=== PATIENT | female | born 1970 | race Caucasian/White ===

== ENCOUNTER 2023-01-26 19:44 | Emergency (ER) | payer OTHER, SELFPAY ==
[2023-01-26 19:51] VITALS: BP 150/90; PULSE 67; RESP 18; TEMP 36.9; O2SAT 95; BMI 33.3
--- NOTE | 2023-01-26 20:18 | ED.BACK1 ---
HPI - Back Pain/Injury General Chief Complaint: Back Pain/Injury Stated Complaint: BACK PAIN, ABDOMINAL PAIN Time Seen by Provider: 01/26/23 19:54 Source: patient and family Mode of arrival: walk-in History of Present Illness HPI Narrative: patient presents complaining right back pain that radiates around to her right lower quad. Past history of kidney stones. States last stone was a year ago. Pain associated with nausea and loose stools. No fever or urinary symptoms MD elicited complaint: Reports back pain Pertinent past history: Reports kidney stones Related Data Home Medications Medication Instructions Recorded Confirmed duloxetine 30 mg capsule,delayed 30 mg PO QDAY 01/26/23 01/26/23 release Allergies Allergy/AdvReac Type Severity Reaction Status Date / Time codeine AdvReac Agitated Verified 01/26/23 19:55 Review of Systems ROS Status of ROS 10 or more systems reviewed and unremarkable except as noted in history and below PFSH PFS Social History Smoking status: Never smoker Exam Constitutional Vital Signs, click to edit/add: Last Vital Signs Temp 98.5 F 01/26/23 19:51 Pulse 79 01/26/23 22:50 Resp 16 01/26/23 22:50 BP 143/94 H 01/26/23 22:50 Pulse Ox 100 01/26/23 22:50 O2 Del Method Room Air 01/26/23 19:51 Common normals: oriented x3 and alert Eye Common normals: PERRL, EOMs intact bilaterally, conjunctivae normal and no scleral icterus Respiratory Common normals: normal respiratory effort, no retractions, no use of accessory muscles and clear to auscultation bilaterally Cardio Common normals: regular rate, regular rhythm, S1 normal heart sound and S2 normal heart sound GI Other: mild tenderness right flank and RLQ Back & Pelvis General back: CVA tenderness (right CVA tenderness) Extremity Common normals: normal to inspection and full ROM Neuro Common normals: oriented x3, CN's II-XII intact bilaterally, moves all extremities and no focal motor deficits Psych Appearance: grossly normal Course Vital Signs Vital signs: Vital Signs Temperature 98.5 F 01/26/23 19:51 Pulse Rate 67 01/26/23 19:51 Respiratory Rate 18 01/26/23 19:51 Blood Pressure 150/90 H 01/26/23 19:51 Pulse Oximetry 95 01/26/23 19:51 Oxygen Delivery Method Room Air 01/26/23 19:51 Temperature 98.5 F 01/26/23 19:51 Pulse Rate 79 01/26/23 22:50 Respiratory Rate 16 01/26/23 22:50 Blood Pressure 143/94 H 01/26/23 22:50 Pulse Oximetry 100 01/26/23 22:50 Oxygen Delivery Method Room Air 01/26/23 19:51 MDM - Back Pain/Injury MDM Narrative Medical decision making narrative: patient presents with right flank pain. Found to have a stone at the right UVJ and hydronephrosis. UA without evidence of infection. Patient hydrated and pain controlled prior to discharge. Stone 2mm in size and should be able to pass. Will discharge home and have her follow up with Urology Lab Data Labs: Lab Results 01/26/23 01/26/23 Range/Units 20:14 20:37 WBC 7.3 (4.0-11.0) 10^3/uL RBC 4.69 (4.20-5.40) 10^6/uL Hgb 14.1 (12.0-16.0) g/dL Hct 42.3 (36.0-48.0) % MCV 90.2 (81.0-99.0) fL MCH 30.1 (26.7-34.0) pg MCHC 33.3 (29.9-35.2) g/dL RDW 13.9 (11.0-15.0) % Plt Count 293 (150-450) 10^3/uL MPV 9.8 (9.5-13.5) fL Neut % (Auto) 62.0 (43.0-75.0) % Lymph % (Auto) 26.2 (20.5-60.0) % [place] % (Auto) 7.5 (1.7-12.0) % Eos % (Auto) 3.0 (0.9-7.0) % Baso % (Auto) 0.8 (0.2-2.0) % Neut # (Auto) 4.5 (1.4-6.5) 10^3/uL Lymph # (Auto) 1.9 (1.2-3.8) 10^3/uL [place] # (Auto) 0.6 (0.3-0.8) 10^3/uL Eos # (Auto) 0.2 (0.0-0.7) 10^3/uL Baso # (Auto) 0.1 (0.0-0.1) 10^3/uL Abs Immat Gran (auto) 0.04 H (0.00-0.03) 10^3/uL Imm/Tot Granulo (auto) 0.5 (0.0-0.5) % Sodium 141 (136-145) mmol/L Potassium 3.7 (3.5-5.1) mmol/L Chloride 103 (98-107) mmol/L Carbon Dioxide 25.9 (21.0-32.0) mmol/L Anion Gap 15.8 BUN 15.0 (7.0-18.0) mg/dL Creatinine 0.97 (0.55-1.02) mg/dL Est GFR ( Amer) >60 (>=60) Est GFR (Non-Af Amer) >60 (>=60) BUN/Creatinine Ratio 15.5 Glucose 129 H (74-106) mg/dL Calcium 8.9 (8.5-10.1) mg/dL Total Bilirubin 0.7 (0.2-1.0) mg/dL AST 44 H (15-37) U/L ALT 69 H (14-59) U/L Alkaline Phosphatase 105 (46-116) U/L Total Protein 8.1 (6.4-8.2) g/dL Albumin 4.3 (3.4-5.0) g/dL Globulin 3.8 g/dL Albumin/Globulin Ratio 1.1 Urine Color Yellow (YELLOW) Urine Clarity Clear (CLEAR) Urine pH 5.5 (5.0-9.0) Ur Specific [place] >=1.030 A (1.005-1.025) Urine Protein 30 A (NEG/TRACE) mg/dL Urine Glucose (UA) Negative (NEGATIVE) mg/dL Urine Ketones Negative (NEGATIVE) mg/dL Urine Occult Blood Large A (NEGATIVE) Urine Nitrite Negative (NEGATIVE) Urine Bilirubin Negative (NEGATIVE) Urine Urobilinogen 0.2 (0.2-1.0) EU/dL Ur Leukocyte Esterase Negative (NEGATIVE) Urine RBC 10-20 A (0-2) #/HPF Urine WBC 0-2 A (NONE SEEN) #/HPF Ur Squamous Epith Cells Few A (NONE/RARE) #/LPF Urine Crystals None seen (None Seen) #/HPF Urine Bacteria Trace A (NONE SEEN) #/HPF Urine Casts None seen (NONE SEEN) #/LPF Urine Mucus None seen (NONE SEEN) Ur Culture Indicated? Yes Imaging Data CT scan - abdomen: Radiologist's impression: [email or web address]?file=#[email or web address]?file=#[email or web address] Find: Highlight all Match case Current View [email or web address]?file=#[email or web address]&zoom=auto,-08,733 Page: of 2 Current View [email or web address]?file=#[email or web address]&zoom=auto,-78,657 [place] [id number] Patient Name: BHARATHI WEN MRN: [id number] date: 1970 Sex: F Assigned Patient Location: ER Current Patient Location: ER Accession/Order Number: [id number] Exam Date: 01/26/2023 20:40 Report Date: 01/26/2023 21:59 At the request of: JEROD CONRAD Procedure: CT abdomen pelvis wo con EXAMINATION: CT abdomen pelvis wo con, 01/26/2023 8:40 PM EDT HISTORY: right flank pain COMPARISON: CT abdomen and pelvis 09/22/2021 TECHNIQUE: CT scan of the abdomen and pelvis was performed without IV contrast. CT dose reduction technique was used, including Automated Exposure Control. FINDINGS: LOWER CHEST: Mild bibasilar atelectasis. LIVER: Moderate diffuse fatty infiltration. GALLBLADDER AND BILIARY SYSTEM: Status-post cholecystectomy. SPLEEN: Normal. PANCREAS: Normal. ADRENAL GLANDS: Normal. KIDNEYS AND URETERS: 4 mm stone in the right kidney lower pole which is slightly increased in size. There is new moderate right hydronephrosis. There is a stone at the right ureteropelvic junction measuring 2 mm on image 53 series 3. There are multiple nonobstructing left renal stones measuring up to 11 x 8 mm. These appear essentially stable. There is no left-sided hydroureteronephrosis or ureteral stones. VASCULATURE: Normal. RETROPERITONEUM AND LYMPH NODES: Normal, with no lymphadenopathy. GASTROINTESTINAL TRACT/MESENTERY: There are 2 stable diverticula off the distal third, and fourth portion of the duodenum measuring 2.9 x 1.9 cm and 2.8 x 1.9 cm. There are multiple diverticula within the descending and sigmoid colon with no definite acute diverticulitis. There is prominent submucosal fat within the ascending and transverse colon which can be seen as a normal variant as well as with chronic inflammation which is similar to the previous study. Bowel loops are nondistended. There is a ventriculoperitoneal shunt catheter in the chest wall, extending into the upper abdomen with tip in the right pelvis. BLADDER: The bladder is underdistended. REPRODUCTIVE SYSTEM: Normal uterus and adnexa. BODY WALL: Normal. BONES: There is mild levoscoliosis of the lumbar spine and there are mild to moderate degenerative changes at L5-S1. IMPRESSION: 1. Moderate right hydronephrosis secondary to a 2 mm stone at the ureteropelvic junction. 2. Nonobstructing bilateral renal stones, left greater than right. 3. Fatty liver. 4. Duodenal diverticula. 5. Prominent submucosal fat in the colon which can be seen as normal variant as well as with chronic inflammation. 6. Colonic diverticulosis with no acute diverticulitis. Electronically authenticated by: BRICE SALAS Date: 01/26/2023 21:59 Discharge Plan Discharge Chief Complaint: Back Pain/Injury Clinical Impression: Renal colic Patient Disposition: Home, Self-Care Prescriptions / Home Meds: No Action duloxetine 30 mg capsule,delayed release(DR/EC) 30 mg PO QDAY Instructions: Renal Colic (ED) Additional Instructions: follow up with urology. Return if pain worsens or you develop fever Stand Alone Forms: Portal Instructions Referrals: Kit Delarosa MD [Primary Care Provider] - 1 week
--- NOTE | 2023-01-26 20:19 | PC.NURSE ---
patient states she started to feel intense left sided flank pain radiating into left side of abdomen and down to pelvis. states she was eating when it started. she has had approx 4 episodes of loose stool but states its not like diarrhea. she has had kidney stones in the past and feels like this is similar. patient denies trauma to area. states no vomiting. no abnormalities seen to affected area. 18g iv initiated in left ac by ultrasound after unsuccessful stick. patient given gown and blanket. would like something for pain.
--- NOTE | 2023-01-26 20:23 | CT_ITS ---
The [address] [address] Patient Name: BHARATHI WEN MRN: [id number] date: 1970 Sex: F Assigned Patient Location: ER Current Patient Location: ER Accession/Order Number: [id number] Exam Date: 01/26/2023 20:40 Report Date: 01/26/2023 21:59 At the request of: JEROD CONRAD Procedure: CT abdomen pelvis wo con EXAMINATION: CT abdomen pelvis wo con, 01/26/2023 8:40 PM EDT HISTORY: right flank pain COMPARISON: CT abdomen and pelvis 09/22/2021 TECHNIQUE: CT scan of the abdomen and pelvis was performed without IV contrast. CT dose reduction technique was used, including Automated Exposure Control. FINDINGS: LOWER CHEST: Mild bibasilar atelectasis. LIVER: Moderate diffuse fatty infiltration. GALLBLADDER AND BILIARY SYSTEM: Status-post cholecystectomy. SPLEEN: Normal. PANCREAS: Normal. ADRENAL GLANDS: Normal. KIDNEYS AND URETERS: 4 mm stone in the right kidney lower pole which is slightly increased in size. There is new moderate right hydronephrosis. There is a stone at the right ureteropelvic junction measuring 2 mm on image 53 series 3. There are multiple nonobstructing left renal stones measuring up to 11 x 8 mm. These appear essentially stable. There is no left-sided hydroureteronephrosis or ureteral stones. VASCULATURE: Normal. RETROPERITONEUM AND LYMPH NODES: Normal, with no lymphadenopathy. GASTROINTESTINAL TRACT/MESENTERY: There are 2 stable diverticula off the distal third, and fourth portion of the duodenum measuring 2.9 x 1.9 cm and 2.8 x 1.9 cm. There are multiple diverticula within the descending and sigmoid colon with no definite acute diverticulitis. There is prominent submucosal fat within the ascending and transverse colon which can be seen as a normal variant as well as with chronic inflammation which is similar to the previous study. Bowel loops are nondistended. There is a ventriculoperitoneal shunt catheter in the chest wall, extending into the upper abdomen with tip in the right pelvis. BLADDER: The bladder is underdistended. REPRODUCTIVE SYSTEM: Normal uterus and adnexa. BODY WALL: Normal. BONES: There is mild levoscoliosis of the lumbar spine and there are mild to moderate degenerative changes at L5-S1. CT/CT abdomen pelvis wo con IMPRESSION: 1. Moderate right hydronephrosis secondary to a 2 mm stone at the ureteropelvic junction. 2. Nonobstructing bilateral renal stones, left greater than right. 3. Fatty liver. 4. Duodenal diverticula. 5. Prominent submucosal fat in the colon which can be seen as normal variant as well as with chronic inflammation. 6. Colonic diverticulosis with no acute diverticulitis. Electronically authenticated by: BRICE SALAS Date: 01/26/2023 21:59
[2023-01-26 20:30] LABS: Basophils Absolute Auto 0.1 10^3/uL (0.0-0.1); Basophils Percent Auto 0.8 % (0.2-2.0); Eosinophils Absolute Auto 0.2 10^3/uL (0.0-0.7); Hematocrit 42.3 % (36.0-48.0); Hemoglobin 14.1 g/dL (12.0-16.0); Immature Granulocytes Abs Auto 0.04 10^3/uL (0.00-0.03); Immature Granulocytes Pct Auto 0.5 % (0.0-0.5); Lymphocytes Absolute Auto 1.9 10^3/uL (1.2-3.8); Lymphocytes Percent Auto 26.2 % (20.5-60.0); Mean Corpuscular HGB Conc 33.3 g/dL (29.9-35.2); Mean Corpuscular Hemoglobin 30.1 pg (26.7-34.0); Mean Corpuscular Volume 90.2 fL (81.0-99.0); Mean Platelet Volume 9.8 fL (9.5-13.5); Monocytes Absolute Auto 0.6 10^3/uL (0.3-0.8); Monocytes Percent Auto 7.5 % (1.7-12.0); Neutrophils Absolute Auto 4.5 10^3/uL (1.4-6.5); Platelet Count 293 10^3/uL (150-450); Red Blood Count 4.69 10^6/uL (4.20-5.40); Red Cell Distribution Width 13.9 % (11.0-15.0); White Blood Count 7.3 10^3/uL (4.0-11.0)
[2023-01-26 20:46] LABS: Bilirubin Urine NEGATIVE (NEGATIVE); Blood Urine LARGE (NEGATIVE); Clarity Urine CLEAR (CLEAR); Color Urine YELLOW (YELLOW); Glucose Urine UA NEGATIVE (NEGATIVE); Ketones Urine NEGATIVE (NEGATIVE); Leukocyte Esterase Urine NEGATIVE (NEGATIVE); Nitrite Urine NEGATIVE (NEGATIVE); Protein Urine 30 mg/dL (NEG/TRACE); Specific Gravity Urine >=1.030 (1.005-1.025); Urobilinogen Urine 0.2 EU/dL (0.2-1.0); pH Urine 5.5 (5.0-9.0)
[2023-01-26 20:48] LABS: Urine Microscopic Indicated YES
[2023-01-26 20:48] LABS: Alanine Aminotransferase 69 U/L (14-59); Albumin Globulin Ratio 1.1; Albumin Level 4.3 g/dL (3.4-5.0); Alkaline Phosphatase 105 U/L (46-116); Anion Gap 15.8; Aspartate Amino Transferase 44 U/L (15-37); BUN Creatinine Ratio 15.5; Bilirubin Total 0.7 mg/dL (0.2-1.0); Calcium 8.9 mg/dL (8.5-10.1); Carbon Dioxide 25.9 mmol/L (21.0-32.0); Chloride 103 mmol/L (98-107); Estimated GFR (African America >60 (>=60); Estimated GFR (Non-African Ame >60 (>=60); Globulin 3.8 g/dL; Glucose 129 mg/dL (74-106); Potassium 3.7 mmol/L (3.5-5.1); Sodium 141 mmol/L (136-145); Total Protein 8.1 g/dL (6.4-8.2)
[2023-01-26] MEDS: 0.9 % SODIUM CHLORIDE 1,000 ML 999 ML IV ×2 (20:48→22:42)
[2023-01-26] MEDS: ORPHENADRINE 60 MG/ 2 ML VIAL IV (20:49)
[2023-01-26] MEDS: ONDANSETRON PF 4 MG/2 ML VIAL IV (20:49)
[2023-01-26] MEDS: KETOROLAC TROMETHAMINE 30 MG/ML VIAL IVP (20:49)
[2023-01-26 20:53] LABS: Bacteria Urine TRACE #/HPF (NONE SEEN); Cast Seen? NONE SEEN #/LPF (NONE SEEN); Crystals Seen? None Seen #/HPF (None Seen); Mucus Urine NONE SEEN (NONE SEEN); Squamous Epithelial Cell Urine FEW #/LPF (NONE/RARE); Urine Culture Indicated YES; WBC Urine 0-2 #/HPF (NONE SEEN)
[2023-01-26] MEDS: MORPHINE SULFATE 4 MG/ML VIAL IV (22:42)
[2023-01-26 22:50] VITALS: BP 143/94; PULSE 79; RESP 16; O2SAT 100
[2023-01-27] MEDS: HYDROCODONE/ACETAMINOPHEN 5-325 MG TABLET 4 TAB PO (00:02)
== END 2023-01-27 00:22 | disposition home or self-care (01) ==
PROVIDERS: Emergency Provider Internal Medicine; PCP Family Medicine
DX: N13.2 Hydronephrosis with renal and ureteral calculous obstruction (principal); Z87.442 Personal history of urinary calculi
CPT/HCPCS: 36415; 74176; 80053; 81001; 85025; 87086; 99284

== ENCOUNTER 2023-02-25 08:15 | Emergency (ER) | payer OTHER, SELFPAY ==
[2023-02-25 08:18] VITALS: BP 165/97; PULSE 78; RESP 20; TEMP 36.7; O2SAT 97; BMI 36.0
--- NOTE | 2023-02-25 08:38 | CT_ITS ---
The [address] [address] Patient Name: BHARATHI WEN MRN: [id number] date: 1970 Sex: F Assigned Patient Location: ER Current Patient Location: Accession/Order Number: [id number] Exam Date: 02/25/2023 08:57 Report Date: 02/25/2023 09:28 At the request of: KERVIN SNYDER Procedure: CT abdomen pelvis wo con CT abdomen pelvis wo con, 02/25/2023 8:57 AM EDT INDICATION: Right flank pain, rule out kidney stone COMPARISON: Noncontrast CT scan of the abdomen and pelvis 01/26/2023 TECHNIQUE: Axial images of the abdomen and pelvis were obtained without IV contrast. Multiplanar reformatted images were generated and reviewed as needed. Dose reduction techniques were achieved by using automated exposure control and/or adjustment of mA and/or kV according to patient size and/or use of iterative reconstruction technique. FINDINGS: Subsegmental atelectasis at the lung bases bilaterally. No effusion. Cholecystectomy. Diffuse fatty infiltration within an enlarged liver. Likely vascular calcification within the spleen. Nonobstructing left nephrolithiasis. Nonobstructing right renal calculus is no longer visualized. Mild right perinephric and periureteral fat stranding. 2 mm calculus within the right UVJ with mild collecting system dilatation proximally. No perivesicular fat stranding. Uterus and adnexa are unremarkable on a noncontrast scan. No aortic aneurysm. No bowel obstruction or acute focal inflammation. Diverticula along the third portion of the duodenum. Normal appendix. Colonic diverticulosis. Submucosal fat deposition terminal ileum, ileocecal valve and colon, grossly unchanged. No pneumatosis, pneumoperitoneum or ascites. No mesenteric or retroperitoneal lymphadenopathy. Visualized portions of SUPPLY CATAL[employer] shunt catheter appear intact. No acute fracture or dislocation. Stable mild levoscoliosis and degenerative disc disease L5/S1. CT/CT abdomen pelvis wo con IMPRESSION: 1. 2 mm right UVJ calculus with mild right hydroureteronephrosis. 2. Nonobstructing left nephrolithiasis. 3. Duodenal diverticulosis and Diverticulosis coli. No findings to suggest diverticulitis. 4. Hepatomegaly with diffuse hepatic steatosis. Electronically authenticated by: BRANT LEE Date: 02/25/2023 09:28
--- NOTE | 2023-02-25 08:42 | ED.GENADUL1 ---
HPI - General Adult General Chief complaint: Back Pain/Injury Stated complaint: BACK PAIN Time Seen by Provider: 02/25/23 08:32 Source: patient Mode of arrival: walk-in History of Present Illness HPI narrative: 52-year-old female presents for right flank pain. She has a history of kidney stones and this time it started yesterday and was worse today. She had a kidney stone about a month ago. At that time it was 2 mm at the right ureteropelvic junction. No fever or left-sided pain. The pain is severe and now continuous. Related Data Home Medications Medication Instructions Recorded Confirmed duloxetine 30 mg capsule,delayed 30 mg PO QDAY 01/26/23 02/25/23 release Previous Rx's Medication Instructions Recorded hydrocodone 5 mg-acetaminophen 325 1 tab PO Q6H PRN pain #20 tabs 02/25/23 mg tablet ondansetron HCl 4 mg tablet 4 mg PO Q6H PRN nausea and 02/25/23 vomiting #20 tabs tamsulosin 0.4 mg capsule (Flomax) 0.4 mg PO DAILY #7 caps 02/25/23 Allergies Allergy/AdvReac Type Severity Reaction Status Date / Time codeine AdvReac Agitated Verified 02/25/23 08:25 Review of Systems ROS Narrative A ten point review of systems is negative except as noted above. PFSH PFSH Social History Smoking status: Never smoker Exam Narrative Exam Narrative: Nurses note and vital signs reviewed and patient is not hypoxic. General: The patient appears well and in no apparent distress. Patient is resting comfortably on cart. Skin: Warm, dry, no pallor noted. There is no rash noted. Head: Normocephalic, atraumatic Eye: Normal conjunctiva, no drainage Ears, Nose, Mouth, and Throat: oral mucosa is moist. Nares patent. Mouth without vesicles. Cardiovascular: Regular Rate and Rhythm Respiratory: Patient is in no distress, no accessory muscle use, lungs are clear to auscultation, no wheezing, rales or rhonchi Back: non-tender, no CVA tenderness bilaterally to percussion. no rash in the flank or abdominal areas. GI: Normal bowel sounds, no tenderness to palpation, no masses appreciated. No rebound, guarding, or rigidity noted. Musculoskeletal: The patient has no evidence of calf tenderness, no pitting edema, symmetrical pulses noted bilaterally Neurological: A&O, normal speech Psychiatric: Cooperative Constitutional Vital Signs, click to edit/add: Last Vital Signs Temp 98.0 F 02/25/23 08:18 Pulse 82 02/25/23 10:23 Resp 18 02/25/23 10:23 BP 133/105 H 02/25/23 10:23 Pulse Ox 98 02/25/23 10:23 O2 Del Method Room Air 02/25/23 08:18 Course Vital Signs Vital signs: Vital Signs Temperature 98.0 F 02/25/23 08:18 Pulse Rate 78 02/25/23 08:18 Respiratory Rate 20 02/25/23 08:18 Blood Pressure 165/97 H 02/25/23 08:18 Pulse Oximetry 97 02/25/23 08:18 Oxygen Delivery Method Room Air 02/25/23 08:18 Temperature 98.0 F 02/25/23 08:18 Pulse Rate 82 02/25/23 10:23 Respiratory Rate 18 02/25/23 10:23 Blood Pressure 133/105 H 02/25/23 10:23 Pulse Oximetry 98 02/25/23 10:23 Oxygen Delivery Method Room Air 02/25/23 08:18 Medical Decision Making MDM Narrative Medical decision making narrative: kidney stone is identified at the right UV junction. The patient has an appointment with urology next week and she'll keep that appointment. She is feeling comfortable and is able to be discharged home. Treatment diagnosis of upper discussed with the patient and her father. Differential Diagnosis Differential Diagnosis: kidney stone, urinary tract infection, hydronephrosis Lab Data Lab results reviewed: Yes I reviewed the patient's lab results Labs: Lab Results 02/25/23 02/25/23 Range/Units 08:28 09:15 WBC 8.9 (4.0-11.0) 10^3/uL RBC 4.33 (4.20-5.40) 10^6/uL Hgb 13.3 (12.0-16.0) g/dL Hct 39.7 (36.0-48.0) % MCV 91.7 (81.0-99.0) fL MCH 30.7 (26.7-34.0) pg MCHC 33.5 (29.9-35.2) g/dL RDW 13.2 (11.0-15.0) % Plt Count 262 (150-450) 10^3/uL MPV 10.2 (9.5-13.5) fL Neut % (Auto) 78.8 H (43.0-75.0) % Lymph % (Auto) 13.5 L (20.5-60.0) % [place] % (Auto) 5.3 (1.7-12.0) % Eos % (Auto) 1.0 (0.9-7.0) % Baso % (Auto) 0.7 (0.2-2.0) % Neut # (Auto) 7.0 H (1.4-6.5) 10^3/uL Lymph # (Auto) 1.2 (1.2-3.8) 10^3/uL [place] # (Auto) 0.5 (0.3-0.8) 10^3/uL Eos # (Auto) 0.1 (0.0-0.7) 10^3/uL Baso # (Auto) 0.1 (0.0-0.1) 10^3/uL Abs Immat Gran (auto) 0.06 H (0.00-0.03) 10^3/uL Imm/Tot Granulo (auto) 0.7 H (0.0-0.5) % Sodium 137 (136-145) mmol/L Potassium 3.8 (3.5-5.1) mmol/L Chloride 105 (98-107) mmol/L Carbon Dioxide 22.5 (21.0-32.0) mmol/L Anion Gap 13.3 BUN 13.0 (7.0-18.0) mg/dL Creatinine 0.82 (0.55-1.02) mg/dL Est GFR ( Amer) >60 (>=60) Est GFR (Non-Af Amer) >60 (>=60) BUN/Creatinine Ratio 15.9 Glucose 128 H (74-106) mg/dL Calcium 9.2 (8.5-10.1) mg/dL Urine Color Lt. yellow (YELLOW) Urine Clarity Clear (CLEAR) Urine pH 6.0 (5.0-9.0) Ur Specific [place] 1.025 (1.005-1.025) Urine Protein Trace (NEG/TRACE) mg/dL Urine Glucose (UA) Negative (NEGATIVE) mg/dL Urine Ketones Negative (NEGATIVE) mg/dL Urine Occult Blood Moderate A (NEGATIVE) Urine Nitrite Negative (NEGATIVE) Urine Bilirubin Negative (NEGATIVE) Urine Urobilinogen 0.2 (0.2-1.0) EU/dL Ur Leukocyte Esterase Negative (NEGATIVE) Urine RBC 2-5 A (0-2) #/HPF Urine WBC 0-2 A (NONE SEEN) #/HPF Ur Squamous Epith Cells Few A (NONE/RARE) #/LPF Urine Bacteria Small A (NONE SEEN) #/HPF Urine Mucus None seen (NONE SEEN) Imaging Data CT scan - abdomen: Radiologist's impression: Procedure: CT abdomen pelvis wo con CT abdomen pelvis wo con, 02/25/2023 8:57 AM EDT INDICATION: Right flank pain, rule out kidney stone COMPARISON: Noncontrast CT scan of the abdomen and pelvis 01/26/2023 TECHNIQUE: Axial images of the abdomen and pelvis were obtained without IV contrast. Multiplanar reformatted images were generated and reviewed as needed. Dose reduction techniques were achieved by using automated exposure control and/or adjustment of mA and/or kV according to patient size and/or use of iterative reconstruction technique. FINDINGS: Subsegmental atelectasis at the lung bases bilaterally. No effusion. Cholecystectomy. Diffuse fatty infiltration within an enlarged liver. Likely vascular calcification within the spleen. Nonobstructing left nephrolithiasis. Nonobstructing right renal calculus is no longer visualized. Mild right perinephric and periureteral fat stranding. 2 mm calculus within the right UVJ with mild collecting system dilatation proximally. No perivesicular fat stranding. Uterus and adnexa are unremarkable on a noncontrast scan. No aortic aneurysm. No bowel obstruction or acute focal inflammation. Diverticula along the third portion of the duodenum. Normal appendix. Colonic diverticulosis. Submucosal fat deposition terminal ileum, ileocecal valve and colon, grossly unchanged. No pneumatosis, pneumoperitoneum or ascites. No mesenteric or retroperitoneal lymphadenopathy. Visualized portions of [employer] shunt catheter appear intact. No acute fracture or dislocation. Stable mild levoscoliosis and degenerative disc disease L5/S1. IMPRESSION: 1. 2 mm right UVJ calculus with mild right hydroureteronephrosis. 2. Nonobstructing left nephrolithiasis. 3. Duodenal diverticulosis and Diverticulosis coli. No findings to suggest diverticulitis. 4. Hepatomegaly with diffuse hepatic steatosis. Electronically authenticated by: BRANT LEE Date: 02/25/2023 09:28 Discharge Plan Discharge Chief Complaint: Back Pain/Injury Clinical Impression: Kidney stone Patient Disposition: Home, Self-Care Time of Disposition Decision: 10:47 Condition: Good Mode of Transportation: Private Vehicle Prescriptions / Home Meds: New hydrocodone-acetaminophen 5-325 mg tablet 1 tab PO Q6H PRN (Reason: pain) Qty: 20 0RF tamsulosin [Flomax] 0.4 mg capsule 0.4 mg PO DAILY Qty: 7 0RF ondansetron HCl 4 mg tablet 4 mg PO Q6H PRN (Reason: nausea and vomiting) Qty: 20 0RF No Action duloxetine 30 mg capsule,delayed release(DR/EC) 30 mg PO QDAY Print Language: Ukrainian Instructions: Kidney Stones (ED), Flank Pain (ED) Stand Alone Forms: Portal Instructions Referrals: Kit Delarosa MD [Primary Care Provider] - 1 week
[2023-02-25] MEDS: MORPHINE SULFATE 4 MG/ML VIAL IV (08:52)
[2023-02-25] MEDS: 0.9 % SODIUM CHLORIDE 1,000 ML 1000 ML IV (09:05)
[2023-02-25 09:37] LABS: Basophils Absolute Auto 0.1 10^3/uL (0.0-0.1); Basophils Percent Auto 0.7 % (0.2-2.0); Eosinophils Absolute Auto 0.1 10^3/uL (0.0-0.7); Hematocrit 39.7 % (36.0-48.0); Hemoglobin 13.3 g/dL (12.0-16.0); Immature Granulocytes Abs Auto 0.06 10^3/uL (0.00-0.03); Immature Granulocytes Pct Auto 0.7 % (0.0-0.5); Lymphocytes Absolute Auto 1.2 10^3/uL (1.2-3.8); Lymphocytes Percent Auto 13.5 % (20.5-60.0); Mean Corpuscular HGB Conc 33.5 g/dL (29.9-35.2); Mean Corpuscular Hemoglobin 30.7 pg (26.7-34.0); Mean Corpuscular Volume 91.7 fL (81.0-99.0); Mean Platelet Volume 10.2 fL (9.5-13.5); Monocytes Absolute Auto 0.5 10^3/uL (0.3-0.8); Monocytes Percent Auto 5.3 % (1.7-12.0); Neutrophils Percent Auto 78.8 % (43.0-75.0); Platelet Count 262 10^3/uL (150-450); Red Blood Count 4.33 10^6/uL (4.20-5.40); Red Cell Distribution Width 13.2 % (11.0-15.0); White Blood Count 8.9 10^3/uL (4.0-11.0)
[2023-02-25 09:40] LABS: Anion Gap 13.3; BUN Creatinine Ratio 15.9; Calcium 9.2 mg/dL (8.5-10.1); Carbon Dioxide 22.5 mmol/L (21.0-32.0); Chloride 105 mmol/L (98-107); Estimated GFR (African America >60 (>=60); Estimated GFR (Non-African Ame >60 (>=60); Glucose 128 mg/dL (74-106); Potassium 3.8 mmol/L (3.5-5.1); Sodium 137 mmol/L (136-145)
[2023-02-25 10:09] LABS: Bilirubin Urine NEGATIVE (NEGATIVE); Blood Urine MODERATE (NEGATIVE); Clarity Urine CLEAR (CLEAR); Color Urine LT. YELLOW (YELLOW); Glucose Urine UA NEGATIVE (NEGATIVE); Ketones Urine NEGATIVE (NEGATIVE); Leukocyte Esterase Urine NEGATIVE (NEGATIVE); Nitrite Urine NEGATIVE (NEGATIVE); Protein Urine TRACE mg/dL (NEG/TRACE); Specific Gravity Urine 1.025 (1.005-1.025); Urobilinogen Urine 0.2 EU/dL (0.2-1.0)
[2023-02-25 10:23] VITALS: BP 133/105; PULSE 82; RESP 18; O2SAT 98
[2023-02-25 10:26] LABS: WBC Urine 0-2 #/HPF (NONE SEEN)
[2023-02-25 10:27] LABS: Bacteria Urine SMALL #/HPF (NONE SEEN); Mucus Urine NONE SEEN (NONE SEEN); Squamous Epithelial Cell Urine FEW #/LPF (NONE/RARE)
== END 2023-02-25 11:00 | disposition home or self-care (01) ==
PROVIDERS: Emergency Provider Emergency Medicine; PCP Family Medicine
DX: N20.0 Calculus of kidney (principal); Z87.442 Personal history of urinary calculi; Z79.899 Other long term (current) drug therapy
CPT/HCPCS: 36415; 74176; 80048; 81001; 85025; 96374; 99285

== ENCOUNTER 2023-08-03 12:50 | Emergency (ER) | payer OTHER, SELFPAY ==
[2023-08-03 12:59] VITALS: BP 165/100; PULSE 69; RESP 18; TEMP 36.6; O2SAT 97; BMI 37.8
--- NOTE | 2023-08-03 13:13 | ED_ITS ---
HPI - Abdominal Pain General Chief Complaint: Abdominal Pain Stated Complaint: abdominal pain, left flank pain Time Seen by Provider: 08/03/23 13:09 Source: patient Mode of arrival: walk-in Limitations: no limitations History of Present Illness HPI narrative: This patient is here with her father with complaint of left lower pelvic pain that is now rating into her back. Both her and her father had kidney stones b efore. She thinks she may have had a stent once previously but is not accurate. 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 She denies any fevers shakes or chills. She has not seen blood in her urine. She has no history of diverticular disease or ovarian cystic disease that she is aware of. She is not on a new medication. She took a Percocet about 4 hours ago. She has not had any change in her bowel habits just had slight amount of loose stool. She has not had vomiting. Related Data Home Medications Medication Instructions Recorded Confirmed duloxetine 30 mg capsule,delayed 30 mg PO QDAY 01/26/23 02/25/23 release Previous Rx's Medication Instructions Recorded hydrocodone 5 mg-acetaminophen 325 1 tab PO Q6H PRN pain #20 tabs 02/25/23 mg tablet ondansetron HCl 4 mg tablet 4 mg PO Q6H PRN nausea and 02/25/23 vomiting #20 tabs tamsulosin 0.4 mg capsule (Flomax) 0.4 mg PO DAILY #7 caps 02/25/23 Allergies Allergy/AdvReac Type Severity Reaction Status Date / Time codeine AdvReac Agitated Verified 02/25/23 08:25 PFSH PFSH Social History Smoking status: Never smoker Exam Narrative Exam Narrative: Awake alert rates her pain 7 out of 10. She is pleasant fully cooperative. Vital signs are stable. On examination her abdomen she does not have a pulsatile mass there is no peritoneal findings there is no guarding rebound or rigidity. No tenderness on the left hemiabdomen. She has some minimal flank discomfort with percussion on the left. Juan sign on the right is normal. Her lungs are clear no wheeze rales or rhonchi. Heart sounds are normal with no murmur. EXTR perfusion extremities with normal with no evidence of leg swelling edema or phlebitis. Constitutional Vital Signs, click to edit/add: Last Vital Signs Temp 97.9 F 08/03/23 12:59 Pulse 69 08/03/23 12:59 Resp 18 08/03/23 12:59 BP 165/100 H 08/03/23 12:59 Pulse Ox 97 08/03/23 12:59 O2 Del Method Room Air 08/03/23 12:59 Course Vital Signs Vital signs: Vital Signs Temperature 97.9 F 08/03/23 12:59 Pulse Rate 69 08/03/23 12:59 Respiratory Rate 18 08/03/23 12:59 Blood Pressure 165/100 H 08/03/23 12:59 Pulse Oximetry 97 08/03/23 12:59 Oxygen Delivery Method Room Air 08/03/23 12:59 Temperature 97.9 F 08/03/23 12:59 Pulse Rate 69 08/03/23 12:59 Respiratory Rate 18 08/03/23 12:59 Blood Pressure 165/100 H 08/03/23 12:59 Pulse Oximetry 97 08/03/23 12:59 Oxygen Delivery Method Room Air 08/03/23 12:59 MDM - Abdominal Pain MDM Narrative Medical decision making narrative: Initial clinical impression was rule out kidney stones and or diverticular disease. The CT is consistent with a distal left ureteral pelvic stone. There is very mild hydro-. She was medicated initially on arrival and she feels much better. She has already a patient with a local urologist and I would like her to call and follow-up with them. She will be placed on Flomax as well. I do not see that Flomax is contraindicated with her beta-3 agonist. Lab Data Labs: Lab Results 08/03/23 Range/Units 13:17 WBC 9.4 (4.0-11.0) 10^3/uL RBC 4.65 (4.20-5.40) 10^6/uL Hgb 14.0 (12.0-16.0) g/dL Hct 42.6 (36.0-48.0) % MCV 91.6 (81.0-99.0) fL MCH 30.1 (26.7-34.0) pg MCHC 32.9 (29.9-35.2) g/dL RDW 13.2 (11.0-15.0) % Plt Count 302 (150-450) 10^3/uL MPV 9.8 (9.5-13.5) fL Neut % (Auto) 78.0 H (43.0-75.0) % Lymph % (Auto) 13.4 L (20.5-60.0) % [place] % (Auto) 6.4 (1.7-12.0) % Eos % (Auto) 0.9 (0.9-7.0) % Baso % (Auto) 0.7 (0.2-2.0) % Neut # (Auto) 7.3 H (1.4-6.5) 10^3/uL Lymph # (Auto) 1.3 (1.2-3.8) 10^3/uL [place] # (Auto) 0.6 (0.3-0.8) 10^3/uL Eos # (Auto) 0.1 (0.0-0.7) 10^3/uL Baso # (Auto) 0.1 (0.0-0.1) 10^3/uL Abs Immat Gran (auto) 0.06 H (0.00-0.03) 10^3/uL Imm/Tot Granulo (auto) 0.6 H (0.0-0.5) % Sodium 142 (136-145) mmol/L Potassium 3.9 (3.5-5.1) mmol/L Chloride 106 (98-107) mmol/L Carbon Dioxide 24.8 (21.0-32.0) mmol/L Anion Gap 15.1 BUN 14.0 (7.0-18.0) mg/dL Creatinine 1.02 (0.55-1.02) mg/dL Est GFR ( Amer) >60 (>=60) Est GFR (Non-Af Amer) 57 L (>=60) BUN/Creatinine Ratio 13.7 Glucose 164 H (74-106) mg/dL Calcium 9.4 (8.5-10.1) mg/dL Total Bilirubin 0.6 (0.2-1.0) mg/dL AST 49 H (15-37) U/L ALT 62 H (14-59) U/L Alkaline Phosphatase 119 H (46-116) U/L Total Protein 8.2 (6.4-8.2) g/dL Albumin 3.7 (3.4-5.0) g/dL Globulin 4.5 g/dL Albumin/Globulin Ratio 0.8 Discharge Plan Discharge Chief Complaint: Abdominal Pain Clinical Impression: Ureterolithiasis Patient Disposition: Home, Self-Care Time of Disposition Decision: 14:34 Prescriptions / Home Meds: No Action duloxetine 30 mg capsule,delayed release(DR/EC) 30 mg PO QDAY hydrocodone-acetaminophen 5-325 mg tablet 1 tab PO Q6H PRN (Reason: pain) Qty: 20 0RF tamsulosin [Flomax] 0.4 mg capsule 0.4 mg PO DAILY Qty: 7 0RF ondansetron HCl 4 mg tablet 4 mg PO Q6H PRN (Reason: nausea and vomiting) Qty: 20 0RF Additional Instructions: Call your urologist for follow-up. Continue your pain meds. Start Flomax. Drink plenty of fluid Stand Alone Forms: Portal Instructions Referrals: Kit Delarosa MD [Primary Care Provider] - 1 week
--- NOTE | 2023-08-03 13:14 | CT_ITS ---
The [address] [address] Patient Name: BHARATHI WEN MRN: [id number] date: 1970 Sex: F Assigned Patient Location: ER Current Patient Location: ER Accession/Order Number: [id number] Exam Date: 08/03/2023 13:51 Report Date: 08/03/2023 14:14 At the request of: DOUGIE MENDES Procedure: CT abdomen pelvis wo con EXAM: CT abdomen pelvis wo con HISTORY: Kidney stone left COMPARISON: CT abdomen and pelvis 02/25/2023. TECHNIQUE: Axial soft tissue windows of the abdomen and pelvis with coronal and sagittal reformats. CT dose reduction technique was used including Automated Exposure Control. Findings: Lack of intravenous contrast limits evaluation. Minimal bilateral lower lobe dependent atelectasis. ABDOMEN: There is fatty infiltration of the liver. The gallbladder is surgically absent. The spleen, pancreas, and adrenal glands are unremarkable. Unremarkable right kidney. There are nonobstructing left renal stones. The largest measures approximately 0.9 cm. Mild left-sided collecting system dilatation to the level the ureteropelvic junction where there is an obstructing 0.8 cm stone. The bilateral ureters are nondilated. Evaluation of the bowel is limited given the absence of oral contrast. There are colonic diverticula. Duodenal diverticulum. No bowel obstruction. The appendix is nondilated. The aorta is normal caliber. No enlarged abdominal lymph nodes or free abdominal fluid. Pelvis: Nondistended bladder. No bladder calculi. The uterus is present and unremarkable within the limits of CT. No enlarged pelvic lymph nodes or free pelvic fluid. No aggressive sclerotic or lytic osseous lesions. Mild L5-S1 degenerative disc disease. CT/CT abdomen pelvis wo con IMPRESSION: 1. Nonobstructing left renal stones. There is an obstructing stone of the left ureteropelvic junction resulting in mild left-sided collecting system dilatation. 2. Fatty liver. 3. Diverticulosis. Electronically authenticated by: MYESHA ROMERO Date: 08/03/2023 14:14
[2023-08-03 13:25] LABS: Basophils Absolute Auto 0.1 10^3/uL (0.0-0.1); Basophils Percent Auto 0.7 % (0.2-2.0); Eosinophils Absolute Auto 0.1 10^3/uL (0.0-0.7); Eosinophils Percent Auto 0.9 % (0.9-7.0); Hematocrit 42.6 % (36.0-48.0); Immature Granulocytes Abs Auto 0.06 10^3/uL (0.00-0.03); Immature Granulocytes Pct Auto 0.6 % (0.0-0.5); Lymphocytes Absolute Auto 1.3 10^3/uL (1.2-3.8); Lymphocytes Percent Auto 13.4 % (20.5-60.0); Mean Corpuscular HGB Conc 32.9 g/dL (29.9-35.2); Mean Corpuscular Hemoglobin 30.1 pg (26.7-34.0); Mean Corpuscular Volume 91.6 fL (81.0-99.0); Mean Platelet Volume 9.8 fL (9.5-13.5); Monocytes Absolute Auto 0.6 10^3/uL (0.3-0.8); Monocytes Percent Auto 6.4 % (1.7-12.0); Neutrophils Absolute Auto 7.3 10^3/uL (1.4-6.5); Platelet Count 302 10^3/uL (150-450); Red Blood Count 4.65 10^6/uL (4.20-5.40); Red Cell Distribution Width 13.2 % (11.0-15.0); White Blood Count 9.4 10^3/uL (4.0-11.0)
[2023-08-03] MEDS: KETOROLAC TROMETHAMINE 30 MG/ML VIAL 15 MG IVP (13:34)
[2023-08-03] MEDS: 0.9 % SODIUM CHLORIDE 1,000 ML 100 ML IV (13:34)
[2023-08-03] MEDS: HYDROMORPHONE HCL 1 MG/ML CARTRIDGE IVP (13:41)
[2023-08-03 13:48] LABS: Alanine Aminotransferase 62 U/L (14-59); Albumin Globulin Ratio 0.8; Albumin Level 3.7 g/dL (3.4-5.0); Alkaline Phosphatase 119 U/L (46-116); Anion Gap 15.1; Aspartate Amino Transferase 49 U/L (15-37); BUN Creatinine Ratio 13.7; Bilirubin Total 0.6 mg/dL (0.2-1.0); Calcium 9.4 mg/dL (8.5-10.1); Carbon Dioxide 24.8 mmol/L (21.0-32.0); Chloride 106 mmol/L (98-107); Estimated GFR (African America >60 (>=60); Estimated GFR (Non-African Ame 57 (>=60); Globulin 4.5 g/dL; Glucose 164 mg/dL (74-106); Potassium 3.9 mmol/L (3.5-5.1); Sodium 142 mmol/L (136-145); Total Protein 8.2 g/dL (6.4-8.2)
[2023-08-03 14:34] LABS: Bilirubin Urine NEGATIVE (NEGATIVE); Blood Urine LARGE (NEGATIVE); Clarity Urine CLEAR (CLEAR); Color Urine YELLOW (YELLOW); Glucose Urine UA NEGATIVE (NEGATIVE); Ketones Urine TRACE mg/dL (NEGATIVE); Leukocyte Esterase Urine NEGATIVE (NEGATIVE); Nitrite Urine NEGATIVE (NEGATIVE); Protein Urine 30 mg/dL (NEG/TRACE); Specific Gravity Urine >=1.030 (1.005-1.025); Urobilinogen Urine 0.2 EU/dL (0.2-1.0)
[2023-08-03 14:36] LABS: Urine Microscopic Indicated YES
[2023-08-03 14:52] VITALS: BP 127/80
[2023-08-03 14:52] LABS: Bacteria Urine SMALL #/HPF (NONE SEEN); Calcium Oxalate Crystals Urine FEW; Crystals Seen? Seen #/HPF (None Seen); Mucus Urine TRACE (NONE SEEN); Squamous Epithelial Cell Urine FEW #/LPF (NONE/RARE); WBC Urine NONE SEEN #/HPF (NONE SEEN)
[2023-08-03 14:53] LABS: Cast Seen? NONE SEEN #/LPF (NONE SEEN); Urine Culture Indicated YES
== END 2023-08-03 14:56 | disposition home or self-care (01) ==
PROVIDERS: Emergency Provider Emergency Medicine Emergency Medical Services; PCP Family Medicine
DX: N20.1 Calculus of ureter (principal); Z87.442 Personal history of urinary calculi; Z90.49 Acquired absence of other specified parts of digestive tract; K57.90 Diverticulosis of intestine, part unspecified, without perforation or abscess without bleeding
CPT/HCPCS: 36415; 74176; 80053; 81001; 85025; 87086; 96374; 96375; 99285; J1170; J1885

== ENCOUNTER 2024-02-18 14:32 | Outpatient (OUT) | payer OTHER, SELFPAY ==
--- OUTSIDE RECORDS SUMMARY | 2024-02-18 14:46 | XMS_ITS | CCD ---
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 Name Role Phone GEROGE CASH Unavailable Unavailable GEORGE CASH Unavailable Unavailable NO FAMILY DOCTOR, NO FAMILY DOCTOR Unavailable Unavailable Manjit Polk Unavailable Unavailable George Cash Unavailable Unavailable NadererKit Unavailable UnavailChristi Art Unavailable NOY, DR KIT Jaimes Primary Care Unavailable CECE LYNNE Attending Unavailable MAGED, CECE Admitting Unavailable MARKER, DR OSCAR Consulting Unavailable BRICE SALAS Consulting Unavailable CECE LYNNE Consulting Unavailable NADERER, DR KIT Jaimes Attending Unavailable ZIEBCHRISTINE, DR BRICE Ponce Consulting Unavailable NADERER, DR KIT Jaimes Primary Care Unavailable NADERER, DR KIT Jaimes Admitting Unavailable NADERER, DR KIT Jaimes Consulting Unavailable NADERER, DR KIT Jaimes Attending Unavailable NADERER, DR KIT Jaimes Primary Care Unavailable ZIEBER, DR BRICE Ponce Consulting Unavailable NADERER, DR KIT Jaimes Admitting Unavailable NADERER, DR KIT Jaimes Consulting Unavailable HOUSTON, JEROD Attending Unavailable HOUSTON, JEROD Consulting Unavailable HOUSTON, JEROD Admitting Unavailable NADERER, DR KIT Jaimes Primary Care Unavailable BENNY SHELLEY Consulting Unavailable CARLOS RAYMUNDO Consulting Unavailable NOY, KIT Primary Care Physician Biju Knox Admitting Unavailable Biju Knox Attending Unavailable NadererKit Primary Care Unavailable Biju KNOX P Attending Unavailable COOK, Biju P Referring Unavailable COOK, Biju P Attending Unavailable COOK, Biju P Attending Unavailable Dario COE Attending Unavailable COOK, Biju P Admitting Unavailable COOK, Biju P Attending Unavailable COOK, Biju P Referring Unavailable NADERER, KIT Attending Unavailable Allergies Allergy Classification Reported Allergen(s) Allergy Type Date of Onset Reaction(s) Facility (1 source) Codeine Drug Allergy hot flashes/nose bleed [facility] Other (2 sources) Codeine; Translations: [codeine] Drug Allergy 3 [facility] Repository (1 source) Sulfonamides (Antibiotic) Drug allergy (disorder) 3 [facility] Repository (2 sources) Codeine; Translations: [codeine] Drug Allergy Epistaxis (disorder) [facility] (3 sources) Sulfonamides (Antibiotic); Translations: [sulfa drugs] Drug allergy Tachypnea, Dyspnea [facility] (1 source) Codeine Drug Allergy 4 [facility] Repository (1 source) Sulfonamides (Antibiotic) Drug allergy (disorder) 4 [facility] Repository Medications Current Medications Medication Drug Class(es) Dates Sig (Normalized) Sig (Original) ciprofloxacin 500 mg oral tablet (2 sources) Quinolone Antimicrobial Start: 08-13-2023 Cipro 500 mg Tab See Instructions, Take 1 tab day prior to procedure and 1 tab day of procdure - afterwards, # 2 tab(s), Refills(s) 0 Start Date: 08/13/23 Status: Ordered Clotrimazole (1 source) Azole Antifungal Start: 08-12-2021 Clotrimazole 1 % 1 application to affected area Externally Twice a day for 28 day(s) Aug, Active DULoxetine (1 source) Serotonin and Norepinephrine Reuptake Inhibitor Cymbalta Active Myrbetriq (3 sources) beta3-Adrenergic Agonist Start: 08-10-2023 Myrbetriq Oral, Daily, Refills(s) 0 Start Date: 08/10/23 Status: Ordered Myrbetriq Active naproxen sodium 550 mg oral tablet (1 source) Nonsteroidal Anti-inflammatory Drug Start: 09-17-2020 take 1 tablet by mouth every twelve hours at mealtime as needed Naproxen Sodium 550 MG 1 tablet with food or milk as needed Orally every 12 hrs for 7 days Sep, Active Completed/Discontinued Medications Medication Drug Class(es) Dates Sig (Normalized) Sig (Original) acetaminophen 325 mg / HYDROcodone bitartrate 5 mg oral tablet (2 sources) Opioid Agonist Start: 08-10-2023 acetaminophen-hyd rocodone 325 mg-5 mg oral tablet Refill(s) 0, 28 EA, 0 Refill(s), take 1 tablet by mouth four times a day if needed Start Date: 08/10/23 Status: Ordered tamsulosin hydrochloride 0.4 mg oral capsule (2 sources) alpha-Adrenergic Go Start: 08-10-2023 tamsulosin 0.4 mg Cap 5 EA, 0 Refill(s), take 1 capsule by mouth once daily, Refills(s) 0 Start Date: 08/10/23 Status: Ordered Problems Active Problems Problem Classification Problem Date Documented Date Episodic/Chronic Abdominal pain (5 sources) Unspecified abdominal pain; Translations: [Abdominal pain] Onset: 09-22-2021 Episodic Calculus of urinary tract (5 sources) Personal history of urinary calculi; Translations: [Kidney stone] Onset: 10-07-2021 Episodic Mood disorders (2 sources) Depressive disorder 08-10-2023 Chronic Other diseases of kidney and ureters (1 source) Urinary tract obstruction; Translations: [Hydronephrosis with renal and ureteral calculous obstruction] Onset: 08-10-2023 Episodic Other lower respiratory disease (5 sources) Solitary pulmonary nodule; Translations: [SOLITARY PULMONARY NODULE] Onset: 09-24-2021 Episodic Unclassified (2 sources) Obstructive hydronephrosis 08-10-2023 Past or Other Problems Problem Classification Problem Date Documented Da te Episodic/Chronic E Codes: Fall (1 source) Fall from other furniture, initial encounter; Translations: [FALL FROM OTHER FURNITURE INITIAL] Onset: 10-07-2021 Episodic Mycoses (1 source) Tinea manuum Onset: 08-12-2021 Resolved: 08-12-2021 Episodic Other aftercare (1 source) 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; Translations: [OTH HALF-WAY CURRENT DRUG THERAPY] Onset: 10-07-2021 Episodic Other connective tissue disease (3 sources) Pain in left leg; Translations: [PAIN IN LEFT LEG] Onset: 10-05-2021 Episodic Residual codes; unclassified (1 source) Acquired absence of other specified parts of digestive tract; Translations: [ACQ ABSENCE OTH PART DIGESTV TRACT] Onset: 10-07-2021 Episodic Superficial injury; contusion (2 sources) Contusion of left hip, initial encounter; Translations: [Contusion of left lower leg, initial encounter] Onset: 10-07-2021 Episodic Results Test Name Value Interpretation Reference Range Facility Consent for Procedure/Surger yon 08-23-2023 Consent for Procedure/Surgery [id number]#1.00 TIFF [facility] Consent for Treatmenton 08-12 Consent for Treatment [id number] IFF [facility] Inpatient Patient Summaryon 08-23-2023 Inpatient Patient Summary [address] [address] Clinical Summary Person Information Name: BHARATHI WEN Age: 53 Years : 1970 Sex: Female PCP: KIT VILLAFUERTE MD Marital Status: Race: White Ethnicity: Non- or Language: Kiswahili Visit Id: Visit Reason: KIDNEY STONE Speciality: Acuity: Enc Type: Outpatient Med Service: Surgery Arrival: 08/23/2023 15:16:57 Discharge: Dispo Type: Address: [address] [place] [id number] Provider Notes: Diagnosis: Problems Active Ureteral stone with hydronephrosis Kidney stones Depression Smoking Status: Functional Status: Sensory Deficits: History of Falls: Mobility Assistance Prior to Admission: ADLs: Current Level of Assistance for Self-Care/Mobility: Cognitive Status: Allergies codeine (Dyspnea) () sulfa drugs (Dyspnea) (Tachypnea) Laboratory or Other Results This Visit (last charted value for your 08/23/2023 visit) No Laboratory or Other Results This Visit Measurements: Height: Weight: Blood Pressure: Not Valued / Not Valued BMI: Procedures No Procedures Documented Immunizations No Immunizations Documented This Visit Final Med List: acetaminophen-hydrocodo ne (acetaminophen-hydrocod one 325 mg-5 mg oral tablet) 28 EA, 0 Refill(s), take 1 tablet by mouth four times a day if needed. ciprofloxacin (Cipro 500 mg Tab) Take 1 tab day prior to procedure and 1 tab day of procdure - afterwards. Refills: 0. ciprofloxacin (Cipro 500 mg Tab) Take 1 tab day prior to procedure and 1 tab day of procdure - afterwards. Refills: 0. mirabegron (Myrbetriq) By Mouth every day. tamsulosin (tamsulosin 0.4 mg Cap) 5 EA, 0 Refill(s), take 1 capsule by mouth once daily. Care Team Members: Attending Physician: Biju KNOX MD Consulting Physician: Referring Physician: Biju KNOX MD Follow up: With: Address: When: [facility] [address], [facility] [address] [place] [phone] Business (1) Within 6 months Comments: Call for followup appointment, with an abdominal x-ray prior to that visit. Please call the office to ask for an order to be sent to the facility where you want this performed. As we discussed if you decide to proceed with a metabolic workup my office can send you a form for blood work to be obtained around the same time as a 24-hour urine collection which would be obtained by way of a kit from a company called [employer]. Otherwise I will see him in 6 months with an abdominal x-ray. Have a great day Patient Education Information: EU - Cystoscopy with Stent Removal Discharge Instructions (Custom) [facility] IntraOperative Documentson 0 08-23-2023 IntraOperative Documents [id number]#1.00 TIFF [facility] Lab Reportson 08-23-2023 Lab Reports [id number] IFF [facility] Main OR Intraoperative Recor don 08-23-2023 Main OR Intraoperative Record IntraOp Document Type FTURO Summary Primary Physician: Biju KNOX MD Finalized Date/Time: 08/23/23 16:18:58 Pt. Name: BHARATHI WEN/Sex: 1970 Female Med Rec #: [id number] Physician: Biju KNOX MD Financial #: [id number] Pt. Type: O Room/Bed: / Admit/Disch: 08/23/23 15:16:57 - Institution: Case Times FTURO Entry 1 Patient Times In Room 08/23/23 16:07:00 Out Room 08/23/23 16:16:00 Procedure Times Start 08/23/23 16:12:00 Stop 08/23/23 16:12:00 Anesthesia Times Last Modified By: Bret VARGAS, Darya Acuña 08/23/23 16:12:56 Case Attendance FTURO Entry 1 Entry 2 Entry 3 Case Attendee ABILIO EDEN, Biju Queen RN, Francisco Greene Role Performed Surgeon - Primary Vascular Manager - Primary Scrub - Primary Time In 08/23/23 16:07:00 08/23/23 16:07:00 08/23/23 16:07:00 Time Out 08/23/23 16:16:00 08/23/23 16:16:00 08/23/23 16:16:00 Procedure CYSTOSCOPY LOCAL WITH CYSTOSCOPY LOCAL WITH CYSTOSCOPY LOCAL WITH STENT REMOVAL(Left) STENT REMOVAL(Left) STENT REMOVAL(Left) Comments Last Modified By: Bret VARGAS, Darya Queen RN, Darya Queen RN, Darya Acuña 08/23/23 Amanda P 08/23/23 Amanda P 08/23/23 16:12:59 16:12:59 16:12:59 Surgical Procedures FTURO Entry 1 Procedure Description Procedure CYSTOSCOPY LOCAL WITH Modifiers Left STENT REMOVAL Surgeon Description CYSTOSCOPY WITH LEFT STENT REMOVAL Primary Procedure Yes Primary Surgeon Biju KNOX MD Start 08/23/23 16:12:00 Stop 08/23/23 16:12:00 Anesthesia Type Local Surgical Service Urology Wound Class 2 - Clean-Contaminated Last Modified By: Bret VARGAS, Darya Acuña 08/23/23 16:12:58 General Case Data FTURO Pre-Care Text: Classifies surgical wound, implements aseptic technique, initiates traffic control Entry 1 Case Information OR URO 1 FT Case Level None Wound Class 2 - Clean-Contaminated Specialty Urology Preop Diagnosis KIDNEY STONE Postop Same As Preop Yes Postop Diagnosis KIDNEY STONE Outcomes Met? Yes Last Modified By: Bret VARGAS, Darya Acuña 08/23/23 16:10:09 Post-Care Text: The patient is free from signs and symptoms of infection EU IntraOp - FTURO Pre-Care Text: Implements protective measures prior to operative or invasive procedure, confirms identity before the operative or invasive procedure, verifies operative procedure, surgical site, and laterality Entry 1 EU Perioperative Protocols Procedure(s) CYSTOSCOPY LOCAL WITH Patient Identity Birthday, ID Band STENT REMOVAL(Left) Verified (select at Check, Patient least 2): Participation Consents / H and P HandP, Surgery/Procedure Operative Site N/A Verified Consent Marking Verified Surgical Site Yes Laterality Verified Yes Verified Procedure Verified Yes Correct Patient Yes Position Verified Availability Equipment, Medication Time Out Biju KNOX MD, Verified (If Participants Darya Queen RN Applicable) Iglesia Rodrate Kendall R Time Out Complete 08/23/23 16:10:00 Allergies Reviewed? Yes Allergies Reviewed Self/Patient With Body Position Low Lithotomy Prep Area PERINEAL AREA Prep Agents Betadine Solution Skin. Condition Unable to Visualize Description CLOTHED Additional None Specimens Collected Vitals - EU Blood Pressure 140/91 Pulse 79 bpm Respirations 14 br/min SPO2 99 % IandO - EU Outcomes Met? Yes Last Modified By: Darya Queen RN 08/23/23 16:10:24 Post-Care Text: The patient is free from signs and symptoms of injury caused by extraneous objects Sign Out FTURO Entry 1 Before Patient Leaves OR Nurse verbally Yes Nurse verbally Yes confirms with the confirms with the team the name of team that the procedure(s) instrument, sponge, recorded and needle counts are correct (or N/A) Nurse verbally n/a Nurse verbally Yes confirms with the confirms with the team how the team whether there specimen is labeled are any equipment (including patient problems to be name), if applicable addressed Sign Out Complete 08/23/23 16:12:00 Last Modified By: Darya Queen RN 08/23/23 16:12:58 Case Comments Finalized By: Darya Queen RN Document Signatures Signed By: Darya Queen RN 08/23/23 16:18 [facility] Main OR Preoperative Recordo n 08-23-2023 Main OR Preoperative Record Holding Area Document Type FTURO Summary Primary Physician: Biju KNOX MD Finalized Date/Time: 08/23/23 15:38:35 Pt. Name: BHARATHI WEN /Sex: 1970 Female Med Rec #: [id number] Physician: Biju KNOX MD Financial #: [id number] Pt. Type: O Room/Bed: / Admit/Disch: 08/23/23 15:16:57 - Institution: Case Times Holding FTURO Pre-Care Text: Verifies consent for planned procedure, identifies individual values and wishes concerning care, includes family members in perioperative teaching Secures patient's records' belongings, and valuables, maintains patient's dignity and privacy, and maintains patient confidentiality Entry 1 In Holding 08/23/23 15:36:00 Outcomes Met? Yes Last Modified By: RAUDEL Catalan RN, Ruthann 08/23/23 15:36:55 Post-Care Text: The patient participates in decisions affecting his or her perioperative plan of care The patient's right to privacy is maintained Surgery Checklist FTURO Entry 1 Patient Birthday, ID Band Procedure History and Physical, Identification: Check, Patient Verification: Surgical Consent, With Participation Patient NPO after Midnight: n/a Personal Items clothes Comment: Limitations: none Complaints of Pain: No Skin Integrity Unable to Visualize Vitals - EU Blood Pressure 140/91 Pulse 79 bpm Respirations 14 br/min SPO2 99 % Additional None RN Reviewed Yes Specimens Collected Last Modified By: RAUDEL Catalan RN, Ruthann 08/23/23 15:38:33 Finalized By: RAUDEL Catalan RN, Ruthann Document Signatures Signed By: RAUDEL Catalan RN, Ruthann 08/23/23 15:38 [facility] Operative Reporton Operative Report Patient: BHARATHI WEN Age: 53 years Sex: Female : 1970 Associated Diagnoses: None Author: Biju KNOX MD Procedure Operative Information Details: Date/ Time: 08/23/2023 16:16:00. Pre-Op Dx: Foreign Body in Bladder - T19.1XXA. Post-Op Dx: Same. Anesthesia Type: Local. Procedure: Local Cystoscopy with Stent Removal. Complications: None. Risks/Benefits/Informed Consent: Surgical risks, benefits, details of the procedure have been explained to the patient, Full informed consent has been obtained. Intraoperative Information Prepped: The patient was prepped with the Betadine solution. Anesthesia: 2% Xylocaine Jelly per urethra. Procedure: Cystoscopy and Left Stent Removal, The flexible Cystoscope was passed in retrograde fashion into the bladder without difficulty, The bladder was viewed in entirety and found to be without tumors or stones, Mild inflammation was seen surrounding the orifice with the stent seen protruding from it, The stent was then grasped and removed in its entirety. Specimens Removed: None. Devices Implanted: None. Postoperative Information Discharge: The patient tolerated the procedure well and was subsequently discharged home, Follow-up in 6 months with KUB. She will decide if she wants to proceed with a metabolic workup.. [facility] Comment on above: Result Comment: Elec tronically Signed By: Biju KNOX MD\.br\Date and Time Signed: 08/23/23 16:16 EDT Outpatient Surgery Discharge Instructionon 08-23-2023 Outpatient Surgery Discharge Instruction [address] [address] Patient Discharge Instructions PERSON INFORMATION Name: BHARATHI WEN Date of : 1970 Current Date: 08/23/2023 16:15:43 PHYSICIANS Admitting Physician: Biju KNOX MD Comment: Discharge Diagnosis: BHARATHI WEN has been given the following list of follow-up instructions, prescriptions, and patient education materials: IF UNABLE TO CONTACT YOUR PHYSICIAN AND YOU FEEL IT IS AN EMERGENCY, GO TO THE NEAREST EMERGENCY ROOM OR CALL 911 Follow up: With: Address: When: Biju KNOX [address] [place] [address], [address], [place] [phone] Business (1) Within 6 months Comments: Call for followup appointment, with an abdominal x-ray prior to that visit. Please call the office to ask for an order to be sent to the facility where you want this performed. As we discussed if you decide to proceed with a metabolic workup my office can send you a form for blood work to be obtained around the same time as a 24-hour urine collection which would be obtained by way of a kit from a company called [employer]. Otherwise I will see him in 6 months with an abdominal x-ray. Have a great day Comment: PATIENT EDUCATION INFORMATION Instructions: Cystoscopy with Stent Removal ? Voiding after the procedure: there may be some pain, burning, urgency, frequency and blood tinged urine following the procedure. These symptoms usually resolve within 2-5 days. Drink the amount of fluid it takes to keep the urine pink to yellow or clear in color. Drinking enough water and fluids will help to ease any discomfort after your procedure. ? If you are having problems that seem out of the ordinary, please call. ? If unable to contact your physician and you feel it is an emergency, go to the nearest emergency room or call 911 ? Diet ? you may resume your normal diet. ? Activity ? you may resume your normal activities ? Call if you have a fever over 100 degrees. I, BHARATHI WEN, have received the attached patient education materials/instructions and have verbalized understanding: May we do a follow up call? Yes No I was present when discharge instructions were given Patient Signature Date Clinican/Nurse Signature _ Date You may receive a survey from [employer] asking you to rate your care experience. Your feedback is important and will help us understand what we do well and how we can improve the quality of care we provide to you, your loved ones and our community. It?s an honor to serve you. Thank you for choosing [facility] Pathology Noteon 08-16-2023 Pathology Note [id number] IFF [facility] ED Note-Physicianon 08-11-19 ED Note-Physician [id number] IFF [facility] Formson 08-11-2023 Forms [id number] IFF [facility] Insurance Correspondenceon 0 08-11-2023 Insurance Correspondence [id number] 0TIFF [facility] Lab Reportson 08-11-2023 Lab Reports [id number] TIFF [facility] Operative Reporton Operative Report [id number] IFF [facility] RAD - CT Reporton 08-11-2023 RAD - CT Report [id number] IFF [facility] RAD - MISCon 08-11-2023 RAD - MISC [id number] IFF [facility] RAD - MISC [id number] IFF [facility] Ambulatory Visit Summaryon 0 08-10-2023 Ambulatory Visit Summary BHARATHI WEN :1970 Visit Date:08/10/2023 Ambulatory Visit Instructions Your Diagnosis Ureteral stone with hydronephrosis Kidney stones Flank pain Your Care Team Attending Physician - Biju KNOX MD Primary Care Physician - KIT VILLAFUERTE MD This Is Your Medications List Contact prescribing physician if questions or concerns acetaminophen-hydrocodo ne (acetaminophen-hydrocod one 325 mg-5 mg oral tablet) mirabegron (Myrbetriq) tamsulosin (tamsulosin 0.4 mg Cap) Procedures Performed Hemorrhoid, Procedure on brain ventricular shunt. Discharge Vitals Blood Pressure 130/88 Height 180 cm Height 71 in Weight 101.5 kg Weight 223.3 lb BMI 31.33 What to do next You Need to Schedule the Following Appointments Follow Up with ABILIO EDEN, KAILYN Blunt When: Comments: sched cysto/L stent placement Where: [address] [place] [id number]- Medications What How Much When Instructions Unchanged acetaminophen-hydrocodo ne (acetaminophen-hydrocod one 325 mg-5 mg oral tablet) 28 EA, 0 Refill(s), take 1 tablet by mouth four times a day if needed Contact prescribing physician if questions or concerns Unchanged mirabegron (Myrbetriq) Every day Contact prescribing physician if questions or concerns Unchanged tamsulosin (tamsulosin 0.4 mg Cap) 5 EA, 0 Refill(s), take 1 capsule by mouth once daily Contact prescribing physician if questions or concerns Allergies codeine (Nose bleed, Dyspnea) sulfa drugs (Tachypnea, Dyspnea) Problems Ongoing - Any problem that you are currently receiving treatment for. Depression Kidney stones Ureteral stone with hydronephrosis Patient Survey You may receive a survey via text or e-mail asking about your office visit. Please share your experience with us by completing your survey. We appreciate your feedback and thank you for choosing us for your care. Education Materials Laser Therapy for Kidney Stones Laser therapy for kidney stones is a procedure to break up small, hard mineral deposits that form in the kidney (kidney stones). The procedure is done using a device that produces a focused beam of light (laser). The laser breaks up kidney stones into pieces that are small enough to be passed out of the body through urination or removed from the body during the procedure. You may need laser therapy if you have kidney stones that are painful or block your urinary tract. This procedure is done by inserting a tube (ureteroscope) into your kidney through the urethral opening. The urethra is the part of the body that drains urine from the bladder. In women, the urethra opens above the vaginal opening. In men, the urethra opens at the tip of the penis. The ureteroscope is inserted through the urethra, and surgical instruments are moved through the bladder and the muscular tube that connects the kidney to the bladder (ureter) until they reach the kidney. Tell a health care provider about: ? Any allergies you have. ? All medicines you are taking, including vitamins, herbs, eye drops, creams, and fkdu-kim-deycgwg medicines. ? Any problems you or family members have had with anesthetic medicines. ? Any blood disorders you have. ? Any surgeries you have had. ? Any medical conditions you have. ? Whether you are or may be . What are the risks? Generally, this is a safe procedure. However, problems may occur, including: ? Infection. ? Bleeding. ? Allergic reactions to medicines. ? Damage to the urethra, bladder, or ureter. ? Urinary tract infection (UTI). ? Narrowing of the urethra (urethral stricture). ? Difficulty passing urine. ? Blockage of the kidney caused by a fragment of kidney stone. What happens before the procedure? Medicines ? Ask your health care provider about: ? Changing or stopping your regular medicines. This is especially important if you are taking diabetes medicines or blood thinners. ? Taking medicines such as aspirin and ibuprofen. These medicines can thin your blood. Do not take these medicines unless your health care provider tells you to take them. ? Taking ekid-szv-ospfzww medicines, vitamins, herbs, and supplements. Eating and drinking Follow instructions from your health care provider about eating and drinking, which may include: ? 8 hours before the procedure ? stop eating heavy meals or foods, such as meat, fried foods, or fatty foods. ? 6 hours before the procedure ? stop eating light meals or foods, such as toast or cereal. ? 6 hours before the procedure ? stop drinking milk or drinks that contain milk. ? 2 hours before the procedure ? stop drinking clear liquids. Staying hydrated Follow instructions from your health care provider about hydration, which may include: ? Up to 2 hours before the procedure ? you may continue to drink clear (more content not included)... Normal [facility] Ambulatory Visit Summary BHARATHI WEN :1970 Visit Date:08/10/2023 Ambulatory Visit Instructions Your Diagnosis Ureteral stone with hydronephrosis Kidney stones Flank pain Your Care Team Attending Physician - Biju KNOX MD Primary Care Physician - KIT VILLAFUETRE MD This Is Your Medications List Contact prescribing physician if questions or concerns acetaminophen-hydrocodo ne (acetaminophen-hydrocod one 325 mg-5 mg oral tablet) mirabegron (Myrbetriq) tamsulosin (tamsulosin 0.4 mg Cap) Procedures Performed Hemorrhoid, Procedure on brain ventricular shunt. Discharge Vitals Blood Pressure 130/88 Height 180 cm Height 71 in Weight 101.5 kg Weight 223.3 lb BMI 31.33 What to do next You Need to Schedule the Following Appointments Follow Up with ABILIO EDEN, KAILYN Blunt When: Comments: sched cysto/L stent placement Where: [address] [address]- Medications What How Much When Instructions Unchanged acetaminophen-hydrocodo ne (acetaminophen-hydrocod one 325 mg-5 mg oral tablet) 28 EA, 0 Refill(s), take 1 tablet by mouth four times a day if needed Contact prescribing physician if questions or concerns Unchanged mirabegron (Myrbetriq) Every day Contact prescribing physician if questions or concerns Unchanged tamsulosin (tamsulosin 0.4 mg Cap) 5 EA, 0 Refill(s), take 1 capsule by mouth once daily Contact prescribing physician if questions or concerns Allergies codeine (Nose bleed, Dyspnea) sulfa drugs (Tachypnea, Dyspnea) Problems Ongoing - Any problem that you are currently receiving treatment for. Depression Kidney stones Ureteral stone with hydronephrosis Patient Survey You may receive a survey via text or e-mail asking about your office visit. Please share your experience with us by completing your survey. We appreciate your feedback and thank you for choosing us for your care. Education Materials Laser Therapy for Kidney Stones Laser therapy for kidney stones is a procedure to break up small, hard mineral deposits that form in the kidney (kidney stones). The procedure is done using a device that produces a focused beam of light (laser). The laser breaks up kidney stones into pieces that are small enough to be passed out of the body through urination or removed from the body during the procedure. You may need laser therapy if you have kidney stones that are painful or block your urinary tract. This procedure is done by inserting a tube (ureteroscope) into your kidney through the urethral opening. The urethra is the part of the body that drains urine from the bladder. In women, the urethra opens above the vaginal opening. In men, the urethra opens at the tip of the penis. The ureteroscope is inserted through the urethra, and surgical instruments are moved through the bladder and the muscular tube that connects the kidney to the bladder (ureter) until they reach the kidney. Tell a health care provider about: ? Any allergies you have. ? All medicines you are taking, including vitamins, herbs, eye drops, creams, and stxl-udy-vsvjxpf medicines. ? Any problems you or family members have had with anesthetic medicines. ? Any blood disorders you have. ? Any surgeries you have had. ? Any medical conditions you have. ? Whether you are or may be . What are the risks? Generally, this is a safe procedure. However, problems may occur, including: ? Infection. ? Bleeding. ? Allergic reactions to medicines. ? Damage to the urethra, bladder, or ureter. ? Urinary tract infection (UTI). ? Narrowing of the urethra (urethral stricture). ? Difficulty passing urine. ? Blockage of the kidney caused by a fragment of kidney stone. What happens before the procedure? Medicines ? Ask your health care provider about: ? Changing or stopping your regular medicines. This is especially important if you are taking diabetes medicines or blood thinners. ? Taking medicines such as aspirin and ibuprofen. These medicines can thin your blood. Do not take these medicines unless your health care provider tells you to take them. ? Taking bojy-toe-pbgxsrt medicines, vitamins, herbs, and supplements. Eating and drinking Follow instructions from your health care provider about eating and drinking, which may include: ? 8 hours before the procedure ? stop eating heavy meals or foods, such as meat, fried foods, or fatty foods. ? 6 hours before the procedure ? stop eating light meals or foods, such as toast or cereal. ? 6 hours before the procedure ? stop drinking milk or drinks that contain milk. ? 2 hours before the procedure ? stop drinking clear liquids. Staying hydrated Follow instructions from your health care provider about hydration, which may include: ? Up to 2 hours before the procedure ? you may continue to drink clear (more content not included)... [facility] Calculi, Urinaryon 4 Ca Oxalate Dihydrate 30 % Normal . [facility] Comment on above: Performed By: #### C ALCULI #### [facility] , Ca Oxalate Monohydrate 70 % Normal . [facility] Comment on above: Performed By: #### C ALCULI #### [facility] , Color (U) Brown Normal . [facility] Comment on above: Performed By: #### C ALCULI #### [facility] , Comment2 Normal . [facility] Comment on above: Result Comment: Calc ulus received wet. Wet calculi must be dried before analysis, which delays reporting of results. Leaving calculi wet (such as water, saline, blood, urine) may lead to changes in composition. Performed By: #### C ALCULI #### [facility] , Comment: Normal . [facility] Comment on above: Result Comment: Phys excela healthan questions regarding Calculi Analysis [facility] at: [phone]. Performed By: #### C ALCULI #### [facility] , Composition Normal . [facility] Comment on above: Result Comment: Perc entage (Represents the % composition) Performed By: #### C ALCULI #### [facility] , Disclaimer: Normal . [facility] Comment on above: Result Comment: This test was developed and its performance characteristics determined by [facility]. It has not been cleared or approved by the Food and Drug Administration. Performed at: [facility] - Lab[address] [id number] [employer] Grinder: Anitha Jay PhDDA, Phone: [phone] Performed By: #### C ALCULI #### [facility] , Note Normal . [facility] Comment on above: Result Comment: Calc dacia report will follow via computer, mail or retail furniture sales delivery. PERFORMED BY: [place] [address] PATHOLOGIST GIFT BASKET PACKER MARLON ORNELAS M.D. Performed By: #### C ALCULI #### [facility] , Photo Normal . [facility] Comment on above: Result Comment: Phot ograph will follow under a separate cover Performed By: #### C ALCULI #### [facility] , Size 4x3 Normal . [facility] Comment on above: Result Comment: Mult iple pieces received. Dimensions of the largest piece reported. Performed By: #### C ALCULI #### [facility] , Source Normal . [facility] Comment on above: Result Comment: Left Ureter Performed By: #### C ALCULI #### [facility] , Weight 185 Normal . [facility] Comment on above: Performed By: #### C ALCULI #### [facility] , [place] urethrocystogram retroon 08-10-2023 [place] urethrocystogram retro [facility] [place] [address] Fluoroscopy Report Signed Patient: Arturo Wen#: [id number] : 1970 Acct:[id number] Age/Sex: 53 / F ADM Date: 08/10/23 Loc: [place] Room: Type: [facility] Attending Dr: Biju Knox MD Copies to: Biju Knox MD Ordering Provider: Biju Knox MD Date of Service: 08/10/23 FL/FL urethrocystogram retro: BILAT RETRO Fluoroscopic assessment for bilateral retrograde pyelograms. HISTORY: Left renal calculi. 19 image was obtained. Cumulative Air Kerma in mGy: 83 mGy Intraoperative assessment for bilateral retrograde pyelograms. Contrast opacifies the intrarenal collecting systems and ureters. Left ureteral stent placed. FL/FL urethrocystogram retro IMPRESSION: Left-sided ureteral stent placement. Impression dictated by: Javi Vera M.D.08/10/2023 6:03 PM Dictation Location: [facility]--05 Transcribed By: [facility] 08/10/231802 Dictated By: Javi Vera DO 08/10/231757 Signed By: 08/10/231802 Normal [facility] Insurance Correspondenceon 0 08-10-2023 Insurance Correspondence [id number] TIFF Normal [facility] Smooth 08-10-2023 L Specimen: [id number] Received: 08/11/23 Status: TARA Lofton Num: [id number] Spec Type: Surgical Subm Dr: Biju Knox MD Tissues: A Urinary Calculus (LT URETERAL STONE) Procedures: Level 1 Gross Age/ Patient Sex Location Account Attending Physician Arturo Wen 53/F [place] [id number] Biju Knox MD SPEC NUM: [id number] RECD: 08/11/23 STATUS: TARA LOFTON NUM: [id number] VISHAL: 08/10/23- SUBM DR: Biju Knox MD ENTERED: 08/11/[address] [facility] [address]: SPEC TYPE: Surgical DEPT: S ORDERED: Level 1 Gross ORDERED: Level 1 Gross Pathological Diagnosis Left ureteral stone, evacuation retrieval: -Multiple ureteral calculi. Gross only examination Clinical Information Kidney stone Gross Description Received fresh labeled with the patient's name, date of and left ureteral stone are multiple nair stones aggregating 2.5 x 1.0 x 0.3 cm. Entirely submitted for chemical analysis. Gross examination only. CPT Codes 49899 Specimen: [id number] Received: 08/11/23 Status: TARA Lofton Num: [id number] Spec Type: Surgical Subm Dr: Biju Knox MD Tissues: A Urinary Calculus (LT URETERAL STONE) Procedures: Level 1 Gross Patient: Arturo Wen [id number] (Continued) Signed (signature on file) Vargas Garcia MD 08/13/23 0938 [place] [facility] Patient Educationon 08-10-19 Patient Education Nephrology Laser Therapy for Kidney Stones Laser therapy for kidney stones is a procedure to break up small, hard mineral deposits that form in the kidney (kidney stones). The procedure is done using a device that produces a focused beam of light (laser). The laser breaks up kidney stones into pieces that are small enough to be passed out of the body through urination or removed from the body during the procedure. You may need laser therapy if you have kidney stones that are painful or block your urinary tract. This procedure is done by inserting a tube (ureteroscope) into your kidney through the urethral opening. The urethra is the part of the body that drains urine from the bladder. In women, the urethra opens above the vaginal opening. In men, the urethra opens at the tip of the penis. The ureteroscope is inserted through the urethra, and surgical instruments are moved through the bladder and the muscular tube that connects the kidney to the bladder (ureter) until they reach the kidney. Tell a health care provider about: ? Any allergies you have. ? All medicines you are taking, including vitamins, herbs, eye drops, creams, and eeoc-zyv-vqokbyb medicines. ? Any problems you or family members have had with anesthetic medicines. ? Any blood disorders you have. ? Any surgeries you have had. ? Any medical conditions you have. ? Whether you are or may be . What are the risks? Generally, this is a safe procedure. However, problems may occur, including: ? Infection. ? Bleeding. ? Allergic reactions to medicines. ? Damage to the urethra, bladder, or ureter. ? Urinary tract infection (UTI). ? Narrowing of the urethra (urethral stricture). ? Difficulty passing urine. ? Blockage of the kidney caused by a fragment of kidney stone. What happens before the procedure? Medicines ? Ask your health care provider about: ? Changing or stopping your regular medicines. This is especially important if you are taking diabetes medicines or blood thinners. ? Taking medicines such as aspirin and ibuprofen. These medicines can thin your blood. Do not take these medicines unless your health care provider tells you to take them. ? Taking oyhn-kbi-lmswhhs medicines, vitamins, herbs, and supplements. Eating and drinking Follow instructions from your health care provider about eating and drinking, which may include: ? 8 hours before the procedure ? stop eating heavy meals or foods, such as meat, fried foods, or fatty foods. ? 6 hours before the procedure ? stop eating light meals or foods, such as toast or cereal. ? 6 hours before the procedure ? stop drinking milk or drinks that contain milk. ? 2 hours before the procedure ? stop drinking clear liquids. Staying hydrated Follow instructions from your health care provider about hydration, which may include: ? Up to 2 hours before the procedure ? you may continue to drink clear liquids, such as water, clear fruit juice, black coffee, and plain tea. General instructions ? You may have a physical exam before the procedure. You may also have tests, such as imaging tests and blood or urine tests. ? If your ureter is too narrow, your health care provider may place a soft, flexible tube (stent) inside of it. The stent may be placed days or weeks before your laser therapy procedure. ? Plan to have someone take you home from the hospital or clinic. ? If you will be going home right after the procedure, plan to have someone stay with you for 24 hours. ? Do not use any products that contain nicotine or tobacco for at least 4 weeks before the procedure. These products include cigarettes, e-cigarettes, and chewing tobacco. If you need help quitting, ask your health care provider. ? Ask your health care provider: ? How your surgical site will be marked or identified. ? What steps will be taken to help prevent infection. These may include: ? Removing hair at the surgery site. ? Washing skin with a germ-killing soap. ? Taking antibiotic medicine. What happens during the procedure? ? An IV will be inserted into one of your veins. ? You will be given one or more of the following: ? A medicine to help you relax (sedative). ? A medicine to numb the area (local anesthetic). ? A medicine to make you fall asleep (general anesthetic). ? A ureteroscope will be inserted into your urethra. The ureteroscope will send images to a video screen in the operating room to guide your surgeon to the area of your kidney that will be treated. ? A small, flexible tube will be threaded through the ureteroscope and into your bladder and ureter, up to your kidney. ? The laser device will be inserted into your kidney through the tube. Your surgeon will pulse the laser on and off to break up kidney stones. ? A surgical instrument that has a tiny wire basket may be inserted through the tube into your kidney to remove the pieces (more content not included)... Normal [facility] Urology Office/Clinic Noteon 08-10-2023 Urology Office/Clinic Note Chief Complaint [facility] F/U for flank pain HPI Staff [facility] follow up due to abdominal pain, left flank pain. Seen at [facility] 08/03/23. CT @ [facility] 08/03/23. BUN 14.0, Creatinine 1.02 done 08/03/23. Tamsulosin 0.4 mg qd x7 days Is still taking this Father is with her today She thinks she passed stone, but did not not catch any Dysuria: a little burning since August 03 Incomplete bladder emptying: no Hematuria: denies visible blood Frequency: every couple hours Urgency: yes Nocturia: _1-2 x nightly Stream: denies hesitation, normal stream Leaking: yes Post void dripping: yes Wearing pads/ Depends: Depends wore daily changes no more then 2x daily Urge incontinence: _yes Stress incontinence: yes Incontinence without Sensory Awareness: denies Abdominal pain: denies Flank pain: left side pain started when she went to the ER Sexual complaints: denies History of Present Illness Tests reviewed: reviewed UA, CT scan, labs, ER notes I have reviewed the previous health record information and history for this patient from external providers. I have reviewed and verified the staff HPI to be accurate for this encounter. Review of Systems PHQ Score Initial Depression Screen Score: 0 SCORE ROS - Provider Constitutional: denies weight loss, denies hot flashes. Eyes: denies eye problems. Gastrointestinal: denies nausea, denies vomiting. Cardiovascular: denies chest pain or angina. Integumentary: no dryness Musculoskeletal: denies musculoskeletal symptoms. ENMT: denies otolaryngeal symptoms. Respiratory: no shortness of breath. Heme/Lymph: denies easy bleeding tendency, denies easy bruising tendency. Psychiatric: no confusion, no anxiety. Genitourinary: See HPI. Physical Exam Vitals & Measurements BP: 130/88 HT: 71 in HT: 180 cm WT: 101.5 kg WT: 223.3 lb BMI: 31.33 General Appearance: alert , no acute distress, well nourished, well developed female. Head: normocephalic . Eyes: normal orbit and globe. ENMT: normal examination of external ears. Chest: Lungs CTA, respirations non labored . Cardiovascular: regular rate and rhythm. Abdomen: soft , non distended, no tenderness, no mass or organomegaly, no hernia. Genitourinary: bladder nonpalpable, no flank tenderness. Lymph Nodes: unremarkable palpation of the cervical area. Skin: warm, dry, no bruising. Psychiatric: cooperative, affect appropriate for age, normal judgement, euthymic mood. Assessment/Plan Pt here with her father today as pt has memory issues. 1. Ureteral stone with hydronephrosis (N13.2: Hydronephrosis with renal and ureteral calculous obstruction) CT AP wo con 02/25/23 [facility] - 2mm R UVJ calculus with R hydroureteronephrosis. Nonobstructing R renal calculus no visualized. CT AP wo con 08/03/23 [facility] - Nonobstructing L renal stones, measuring up to 9mm. Mild L dilatation of collecting system to level of UPJ due to obstructing 8mm stone. Ureters are nondilated. 08/03/23 - BUN 14. Cr 1.02. eGFR 57. Continues to have pain today. Did have some relief previously. Thinks she passed R ureteral stone, did not catch it as she was not given a strainer. Has been taking Flomax. Discussed imaging results w/ pt, has obstructing L ureteral stone and no R obstructing stone. Advised pt there is 40% chance of passing stone due to its size. Discussed intervention including ESWL vs ureteroscopy with laser lithotripsy and possible stent. Risks/benefits of each were discussed. If a stent is placed, pt understands this is not permanent and needs to be removed or exchanged within 3 months to prevent encrustation, infection, permanent renal damage and need for more invasive procedures. Pt reports she has been npo. -Will schedule Cysto with Left Stent Placement and ESWL. The procedure risks, benefits, details and treatment alternatives have been discussed with the patient. These include blood urine, infection, bleeding around the kidney, kidney bruising, inability to break up the stone, need for blood transfusion, stent pain, injury to the ureter, bladder irritation from the stent, flank pain, and need for additional procedures, among others. Full informed consent has been obtained. Will order General anesthesia. Risk of heart and lung problems discussed. -Urine strainer provided today, start straining urine 2. Kidney stones (N20.0: Calculus of kidney) See #1. 3. Flank pain (R10.9: Unspecified abdominal pain) Has mild aching/discomfort. See #1. The patient is here with her father today. She does have a history of kidney stones and now has the 8 mm left distal ureteral stone. Despite that she was discharged from the [facility] with outpatient follow-up. Her chances of passing the stone are small given that size. She does have more stones in the kidneys. She knows that a possible stent will be indicated. Documentation recorded by the Vani lala acurately reflects the services(s) I performed and decisions made by me. Authenticated by Dr. Knox on (more content not included)... [facility] Comment on above: Result Comment: Elec tronically Signed By: Biju KNOX MD\.br\Date and Time Signed: 08/10/23 10:50 EST\.br\Electronically Co-Signed By: Vani Quevedo\.br\Date and Time Co-Signed: 08/10/23 10:46 EST XR KUBon 08-10-2023 XR KUB [facility] [place] [address] [place] [address] XRay Report Signed Patient: Arturo Wen#: [id number] : 1970 Acct:[id number] Age/Sex: 53 / F ADM Date: 08/10/23 Loc: [place] Room: Type: [facility] Attending Dr: Biju Knox MD Copies to: Biju Knox MD Ordering Provider: Biju Knox MD Date of Service: 08/10/23 XR/XR KUB: Ureteral Stone, Kidney stone KUB COMPARISON: None HISTORY: Preop assessment for lumbar stent placement THORAX: Lung bases unremarkable. FREE AIR: Supine position limits assessment BOWEL: No gaseous intestinal distention. STOOL: No significant stool RENAL STONES: 1 cm left midpole renal calculus. VASCULAR CALCIFICATIONS: Pelvic vascular calcifications SOFT TISSUE: Unremarkable BONES: Mild scoliosis. POSTSURGICAL CHANGES: Catheter overlies the right pelvis. Cholecystectomy. XR/XR KUB IMPRESSION: 1 cm left renal calculus. Impression dictated by: Javi Vera M.D.08/10/2023 4:59 PM Dictation Location: [place] [address] Transcribed By: [facility] 08/10/231658 Dictated By: Javi Vera DO 08/10/231656 Signed By: 08/10/231658 Normal [facility] ED Note-Physicianon 02-29-20 23 ED Note-Physician [id number]#1.00 CD:127 Normal [facility] Lab Reportson 02-28-2023 Lab Reports [id number] D:127 Normal [facility] RAD - CT Reporton 02-28-2023 RAD - CT Report [id number]#1.00 CD:127 Normal [facility] RAD - CT Report [id number]#1.00 CD:127 Normal [facility] ED Note-Physicianon 02-05-20 ED Note-Physician [id number]#[id number] D:[address] [facility] [address] CHEST W CONon 07-15-2022 CT CHEST W CON EXAMINATION: CT CHES T W CON HISTORY: Solitary nodule of lung , follow-up COMPARISON: CT chest 11/06/2021, CT abdomen pelvis 09/22/2021 TECHNIQUE: Axial, Coronal, and Sagittal images were created without the administration of IV contrast material. Dose reduction techniques were achieved by using automated exposure control and/or adjustment of mA and/or kV according to patient size and/or use of iterative reconstruction technique. FINDINGS: LUNGS: 6 mm round circumscribed nodule within posterior medial right lung base adjacent the pleura. Lungs are otherwise clear. PLEURA: No mass, effusion, or pneumothorax. VASCULATURE: No abnormality. SAMIR: No mass or pathologic adenopathy. MEDIASTINUM: No mass or pathologic adenopathy. CARDIAC: No enlargement, pericardial thickening, or significant calcification. AORTA: No aneurysm or dissection. CHEST WALL: No mass or axillary adenopathy BONES: No bone lesion or fracture. LIMITED ABDOMEN: Nonobstructing 4 mm stone within left kidney. Fatty infiltration of liver. Limited images of the upper abdomen. OTHER: Negative. IMPRESSION: 1. Lung-RADS 2- Benign Appearance or Behavior. Nodules with a very low likelihood of becoming a clinically active cancer due to size or lack of growth. Follow-up CT Chest in 1 year. 2. Stable benign-appearing 6 mm nodule within posterior medial right lung base. 3. Nonobstructing left nephrolithiasis. 4. Fatty infiltration of liver. Electronically authenticated by: BRICE RACHEL Date: 2022-07-15 09:35 Normal The [facility] CT CHEST W CONon 11-06-2021 CT CHEST W CON EXAMINATION: CT CHES T W CON HISTORY: Solitary nodule of lung ; follow-up right lower lobe lung nodule COMPARISON: CT abdomen pelvis 09/22/2021 TECHNIQUE: Multi-planar CT images were created with IV contrast. Axial, Coronal, and Sagittal images. Dose reduction techniques were achieved by using automated exposure control and/or adjustment of mA and/or kV according to patient size and/or use of iterative reconstruction technique. FINDINGS: LUNGS: Stable 6 mm nodule within posterior medial right lung base. No additional nodules. No acute infiltrates or significant chronic interstitial changes. PLEURA: No mass, effusion, or pneumothorax. VASCULATURE: No abnormality. SAMIR: No mass or adenopathy. MEDIASTINUM: No mass or adenopathy. CARDIAC: No enlargement, pericardial thickening, or significant calcification. AORTA: No aneurysm or dissection. CHEST WALL: No mass or axillary adenopathy. BONES: No bone lesion or fracture. LIMITED ABDOMEN: No suspicious findings Limited images of the upper abdomen. OTHER: Negative. IMPRESSION: 1. A 6 mm round circumscribed nodule within posterior medial right lung base; nonspecific but favoring benign etiology. Follow-up imaging in 6, 12, and 24 months is recommended to document stability over a two-year period. Electronically authenticated by: BRICE RACHEL Date: 2021-11-06 09:10 Normal The [facility] XR FEMUR LTon 10-05-2021 XR FEMUR LT EXAM: XR FEMUR LT HISTORY: Left lower extremity Pain seizure. COMPARISON: None. TECHNIQUE: AP and lateral views of the left femur are obtained. FINDINGS: There is no focal soft tissue abnormality or sizable knee joint effusion. Osseous mineralization is within normal limits. There is no acute fracture or dislocation. The femoral acetabular and knee joints are grossly maintained. IMPRESSION: No acute fracture or dislocation. Electronically authenticated by: CARLOS RAYMUNDO Date: 2021-10-05 06:02 Normal The [facility] XR HIP LT 2 3V W PELVISon XR HIP LT 2 3V W PELVIS EXAM: XR HIP LT 2 3V W PELVIS HISTORY: Left lower extremity Pain after fall from ladder COMPARISON: CT pelvis performed 09/22/2021. TECHNIQUE: Frontal view of the pelvis and 2 views of the left hip are obtained. FINDINGS: Ventricular peritoneal catheter is present with its tip at the right pelvis. Osseous mineralization is within normal limits. There is no acute fracture or dislocation. The bilateral femoral acetabular joints are normally maintained. The sacroiliac joints and pubic symphysis are not abnormally widened. Phleboliths are present within the pelvis. The remaining visualized osseous structures are grossly intact. IMPRESSION: No acute fracture or dislocation. Electronically authenticated by: CARLOS RAYMUNDO Date: 2021-10-05 05:48 Normal The [facility] XR KNEE LT 4V or >on 022 XR KNEE LT 4V or > EXAM: XR KNEE LT 4V or > 10/05/2021 3:49 AM EDT OH001 CLINICAL STATEMENT: Pain COMPARISON: No prior studies are available at the time of dictation. TECHNIQUE: AP and lateral views of the left knee are submitted. FINDINGS: There is no acute fracture and/or dislocation. The joint spaces are preserved. There is no significant joint effusion. Soft tissues are unremarkable. Bone mineralization is within normal limits for the patient's age. IMPRESSION: Unremarkable knee radiograph. FOLLOW UP: Follow-up as clinically indicated. Electronically authenticated by: BENNY SHELLEY Date: 2021-10-05 05:50 Normal The [facility] CBC AUTO DIFFon 09-22-2021 BASO # 0.1 103/ul Normal 0.0-0.1 [facility] Comment on above: Performed By: #### C BC #### [facility] [address] [place] [address] Dr. Starr Garcia Basophils/100 WBC (Bld) 0.5 % Normal 0.2-2.0 [facility] Comment on above: Performed By: #### C BC #### [facility] [address] [place] [address] Dr. Starr Garcia EO # 0.2 103/ul Normal 0.0-0.7 [facility] Comment on above: Performed By: #### C BC #### [facility] [address] [place] [address] Dr. Starr Garcia Eosinophils/100 WBC (Bld) 1.9 % Normal 0.9-7.0 [facility] Comment on above: Performed By: #### C BC #### [facility] [address] [place] [address] Dr. Starr Garcia Erythrocyte distribution width (RBC) [Ratio] 13.8 % Normal 11.0-15.0 [facility] Comment on above: Performed By: #### C BC #### [facility] [address] [place] [address] Dr. Starr Garcia Hematocrit (Bld) [Volume fraction] 43.1 % Normal 36.0-48.0 [facility] Comment on above: Performed By: #### C BC #### [facility] [address] [place] [address] Dr. Starr Garcia Hemoglobin (Bld) [Mass/Vol] 14.2 g/dL Normal 12.0-16.0 [facility] Comment on above: Performed By: #### C BC #### [facility] [address] [place] [address] Dr. Starr Garcia IG # 0.07 10e3/ul Critically high 0.00-0.03 [facility] Comment on above: Performed By: #### C BC #### [facility] [address] [place] [address] Dr. Starr Garcia IG % 0.7 % Critically high 0.0-0.5 [facility] Comment on above: Performed By: #### C BC #### [facility] [address] [place] [address] Dr. Starr Garcia LYMPH # 1.5 103/ul Normal 1.2-3.8 [facility] Comment on above: Performed By: #### C BC #### [facility] [address] [place] [address] Dr. Starr Garcia Lymphocytes/100 WBC (Bld) 15.3 % Critically low 20.5-60.0 [facility] Comment on above: Performed By: #### C BC #### [facility] [address] [place] [address] Dr. Starr Garcia MANUAL DIFF REQ NO Normal The [facility] Comment on above: Performed By: #### C BC #### [facility] [address] [address] [address] Starr Garcia MCH (RBC) [Entitic mass] 30.3 pg Normal 26.7-34.0 [facility] Comment on above: Performed By: #### C BC #### [facility] [address] [address] [address] Starr Garcia MCHC (RBC) [Mass/Vol] 32.9 g/dL Normal 29.9-35.2 [facility] Comment on above: Performed By: #### C BC #### [facility] [address] [address] [address] Starr Garcia MCV (RBC) [Entitic vol] 91.9 fL Normal 81.0-99.0 [facility] Comment on above: Performed By: #### C BC #### [facility] [address] [place] [address] Dr. Starr Garcia MONO # 0.6 103/ul Normal 0.3-0.8 [facility] Comment on above: Performed By: #### C BC #### [facility] [address] [place] [address] Dr. Starr Garcia Monocytes/100 WBC (Bld) 5.7 % Normal 1.7-12.0 [facility] Comment on above: Performed By: #### C BC #### [facility] [address] [place] [address] Dr. Starr Garcia NEUT # 7.4 103/ul Critically high 1.4-6.5 [facility] Comment on above: Performed By: #### C BC #### [facility] [address] [place] [address] Dr. Starr Garcia Neutrophils/100 WBC (Bld) 75.9 % Critically high 43.0-75.0 [facility] Comment on above: Performed By: #### C BC #### [facility] [address] [place] [address] Dr. Starr Garcia Platelet mean volume (Bld) [Entitic vol] 9.8 fL Normal 9.5-13.5 [facility] Comment on above: Performed By: #### C BC #### [facility] [address] [place], [place] [address] Dr. Starr Garcia PLT 336 103/ul Normal 150-450 [facility] Comment on above: Performed By: #### C BC #### [facility] [address] [place], [place] [address] Dr. Starr Garcia RBC 4.69 106/ul Normal 4.20-5.40 [facility] Comment on above: Performed By: #### C BC #### [facility] [address] [place], [place] [address] Dr. Starr Garcia WBC 9.8 103/ul Normal 4.0-11.0 [facility] Comment on above: Performed By: #### C BC #### [facility] [address] [place], [place] [address] ABD/PELVIS WO CONon 09-22 CT ABD/PELVIS WO CON EXAMINATION: CT ABD/PELVIS WO CON, 09/22/2021 5:20 PM EDT HISTORY: CALCULUS OF KIDNEY COMPARISON: None available TECHNIQUE: CT scan of the abdomen and pelvis was performed without IV contrast. CT dose reduction technique was used, including Automated Exposure Control. FINDINGS: LOWER CHEST: There is mild bibasilar atelectasis. There is a 6 mm pulmonary nodule in the right lower lobe on image 5 series 4. LIVER: There is moderate to severe diffuse fatty infiltration. GALLBLADDER AND BILIARY SYSTEM: Status-post cholecystectomy. SPLEEN: Normal. PANCREAS: Normal. ADRENAL GLANDS: Normal. KIDNEYS AND URETERS: Punctate nonobstructing stone lower pole right kidney. Several nonobstructing left renal stones measuring up to 9 mm in the midpole of the left kidney. There is no hydronephrosis, hydroureter or ureteral stones. VASCULATURE: Normal. RETROPERITONEUM AND LYMPH NODES: Normal, with no lymphadenopathy. GASTROINTESTINAL TRACT/MESENTERY: There is a moderate diverticulum off the third portion of the duodenum. This measures 3.3 x 2.6 cm. There is an additional diverticulum more distally measuring 2.6 x 2 cm. There are multiple diverticula in the descending and sigmoid colon with no acute diverticulitis. Normal mesentery/peritoneum. Normal appendix. BLADDER: Normal. REPRODUCTIVE SYSTEM: Normal uterus and adnexa. BODY WALL: There is a TELEGRAPH DISPATCHER shunt in the chest wall extending into the upper abdomen with tip in the right lower quadrant. BONES: Mild to moderate multilevel degenerative changes of lumbar spine particularly at L5-S1 where there is disc space narrowing and a small posterior disc-osteophyte complex. IMPRESSION: 1. Multiple nonobstructing renal stones, left greater than right with no definite ureteral stones or obstructive uropathy. 2. 6 mm right lower lobe pulmonary nodule. Recommend follow-up chest CT. 3. Fatty liver. 4. Duodenal diverticula. 5. Colonic diverticulosis. 6. Normal appendix. Electronically authenticated by: BRICE SALAS Date: 2021-09-22 19:24 Normal The [facility] ER URINE PROFILEon 2 Bilirubin Ql (U) Negative Normal NEGATIVE The [facility] Comment on above: Performed By: #### DRAGAN GASPAR, PREGU #### [facility] [address] [address] [address] Starr Garcia Clarity (U) SL CLOUDY Abnormal CLEAR [facility] Comment on above: Performed By: #### DRAGAN GASPAR, PREGU #### [facility] [address] [address] [address] Starr Garcia Color (U) YELLOW Normal YELLOW [facility] Comment on above: Performed By: #### DRAGAN GASPAR, PREGU #### [facility] [address] [address] [address] Starr GRACIA A micrscopic examination will be performed if indicated. Normal The [facility] Comment on above: Performed By: #### DRAGAN GASPAR, PREGU #### [facility] [address] [address] [address] Starr Garcia Glucose Ql (U) Negative Normal NEGATIVE [facility] Comment on above: Performed By: #### Evans NYRDRAGAN, PREGU #### [facility] [address] [address] [address] Starr Garcia Hemoglobin Ql (U) LARGE Abnormal NEGATIVE [facility] Comment on above: Performed By: #### Evans RUR UMICRO, PREGU #### [facility] [address] [address] [address] Starr Garcia Ketones Ql (U) Negative Normal NEGATIVE [facility] Comment on above: Performed By: #### E RUR, UMICRO, PREGU #### [facility] [address] [address] [address] Starr Garcia LEUKOCYTES Negative Normal NEGATIVE [facility] Comment on above: Performed By: #### Evans RUR, UMICRO, PREGU #### [facility] [address] [address] [address] Starr Garcia Nitrite Ql (U) Negative Normal NEGATIVE [facility] Comment on above: Performed By: #### Evans RURWANDERICRO, PREGU #### [facility] [address] [address] [address] Starr Garcia pH (U) 5.5 [pH] Normal 5-9 [facility] Comment on above: Performed By: #### WANDER GASPARICRO, PREGU #### [facility] [address] [address] [address] Starr Garcia SPEC GRAVITY >=1.030 Abnormal 1.005-<=1.025 [facility] Comment on above: Performed By: #### WANDER GASPARICRO, PREGU #### [facility] [address] [address] [address] Starr Garcia UA PROTEIN TRACE Normal NEGATIVE/ TRACE The [facility] Comment on above: Performed By: #### WANDER GASPARICRO, PREGU #### [facility] [address] [address] [address] Starr Garcia UR MICRO IND INDICATED Normal The [facility] Comment on above: Performed By: #### WANDER GASPARICCRISTIN, PREGU #### [facility] [address] [address] [address] Starr Garcia Urobilinogen Qn (U) 0.2 {Bonilla'U}/dL Normal 0.2 - 1. 0 [facility] Comment on above: Performed By: #### E DRAGAN GRIMM, PREGU #### [facility] [address] [address] [address] Starr Garcia URon 09-22-2021 , QUAL Negative Normal NEGATIVE [facility] Comment on above: Performed By: #### E DRAGAN GRIMM, PREGU #### [facility] [address] [address] [address] Starr Garcia PROF 14(COMP METB)on 022 Albumin [Mass/Vol] 4.3 g/dL Normal 3.4-5.0 [facility] Comment on above: Performed By: #### C MP #### [facility] [address] [place] [address] Dr. Starr Garcia Albumin/Globulin [Mass ratio] 1.1 {ratio} Normal [facility] Comment on above: Performed By: #### C MP #### [facility] [address] [address] [address] Starr Garcia ALP [Catalytic activity/Vol] 111 U/L Normal 46-116 [facility] Comment on above: Performed By: #### C MP #### [facility] [address] [place] [address] Dr. Starr Garcia ALT [Catalytic activity/Vol] 120 U/L Critically high 14-59 [facility] Comment on above: Performed By: #### C MP #### [facility] [address] [address] [address] Starr Garcia Anion gap [Moles/Vol] 14.9 mmol/L Normal [facility] Comment on above: Performed By: #### C MP #### [facility] [address] [address] [address] Starr Garcia AST [Catalytic activity/Vol] 72 U/L Critically high 15-37 [facility] Comment on above: Performed By: #### C MP #### [facility] [address] [place] [address] Dr. Starr Garcia Bilirubin [Mass/Vol] 0.7 mg/dL Normal 0.2-1.3 [facility] Comment on above: Performed By: #### C MP #### [facility] [address] [address] [address] Starr Garcia Calcium [Mass/Vol] 8.9 mg/dL Normal 8.5-10.1 [facility] Comment on above: Performed By: #### C MP #### [facility] [address] [address] [address] Starr Garcia Chloride [Moles/Vol] 105 mmol/L Normal 98-107 [facility] Comment on above: Performed By: #### C MP #### [facility] [address] [address] [address] Starr Garcia CO2 [Moles/Vol] 25.7 mmol/L Normal 22.0-30.0 [facility] Comment on above: Performed By: #### C MP #### [facility] [address] [address] [address] Starr Garcia Creatinine [Mass/Vol] 0.82 mg/dL Normal 0.52-1.04 [facility] Comment on above: Performed By: #### C MP #### [facility] [address] [address] [address] Starr Garcia EGFR-AF SWISS >60 Normal >=60 [facility] Comment on above: Performed By: #### C MP #### [facility] [address] [address] [address] Starr Garcia EGFR-NON AF SWISS >60 Normal >=60 [facility] Comment on above: Performed By: #### C MP #### [facility] [address] [address] [address] Starr Garcia Globulin (S) [Mass/Vol] 3.8 g/dL Normal [facility] Comment on above: Performed By: #### C MP #### [facility] [address] [address] [address] Starr Garcia Glucose [Mass/Vol] 112 mg/dL Critically high 74-106 [facility] Comment on above: Performed By: #### C MP #### [facility] [address] [id number] Starr Garcia Potassium [Moles/Vol] 3.6 mmol/L Normal 3.4-5.0 [facility] Comment on above: Performed By: #### C MP #### [facility] [address] [address] [address] Starr Garcia Protein [Mass/Vol] 8.1 g/dL Normal 6.1-8.2 [facility] Comment on above: Performed By: #### C MP #### [facility] [address] [address] [address] Starr Garcia Sodium [Moles/Vol] 142 mmol/L Normal 137-145 [facility] Comment on above: Performed By: #### C MP #### [facility] [address] [address] [address] Starr Garcia Urea nitrogen [Mass/Vol] 13.0 mg/dL Normal 7.0-18.0 [facility] Comment on above: Performed By: #### C MP #### [facility] [address] [address] [address] Starr Garcia Urea nitrogen/Creatinine [Mass ratio] 15.9 mg/mg Normal [facility] Comment on above: Performed By: #### C MP #### [facility] [address] [id number] Starr aGrcia URINE MICROSCOPIC ONLYon BACTERIA TRACE Abnormal NONE SEEN The [facility] Comment on above: Performed By: #### DRAGAN GASPAR PREGU ####[facility] [id number] [place], [place] [address]DgNicole Garcia Bacteria identified Cx Nom (U) NOT INDICATED Normal The [facility] Comment on above: Performed By: #### DRAGAN GASPAR PREGU ####[facility] [id number] [place], [place] [address]TyNicole Garcia CAST NONE SEEN Normal NONE SEEN The [facility] Comment on above: Performed By: #### DRAGAN GASPAR PREGU ####[facility] [address] [place], [place] [address]Fi. Starr Garcia Crystals LM Nom (Urine sed) NONE SEEN Normal NONE SEEN The [facility] Comment on above: Performed By: #### DRAGAN GASPAR PREGU ####[facility] [id number] [place], [place] [address]Ij. Starr Garcia Epithelial cells LM Ql (Urine sed) FEW Abnormal NONE SEEN /RARE The [facility] Comment on above: Performed By: #### DRAGAN GASAPR PREGU ####[facility] [id number] [place], [place] [address]Rp. Starr Garcia MUCOUS TRACE Abnormal NONE SEEN The [facility] Comment on above: Performed By: #### DRAGAN GASPAR PREGU ####[facility] [id number] [id number][address] Starr Garcia RBC 10-20 Abnormal 0-2 The [facility] Comment on above: Performed By: #### DRAGAN GASPAR PREGU ####[facility] [id number] [id number][address] Starr Garcia WBC NONE SEEN Normal NONE SEEN The [facility] Comment on above: Performed By: #### DRAGAN GASPAR PREGU ####[facility] [id number] [id number][address] Starr Garcia Initial Visit (Neurosurgery) on 06-20-2018 Initial Visit (Neurosurgery) Chief ComplaintPatient is being seen for an initial Neurosurgical evaluation. 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 she has no recent imaging or neurosurgical followup since at least 2003. she is here to re establish care. she is unsure as to what type of shunt she has in place Active Problems TELEGRAPH DISPATCHER (ventriculoperitoneal) shunt status (V45.2) (Z98.2) Current Meds DULoxetine HCl - 60 MG Oral Capsule Delayed Release Particles;Therapy: 16Aug2017 to Recorded Rx By: NOY; Dispense: 90 Days ; #:90; Refill: 0; KANE = N; Record; Last Updated By: Jcarlos Hoover; 06/20/2018 1:21:59 PM Myrbetriq 50 MG Oral Tablet Extended Release 24 Hour;Therapy: 15Jul2017 to Recorded Rx By: CAROLIN; Dispense: 30 Days ; #:30; Refill: 0; KANE = N; Record; Last Updated By: Jcarlos Hoover; 06/20/2018 1:21:59 PM Topiramate 50 MG Oral Tablet;Therapy: 10Aug2017 to Recorded Rx By: HANNAH; Dispense: 30 Days ; #:60; Refill: 0; KANE = N; Record; Last Updated By: Jcarlos Hoover; 06/20/2018 1:21:59 PM Vitals Vital Signs Recorded: 20Jun2018 01:37PMHeart [id number] [id number] t5 ft 4.5 icXkflhx634 lb BMI Dqwjmxmqry67.8BSA Calculated1.97 Physical Examawake and alertright frontal TELEGRAPH DISPATCHER shuntEOM full speech fluentstrenght 5/5 right, 4/5 left with some tremors bilateralsensation intactgait normal Results/Datathere aer no imaging reports or records Diagnoses/Problems TELEGRAPH DISPATCHER (ventriculoperitoneal) shunt status (V45.2) (Z98.2) OrdersVP (ventriculoperitoneal) shunt status CT Head without Contrast; Status:Hold For - Scheduling,Retrospectiv e Authorization;Requested for:20Jun2018; Perform:[facility]; Due:30Jun2018; Last Updated By:Cleopatra Rudd; 06/20/2018 1:41:13 PM;Ordered; For:TELEGRAPH DISPATCHER (ventriculoperitoneal) shunt status; Ordered By:Manjit Polk;Patient taking Metformin or Derivatives? : UnknownRadiologist to Determine Optimal Study : YWhat are the patient's signs and symptoms? : shunt Xray Adult Shunt Series; Status:Hold For - Scheduling,Retrospectiv e Authorization;Requested for:20Jun2018; Perform:[facility]; Due:[id number]; Last Updated By:Cleopatra Rudd; 06/20/2018 1:42:31 PM;Ordered; For:TELEGRAPH DISPATCHER (ventriculoperitoneal) shunt status; Ordered By:Manjit Polk;Radiologist to Determine Optimal Study : YWhat are the patient's signs and symptoms? : shunt Xray Skull Complete; Status:Canceled; Perform:[facility];Ordered; For:TELEGRAPH DISPATCHER (ventriculoperitoneal) shunt status; Ordered By:Manjit Polk;Reason: Unspecified for Xray Skull CompleteRadiologist to Determine Optimal Study : YWhat are the patient's signs and symptoms? : shunt Provider Impressionsshunted hydrocephalus with chronic symptomsrecommend head CT and shunt series, ophtho evaluation for chronic visual issueswill review when available Signatures Electronically signed by : Manjit Polk MD; Jun 20 2018 1:51PM EST (Author) [facility] Vital Signs Date Time Vital Sign Value Performing Clinician Facility 08-10-2023 10:03-0500 Blood Pressure Location [employer] [facility] 08-10-2023 10:03-0500 Diastolic blood pressure 88 mm[Hg] [employer] [facility] 08-10-2023 10:03-0500 Systolic blood pressure 130 mm[Hg] [employer] [facility] 08-12-2021 13:05-0500 Body height 163.83 cm Christi Vargas Other [facility] Other 08-12-2021 13:05-0500 Body mass index (BMI) [Ratio] 34.64 kg/m2 Christi Vargas Other [facility] Other 08-12-2021 13:05-0500 Body temperature 97.1 [degF] Christi Vargas Other [facility] Other 08-12-2021 13:05-0500 Body weight 92.99 kg Christi Vargas Other [facility] Other 08-12-2021 13:05-0500 Diastolic blood pressure 84 mm[Hg] Christi Vargas Other [facility] Other 08-12-2021 13:05-0500 Respiratory rate 18 /min Christi Vargas Other [facility] Other 08-12-2021 13:05-0500 SaO2% (BldA) [Mass fraction] 100 % Christi Vargas Other [facility] Other 08-12-2021 13:05-0500 Systolic blood pressure 141 mm[Hg] Christi Vargas Other [facility] Other Encounters Encounter Date Encounter Type Care Provider Facility Start: 02-21-2024 ambulatory Biju KNOX Facility :[facility] Start: 02-15-2024 End: 02-15-2024 ambulatory KIT VILLAFUERTE Not Available Start: 08-23-2023 End: 08-23-2023 ambulatory Biju KNOX Facility:[facility] Start: 08-23-2023 End: 08-23-2023 Patient encounter procedure Biju KNOX [facility] Start: 08-10-2023 End: 08-10-2023 ambulatory Biju Knox Facility:[facility] Start: 08-10-2023 End: 08-10-2023 ambulatory Biju KNOX Facility:[facility] Start: 08-10-2023 End: 08-10-2023 Patient encounter procedure Biju KNOX [facility] Start: 08-09-2023 End: 08-10-2023 ambulatory Biju KNOX Facility:CD:[id number] Start: 02-19-2023 ambulatory Dario Frias ty:[facility] Start: 01-29-2023 ambulatory Biju KNOX Facility:[facility] Start: 07-15-2022 End: 07-16-[address] KIT VILLAFUERTE Facility:[facility] Start: 11-06-2021 End: 11-07-[address] KIT VILLAFUERTE Facility:[facility] Start: 10-05-2021 End: 10-05-2021 ambulatory JEROD CONRAD Facility:[facility] Start: 09-22-2021 End: 09-22-[address] KIT VILLAFUERTE Facility:[facility] Start: 08-12-2021 End: 08-12-2021 ambulatory Christi Vargas Other [facility] Other Start: 08-12-2021 Office outpatient visit 15 minutes Christi Vargas [facility] Start: 06-20-2018 Patient encounter procedure Manjit Polk Facility:[id number] Start: 08-18-2017 Ambulatory GEORGE CASH Facility:3 Procedures Date Procedure Procedure Detail Performing Clinician Hemorrhoids (disorder) Emile KNOX Procedure on brain v entricular shunt Biju KNOX Payers Date Payer Category Payer Self-pay 2022 Unknown [id number] 2017 Unknown 1970 Unknown [id number] 2.16. [id number] 1970 Unknown [id number] 2.16.84 [id number] 1971 Unknown [id number] 2.16.84 [id number] 1971 Unknown [id number] 2.16.84 0.1.880535.3.579.2.593 1971 Unknown [id number] 2.16.84 0.1.058088.3.579.2.593 1971 Unknown [id number] 2.16.8 40.1.824885.3.579.2.727 1971 Unknown [id number] 2.16.8 40.1.068328.3.579.2.727 1971 Unknown [id number] 2.16.8 40.1.956675.3.579.2.727 1971 Unknown [id number] 2.16.8 40.1.019967.3.579.2.727 1971 Unknown [id number] 2.16.8 40.1.931021.3.579.2.727 1971 Unknown [id number] 2.16.8 40.1.673442.3.579.2.727 1971 Unknown [id number] 2.16.8 40.1.863088.3.579.2.727 1971 Unknown [id number] 2.16.84 0.1.948579.3.579.2.1259 1959 Unknown [id number] Unknown [id number] 2.16.8 [id number] Social History Date Type Detail Facility Unknown if ever smoked [facility] Other Sex Assigned At [facility] Start: 08-10-2023 Tobacco smoking status Light t obacco smoker (finding) [facility] Tobacco smoking status Never [facility] Functional Status Date Assessment Result Facility 08-10-2023 Functional Status N/A [facility] Hospital Discharge instructions 08-23-2023 Note Date & Type Note Facility 08-23-2023 Hospital Discharg e instructions Patient Education 08/23/2023 16:14:24 [facility] - Cystoscopy with Stent Removal Discharge Instructions (Custom) Cystoscopy with Stent Removal Voiding after the procedure: there may be some pain, burning, urgency, frequency and blood tinged urine following the procedure. These symptoms usually resolve within 2-5 days. Drink the amount of fluid it takes to keep the urine pink to yellow or clear in color. Drinking enough water and fluids will help to ease any discomfort after your procedure. If you are having problems that seem out of the ordinary, please call. If unable to contact your physician and you feel it is an emergency, go to the nearest emergency room or call 911 Diet you may resume your normal diet. Activity you may resume your normal activities Call if you have a fever over 100 degrees. Follow Up Care 08/13/2023 10:04:30 With:Biju KNOX Address: [facility] [place] [id number] Business (1) When:6 months Comments:Call for followup appointment, with an abdominal x-ray prior to that visit. Please call the office to ask for an order to be sent to the facility where you want this performed.As we discussed if you decide to proceed with a metabolic workup my office can send you a form for blood work to be obtained around the same time as a 24-hour urine collection which would be obtained by way of a kit from a company called [employer].Otherwise I will see him in 6 months with an abdominal x-ray.Have a great day [facility] History and physical note 08-23-2023 Note Date & Type Note Facility 08-23-2023 Note [id number]#[id number] [facility] Clinical Note 08-23-2023 Note Date & Type Note Facility 08-23-2023 Note Cystoscopy with Sten t Removal ? Voiding after the procedure: there may be some pain, burning, urgency, frequency and blood tinged urine following the procedure. These symptoms usually resolve within 2-5 days. Drink the amount of fluid it takes to keep the urine pink to yellow or clear in color. Drinking enough water and fluids will help to ease any discomfort after your procedure. ? If you are having problems that seem out of the ordinary, please call. ? If unable to contact your physician and you feel it is an emergency, go to the nearest emergency room or call 911 ? Diet ? you may resume your normal diet. ? Activity ? you may resume your normal activities ? Call if you have a fever over 100 degrees. [facility] Hospital Discharge instructions 08-10-2023 Note Date & Type Note Facility 08-10-2023 Hospital Discharg e instructions Patient Education 08/10/2023 10:40:45 Laser Therapy for Kidney Stones Laser Therapy for Kidney Stones Laser therapy for kidney stones is a procedure to break up small, hard mineral deposits that form in the kidney (kidney stones). The procedure is done using a device that produces a focused beam of light (laser). The laser breaks up kidney stones into pieces that are small enough to be passed out of the body through urination or removed from the body during the procedure. You may need laser therapy if you have kidney stones that are painful or block your urinary tract. This procedure is done by inserting a tube (ureteroscope) into your kidney through the urethral opening. The urethra is the part of the body that drains urine from the bladder. In women, the urethra opens above the vaginal opening. In men, the urethra opens at the tip of the penis. The ureteroscope is inserted through the urethra, and surgical instruments are moved through the bladder and the muscular tube that connects the kidney to the bladder (ureter) until they reach the kidney. Tell a health care provider about: Any allergies you have. All medicines you are taking, including vitamins, herbs, eye drops, creams, and lbxa-nnr-vnuwoqn medicines. Any problems you or family members have had with anesthetic medicines. Any blood disorders you have. Any surgeries you have had. Any medical conditions you have. Whether you are or may be . What are the risks? Generally, this is a safe procedure. However, problems may occur, including: Infection. Bleeding. Allergic reactions to medicines. Damage to the urethra, bladder, or ureter. Urinary tract infection (UTI). Narrowing of the urethra (urethral stricture). Difficulty passing urine. Blockage of the kidney caused by a fragment of kidney stone. What happens before the procedure? Medicines Ask your health care provider about: ?Changing or stopping your regular medicines. This is especially important if you are taking diabetes medicines or blood thinners. ?Taking medicines such as aspirin and ibuprofen. These medicines can thin your blood. Do not take these medicines unless your health care provider tells you to take them. ?Taking sjqj-ubi-bfsuozf medicines, vitamins, herbs, and supplements. Eating and drinking Follow instructions from your health care provider about eating and drinking, which may include: 8 hours before the procedure stop eating heavy meals or foods, such as meat, fried foods, or fatty foods. 6 hours before the procedure stop eating light meals or foods, such as toast or cereal. 6 hours before the procedure stop drinking milk or drinks that contain milk. 2 hours before the procedure stop drinking clear liquids. Staying hydrated Follow instructions from your health care provider about hydration, which may include: Up to 2 hours before the procedure you may continue to drink clear liquids, such as water, clear fruit juice, black coffee, and plain tea. General instructions You may have a physical exam before the procedure. You may also have tests, such as imaging tests and blood or urine tests. If your ureter is too narrow, your health care provider may place a soft, flexible tube (stent) inside of it. The stent may be placed days or weeks before your laser therapy procedure. Plan to have someone take you home from the hospital or clinic. If you will be going home right after the procedure, plan to have someone stay with you for 24 hours. Do not use any products that contain nicotine or tobacco for at least 4 weeks before the procedure. These products include cigarettes, e-cigarettes, and chewing tobacco. If you need help quitting, ask your health care provider. Ask your health care provider: ?How your surgical site will be marked or identified. ?What steps will be taken to help prevent infection. These may include: ?Removing hair at the surgery site. ?Washing skin with a germ-killing soap. ?Taking antibiotic medicine. What happens during the procedure? An IV will be inserted into one of your veins. You will be given one or more of the following: ?A medicine to help you relax (sedative). ?A medicine to numb the area (local anesthetic). ?A medicine to make you fall asleep (general anesthetic). A ureteroscope will be inserted into your urethra. The ureteroscope will send images to a video screen in the operating room to guide your surgeon to the area of your kidney that will be treated. A small, flexible tube will be threaded through the ureteroscope and into your bladder and ureter, up to your kidney. The laser device will be inserted into your kidney through the tube. Your surgeon will pulse the laser on and off to break up kidney stones. A surgical instrument that has a tiny wire basket may be inserted through the tube into your kidney to remove the pieces of broken kidney stone. The procedure may vary among health care providers and hospitals. What happens after the procedure? Your blood pressure, heart rate, breathing rate, and blood oxygen level will be monitored until you leave the hospital or clinic. You will be given pain medicine as needed. You may continue to receive antibiotics. You may have a stent temporarily placed in your ureter. Do not drive for 24 hours if you were given a sedative during your procedure. You may be given a strainer to collect any stone fragments that you pass in your urine. Your health care provider may have these tested. This information is not intended to replace advice given to you by your health care provider. Make sure you discuss any questions you have with your health care provider. Document Revised: 10/07/2022 Document Reviewed: 02/02/2022 [employer] Patient Education 2022 [employer]. Follow Up Care 08/09/2023 11:39:44 With:ABILIO EDEN, Biju Acuña, URL Address: [facility] [employer] [facility] [address] [place], [place] [id number]- When: Unknown Comments:sched cysto/L stent placement [facility] Kevin Evaluation note 08-12-2021 Note Date & Type Note Facility 08-12-2021 Evaluation note Encounter Date Diagnosis Assessment Notes Aug, Tinea manuum (ICD-10 - B35.2) apply to hands and nail beds and hands and follow up with primary care provider for further workup and treatment options [facility] Other Evaluation + Plan note Note Date & Type Note Facility Evaluation + Plan note No data available for this section [facility] History general Narrative - Reported Note Date & Type Note Facility History general Narrative - Reported Type Medical History chronic depression Medical History bladder trouble Surgical History brain surgery multiple Surgical History brain shunt multiple Hospitalization History See Above [facility] Other Progress note Note Date & Type Note Facility Progress note No data available for this section [facility] Kevin Summary Purpose Family History No Family History Records FoundNo Family History Records FoundNo Family History Records FoundNo Family History Records Found No data available for this section No data available for this section No Family History Records FoundNo Family History Records FoundNo Family History Records Found Advance Directives No Advanced Directives Records FoundNo Advanced Directives Records FoundNo Advanced Directives Records FoundNo Advanced Directives Records FoundNo Advanced Directives Records FoundNo Advanced Directives Records FoundNo Advanced Directives Records Found Additional Source Comments INFORMATION SOURCE (unrecogn ized section and content) DATE CREATED AUTHOR 12/16/2017 [facility] DATE CREATED AUTHOR AUTHOR'S ORGANIZ ATION 06/20/2018 [employer] DATE CREATED AUTHOR AUTHOR'S ORGANIZ ATION 06/22/2018 [facility] DATE CREATED AUTHOR AUTHOR'S ORGANIZ ATION 07/16/2022 [facility] DATE CREATED AUTHOR AUTHOR'S ORGANIZ ATION 09/26/2023 [facility] DATE CREATED AUTHOR AUTHOR'S ORGANIZ ATION 11/25/2023 [facility] DATE CREATED AUTHOR AUTHOR'S ORGANIZ ATION 02/16/2024 [facility] EPIC REASON FOR VISIT (unrecogniz ed section and content) RASH/ SPOTS ON HANDS Patient Care team informatio n (unrecognized section and content) Personnel Name: KIT VILLAFUERTE MD Address: Address: [address] [place] [address] Personnel Name: KIT VILLAFUERTE MD Address: Address: [address] [place] [address] FOR RECORDS PERTAINING TO PATIENTS WHO ARE OR HAVE BEEN ENROLLED IN A CHEMICAL DEPENDENCY/SUBSTANCEABUSE PROGRAM, SOME INFORMATION MAY BE OMITTED. This clinical summary was aggregated from multiple sources. Caution should be exercised in using it in the provision of clinical care. This summary normalizes information from multiple sources, and as a consequence, information in this document may materially change the coding, format and clinical context of patient data. In addition, data may be omitted in some cases. CLINICAL DECISIONS SHOULD BE BASED ON THE PRIMARY CLINICAL RECORDS. [facility]. provides no warranty or guarantee of the accuracy or completeness of information in this document.
--- NOTE | 2024-02-18 14:47 | XR_ITS ---
[address] [address] Patient Name: BHARATHI WEN MRN: [id number] date: 1970 Sex: F Assigned Patient Location: [facility] Current Patient Location: Accession/Order Number: [id number] Exam Date: 02/18/2024 14:40 Report Date: 02/21/2024 10:07 At the request of: HUBERT KNOX Procedure: XR abdomen 1V EXAMINATION: XR abdomen 1V HISTORY: Kidney Stone COMPARISON: No relevant comparison available. FINDINGS: KIDNEY/URETER - RIGHT: No visible renal or ureteral calcifications. KIDNEY/URETER - LEFT: Multiple scattered left nephroliths measuring up to 6.6 x 2.3 mm in the midpole PELVIS: No visible ureteral calcifications. Any visible calcifications favor phleboliths. BOWEL: No abnormal dilation or deviation. BONES: Rotatory levoscoliosis centered at the L1-L2 level OTHER: Catheter projects of the left iliac wing possibly ventriculoperitoneal shunt XR/XR abdomen 1V IMPRESSION: Scattered left nephrolithiasis measuring up to 6.5 x 2.3 mm Electronically authenticated by: MARCIN NAVA Date: 02/21/2024 10:07
== END 2024-02-18 14:33 | disposition home or self-care (01) ==
LOC: RAD 14:33
PROVIDERS: PCP Family Medicine; Visit Provider Urology
DX: N20.0 Calculus of kidney (principal)
CPT/HCPCS: 74018

== ENCOUNTER 2024-08-29 19:10 | Emergency (ER) | payer OTHER, SELFPAY ==
[2024-08-29 19:14] VITALS: BP 162/100; PULSE 116; TEMP 36.8; O2SAT 98; BMI 36.6
--- OUTSIDE RECORDS SUMMARY | 2024-08-29 19:17 | XMS_ITS | CCD ---
Author Organization [facility] CliniSyky Care Team Providers Care Tax Advisor Name Role Phone GEORGE CASH Unavailable Unavailable GEORGE CASH Unavailable Unavailable NO FAMILY DOCTOR, NO FAMILY DOCTOR Unavailable Unavailable Manjit Polk Unavailable Unavailable George Cash Unavailable Unavailable Kit Villafuerte Unavailable UnavailChristi Art Unavailable NOY, DR KIT Jaimes Primary Care Unavailable CECE LYNNE Attending Unavailable CECE LYNNE Admitting Unavailable JAZ, DR OSCAR Consulting Unavailable BRICE SALAS Consulting Unavailable CECE LYNNE Consulting Unavailable NADCOLE, DR KIT Jaimes Attending Unavailable WILSON, DR BRICE Ponce Consulting Unavailable NADERER, DR KIT Jaimes Primary Care Unavailable NADERER, DR KIT Jaimes Admitting Unavailable NADERER, DR KIT Jaimes Consulting Unavailable NADERER, DR KIT Jaimes Attending Unavailable NADERER, DR KIT Jaimes Primary Care Unavailable KAVEHEBER, DR BRICE Ponce Consulting Unavailable NADERER, DR KIT Jaimes Admitting Unavailable NADERER, DR KIT Jaimes Consulting Unavailable HOUSTON, JEROD Attending Unavailable HOUSTON, JEROD Consulting Unavailable HOUSTON, JEROD Admitting Unavailable NADERER, DR KIT Jaimes Primary Care Unavailable BENNY SHELLEY Consulting Unavailable CARLOS RAYMUNDO Consulting Unavailable KIT VILLAFUERTE Primary Care Physician KIT VILLAFUERTE Attending Unavailable Kit Villafuerte MD Primary Care Provider Biju KNOX Attending Unavailable Biju KNOX Attending Unavailable Biju KNOX P Referring Unavailable Biju KNOX P Attending Unavailable ABILIO, Biju P Attending Unavailable ABILIO, Biju P Attending Unavailable Biju KNOX P Referring Unavailable Biju KNOX P Admitting Unavailable Kit Villafuerte Primary Care Unavailable Biju Knox Admitting Unavailable Biju Knox Attending Unavailable NadereKit ponce Primary Care Unavailable Biju Knox P Admitting Unavailable Biju Knox Attending Unavailable Kit Villafuerte Primary Care Unavailable Biju Knox Admitting Unavailable Biju Knox Attending Unavailable Kit Villafuerte MD Primary Care Provider Biju Knox MD Attending Provider Allergies Allergy Classification Reported Allergen(s) Allergy Type Date of Onset Reaction(s) Facility (1 source) Codeine Drug Allergy hot flashes/nose bleed [facility] Other (3 sources) Codeine; Translations: [codeine] Drug Allergy 3 hot flashes/nose bleed [facility] (1 source) Sulfonamides (Antibiotic) Drug allergy (disorder) 3 [facility] (5 sources) Codeine; Translations: [codeine] Drug Allergy 4 Epistaxis (disorder), Other [facility] (4 sources) Sulfonamides (Antibiotic); Translations: [sulfa drugs] Drug allergy Tachypnea, Dyspnea [facility] (2 sources) Sulfonamides (Antibiotic) Drug Allergy 4 Unknown [facility] (1 source) Codeine Drug Allergy 4 [facility] Repository (2 sources) Sulfonamides (Antibiotic) Drug allergy (disorder) 4 unable to breathe [facility] Repository Medications Current Medications Medication Drug Class(es) Dates Sig (Normalized) Sig (Original) acetaminophen 325 mg / HYDROcodone bitartrate 5 mg oral tablet (4 sources) Opioid Agonist Start: 06-02-2024 take 1 tablet by mouth every four to six hours as needed for pain Hydrocodone-Aceta minophen 5-325 mg tablet Active 1 TAB PO EVERY 4-6 HOURS as needed for pain 7 3 June 02, 2024 Start: 08-10-2023 acetaminophen- hydrocodone 325 mg-5 mg oral tablet Refill(s) 0, 28 EA, 0 Refill(s), take 1 tablet by mouth four times a day if needed Start Date: 08/10/23 Status: Ordered ciprofloxacin 500 mg oral tablet (4 sources) Quinolone Antimicrobial Start: 08-13-2023 Cipro 500 mg Tab See Instructions, Take 1 tab day prior to procedure and 1 tab day of procdure - afterwards, # 2 tab(s), Refills(s) 0 Start Date: 08/13/23 Status: Ordered Clotrimazole (1 source) Azole Antifungal Start: 08-12-2021 Clotrimazole 1 % 1 application to affected area Externally Twice a day for 28 day(s) Aug, Active DULoxetine 20 mg delayed release oral capsule (2 sources) Serotonin and Norepinephrine Reuptake Inhibitor Start: 08-10-2023 take 1 capsule by mouth once daily in the morning Duloxetine (Cymbalta) 20 mg capsule,delayed release(DR/EC) Active 20 MG PO Every morning August 10, 2023 1:00am Cymbalta Active 24 hr mirabegron 50 mg extended release oral tablet (10 sources) beta3-Adrenergic Agonist Start: 08-31-2023 End: 08-30-2024 take 1 tablet by mouth once daily in the morning Mirabegron 50 mg tablet extended release 24 hr Active 50 MG PO Every morning May 19, 2024 1:00am Start: 08-10-2023 Myrbetriq Oral , Daily, Refills(s) 0 Start Date: 08/10/23 Status: Ordered Myrbetriq Active naproxen sodium 550 mg oral tablet (1 source) Nonsteroidal Anti-inflammatory Drug Start: 09-17-2020 take 1 tablet by mouth every twelve hours at mealtime as needed Naproxen Sodium 550 MG 1 tablet with food or milk as needed Orally every 12 hrs for 7 days Sep, Active ondansetron 4 mg disintegrating oral tablet (2 sources) Serotonin-3 Receptor Antagonist Start: 02-15-2024 take 1 tablet by mouth every six hours as needed for nausea and vomiting and nausea and nausea ondansetron ODT (Zofran-ODT) 4 MG disintegrating tablet Indications: Nausea Take 1 tablet (4 mg) by mouth every 6 (six) hours if needed for nausea or vomiting 30 tablet 2 02/15/2024 Active Completed/Discontinued Medications Medication Drug Class(es) Dates Sig (Normalized) Sig (Original) cephalexin 500 mg oral capsule (1 source) Cephalosporin Antibacterial Start: 08-10-2023 End: 05-19-2024 take 1 capsule by mouth twice daily Cephalexin 500 mg capsule Discontinued 500 MG PO Twice daily 10 5 August 10, 2023 6:38pm May 19, 2024 10:38am Mirabegron (Myrbetriq) 8 mg/mL suspension,extended rel recon (1 source) Start: 08-10-2023 End: 05-19-2024 Mirabegron (Myrbetriq) 8 mg/mL suspension,extende d rel recon Discontinued MG PO August 10, 2023 1:00am May 19, 2024 10:39am tamsulosin hydrochloride 0.4 mg oral capsule (3 sources) alpha-Adrenergic Go Start: 08-10-2023 tamsulosin 0.4 mg Cap 5 EA, 0 Refill(s), take 1 capsule by mouth once daily, Refills(s) 0 Start Date: 08/10/23 Status: Ordered Problems Active Problems Problem Classification Problem Date Documented Date Episodic/Chronic Abdominal pain (5 sources) Unspecified abdominal pain; Translations: [Abdominal pain] Onset: 2 Episodic Anxiety disorders (3 sources) Generalized anxiety disorder; Translations: [Generalized anxiety disorder] Onset: 4 12-07-2023 Chronic Calculus of urinary tract (8 sources) Personal history of urinary calculi; Translations: [Kidney stone] Onset: 2 Episodic Genitourinary symptoms and ill-defined conditions (5 sources) Female stress incontinence; Translations: [Stress incontinence (female) (male)] Onset: 4 12-07-2023 Chronic Mood disorders (6 sources) Depressive disorder; Translations: [Recurrent major depressive episodes, moderate ] Onset: 4 08-10-2023 Chronic Other diseases of kidney and ureters (1 source) Urinary tract obstruction; Translations: [Hydronephrosis with renal and ureteral calculous obstruction] Onset: 4 Episodic Other lower respiratory disease (5 sources) Solitary pulmonary nodule; Translations: [SOLITARY PULMONARY NODULE] Onset: 2 Episodic Other nervous system disorders (4 sources) Ventriculoperitoneal shunt in situ; Translations: [Presence of cerebrospinal fluid drainage device] Onset: 4 02-15-2024 Chronic Spondylosis; intervertebral disc disorders; other back problems (3 sources) Degeneration of lumbar intervertebral disc; Translations: [Other intervertebral disc degeneration, lumbar region] Onset: 12-07-2023 Chronic Unclassified (3 sources) Obstructive hydronephrosis 08-10-2023 Past or Other Problems Problem Classification Problem Date Documented Da te Episodic/Chronic Cancer of brain and nervous system (3 sources) History of malignant neoplasm of brain; Translations: [Personal history of malignant neoplasm of brain] Onset: 12-07-2023 12-07-2023 Episodic E Codes: Fall (1 source) Fall from other furniture, initial encounter; Translations: [FALL FROM OTHER FURNITURE INITIAL] Onset: 10-07-2021 Episodic Headache; including migraine (4 sources) Headache; Translations: [Nonintractable headache, unspecified chronicity pattern, unspecified headache type] Onset: 02-15-2024 02-15-2024 Episodic Intracranial injury (3 sources) History of traumatic brain injury; Translations: [Personal history of traumatic brain injury] Onset: 12-07-2023 12-07-2023 Episodic Mycoses (1 source) Tinea manuum Onset: 08-12-2021 Resolved: 08-12-2021 Episodic Nausea and vomiting (4 sources) Nausea; Translations: [Nausea] Onset: 02-15-2024 02-15-2024 Episodic Other aftercare (1 source) Other manager long term care (current) drug therapy; Translations: [OTH [facility] CURRENT DRUG THERAPY] Onset: 10-07-2021 Episodic Other connective tissue disease (3 sources) Pain in left leg; Translations: [PAIN IN LEFT LEG] Onset: 10-05-2021 Episodic Other lower respiratory disease (3 sources) Nodule of lung; Translations: [Solitary pulmonary nodule] Onset: 12-07-2023 12-07-2023 Episodic Other non-traumatic joint disorders (3 sources) Pain in left knee; Translations: [Pain in joint, lower leg] Onset: 12-07-2023 12-07-2023 Episodic Other skin disorders (3 sources) Vesicular eczema; Translations: [Dyshidrosis [pompholyx]] Onset: 12-07-2023 12-07-2023 Episodic Residual codes; unclassified (1 source) Acquired absence of other specified parts of digestive tract; Translations: [ACQ ABSENCE OTH PART DIGESTV TRACT] Onset: 10-07-2021 Episodic Superficial injury; contusion (2 sources) Contusion of left hip, initial encounter; Translations: [Contusion of left lower leg, initial encounter] Onset: 10-07-2021 Episodic Results Test Name Value Interpretation Reference Range Facility XR KUBon 06-02-2024 XR KUB [facility] Main [place] [address] [place] [address] XRay Report Signed Patient: Arturo Magallon#: [id number] : 1970 Acct:[id number] Age/Sex: 54 / F ADM Date: 06/02/24 Loc: [place] Room: Type: [facility] Attending Dr: Biju Knox MD Copies to: Biju Knox MD Ordering Provider: Biju Knox MD Date of Service: 06/02/24 XR/XR KUB: Pre Op KUB: CLINICAL INFORMATION: Preop lithotripsy left-sided. COMPARISON: KUB 08/10/2023 FINDINGS: Presumed BROKERAGE MANAGER shunt tubing is noted. The tubing lays over the left renal shadow limiting evaluation. There is likely left renal calculi noted, largest measuring 4 mm. No right renal calculus. Phleboliths are seen within the pelvis. Osseous structures demonstrate degenerative change. XR/XR KUB IMPRESSION: LIKELY LEFT RENAL CALCULI ARE NOTED, LARGEST MEASURING 4 MM. EVALUATION IS LIMITED THE PATIENT'S PRESUMED SHUNT TUBING IS OVERLYING THE LEFT RENAL SHADOW. Impression dictated by: Alden Lang Jr., D.ONicole06/02/2024 8:50 AM Dictation Location: [place] [address] Transcribed By: [facility] 06/02/24 0850 Dictated By: Alden Lang Jr, DO 06/02/24 0849 Signed By: 06/02/24 0850 Normal [facility] Basic Metabolic Panelon Anion gap [Moles/Vol] 11.3 mmol/L Normal 6.0-15.0 [facility] Comment on above: Performed By: #### P T, PTT, CBC, BMP #### [facility] [address] [place] [id number] [facility] Calcium [Mass/Vol] 9.4 mg/dL Normal 8.6-10.3 [facility] Comment on above: Result Comment: PERF ORMED BY: [place] [address] PATHOLOGIST BLENDING MACHINE OPERATOR ANT PERSAUD M.D. Performed By: #### P T, PTT, CBC, BMP #### [address] Chloride [Moles/Vol] 107 mmol/L Normal 98-107 [facility] Comment on above: Performed By: #### P T, PTT, CBC, BMP #### [address] CO2 [Moles/Vol] 28.9 mmol/L Normal 21.0-31.0 [facility] Comment on above: Performed By: #### P T, PTT, CBC, BMP #### [place] [address] [place] Creatinine [Mass/Vol] 0.88 mg/dL Normal 0.60-1.20 [facility] Comment on above: Performed By: #### P T, PTT, CBC, BMP #### [place] [address] [place] GFR/1.73 sq M.predicted MDRD (S/P/Bld) [Vol rate/Area] mL/min/{1.73_m2} Normal [facility] Comment on above: Performed By: #### P T, PTT, CBC, BMP #### [address] Glucose [Mass/Vol] 112 mg/dL High 70-100 [facility] Comment on above: Result Comment: [place] Glucose Reference Range is dependent on time and content of last meal. Glucose of more than 200 mg/dL in a nonstressed, ambulatory subject supports the diagnosis of Diabetes Mellitus. ADA recommended reference range Performed By: #### P T, PTT, CBC, BMP #### [address] Potassium [Moles/Vol] 4.2 mmol/L Normal 3.5-5.1 [facility] Comment on above: Performed By: #### P T, PTT, CBC, BMP #### [address] Sodium [Moles/Vol] 143 mmol/L Normal 136-145 [facility] Comment on above: Performed By: #### P T, PTT, CBC, BMP #### [address] Urea nitrogen [Mass/Vol] 17 mg/dL Normal 7-25 [facility] Comment on above: Performed By: #### P T, PTT, CBC, BMP #### [address] Complete Blood Count Auto Di ffon 05-19-2024 Basophils (Bld) [#/Vol] 0.1 10*3/uL Normal 0.0-0.2 [facility] Comment on above: Result Comment: PERF ORMED BY: [place] [address] PATHOLOGIST BLENDING MACHINE OPERATOR ANT PERSAUD M.D. Performed By: #### P T, PTT, CBC, BMP #### [address] Basophils/100 WBC (Bld) 1.3 % Normal . [facility] Comment on above: Performed By: #### P T, PTT, CBC, BMP #### [address] Eosinophils (Bld) [#/Vol] 0.4 10*3/uL Normal 0.0-0.45 [facility] Comment on above: Performed By: #### P T, PTT, CBC, BMP #### [address] Eosinophils/100 WBC (Bld) 5.5 % Normal . [facility] Comment on above: Performed By: #### P T, PTT, CBC, BMP #### [address] Erythrocyte distribution width (RBC) [Ratio] 13.7 % Normal 11.9-15.3 [facility] Comment on above: Performed By: #### P T, PTT, CBC, BMP #### [address] Hematocrit (Bld) [Volume fraction] 41.3 % Normal 34.0-46.4 [facility] Comment on above: Performed By: #### P T, PTT, CBC, BMP #### [address] Hemoglobin (Bld) [Mass/Vol] 14.0 g/dL Normal 11.8-15.4 [facility] Comment on above: Performed By: #### P T, PTT, CBC, BMP #### [address] Lymphocytes (Bld) [#/Vol] 1.9 10*3/uL Normal 1.00-4.8 [facility] Comment on above: Performed By: #### P T, PTT, CBC, BMP #### [address] Lymphocytes/100 WBC (Bld) 23.5 % Normal . [facility] Comment on above: Performed By: #### P T, PTT, CBC, BMP #### [address] MCH (RBC) [Entitic mass] 30.2 pg Normal 24.7-34.3 [facility] Comment on above: Performed By: #### P T, PTT, CBC, BMP #### [address] MCV (RBC) [Entitic vol] 89.1 fL Normal 80-100 [facility] Comment on above: Performed By: #### P T, PTT, CBC, BMP #### [address] Mean Corpuscular HGB Conc 33.9 g/dL Normal 32.0-35.0 [facility] Comment on above: Performed By: #### P T, PTT, CBC, BMP #### [place] [id number] [place] Monocytes (Bld) [#/Vol] 0.6 10*3/uL Normal 0.0-0.8 [facility] Comment on above: Performed By: #### P T, PTT, CBC, BMP #### [address] Monocytes/100 WBC (Bld) 7.0 % Normal . [facility] Comment on above: Performed By: #### P T, PTT, CBC, BMP #### [address] Neutrophils (Bld) [#/Vol] 5.0 10*3/uL Normal 1.8-7.7 [facility] Comment on above: Performed By: #### P T, PTT, CBC, BMP #### [address] Neutrophils/100 WBC (Bld) 62.7 % Normal . [facility] Comment on above: Performed By: #### P T, PTT, CBC, BMP #### [address] NRBC% 0.2 /100{WBC} Normal 0-0.5 [facility] Comment on above: Performed By: #### P T, PTT, CBC, BMP #### [address] Platelet mean volume (Bld) [Entitic vol] 8.1 fL Normal 6.3-10.7 [facility] Comment on above: Performed By: #### P T, PTT, CBC, BMP #### [place] [address] [place] Platelets (Bld) [#/Vol] 300 10*3/uL Normal 150-450 [facility] Comment on above: Performed By: #### P T, PTT, CBC, BMP #### [address] RBC (Bld) [#/Vol] 4.63 10*6/uL Normal 3.60-5.00 [facility] Comment on above: Performed By: #### P T, PTT, CBC, BMP #### [address] WBC (Bld) [#/Vol] 8.0 10*3/uL Normal 3.8-11.6 [facility] Comment on above: Performed By: #### P T, PTT, CBC, BMP #### [facility] [address] [place] [address] ECG 12 lead ECGon 05-19-2024 ECG 12 lead ECG [facility] Main [place] [address] [place] [address] Electrocardiograph Report Signed Patient: Arturo Magallon#: [id number] : 1970 Acct:[id number] Age/Sex: 54 / F ADM Date: 05/19/24 Loc: Room: Type: [facility] Attending Dr: Biju Knox MD Ordering Provider: Biju Knox MD Date of Service: 05/19/2412/05/906 ECG/ECG 12 lead ECG: PST Copies to: Test Reason : Blood Pressure : */* mmHG Vent. Rate : 83 BPM Atrial Rate : 83 BPM P-R Int : 144 ms QRS Dur : 72 ms QT Int : 356 ms P-R-T Axes : 43 27 14 degrees QTcB Int : 418 ms Normal sinus rhythm Nonspecific T wave changes. Abnormal ECG Confirmed by Celestina Joy ([id number]) on 05/21/2024 10:57:13 PM Referred By: Electronically Signed By: Celestina Joy Transcribed By: MUS Signed By Celestina Joy MD 4 7583 Normal [facility] Partial Thromboplastin Timeo n 05-19-2024 aPTT Coag (Bld) [Time] 31.2 s Normal 25.1-36.5 [facility] Comment on above: Result Comment: A he matocrit value greater than 55% may lead to inaccurate results in coagulation testing. Patients having hematocrit values >55% require a special collection tube for coagulation studies. Please contact the laboratory at [phone] for redraw instructions. PERFORMED BY: [place] [address] PATHOLOGIST BLENDING MACHINE OPERATOR ANT PERSAUD M.D. Performed By: #### P T, PTT, CBC, BMP #### [address] Prothrombin Time INRon 05-19 INR Coag (PPP) [Relative time] 1.1 {INR} Normal [facility] Comment on above: Result Comment: INR Therapeutic Range A) Pre- and Peroperative OAT started two weeks before surgery. NOT HIP SURGERY: 1.5 - 2.5 HIP SURGERY: 2 - 3 B) Primary and secondary prevention of venous THROMBOSIS: 2 - 3 C) Active venous thrombosis, pulmonary embolism and prevention of recurrent venous thrombosis: 2 - 3 D) Prevention of arterial thromboembolism including patients with mechanical heart valves: 3 - 4.5 Performed By: #### P T, PTT, CBC, BMP #### [address] PT Coag (PPP) [Time] 12.6 s Normal 9.0-12.9 [facility] Comment on above: Result Comment: A he matocrit value greater than 55% may lead to inaccurate results in coagulation testing. Patients having hematocrit values >55% require a special collection tube for coagulation studies. Please contact the laboratory at [phone] for redraw instructions. Performed By: #### P T, PTT, CBC, BMP #### [place] [id number] [facility] Ambulatory Visit Summaryon 0 02-21-2024 Ambulatory Visit Summary Ambulatory Visit Summary MARISA MAGALLON :1970 Visit Date:02/21/2024 Ambulatory Visit Instructions Your Diagnosis Kidney stones Your Care Team Attending Physician - ABILIO EDEN, Biju Acuña Primary Care Physician - KIT VILLAFUERTE MD This Is Your Medications List Contact prescribing physician if questions or concerns acetaminophen-hydrocodo ne (acetaminophen-hydrocod one 325 mg-5 mg oral tablet) ciprofloxacin (Cipro 500 mg Tab) ciprofloxacin (Cipro 500 mg Tab) mirabegron (Myrbetriq) tamsulosin (tamsulosin 0.4 mg Cap) Procedures Performed Hemorrhoid, Procedure on brain ventricular shunt. Discharge Vitals Heart Rate (Peripheral) 68 Respiratory Rate 16 Blood Pressure 126/78 Height 180 cm Height 71 in Weight 100 kg Weight 220 lb BMI 30.86 What to do next You Need to Schedule the Following Appointments Follow Up with ABILIO EDEN, KAILYN Blunt When: Where: [address] [place] [phone]- Medications What How Much When Instructions Unchanged acetaminophen-hydrocodo ne (acetaminophen-hydrocod one 325 mg-5 mg oral tablet) 28 EA, 0 Refill(s), take 1 tablet by mouth four times a day if needed Contact prescribing physician if questions or concerns Unchanged ciprofloxacin (Cipro 500 mg Tab) See instructions Take 1 tab day prior to procedure and 1 tab day of procdure - afterwards Contact prescribing physician if questions or concerns Unchanged ciprofloxacin (Cipro 500 mg Tab) See instructions Take 1 tab day prior to procedure and 1 tab day of procdure - afterwards Contact prescribing physician if questions or concerns Unchanged mirabegron (Myrbetriq) By Mouth Every day Contact prescribing physician if questions [...] care. [employer] Laser Therapy for Kidney Stones, Care After After laser therapy for kidney stones, it is common to have: ? Pain. ? A burning feeling when you pee (urinate). ? Small amounts of blood in your pee (urine). ? A need to pee a lot. ? Parts of the kidney stone in your pee. ? Mild discomfort in your back when you pee. You may have this if you had a small mesh tube (stent) placed during the procedure. Follow these instructions at home: Medicines ? Take [id number] and prescription medicines only as told by your health care provider. ? If you were prescribed antibiotics, take them as told by your provider. Do not stop using the antibiotic even if you start to feel better. ? Ask your provider if the medicine prescribed to you: ? Requires you to avoid driving or using machinery. ? Can cause constipation. You may need to take these actions to prevent or treat constipation: ? Drink enough fluid to keep your pee pale yellow. ? Take [id number]-pjtcvna or prescription medicines. ? Eat foods that are high in fiber, such as beans, whole grains, and fresh fruits and vegetables. ? Limit foods that are high in fat and processed sugars, such as fried or sweet foods. Activity ? If you were given a sedative during the procedure, it can affect you for several hours. Do not drive or operate machinery until your provider says that it is safe. ? Return to your normal activities as told by your provider. Ask your provider what activities are safe for you. General instructions ? Your provider may recommend that you drink a lot of water for a few hours after your procedure. If you have heart or kidney disease, ask your provider how much you should drink. ? You may be asked to strain your pee to collect any stone pieces that you pass. Your provider may have these pieces tested. ? Do not take baths, swim, or use a hot tub until your provider approves. Ask your provider if you may take warm baths to soothe the burning. ? Keep all follow-up visits. If you have a stent, you will need to go back to your provider to have it removed. Your provider may give you more instructions. Make sure you know what you can and cannot do. Contact a health care provider if: ? You have pain or a burning feeling that lasts for more than 2 days. ? You feel nauseous. ? You vomit more and more often. ? You have trouble peeing. ? You have pain that gets worse or does not get better with medicine. ? You have a fever or s (more content not included)... Normal [facility] Urology Office/Clinic Noteon 02-21-2024 Urology Office/Clinic Note Urology Office/Clinic Note Chief Complaint Pt is here for 7 mos f/u to kidney stone - KUB done 02/18/24 HPI Staff 6 mos with KUB. KUB 08/10/23 [facility]. Previous Dx: ureteral stone with hydro, kidney stones, flank pain. S/p cysto, L RGP, L URS/nephro, laser litho, basket extraction of L renal stone, L JJ stent placement 08/10/23. Cysto, stent removal 08/23/23. Stone analysis - 70% CaOx mono, 30% CaOx di *Myrbetriq Dysuria: No Incomplete bladder emptying: No Hematuria: No Frequency: Yes, mild 'sometimes' Urgency: Yes, mild 'sometimes' Nocturia: moderate - 1-3 times per night Wearing pads/ Depends: Yes, changes every 3-4 hrs Urge incontinence: Yes, moderate - if she's had to hold it too long History of Present Illness Tests reviewed: reviewed UA, KUB I have reviewed the previous health record information and history for this patient from Dr. Knox. I have reviewed and verified the staff HPI to be accurate for this encounter. Review of Systems ROS - Provider Constitutional: denies weight loss, denies hot flashes. Eyes: denies eye problems. Gastrointestinal: denies nausea, denies vomiting. Cardiovascular: denies chest pain or angina. Integumentary: no dryness Musculoskeletal: denies musculoskeletal symptoms. ENMT: denies otolaryngeal symptoms. Respiratory: no shortness of breath. Heme/Lymph: denies easy bleeding tendency, denies easy bruising tendency. Psychiatric: no confusion, no anxiety. Genitourinary: See HPI. Physical Exam Vitals & Measurements HR: 68(Peripheral) RR: 16 BP: 126/78 HT: 71 in HT: 180 cm WT: 100 kg WT: 220 lb BMI: 30.86 General Appearance: alert , no acute distress, well nourished, well developed female. Assessment/Plan Pt here with her father today as pt has memory issues. 1. Kidney stones (N20.0: Calculus of kidney) CT AP wo con 02/25/23 [facility] - 2mm R UVJ calculus with R hydroureteronephrosis. Nonobstructing R renal calculus no visualized. CT AP wo con 08/03/23 [facility] - Nonobstructing L renal stones, measuring up to 9mm. Mild L dilatation of collecting system to level of UPJ due to obstructing 8mm stone. Ureters are nondilated. 08/03/23 - BUN 14. Cr 1.02. eGFR 57. S/p Cysto/L RPG/L URS/nephroscopy/laser ablation and basket extraction of left renal calculus/L stent placement 08/10/23 (no stone at left UPJ noted so proceeded with extraction of left renal stone). Stone analysis - 70% CaOx [place], 30% Di. S/p Cysto/L stent removal 08/23/23. KUB 02/18/24 [facility] - Multiple scattered L nephroliths measuring up to 6.6 x 2.3 mm in midpole. No R renal or ureteral stones noted. Reviewed imaging results. Advised pt there is a risk of stone passing and causing obstruction/pain. Discussed management options including monitoring vs ESWL vs ureteroscopy. Risks/benefits/procedur al details discussed. Pt prefers ESWL. -Will schedule Cysto with Left ESWL and possible JJ Stent Placement. The procedure risks, benefits, details and treatment [...] has been obtained. Will order General anesthesia. The summary is that this is a 53-year-old female is status post laser lithotripsy of left renal calculus back about 6 months ago. Current KUB demonstrates continued presence of renal calculi up to 6.6 mm in size according to the radiology report. We discussed options including continued observation versus intervention with ESWL. She understands risk benefits and details as outlined to her. She and her father agreed to proceed. She understands the risk of blockage from stone fragments. The plan will be not to place an indwelling stent secondary to the fairly small stone size but there is still the possibility of blockage from a 2 to 3 mm fragment. Risk of anesthesia and the procedure itself have been discussed including heart and lung problems and they wish to proceed. Follow-up With When Contact Information ABILIO EDEN, Biju Acuña, URL [address] [place] [phone]- Additional Instructions: sched L ESWL Patient Education Laser Therapy for Kidney Stones, Care After Laser Therapy for Kidney Stones IVani, personally scribed for Dr. Knox on 02/21/2024 12:18:18. . Documentation recorded by the Vani lala acurately reflects the services(s) I performed and decisions made by me. Authenticated by Dr. Knox on 02/21/2024 12:35:36. Portions of this record may have been created with voice recognition artificial intelligence software, specifically [employer] and or [employer] Substitutions may have occurred due to the inherent limitations of voic (more content not included)... Normal [facility] Comment on above: Result Comment: Elec tronically Signed By: Biju KNOX MD\.br\Date and Time Signed: 02/21/24 12:36 EDT\.br\Electronically Co-Signed By: Vani Quevedo\.br\Date and Time Co-Signed: 02/21/24 12:18 EDT Consent for Procedure/Surger yon 08-23-2023 Consent for Procedure/Surgery [id number]#1.00 TIFF [facility] Consent for Treatmenton 08-12 Consent for Treatment [id number]#1.00T IFF [facility] Inpatient Patient Summaryon 08-23-2023 Inpatient Patient Summary [place] [address] Clinical Summary Person Information Name: MARISA MAGALLON Age: 53 Years : 1970 Sex: Female PCP: KIT VILLAFUERTE MD Marital Status: Race: White Ethnicity: Non- or Language: German Visit Id: Visit Reason: KIDNEY STONE Speciality: Acuity: Enc Type: Outpatient Med Service: Surgery Arrival: 08/23/2023 15:16:57 Discharge: Dispo Type: Address: [address] [place] [id number] Provider Notes: Diagnosis: Problems Active Ureteral stone [...] KNOX MD Follow up: With: Address: When: Biju KNOX [address] [place] [address], [address], [place] [phone] Business (1) Within 6 months Comments: Call [...] of a kit from a company called [email or web address]. Otherwise I will see him in 6 months with an abdominal x-ray. Have a great day Patient Education Information: EU - Cystoscopy with Stent Removal Discharge Instructions (Custom) [facility] IntraOperative Documentson 0 08-23-2023 IntraOperative Documents [id number]#1.00 TIFF Normal [facility] Lab Reportson 08-23-2023 Lab Reports [id number]#1.00T IFF Normal [facility] Main OR Intraoperative Recor don 08-23-2023 Main OR Intraoperative Record IntraOp Document Type FTURO Summary Primary Physician: Biju KNOX MD Finalized Date/Time: 08/23/23 16:18:58 Pt. Name: MARISA MAGALLON/Sex: 1970 Female Med Rec #: [id number] Physician: Biju KNOX MD Financial #: [id number] Pt. Type: O Room/Bed: / Admit/Disch: 08/23/23 15:16:57 - Institution: Case Times FTURO Entry 1 Patient Times In Room 08/23/23 16:07:00 Out Room 08/23/23 16:16:00 Procedure Times Start 08/23/23 16:12:00 Stop 08/23/23 16:12:00 Anesthesia Times Last Modified By: Bret VARGAS, Darya Acuña 08/23/23 16:12:56 Case Attendance FTURO Entry 1 Entry 2 Entry 3 Case Attendee Biju KNOX MD, RN, Francisco Greene Role Performed Surgeon - Primary Digital Sales Planner - Primary Scrub - Primary Time In 08/23/23 16:07:00 08/23/23 16:07:00 08/23/23 16:07:00 Time Out 08/23/23 16:16:00 08/23/23 16:16:00 08/23/23 16:16:00 Procedure CYSTOSCOPY LOCAL WITH CYSTOSCOPY LOCAL WITH CYSTOSCOPY LOCAL WITH STENT REMOVAL(Left) STENT REMOVAL(Left) STENT REMOVAL(Left) Comments Last Modified By: Bret VARGAS, Darya Queen RN, Darya Queen RN, Darya Acuña 08/23/23 Amanda Acuña 08/23/23 Amanda Acuña 08/23/23 16:12:59 16:12:59 16:12:59 Surgical Procedures FTURO Entry 1 Procedure Description Procedure CYSTOSCOPY LOCAL WITH Modifiers Left STENT REMOVAL Surgeon Description CYSTOSCOPY WITH LEFT STENT REMOVAL Primary Procedure Yes Primary Surgeon Biju KNOX MD Start 08/23/23 16:12:00 Stop 08/23/23 16:12:00 Anesthesia Type Local Surgical Service Urology Wound Class 2 - Clean-Contaminated Last Modified By: Darya Queen RN 08/23/23 16:12:58 General Case Data FTURO Pre-Care Text: Classifies surgical wound, implements aseptic technique, initiates traffic control Entry 1 Case Information OR URO 1 FT Case Level None Wound Class 2 - Clean-Contaminated Specialty Urology Preop Diagnosis KIDNEY STONE Postop Same As Preop Yes Postop Diagnosis KIDNEY STONE Outcomes Met? Yes Last Modified By: Darya Queen RN 08/23/23 16:10:09 Post-Care Text: The patient is [...] Verified Availability Equipment, Medication Time Out Biju KNXO MD, Verified (If Participants Darya Queen RN Applicable) Iglesia Rodarte Kendall R Time Out Complete 08/23/23 16:10:00 [...] By: Darya Queen RN 08/23/23 16:18 Normal [facility] Main OR Preoperative Recordo n 08-23-2023 Main OR Preoperative Record Holding Area Document Type FTURO Summary Primary Physician: Biju KNOX MD Finalized Date/Time: 08/23/23 15:38:35 Pt. Name: MARISA MAGALLON/Sex: 1970 Female Med Rec #: [id number] Physician: Biju KNOX MD Financial #: [id number] Pt. Type: O Room/Bed: / Admit/Disch: 08/23/23 [...] RAUDEL Catalan RN, Ruthann 08/23/23 15:38 Normal [facility] Operative Reporton Operative Report Patient: MARISA MAGALLON Age: 53 years Sex: Female : 1970 [...] to proceed with a metabolic workup.. Normal [facility] Comment on above: Result Comment: Elec tronically Signed By: Biju KNOX MD\.br\Date and Time Signed: 08/23/23 16:16 EDT Outpatient Surgery Discharge Instructionon 08-23-2023 Outpatient Surgery Discharge Instruction [place] [address] Patient Discharge Instructions PERSON INFORMATION Name: MARISA MAGALLON Date of : 1970 Current Date: 08/23/2023 16:15:43 PHYSICIANS Admitting Physician: Biju KNOX MD Comment: Discharge Diagnosis: MARISA MAGALLON has been given the following list of follow-up instructions, prescriptions, and patient education materials: IF UNABLE TO CONTACT YOUR PHYSICIAN AND YOU FEEL IT IS AN EMERGENCY, GO TO THE NEAREST EMERGENCY ROOM OR CALL 911 Follow up: With: Address: When: Biju KNOX [address], [address], [facility] [address] [place] [phone] Business (1) Within 6 months Comments: Call [...] of a kit from a company called [email or web address]. Otherwise I will see him in 6 [...] have a fever over 100 degrees. I, MARISA MAGALLON, have received the attached patient education materials/instructions and have verbalized understanding: May we do a follow up call? Yes No I was present when discharge instructions were given Patient Signature Date Clinican/Nurse Signature _ Date You may receive a survey from Chana Gutiérrez asking you to rate your care experience. Your feedback is important and will help us understand what we do well and how we can improve the quality of care we provide to you, your loved ones and our community. It?s an honor to serve you. Thank you for choosing [facility] Normal [facility] Pathology Noteon 08-16-2023 Pathology Note [id number]#1.00T IFF Normal [facility] ED Note-Physicianon 08-11-19 24 ED Note-Physician [id number]#1.00T IFF Normal [facility] Formson 08-11-2023 Forms [id number]#1.00T IFF Normal [facility] Insurance Correspondenceon 0 08-11-2023 Insurance Correspondence [id number]#1.0 0TIFF [facility] Lab Reportson 08-11-2023 Lab Reports [id number]#1.00 TIFF Normal [facility] Operative Reporton Operative Report [id number]#1.00T IFF Normal [facility] RAD - CT Reporton 08-11-2023 RAD - CT Report [id number]#1.00T IFF Normal [facility] RAD - MISCon 08-11-2023 RAD - MISC [id number]#1.00T IFF Normal [facility] RAD - MISC [id number]#1.00T IFF Normal [facility] Ambulatory Visit Summaryon 0 08-10-2023 Ambulatory Visit Summary MARISA MAGALLON :1970 Visit Date:08/10/2023 Ambulatory Visit Instructions Your [...] Following Appointments Follow Up with ABILIO EDEN, Biju Acuña, URWillian When: Comments: sched cysto/L stent placement Where: [address] [place] [id number]- Medications What How Much When Instructions [...] including vitamins, herbs, eye drops, creams, and clxk-wow-vfzgltk medicines. ? Any problems you or family [...] tells you to take them. ? Taking dllv-hxg-zruwhvv medicines, vitamins, herbs, and supplements. Eating and [...] drink clear (more content not included)... Normal [facility] Ambulatory Visit Summary MARISA MAGALLON :1970 Visit Date:08/10/2023 Ambulatory Visit Instructions Your [...] Following Appointments Follow Up with ABILIO EDEN, Biju Acuña, KAILYN When: Comments: sched cysto/L stent placement Where: [address] [address]- Medications What How Much When Instructions Unchanged [...] including vitamins, herbs, eye drops, creams, and iidf-eeh-vqldhwi medicines. ? Any problems you or family [...] tells you to take them. ? Taking wyfq-tvj-blvkooo medicines, vitamins, herbs, and supplements. Eating and [...] drink clear (more content not included)... Normal [facility] Calculi, Urinaryon 4 Ca Oxalate Dihydrate 30 % Normal . [facility] Comment on above: Performed By: #### C ALCULI #### [facility] , Ca Oxalate Monohydrate 70 % Normal . [facility] Comment on above: Performed By: #### C ALCULI #### [facility] , Color (U) Brown Normal . [facility] Comment on above: Performed By: #### C ALCULI #### [facility] , Comment2 Normal . [facility] Comment on above: Result Comment: Calc ulus received wet. Wet calculi must be dried before analysis, which delays reporting of results. Leaving calculi wet (such as water, saline, blood, urine) may lead to changes in composition. Performed By: #### C ALCULI #### [facility] , Comment: Normal . [facility] Comment on above: Result Comment: Phys edna questions regarding Calculi Analysis contact [employer] at: [phone]. Performed By: #### C ALCULI #### [facility] , Composition Normal . [facility] Comment on above: Result Comment: Perc entage (Represents the % composition) Performed By: #### C ALCULI #### [facility] , Disclaimer: Normal . [facility] Comment on above: Result Comment: This test was developed and its performance characteristics determined by [facility]. It has not been cleared or approved by the Food and Drug Administration. Performed at: [facility] [address] [id number] Inserter Operator: Anitha Jay PhDDA, Phone: [phone] Performed By: #### C ALCULI #### [facility] , Note Normal . [facility] Comment on above: Result Comment: Calc dacia report will follow via computer, mail or evaluation specialist delivery. PERFORMED BY: [place] [address] PATHOLOGIST BLENDING MACHINE OPERATOR MARLON ORNELAS M.D. Performed By: #### C ALCULI #### [facility] , Photo Normal . [facility] Comment on above: Result Comment: Phot ograph will follow under a separate cover Performed By: #### C ALCULI #### [facility] , Size 4x3 Normal . [facility] Comment on above: Result Comment: Mult iple pieces received. Dimensions of the largest piece reported. Performed By: #### C ALCULI #### [facility] , Source Normal . [facility] Comment on above: Result Comment: Left Ureter Performed By: #### C ALCULI #### [facility] , Weight 185 Normal . [facility] Comment on above: Performed By: #### C ALCULI #### [facility] , [place] urethrocystogram retroon 08-10-2023 [place] urethrocystogram retro [facility] Main [place] [address] [place] [address] Fluoroscopy Report Signed Patient: Arturo Magallon#: [id number] : 1970 Acct:[id number] Age/Sex: 53 / F ADM Date: 08/10/23 Loc: [place] Room: Type: [facility] Attending Dr: Biju Knox MD Copies to: [...] Javi Vera M.D.08/10/2023 6:03 PM Dictation Location: [place] [address] Transcribed By: [facility] 08/10/231802 Dictated By: Javi Vera DO 08/10/231757 Signed By: 08/10/231802 Normal [facility] Insurance Correspondenceon 0 08-10-2023 Insurance Correspondence [id number]#1.00 TIFF Normal [facility] Smooth 08-10-2023 L Specimen: [id number] Received: 08/11/23 Status: SOUMalorie Req Num: [id number] Spec Type: Surgical Subm Dr: Biju Knox MD Tissues: A Urinary Calculus (LT URETERAL STONE) Procedures: Level 1 Gross Age/ Patient Sex Location Account Attending Physician Arturo Magallon 53/F [place] [id number] Biju Knox MD SPEC NUM: [id number] RECD: 08/11/23 STATUS: TARA LOFTON NUM: [id number] VISHAL: 08/10/23- SUBM DR: Biju Knox MD ENTERED: 08/11/[address]: SPEC TYPE: Surgical DEPT: S ORDERED: [...] chemical analysis. Gross examination only. CPT Codes 04472 Specimen: [id number] Received: 08/11/23 Status: TARA Lofton Num: [id number] Spec Type: Surgical Subm Dr: Biju Knox MD Tissues: A Urinary Calculus (LT URETERAL STONE) Procedures: Level 1 Gross Patient: Arturo Magallon [id number] (Continued) Signed (signature on file) Vargas Garcia MD 08/13/23 0938 [facility] Patient Educationon 08-10-19 Patient [...] including vitamins, herbs, eye drops, creams, and bnai-lan-cfwzkuy medicines. ? Any problems you or family [...] tells you to take them. ? Taking byox-fjf-frtgxmm medicines, vitamins, herbs, and supplements. Eating and [...] pieces (more content not included)... Normal [facility] Urology Office/Clinic Noteon 08-10-2023 Urology Office/Clinic Note Chief Complaint [facility] F/U for flank pain HPI Staff [facility] follow up due to abdominal pain, left flank pain. Seen at [facility] 08/03/23. CT @ [facility] 08/03/23. BUN 14.0, Creatinine 1.02 done 08/03/23. [...] Despite that she was discharged from the [facility] with outpatient follow-up. Her chances of passing the stone are small given that size. She does have more stones in the kidneys. She knows that a possible stent will be indicated. Documentation recorded by the Vani lala acurately reflects the services(s) I performed and decisions made by me. Authenticated by Dr. Knox on (more content not included)... Normal [facility] Comment on above: Result Comment: Elec tronically Signed By: Biju KNOX MD\.br\Date and Time Signed: 08/10/23 10:50 EST\.br\Electronically Co-Signed By: Vani Quevedo\.br\Date and Time Co-Signed: 08/10/23 10:46 EST XR KUBon 08-10-2023 XR KUB [facility] Main [place] [address] [place] [address] XRay Report Signed Patient: Arturo Magallon R#: [id number] : 1970 Acct:[id number] Age/Sex: 53 / F ADM Date: 08/10/23 Loc: [place] Room: Type: [facility] Attending Dr: Biju Knox MD Copies to: [...] Javi Vera M.D.08/10/2023 4:59 PM Dictation Location: [place] [address] Transcribed By: [facility] 08/10/231658 Dictated By: Javi Vera DO 08/10/231656 Signed By: 08/10/231658 Normal [facility] CT CHEST W CONon 07-15-2022 CT CHEST [...] by: BRICE RACHEL Date: 2022-07-15 09:35 Normal [facility] CT CHEST W CONon 11-06-2021 CT CHEST [...] by: BRICE RACHEL Date: 2021-11-06 09:10 Normal [facility] XR FEMUR LTon 10-05-2021 XR FEMUR LT [...] CARLOS RAYMUNDO Date: 2021-10-05 06:02 Normal [facility] XR HIP LT 2 3V W PELVISon [...] CARLOS RAYMUNDO Date: 2021-10-05 05:48 Normal [facility] XR KNEE LT 4V or >on 022 [...] BENNY [place] Date: 2021-10-05 05:50 Normal [facility] CBC AUTO DIFFon 09-22-2021 BASO # 0.1 103/ul Normal 0.0-0.1 [facility] Comment on above: Performed By: #### C BC #### [facility] [address] [place] [address] Dr. Starr Garcia Basophils/100 WBC (Bld) 0.5 % Normal 0.2-2.0 [facility] Comment on above: Performed By: #### C BC #### [facility] [address] [place] [address] Dr. Starr Garcia EO # 0.2 103/ul Normal 0.0-0.7 [facility] Comment on above: Performed By: #### C BC #### [facility] [address] [place] [address] Dr. Starr Garcia Eosinophils/100 WBC (Bld) 1.9 % Normal 0.9-7.0 [facility] Comment on above: Performed By: #### C BC #### [facility] [address] [place] [address] Dr. Starr Garcia Erythrocyte distribution width (RBC) [Ratio] 13.8 % Normal 11.0-15.0 [facility] Comment on above: Performed By: #### C BC #### [facility] [address] [place] [address] Dr. Starr Garcia Hematocrit (Bld) [Volume fraction] 43.1 % Normal 36.0-48.0 [facility] Comment on above: Performed By: #### C BC #### [facility] [address] [place] [address] Dr. Starr Garcia Hemoglobin (Bld) [Mass/Vol] 14.2 g/dL Normal 12.0-16.0 [facility] Comment on above: Performed By: #### C BC #### [facility] [address] [place] [address] Dr. Starr Garcia IG # 0.07 10e3/ul Critically high 0.00-0.03 [facility] Comment on above: Performed By: #### C BC #### [facility] [address] [place] [address] Dr. Starr Garcia IG % 0.7 % Critically high 0.0-0.5 [facility] Comment on above: Performed By: #### C BC #### [facility] [address] [place] [address] Dr. Starr Garcia LYMPH # 1.5 103/ul Normal 1.2-3.8 [facility] Comment on above: Performed By: #### C BC #### [facility] [address] [place] [address] Dr. Starr Garcia Lymphocytes/100 WBC (Bld) 15.3 % Critically low 20.5-60.0 [facility] Comment on above: Performed By: #### C BC #### [facility] [address] [place] [address] Dr. Starr Garcia MANUAL DIFF REQ NO Normal [facility] Comment on above: Performed By: #### C BC #### [facility] [address] [place] [address] [address] Starr Garcia MCH (RBC) [Entitic mass] 30.3 pg Normal 26.7-34.0 [facility] Comment on above: Performed By: #### C BC #### [facility] [address] [place] [address] Dr. Starr Garcia MCHC (RBC) [Mass/Vol] 32.9 g/dL Normal 29.9-35.2 [facility] Comment on above: Performed By: #### C BC #### [facility] [address] [place] [address] Dr. Starr Garcia MCV (RBC) [Entitic vol] 91.9 fL Normal 81.0-99.0 [facility] Comment on above: Performed By: #### C BC #### [facility] [address] [place] [address] Dr. Starr Garcia MONO # 0.6 103/ul Normal 0.3-0.8 [facility] Comment on above: Performed By: #### C BC #### [facility] [address] [place] [address] Dr. Starr Garcia Monocytes/100 WBC (Bld) 5.7 % Normal 1.7-12.0 [facility] Comment on above: Performed By: #### C BC #### [facility] [address] [place] [address] Dr. Starr Garcia NEUT # 7.4 103/ul Critically high 1.4-6.[address] [facility] Comment on above: Performed By: #### C BC #### [facility] [address] [place] [address] Dr. Starr Garcia Neutrophils/100 WBC (Bld) 75.9 % Critically high 43.0-75.0 [facility] Comment on above: Performed By: #### C BC #### [facility] [address] [place] [address] Dr. Starr Garcia Platelet mean volume (Bld) [Entitic vol] 9.8 fL Normal 9.5-13.5 [facility] Comment on above: Performed By: #### C BC #### [facility] [address] [place], [place] [address] Dr. Starr Garcia PLT 336 103/ul Normal 150-450 [facility] Comment on above: Performed By: #### C BC #### [facility] [address] [place] [address] [address] Starr Garcia RBC 4.69 106/ul Normal 4.20-5.40 [facility] Comment on above: Performed By: #### C BC #### [facility] [id number] Starr Garcia WBC 9.8 103/ul Normal 4.0-11.0 [facility] Comment on above: Performed By: #### C BC #### [facility] [address] [address] [address] ABD/PELVIS WO CONon [...] and adnexa. BODY WALL: There is a BROKERAGE MANAGER shunt in the chest wall extending into [...] BRICE SALAS Date: 2021-09-22 19:24 Normal [facility] ER URINE PROFILEon 2 Bilirubin Ql (U) Negative Normal NEGATIVE [facility] Comment on above: Performed By: #### DRAGAN GASPAR, PREGU #### [facility] [address] [address] [address] Starr Garcia Clarity (U) SL CLOUDY Abnormal CLEAR [facility] Comment on above: Performed By: #### DRAGAN GASPAR, PREGU #### [facility] [address] [address] [address] Starr Garcia Color (U) YELLOW Normal YELLOW [facility] Comment on above: Performed By: #### DRAGAN GASPAR, PREGU #### [facility] [address] [address] [address] Starr GRACIA A micrscopic examination will be performed if indicated. Normal [facility] Comment on above: Performed By: #### DRAGAN GASPAR, PREGU #### [facility] [address] [address] [address] Starr Garcia Glucose Ql (U) Negative Normal NEGATIVE The [facility] Comment on above: Performed By: #### DRAGAN GASPAR, PREGU #### [facility] [address] [address] [address] Starr Garcia Hemoglobin Ql (U) LARGE Abnormal NEGATIVE The [facility] Comment on above: Performed By: #### DRAGAN GASPAR, PREGU #### [facility] [address] [address] [address] Starr Garcia Ketones Ql (U) Negative Normal NEGATIVE The [facility] Comment on above: Performed By: #### DRAGAN GASPAR PREGU #### [facility] [address] [address] [address] Starr Garcia LEUKOCYTES Negative Normal NEGATIVE [facility] Comment on above: Performed By: #### DRAGAN GASPAR PREGU #### [facility] [address] [address] [address] Starr Garcia Nitrite Ql (U) Negative Normal NEGATIVE The [facility] Comment on above: Performed By: #### DRAGAN GASPAR PREGU #### [facility] [address] [address] [address] Starr Garcia pH (U) 5.5 [pH] Normal 5-9 [facility] Comment on above: Performed By: #### DRAGAN GASPAR PREGU #### [facility] [address] [address] [address] Starr Garcia SPEC GRAVITY >=1.030 Abnormal 1.005-<=1.[address] [facility] Comment on above: Performed By: #### DRAGAN GASPAR PREGU #### [facility] [address] [place] [address] Dr. Starr Garcia UA PROTEIN TRACE Normal NEGATIVE/ TRACE [facility] Comment on above: Performed By: #### DRAGAN GASPAR PREGU #### [facility] [address] [address] [address] Starr Garcia UR MICRO IND INDICATED Normal [facility] Comment on above: Performed By: #### DRGAAN GASPAR PREGU #### [facility] [address] [place] [address] Dr. Starr Garcia Urobilinogen Qn (U) 0.2 {Bonilla'U}/dL Normal 0.2 - 1. 0 [facility] Comment on above: Performed By: #### DRAGAN GASPAR PREGU #### [facility] [address] [address] [address] Starr Garcia URon 09-22-2021 , QUAL Negative Normal NEGATIVE [facility] Comment on above: Performed By: #### E RURGISELLARO, PREGU #### [facility] [address] [address] [address] Starr Garcia PROF 14(COMP METB)on 022 Albumin [Mass/Vol] 4.3 g/dL Normal 3.4-5.0 [facility] Comment on above: Performed By: #### C MP #### [facility] [address] [address] [address] Starr Garcia Albumin/Globulin [Mass ratio] 1.1 {ratio} Normal [facility] Comment on above: Performed By: #### C MP #### [facility] [address] [place] [address] Dr. Starr Garcia ALP [Catalytic activity/Vol] 111 U/L Normal 46-116 [facility] Comment on above: Performed By: #### C MP #### [facility] [address] [address] [address] Starr Garcia ALT [Catalytic activity/Vol] 120 U/L Critically high 14-59 [facility] Comment on above: Performed By: #### C MP #### [facility] [address] [place] [address] Dr. Starr Garcia Anion gap [Moles/Vol] 14.9 mmol/L Normal [facility] Comment on above: Performed By: #### C MP #### [facility] [address] [place] [address] Dr. Starr Garcia AST [Catalytic activity/Vol] 72 U/L Critically high 15-37 [facility] Comment on above: Performed By: #### C MP #### [facility] [address] [address] [address] Starr Garcia Bilirubin [Mass/Vol] 0.7 mg/dL Normal 0.2-1.3 [facility] Comment on above: Performed By: #### C MP #### [facility] [address] [address] [address] Starr Garcia Calcium [Mass/Vol] 8.9 mg/dL Normal 8.5-10.1 [facility] Comment on above: Performed By: #### C MP #### [facility] [address] [address] [address] Starr Garcia Chloride [Moles/Vol] 105 mmol/L Normal 98-107 [facility] Comment on above: Performed By: #### C MP #### [facility] [address] [address] [address] Starr Garcia CO2 [Moles/Vol] 25.7 mmol/L Normal 22.0-30.0 [facility] Comment on above: Performed By: #### C MP #### [facility] [address] [place] [address] Dr. Starr Garcia Creatinine [Mass/Vol] 0.82 mg/dL Normal 0.52-1.04 [facility] Comment on above: Performed By: #### C MP #### [facility] [address] [place] [address] Dr. Starr Garcia EGFR-AF SYRIAN >60 Normal >=60 [facility] Comment on above: Performed By: #### C MP #### [facility] [address] [place] [address] Dr. Starr Garcia EGFR-NON AF SYRIAN >60 Normal >=60 [facility] Comment on above: Performed By: #### C MP #### [facility] [address] [address] [address] Starr Garcia Globulin (S) [Mass/Vol] 3.8 g/dL Normal [facility] Comment on above: Performed By: #### C MP #### [facility] [address] [place] [address] Dr. Starr Garcia Glucose [Mass/Vol] 112 mg/dL Critically high 74-106 [facility] Comment on above: Performed By: #### C MP #### [facility] [address] [place] [address] Dr. Starr Garcia Potassium [Moles/Vol] 3.6 mmol/L Normal 3.4-5.0 [facility] Comment on above: Performed By: #### C MP #### [facility] [address] [address] [address] Starr Garcia Protein [Mass/Vol] 8.1 g/dL Normal 6.1-8.2 [facility] Comment on above: Performed By: #### C MP #### [facility] [address] [address] [address] Starr Garcia Sodium [Moles/Vol] 142 mmol/L Normal 137-145 [facility] Comment on above: Performed By: #### C MP #### [facility] [address] [address] [address] Starr Garcia Urea nitrogen [Mass/Vol] 13.0 mg/dL Normal 7.0-18.0 [facility] Comment on above: Performed By: #### C MP #### [facility] [address] [address] [address] Starr Garcai Urea nitrogen/Creatinine [Mass ratio] 15.9 mg/mg Normal [facility] Comment on above: Performed By: #### C MP #### [facility] [address] [address] [address] Starr Garcia URINE MICROSCOPIC ONLYon BACTERIA TRACE Abnormal NONE SEEN [facility] Comment on above: Performed By: #### DRAGAN GASPAR PREGU ####[facility] [address] [address]DrNicole Garcia Bacteria identified Cx Nom (U) NOT INDICATED Normal [facility] Comment on above: Performed By: #### DRAGAN GASPAR PREGU ####[facility] [address] [address]Dr. Starr Garcia CAST NONE SEEN Normal NONE SEEN [facility] Comment on above: Performed By: #### DRAGAN GASPAR PREGU ####[facility] [address] [address]DrNicole Garcia Crystals LM Nom (Urine sed) NONE SEEN Normal NONE SEEN [facility] Comment on above: Performed By: #### E RURWANDERICRO, PREGU ####[facility] [address] [address]Dr. Starr Garcia Epithelial cells LM Ql (Urine sed) FEW Abnormal NONE SEEN /RARE [facility] Comment on above: Performed By: #### E RUR, WANDERICRO, PREGU ####[facility] [address] [id number][address] Starr Garcia MUCOUS TRACE Abnormal NONE SEEN [facility] Comment on above: Performed By: #### E RURWANDERICCRISTIN, PREGU ####[facility] [address] [address]Dr. Starr Garcia RBC 10-20 Abnormal 0-2 [facility] Comment on above: Performed By: #### E RURWANDERICCRISTIN, PREGU ####[facility] [address] [address]Dr. Starr Garcia WBC NONE SEEN Normal NONE SEEN [facility] Comment on above: Performed By: #### E RURWANDERICCRISTIN, PREGU ####[facility] [address] [address]Dr. Starr Garcia Initial Visit (Neurosurgery) on 06-20-2018 Initial Visit (Neurosurgery) Chief ComplaintPatient is being seen for an initial Neurosurgical evaluation. 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 she has no recent imaging or neurosurgical followup since at least 2003. she is here to re establish care. she is unsure as to what type of shunt she has in place Active Problems BROKERAGE MANAGER (ventriculoperitoneal) shunt status (V45.2) (Z98.2) Current Meds DULoxetine HCl - 60 MG Oral Capsule Delayed Release Particles;Therapy: [id number] to Recorded Rx By: ONY; Dispense: 90 Days ; #:90; Refill: 0; KANE = N; Record; Last Updated By: Jcarlos Hoover; 06/20/2018 1:21:59 PM Myrbetriq 50 MG Oral Tablet Extended Release 24 Hour;Therapy: [id number] to Recorded Rx By: CAROLIN; Dispense: 30 Days ; #:30; Refill: 0; KANE = N; Record; Last Updated By: Jcarlos Hoover; 06/20/2018 1:21:59 PM Topiramate 50 MG Oral Tablet;Therapy: [id number] to Recorded Rx By: HANNAH; Dispense: 30 Days ; #:60; Refill: 0; KANE = N; Record; Last Updated By: Jcarlos Hoover; 06/20/2018 1:21:59 PM Vitals Vital Signs Recorded: 20Jun2018 01:37PMHeart Uetq66Eqibjzorgbc73Vuah wlxx662Saqxfckyv77Iqbxs t5 ft 4.5 uqRzbksp400 lb BMI Makckitjav89.8BSA Calculated1.97 Physical Examawake and alertright frontal BROKERAGE MANAGER shuntEOM full speech fluentstrenght 5/5 right, 4/5 left with some tremors bilateralsensation intactgait normal Results/Datathere aer no imaging reports or records Diagnoses/Problems BROKERAGE MANAGER (ventriculoperitoneal) shunt status (V45.2) (Z98.2) OrdersVP (ventriculoperitoneal) shunt status CT Head without Contrast; Status:Hold For - Scheduling,Retrospectiv e Authorization;Requested for:20Jun2018; Perform:[facility]; Due:30Jun2018; Last Updated By:Cleopatra Rudd; 06/20/2018 1:41:13 PM;Ordered; For:BROKERAGE MANAGER (ventriculoperitoneal) shunt status; Ordered By:Manjit Polk;Patient taking Metformin or Derivatives? : UnknownRadiologist to Determine Optimal Study : YWhat are the patient's signs and symptoms? : shunt Xray Adult Shunt Series; Status:Hold For - Scheduling,Retrospectiv e Authorization;Requested for:20Jun2018; Perform:[facility]; Due:18Sep2018; Last Updated By:Cleopatra Rudd; 06/20/2018 1:42:31 PM;Ordered; For:BROKERAGE MANAGER (ventriculoperitoneal) shunt status; Ordered By:Manjit Polk;Radiologist to Determine Optimal Study : YWhat are the patient's signs and symptoms? : shunt Xray Skull Complete; Status:Canceled; Perform:[facility];Ordered; For:BROKERAGE MANAGER (ventriculoperitoneal) shunt status; Ordered By:Manjit Polk;Reason: Unspecified for Xray Skull CompleteRadiologist to Determine Optimal Study : YWhat are the patient's signs and symptoms? : shunt Provider Impressionsshunted hydrocephalus with chronic symptomsrecommend head CT and shunt series, ophtho evaluation for chronic visual issueswill review when available Signatures Electronically signed by : Manjit Polk MD; Jun 20 2018 1:51PM EST (Author) Normal [facility] Vital Signs Date Time Vital Sign Value Performing Clinician Facility 06-02-2024 09:11-0500 Diastolic blood pressure 90 mm[Hg] Kit Villafuerte MD Work Phone: [facility] 06-02-2024 09:11-0500 Heart rate 94 /min Kit Villafuerte MD Work Phone: [facility] 06-02-2024 09:11-0500 Respiratory rate 16 /min Kit Villafuerte MD Work Phone: [facility] 06-02-2024 09:11-0500 SaO2% (BldA) [Mass fraction] 94 % Kit Villafuerte MD Work Phone: [facility] 06-02-2024 09:11-0500 Systolic blood pressure 132 mm[Hg] Kit Villafuerte MD Work Phone: [facility] 06-02-2024 08:52-0500 Body temperature 98.4 [degF] Kit Villafuerte MD Work Phone: [facility] 06-02-2024 06:30-0500 Body height 163.83 cm Kit Villafuerte MD Work Phone: [facility] 06-02-2024 06:30-0500 Body weight 100 kg Kit Villafuerte MD Work Phone: [facility] 02-21-2024 11:52-0400 Blood Pressure Location Biju KNOX [facility] 02-21-2024 11:52-0400 Diastolic blood pressure 78 mm[Hg] Biju KNOX [facility] 02-21-2024 11:52-0400 Heart rate 68 /min Biju KNOX [facility] 02-21-2024 11:52-0400 Respiratory rate 16 /min Biju KNOX [facility] 02-21-2024 11:52-0400 Systolic blood pressure 126 mm[Hg] Biju KNOX [facility] 02-15-2024 15:15-0400 Body height 165.1 cm Kit Villafuerte MD Work Phone: [facility] 02-15-2024 15:15-0400 Body mass index (BMI) [Ratio] 36.94 kg/m2 Kit Villafuerte MD Work Phone: [facility] 02-15-2024 15:15-0400 Body temperature 97.5 [degF] Kit Villafuerte MD Work Phone: [facility] 02-15-2024 15:15-0400 Body weight 100.7 kg Kit Villafuerte MD Work Phone: [facility] 02-15-2024 15:15-0400 Diastolic blood pressure 70 mm[Hg] Kit Villafuerte MD Work Phone: [facility] 02-15-2024 15:15-0400 Heart rate 83 /min Kit Villafuerte MD Work Phone: [facility] 02-15-2024 15:15-0400 Respiratory rate 18 /min Kit Villafuerte MD Work Phone: [facility] 02-15-2024 15:15-0400 SaO2% (BldA) [Mass fraction] 95 % Kit Villafuerte MD Work Phone: [facility] 02-15-2024 15:15-0400 Systolic blood pressure 130 mm[Hg] Kit Villafuerte MD Work Phone: [facility] 08-10-2023 10:03-0500 Blood Pressure Location Biju KNOX [facility] 08-10-2023 10:03-0500 Diastolic blood pressure 88 mm[Hg] Biju KNOX [facility] 08-10-2023 10:03-0500 Systolic blood pressure 130 mm[Hg] Biju KNOX [facility] 08-12-2021 13:05-0500 Body height 163.83 cm Christi Vargas Other [facility] Other 08-12-2021 13:05-0500 Body mass index (BMI) [Ratio] 34.64 kg/m2 Christi Vargas Other [facility] Other 08-12-2021 13:05-0500 Body temperature 97.1 [degF] Christi Vargas Other [facility] Other 08-12-2021 13:05-0500 Body weight 92.99 kg Christi Vargas Other [facility] Other 08-12-2021 13:05-0500 Diastolic blood pressure 84 mm[Hg] Christi Vargas Other [facility] Other 08-12-2021 13:05-0500 Respiratory rate 18 /min Christi Vargas Other [facility] Other 08-12-2021 13:05-0500 SaO2% (BldA) [Mass fraction] 100 % Christi Vargas Other [facility] Other 08-12-2021 13:05-0500 Systolic blood pressure 141 mm[Hg] Christi Vargas Other [facility] Other Encounters Encounter Date Encounter Type Care Provider Facility Start: 08-29-2024 End: 08-29-2024 ambulatory Kit Villafuerte MD Work Phone: [facility] Work Phone: Start: 08-29-2024 End: 08-29-2024 Patient encounter procedure Kit Villafuerte MD Work Phone: [facility] Physician [facility] Work Phone: Start: 06-02-2024 End: 06-02-2024 Admission to same day surgery center Kit Villafuerte MD Work Phone: [facility] [place] Start: 06-02-2024 End: 06-02-2024 ambulatory Kit Villafuerte Facility:[facility] Start: 06-02-2024 End: 06-02-2024 ambulatory Biju KNOX Facility:CD:[id number] Start: 05-19-2024 End: 05-19-2024 ambulatory Kit Villafuerte Facility:[facility] Start: 05-19-2024 Encounter for preprocedural laboratory examination Biju Knox [facility] Physician [facility] Start: 02-21-2024 End: 02-21-2024 ambulatory Biju KNOX Facility:[facility] Start: 02-21-2024 End: 02-21-2024 Patient encounter procedure Biju KNOX [facility] Kevin Start: 02-15-2024 End: 02-15-2024 Office outpatient visit 25 minutes Kit Villafuerte MD Work Phone: [facility] Comment on above: Nausea (Primary Dx); S/P BROKERAGE MANAGER shunt; Nonintractable headache, unspecified chronicity pattern, unspecified headache type; Female stress incontinence Start: 02-15-2024 End: 02-15-2024 ambulatory KIT VILLAFUERTE Not Available Start: 02-15-2024 End: 02-15-2024 Bamboo flowsheet Kit Villafuerte MD Work Phone: [facility] Start: 02-15-2024 End: 02-15-2024 Bamboo flowsheet Kit Villafuerte MD Work Phone: [facility] Start: 08-23-2023 End: 08-23-2023 ambulatory Biju KNOX Facility:[facility] Start: 08-23-2023 End: 08-23-2023 Patient encounter procedure Biju KNOX [facility] Start: 08-10-2023 End: 08-10-2023 ambulatory Kit Villafuerte Facility:[facility] Start: 08-10-2023 End: 08-10-2023 ambulatory Biju KNOX Facility:[facility] Start: 08-10-2023 End: 08-10-2023 Patient encounter procedure Biju KNOX [facility] Kevin Start: 08-09-2023 End: 08-10-2023 ambulatory Biju KNOX Facility:CD:[id number] Start: 07-15-2022 End: 07-16-[address] KIT VILLAFUERTE Facility:[facility] Start: 11-06-2021 End: 11-07-[address] KIT VILLAFUERTE Facility:[facility] Start: 10-05-2021 End: 10-05-2021 ambulatory JEROD HOUSTON Facility:[facility] Start: 09-22-2021 End: 09-22-[address] KIT VILLAFUERTE Facility:[facility] Start: 08-12-2021 End: 08-12-2021 ambulatory Christi Vargas Other [facility] Other Start: 08-12-2021 Office outpatient vi sit 15 minutes Christi Vargas [facility] Start: 06-20-2018 Patient encounter procedure Manjit Polk Facility:[id number] Start: 08-18-2017 Ambulatory GEORGE Kishan [facility] Facility:3 Procedures Date Procedure Procedure Detail Performing Clinician Start: 06-02-2024 Extracorporeal shock wave lithotripsy of calculus of kidney Kit Villafuerte MD Work Phone: Start: 06-02-2024 Supine abdominal X-ray Kit Villafuerte MD Work Phone: Hemorrhoids (disorder) Emile KNOX Procedure on brain ventricular shunt Biju KONX Plan of Treatment Date Care Activity Detail Author Start: 06-02-2024 [facility] Start: 06-02-2024 [facility] Start: 02-15-2024 End: 02-15-2024 Patient encounter procedure 02/15/2024 3:00 PM EDT Office Visit [facility] [address] [place] [address] Kit Villafuerte MD [address] [place] [id number] Arrived [facility] Comment on above: Arrived Start: 02-15-2024 End: 02-14-2025 CT Head WO contrast CT head wo IV contrast Imaging Routine Nausea S/P BROKERAGE MANAGER shunt Nonintractable headache, unspecified chronicity pattern, unspecified headache type Expected: 02/15/2024, Expires: 02/14/2025 [facility] Work Phone: Comment on above: Expected: 02/15/2024 , Expires: 02/14/2025 Start: 02-13-2024 Influenza vaccination Influenza Vacc ine (#1) [facility] Start: 2011 Screening for malignant neoplasm of breast Mammogram [facility] Start: 2001 Screening for malignant neoplasm of cervix [facility] Start: 1992 Screening for malignant neoplasm of cervix Pap Smear [facility] Start: 1971 Screening for malignant neoplasm of colon [facility] Patient Education Know your Meds [facility] Work Phone: Patient referral [facility] Work Phone: Immunizations Immunization Date Immunization Notes Care Provider Fa cili 04-01-2021 COVID-19 mRNA, Comirnaty (Pfizer) Kit Villafuerte MD Work Phone: [facility] 02-28-2021 influenza virus vaccine, unspecified formulation Kit Villafuerte MD Work Phone: [facility] 09-04-2020 COVID-19 mRNA, Comirnaty (Pfizer) Kit Villafuerte MD Work Phone: [facility] 08-14-2020 COVID-19 mRNA, Comirnaty (Pfizer) Kit Villafuerte MD Work Phone: [facility] Payers Date Payer Category Payer Self-pay 2022 Unknown FRONTPATH FRONTP ATH [id number] 2022-Present [phone] [address] [place] [address] [id number] 2022 Unknown [id number] 1971 Unknown [id number] [id number] 1971 Unknown [id number] [id number] 1971 Unknown [id number] 2.16.840.1.361941.3.579.2.593 1971 Unknown [id number] 2.16.840.1.728559.3.579.2.593 1971 Unknown [id number] 2.16.840.1.390901.3.579.2.593 1971 Unknown [id number] 2.16.840.1.273186.3.579.2.1259 1971 Unknown [id number] 2.16.840.1.819882.3.579.2.727 1971 Unknown [id number] 2.16.840.1.224116.3.579.2.727 1971 Unknown [id number] 2.16.840.1.081424.3.579.2.727 1971 Unknown [id number] 2.16.840.1.472289.3.579.2.727 1971 Unknown [id number] 2.16.840.1.485755.3.579.2.727 1971 Unknown [id number] 2.16.840.1.403688.3.579.2.727 1959 Unknown [id number] Unknown [id number] 2.16.840.1.065317.3.579.2.531 Unknown [id number] 2.16.840.1.733708.3.579.2.531 Unknown [id number] 2.16.840.1.799319.3.579.2.531 Unknown [facility] [place] [id number] Social History Date Type Detail Facility Unknown if ever smoked [facility] Other Start: 02-15-2024 Sex Assigned At F [facility] Start: 08-10-2023 End: 02-21-2024 Tobacco smoking status Light tobacco smoker (finding) [facility] Tobacco smoking status Never [facility] Tobacco smoking status NHIS Tobacco smoking consumption unknown [facility] Start: 1970 Sex assigned at Not on file [facility] Start: 02-15-2024 Tobacco smoking status NHIS Never smoked tobacco [facility] Start: 02-15-2024 Tobacco use and exposure Smokeless tobacco non-user [facility] Start: 02-15-2024 History of Social function [facility] Start: 08-29-2024 Sex Female (finding) [facility] Start: 1970 Sex Assigned At Female F [facility] Medical Equipment Procedure Code Equipment Code Equipment Origin al Text Equipment Identifier Dates Cystoscopy, with ureteral calculus manipulation and stent placement Polymeric ureteral stent ([id number] [facility] Start: 08-10-2023 Goals Date Patient Goal Desired Activity /State Functional Status Date Assessment Result Facility 02-21-2024 Functional Status N/A [facility] 08-10-2023 Functional Status N/A [facility] Clinical Notes 08-12-2021 to 02-21-2024 Kit Villafuerte MD - 02/15/2024 9:26 PM Avelino Villafuerte MD - 02/15/2024 9:26 PM Avelino Villafuerte MD - 02/15/2024 3:00 PM EDT Note Date & Type Note Facility 02-21-2024 Hospital Discharg e instructions Patient Education 02/21/2024 12:17:55 Laser Therapy for Kidney Stones, Care After Laser Therapy for Kidney Stones, Care After After laser therapy for kidney stones, it is common to have: Pain. A burning feeling when you pee (urinate). Small amounts of blood in your pee (urine). A need to pee a lot. Parts of the kidney stone in your pee. Mild discomfort in your back when you pee. You may have this if you had a small mesh tube (stent) placed during the procedure. Follow these instructions at home: Medicines Take qmvq-vgq-utmyyqg and prescription medicines only as told by your health care provider. If you were prescribed antibiotics, take them as told by your provider. Do not stop using the antibiotic even if you start to feel better. Ask your provider if the medicine prescribed to you: ?Requires you to avoid driving or using machinery. ?Can cause constipation. You may need to take these actions to prevent or treat constipation: ?Drink enough fluid to keep your pee pale yellow. ?Take aoqv-zmp-rlwoxoe or prescription medicines. ?Eat foods that are high in fiber, such as beans, whole grains, and fresh fruits and vegetables. ?Limit foods that are high in fat and processed sugars, such as fried or sweet foods. Activity If you were given a sedative during the procedure, it can affect you for several hours. Do not drive or operate machinery until your provider says that it is safe. Return to your normal activities as told by your provider. Ask your provider what activities are safe for you. General instructions Your provider may recommend that you drink a lot of water for a few hours after your procedure. If you have heart or kidney disease, ask your provider how much you should drink. You may be asked to strain your pee to collect any stone pieces that you pass. Your provider may have these pieces tested. Do not take baths, swim, or use a hot tub until your provider approves. Ask your provider if you may take warm baths to soothe the burning. Keep all follow-up visits. If you have a stent, you will need to go back to your provider to have it removed. Your provider may give you more instructions. Make sure you know what you can and cannot do. Contact a health care provider if: You have pain or a burning feeling that lasts for more than 2 days. You feel nauseous. You vomit more and more often. You have trouble peeing. You have pain that gets worse or does not get better with medicine. You have a fever or shaking chills. Get help right away if: You cannot pee, even when your bladder feels full. You faint. You have chest pain, shortness of breath, or cough up blood. You have: ?Bright red blood or blood clots in your pee. ?Severe pain or discomfort. ?Pain in your abdomen. ?Swelling in your legs. These symptoms may be an emergency. Get help right away. Call 911. Do not wait to see if the symptoms will go away. Do not drive yourself to the hospital. This information is not intended to replace advice given to you by your health care provider. Make sure you discuss any questions you have with your health care provider. Document Revised: 01/29/2023 Document Reviewed: 01/29/2023 [employer] Patient Education 2023 [employer]. 02/21/2024 12:17:54 Laser Therapy for Kidney Stones Laser Therapy for Kidney Stones Laser therapy for kidney stones is a procedure to break up rock-like masses that form inside the kidneys (kidney stones). It is done using a device that beams a strong light (laser) on the kidney stones. This breaks the stones up into small pieces. These small pieces may leave your body when you pee (urinate) or may be taken out during the procedure. You may need laser therapy if you have kidney stones that are painful or that are stopping you from being able to pee. Tell a health care provider about: Any allergies you have. All medicines you are taking, including vitamins, herbs, eye drops, creams, and skrn-mnx-wjanqwh medicines. Any problems you or family members have had with anesthesia. Any bleeding problems you have. Any surgeries you have had. Any medical conditions you have. Whether you are or may be . What are the risks? Your health care provider will talk with you about risks. These may include: Infection. Bleeding. Allergic reactions to medicines. Damage to: ?The part of your body that drains pee (urine) from the bladder (urethra). ?The bladder. ?The tube that connects the bladder to the kidneys (ureter). Urinary tract infection (UTI). Urethral stricture. This is when the urethra is narrowed by scarring. Trouble peeing. Blockage of the kidney. This may be caused by a piece of kidney stone. What happens before the procedure? When to stop eating and drinking Follow instructions from your provider about what you may eat and drink. These may include: 8 hours before the procedure ?Stop eating most foods. Do not eat meat, fried foods, or fatty foods. ?Eat only light foods, such as toast or crackers. ?All liquids are okay except energy drinks and alcohol. 6 hours before the procedure ?Stop eating. ?Drink only clear liquids, such as water, clear fruit juice, black coffee, plain tea, and sports drinks. ?Do not drink energy drinks or alcohol. 2 hours before the procedure ?Stop drinking all liquids. ?You may be allowed to take medicines with small sips of water. If you do not follow your provider's instructions, your procedure may be delayed or canceled. Medicines Ask your provider about: ?Changing or stopping your regular medicines. These include any diabetes medicines or blood thinners you take. ?Taking medicines such as aspirin and ibuprofen. These medicines can thin your blood. Do not take them unless your provider tells you to. ?Taking qcjv-unz-jpkwnty medicines, vitamins, herbs, and supplements. Tests You may have a physical exam before the procedure. You may also have tests done. These may include: ?Imaging tests. ?Blood or pee tests. Surgery safety Ask your provider: ?How your surgery site will be marked. ?What steps will be taken to help prevent infection. These steps may include: ?Removing hair at the surgery site. ?Washing skin with a soap that kills germs. ?Taking antibiotics. General instructions Do not use any products that contain nicotine or tobacco for at least 4 weeks before the procedure. These products include cigarettes, chewing tobacco, and vaping devices, such as e-cigarettes. If you need help quitting, ask your provider. If you will be going home right after the procedure, plan to have a responsible adult: ?Take you home from the hospital or clinic. You will not be allowed to drive. ?Care for you for the time you are told. What happens during the procedure? An IV will be inserted into one of your veins. You will be given: ?A sedative. This helps you relax. ?Anesthesia. This keeps you from feeling pain. It will make you fall asleep for surgery. A tool with a camera on the end (ureteroscope) will be put into your urethra. It will be moved through your bladder to your kidney. It will send pictures to a screen in the operating room. This will show what parts of your kidney need to be treated. A tube will be put through the ureteroscope. It will be moved into your kidney. The laser device will be put into your kidney through the tube. The laser will be used to break up the kidney stones. A tool with a tiny wire basket may be put through the tube into your kidney. This can help remove the small pieces of the kidney stone. A small mesh tube (stent) may be placed to allow your kidney to drain. The tube and ureteroscope will be taken out at the end of the surgery. The procedure may vary among providers and hospitals. What happens after the procedure? Your blood pressure, heart rate, breathing rate, and blood oxygen level will be monitored until you leave the hospital or clinic. If you had a stent placed, it may have a string that will be secured to your skin. This helps your provider remove the stent. You may be given a strainer to collect any stone pieces that you pass in your pee. Your provider may have these tested. This information is not intended to replace advice given to you by your health care provider. Make sure you discuss any questions you have with your health care provider. Document Revised: 01/29/2023 Document Reviewed: 01/29/2023 [employer] Patient Education 2023 [employer]. Follow Up Care 11/24/2023 10:57:49 With:ABILIO EDEN, Biju Acuña, URL Address: [employer] [address] [place], [place] [id number]- When: Unknown [facility] 02-21-2024 Note Patient Education Nephrology Laser Therapy for Kidney Stones, Care After After laser therapy for kidney stones, it is common to have: ? Pain. ? A burning feeling when you pee (urinate). ? Small amounts of blood in your pee (urine). ? A need to pee a lot. ? Parts of the kidney stone in your pee. ? Mild discomfort in your back when you pee. You may have this if you had a small mesh tube (stent) placed during the procedure. Follow these instructions at home: Medicines ? Take jyru-qwa-lexjmba and prescription medicines only as told by your health care provider. ? If you were prescribed antibiotics, take them as told by your provider. Do not stop using the antibiotic even if you start to feel better. ? Ask your provider if the medicine prescribed to you: ? Requires you to avoid driving or using machinery. ? Can cause constipation. You may need to take these actions to prevent or treat constipation: ? Drink enough fluid to keep your pee pale yellow. ? Take vkfq-mlt-mybfcph or prescription medicines. ? Eat foods that are high in fiber, such as beans, whole grains, and fresh fruits and vegetables. ? Limit foods that are high in fat and processed sugars, such as fried or sweet foods. Activity ? If you were given a sedative during the procedure, it can affect you for several hours. Do not drive or operate machinery until your provider says that it is safe. ? Return to your normal activities as told by your provider. Ask your provider what activities are safe for you. General instructions ? Your provider may recommend that you drink a lot of water for a few hours after your procedure. If you have heart or kidney disease, ask your provider how much you should drink. ? You may be asked to strain your pee to collect any stone pieces that you pass. Your provider may have these pieces tested. ? Do not take baths, swim, or use a hot tub until your provider approves. Ask your provider if you may take warm baths to soothe the burning. ? Keep all follow-up visits. If you have a stent, you will need to go back to your provider to have it removed. Your provider may give you more instructions. Make sure you know what you can and cannot do. Contact a health care provider if: ? You have pain or a burning feeling that lasts for more than 2 days. ? You feel nauseous. ? You vomit more and more often. ? You have trouble peeing. ? You have pain that gets worse or does not get better with medicine. ? You have a fever or shaking chills. Get help right away if: ? You cannot pee, even when your bladder feels full. ? You faint. ? You have chest pain, shortness of breath, or cough up blood. ? You have: ? Bright red blood or blood clots in your pee. ? Severe pain or discomfort. ? Pain in your abdomen. ? Swelling in your legs. These symptoms may be an emergency. Get help right away. Call 911. ? Do not wait to see if the symptoms will go away. ? Do not drive yourself to the hospital. This information is not intended to replace advice given to you by your health care provider. Make sure you discuss any questions you have with your health care provider. Document Revised: 01/29/2023 Document Reviewed: 01/29/2023 [employer] Patient Education ? 2023 [employer] Laser Therapy for Kidney Stones Laser therapy for kidney stones is a procedure to break up rock-like masses that form inside the kidneys (kidney stones). It is done using a device that beams a strong light (laser) on the kidney stones. This breaks the stones up into small pieces. These small pieces may leave your body when you pee (urinate) or may be taken out during the procedure. You may need laser therapy if you have kidney stones that are painful or that are stopping you from being able to pee. Tell a health care provider about: ? Any allergies you have. ? All medicines you are taking, including vitamins, herbs, eye drops, creams, and blrs-mud-znwhdij medicines. ? Any problems you or family members have had with anesthesia. ? Any bleeding problems you have. ? Any surgeries you have had. ? Any medical conditions you have. ? Whether you are or may be . What are the risks? Your health care provider will talk with you about risks. These may include: ? Infection. ? Bleeding. ? Allergic reactions to medicines. ? Damage to: ? The part of your body that drains pee (urine) from the bladder (urethra). ? The bladder. ? The tube that connects the bladder to the kidneys (ureter). ? Urinary tract infection (UTI). ? Urethral stricture. This is when the urethra is narrowed by scarring. ? Trouble peeing. ? Blockage of the kidney. This may be caused by a piece of kidney stone. What happens before the procedure? When to stop eating and drinking Follow instructions from your provider about what you may eat and drink. These may include: ? 8 hours before the procedure ? Stop eating most foods. Do not e (more content not included)... [facility] 02-15-2024 History of Presen t illness Narrative Associated Problem(s): S/P BROKERAGE MANAGER shunt Severe nausea and unclear etiology. Use zofran PRN. Shunt in place and check CT head. Refer back to neurosurgery to evaluate shunt. Associated Problem(s): Nausea Severe nausea and unclear etiology. Use zofran PRN. Shunt in place and check CT head. Refer back to neurosurgery to evaluate shunt. Images from the original note were not included. Subjective Patient ID: Marisa Magallon is a 53 y.o. female who presents for Nausea and Follow-up (Pain zaps near shunt). C/o nausea for several days. C/o decreased appetite and not able to eat as much due to symptoms. No emesis but feels like may throw up. No change in bowels and normal BM. No diarrhea or constipation. C/o fatigue and run down. No contacts with similar episodes. Concerned of problems with shunt. BROKERAGE MANAGER shunt in place and over past week notices pain and burning sensation around shunt on top head. Occasional DAWSON. Feels shooting pain and zingers from around shunt. Shunt in place for years and last revision in 2002. Not to neurosurgeon for several years. Review of Systems Respiratory: Negative for cough, shortness of breath and wheezing. Cardiovascular: Negative for chest pain and palpitations. Gastrointestinal: Negative for abdominal pain, diarrhea, nausea and vomiting. Genitourinary: Negative for dysuria. Objective Physical Exam Constitutional: General: She is not in acute distress. Appearance: Normal appearance. HENT: Head: Normocephalic. Right Ear: Tympanic membrane normal. Left Ear: Tympanic membrane normal. Eyes: Extraocular Movements: Extraocular movements intact. Pupils: Pupils are equal, round, and reactive to light. Cardiovascular: Rate and Rhythm: Normal rate and regular rhythm. Heart sounds: No murmur heard. No friction rub. No gallop. Pulmonary: Effort: Pulmonary effort is normal. Breath sounds: Normal breath sounds. No wheezing, rhonchi or rales. Abdominal: General: Bowel sounds are normal. There is no distension. Palpations: Abdomen is soft. Tenderness: There is no abdominal tenderness. There is no guarding or rebound. Musculoskeletal: Cervical back: Neck supple. Right lower leg: No edema. Left lower leg: No edema. Neurological: Mental Status: She is alert. Assessment/Plan Problem List Items Addressed This Visit Female stress incontinence Relevant Medications mirabegron ER (Myrbetriq) 50 MG 24 hr tablet S/P BROKERAGE MANAGER shunt Severe nausea and unclear etiology. Use zofran PRN. Shunt in place and check CT head. Refer back to neurosurgery to evaluate shunt. Relevant Orders CT head wo IV contrast Ambulatory referral to Neurosurgery Nausea - Primary Severe nausea and unclear etiology. Use zofran PRN. Shunt in place and check CT head. Refer back to neurosurgery to evaluate shunt. Relevant Medications ondansetron ODT (Zofran-ODT) 4 MG disintegrating tablet Other Relevant Orders CT head wo IV contrast Headache Relevant Orders CT head wo IV contrast documented in this encounter [facility] 08-23-2023 Hospital Discharg e instructions Patient Education [...] Up Care 08/13/2023 10:04:30 With:Biju KNOX Address: [address] Business (1) When:6 months Comments:Call for followup [...] of a kit from a company called [email or web address].Otherwise I will see him in 6 months with an abdominal x-ray.Have a great day [facility] 08-23-2023 Note [id number] [facility] 08-23-2023 Note Cystoscopy with Sten t Removal [...] you have a fever over 100 degrees. [facility] 08-10-2023 Hospital Discharg e instructions Patient Education [...] including vitamins, herbs, eye drops, creams, and jlek-eed-lrtttrd medicines. Any problems you or family members [...] provider tells you to take them. ?Taking vntq-hxk-lgtrifi medicines, vitamins, herbs, and supplements. Eating and [...] provider. Document Revised: 10/07/2022 Document Reviewed: 02/02/2022 [employer] Patient Education 2022 [employer]. Follow Up Care 08/09/2023 11:39:44 With:ABILIO EDEN, Biju Acuña, URL Address: [address] [place], [place] [id number]- When: Unknown Comments:sched cysto/L stent placement [facility] 08-12-2021 Evaluation note Encounter Date Diagnosis Assessment Notes Aug, Tinea manuum (ICD-10 - B35.2) apply to hands and nail beds and hands and follow up with primary care provider for further workup and treatment options [facility] Other Evaluation + Plan note No data available for this section [facility] Evaluation note* Diagnosis Nausea- Primary Nausea alone S/P BROKERAGE MANAGER shunt Presence of cerebrospinal fluid drainage device Nonintractable headache, unspecified chronicity pattern, unspecified headache type Female stress incontinence documented in this encounter [facility] noteNo assessment information availableK[facility] Work Phone: History general Narrative - Reported* Type Description Date Medical History chronic depression Medical History bladder trouble Surgical History brain surgery multiple Surgical History brain shunt multiple Hospitalization History See Above [facility] Other Progress note No data available for this section [facility] Reason for referral (narrative)* Consultation (Routine) - Pending Review Specialty Diagnoses / Procedures Referred By Alejandro fish Referred To Contact Neurosurgery Diagnoses S/P BROKERAGE MANAGER shunt Kit Villafuerte MD [address] [place] [address] Referral ID Status Reason Start Date Expiration Date Visits Requested Visits Authorized [id number] Pending Review Specialty Services Required 02/15/2024 08/13/2024 1 1 * Imaging (Routine) - Authorized Specialty Diagnoses / Procedures Referred By Alejandro fish Referred To Contact Diagnoses Nausea S/P BROKERAGE MANAGER shunt Nonintractable headache, unspecified chronicity pattern, unspecified headache type Procedures CT head wo IV contrast Kit Villafuerte MD [address] [place] [address] Referral ID Status Reason Start Date Expiration Date V isits Requested Visits Authorized [id number] Authorized 02/15/2024 08/13/2024 1 1 [facility] Healthcare Summary Purpose Family History Relationship Condition Age at Onset Recorded Date/T kendra father Atrial fibrillation Unknown Hypertension Unknown mother Family history of me ntal disorder Unknown maternal grandfather Diabetes mellitus Unknown maternal grandmother Diabetes mellitus Unknown Congestive heart failure Unknown Advance Directives Advance Directive Response Recorded Date/ Time Advance Directives No August 29 025 6:48pm Chief Complaint and Reason for Visit Chief Complaint Admit Date Kidney Stone June 02, 2024 5:45am Left arm injury August 29, 2024 6:4 9pm Additional Source Comments INFORMATION SOURCE (unrecogn ized section and content) DATE CREATED AUTHOR 12/16/2017 [facility] Healthcare DATE CREATED AUTHOR AUTHOR'S ORGANIZ ATION 06/20/2018 [employer] DATE CREATED AUTHOR AUTHOR'S ORGANIZ ATION 06/22/2018 [facility] DATE CREATED AUTHOR AUTHOR'S ORGANIZ ATION 07/16/2022 [facility] DATE CREATED AUTHOR AUTHOR'S ORGANIZ ATION 02/16/2024 [facility] EPIC DATE CREATED AUTHOR AUTHOR'S ORGANIZ ATION 06/08/2024 [facility] DATE CREATED AUTHOR AUTHOR'S ORGANIZ ATION 06/30/2024 [facility] REASON FOR VISIT (unrecogniz ed section and content) Reason Comments Nausea Follow-up Pain zaps near shunt Patient Care team informatio n (unrecognized section and content) Tax Advisor Relationship Specialty Start Date End Date Kit Villafuerte MD [address] [place] [phone] PCP - General Family Medicine 02/15/24 Tax Advisor Relationship Specialty Start Date End Date Kit Villafuerte MD [address] [place] [phone] PCP - General Family Medicine 02/15/24 Team Status: Active Member Role Status Dates Kit Villafuerte MD Primary Care Provider Active Team Status: Inactive Member Role Status Dates Kit Villafuerte MD Primary Care Provider Active S tart: June 02, 2024 End: June 02, 2024 Biju Knox MD Attending Provider Active St art: June 02, 2024 End: June 02, 2024 Team Status: Inactive Member Role Status Dates Kit Villafuerte MD Primary Care Provider Active S tart: August 29, 2024 End: August 29, 2024 Kelsey Garcia APRN Attending Provider Active Start: August 29, 2024 End: August 29, 2024 FOR RECORDS PERTAINING TO PATIENTS WHO ARE [...] BE BASED ON THE PRIMARY CLINICAL RECORDS. [facility] [employer] [facility]. provides no warranty or guarantee of the accuracy or completeness of information in this document.
--- NOTE | 2024-08-29 19:32 | ED.GENADUL1 ---
HPI HPI - General Adult General Chief complaint: Extremity Injury, Upper Stated complaint: FALL Time Seen by Provider: 08/29/24 19:15 Mode of arrival: walk-in History of Present Illness HPI narrative: 54-year-old male presents for pain to her left wrist and forearm and the right side of her face. She fell walking her dog today about 3 PM. No LOC or vomiting and she does not take blood thinners. No neck pain. No injury to her chest or abdomen or legs. No injury to the right arm. Related Data Home Medications ?Medication ?Instructions ?Recorded ?Confirmed duloxetine 30 mg capsule,delayed 30 mg PO QDAY 01/26/23 02/25/23 release Previous Rx's ?Medication ?Instructions ?Recorded hydrocodone 5 mg-acetaminophen 325 1 tab PO Q6H PRN pain #20 tabs 02/25/23 mg tablet ondansetron HCl 4 mg tablet 4 mg PO Q6H PRN nausea and 02/25/23 vomiting #20 tabs tamsulosin 0.4 mg capsule (Flomax) 0.4 mg PO DAILY #7 caps 02/25/23 hydrocodone 5 mg-acetaminophen 325 1 tab PO Q6H PRN pain 5 days #20 08/29/24 mg tablet tabs ibuprofen 800 mg tablet 800 mg PO Q8H PRN pain #20 tabs 08/29/24 Allergies Allergy/AdvReac Type Severity Reaction Status Date / Time codeine AdvReac Agitated Verified 08/29/24 19:14 Opioid HPI Opioid Management Most Recent Opioid Data: Last Pain Scale 10 08/03/23 13:41 08/03/23 Review of Systems ROS Narrative A ten point review of systems is negative except as noted above. PFSH PFSH Social History Smoking status: Never smoker Little interest or pleasure in doing things: not at all Feeling down, depressed, or hopeless: not at all Exam Narrative Exam Narrative: Nurses note and vital signs reviewed and patient is not hypoxic. General: The patient appears in no apparent distress. Ice pack is present on her left wrist. Skin: Warm, dry, no pallor noted. There is no rash noted. Head: Normocephalic, some erythema and tenderness present on the right side of her face. No lacerations. Eye: Normal conjunctiva, no drainage Ears, Nose, Mouth, and Throat: oral mucosa is moist. Nares patent. Cardiovascular: Regular Rate and Rhythm Respiratory: Patient is in no distress, no accessory muscle use, lungs are clear to auscultation, no wheezing, rales or rhonchi Back: non-tender GI: Soft and nontender Musculoskeletal: The left wrist has no deformity or break in the skin but has diffuse tenderness to be extends into the the distal part of the forearm. Fingers have full range of motion Neurological: A&O, normal speech Psychiatric: Cooperative Constitutional Vital Signs, click to edit/add: Last Vital Signs Temp 98.3 F 08/29/24 19:14 Pulse 88 08/29/24 20:49 Resp 18 08/29/24 20:49 BP 128/95 H 08/29/24 20:49 Pulse Ox 98 08/29/24 20:49 O2 Del Method Room Air 08/29/24 19:14 Course Vital Signs Vital signs: Vital Signs Temperature 98.3 F 08/29/24 19:14 Pulse Rate 116 H 08/29/24 19:14 Respiratory Rate 19 08/29/24 19:14 Blood Pressure 162/100 H 08/29/24 19:14 Pulse Oximetry 98 08/29/24 19:14 Oxygen Delivery Method Room Air 08/29/24 19:14 Temperature 98.3 F 08/29/24 19:14 Pulse Rate 88 08/29/24 20:49 Respiratory Rate 18 08/29/24 20:49 Blood Pressure 128/95 H 08/29/24 20:49 Pulse Oximetry 98 08/29/24 20:49 Oxygen Delivery Method Room Air 08/29/24 19:14 Medical Decision Making MDM Narrative Medical decision making narrative: Nondisplaced distal ulnar fracture is identified. Splint applied and application checked by me and found to be appropriate, she is neurovascular intact. CT of the facial bones is negative. Orthopedic appointment made to see Dr. Arellano on September 04 at 11:30 AM and she was prescribed Rawlings and ibuprofen. She was given a Rawlings here. Treatment diagnosis and follow-up were discussed with the patient. Differential Diagnosis Differential Diagnosis: Contusion, facial fracture, wrist sprain, wrist fracture Imaging Data CT facial bones, left wrist, left forearm x-rays: Radiologist's impression: CT facial bones: Mild stranding involving the subcutaneous fat of the right face, the findings could be due to posttraumatic edema Left wrist and left forearm: Acute fracture involving the distal left ulna with focal cortical step-off noted along the medial cortical margin and dorsal cortical margin Discharge Plan Discharge Chief Complaint: Extremity Injury, Upper Clinical Impression: Fracture of left wrist Patient Disposition: Home, Self-Care Time of Disposition Decision: 20:45 Condition: Good Mode of Transportation: Private Vehicle Prescriptions / Home Meds: New ibuprofen 800 mg tablet 800 mg PO Q8H PRN (Reason: pain) Qty: 20 0RF hydrocodone-acetaminophen 5-325 mg tablet 1 tab PO Q6H PRN (Reason: pain) 5 Days Qty: 20 0RF No Action duloxetine 30 mg capsule,delayed release(DR/EC) 30 mg PO QDAY hydrocodone-acetaminophen 5-325 mg tablet 1 tab PO Q6H PRN (Reason: pain) Qty: 20 0RF tamsulosin [Flomax] 0.4 mg capsule 0.4 mg PO DAILY Qty: 7 0RF ondansetron HCl 4 mg tablet 4 mg PO Q6H PRN (Reason: nausea and vomiting) Qty: 20 0RF Print Language: Mauritanian Instructions: Wrist Fracture in Adults (ED) Referrals: Kit Delarosa MD [Primary Care Provider] - 1 week Aayush Arellano MD [Physician] - 09/04/24 11:30 am
[2024-08-29 20:49] VITALS: BP 128/95; PULSE 88; O2SAT 98
[2024-08-29] MEDS: HYDROCODONE/ACET 5-325 MG TABLET 1 TAB PO (20:54)
== END 2024-08-29 21:05 | disposition home or self-care (01) ==
PROVIDERS: Emergency Provider Emergency Medicine; PCP Family Medicine
DX: S52.602A Unspecified fracture of lower end of left ulna, initial encounter for closed fracture (principal); W01.0XXA Fall on same level from slipping, tripping and stumbling without subsequent striking against object, initial encounter
CPT/HCPCS: 70486; 73090; 73110; 99284

== ENCOUNTER 2024-09-11 11:28 | Outpatient (OUT) | payer OTHER, SELFPAY ==
--- NOTE | 2024-09-11 11:31 | XR_ITS ---
The [address] [address] Patient Name: BHARATHI WEN MRN: [id number] date: 1970 Sex: F Assigned Patient Location: Current Patient Location: Accession/Order Number: [id number] Exam Date: 09/11/2024 11:52 Report Date: 09/11/2024 11:54 At the request of: BRICE PETERS MD Procedure: XR wrist LT min 3V LEFT WRIST - 3 views COMPARISON: 08/29/2024 CLINICAL DATA: Follow-up distal ulnar fracture AP, lateral and oblique views were obtained in a cast which somewhat obscures fine bone detail. There is redemonstration of fracture at the dorsal medial distal ulna. There is mild displacement though no significant interval change in alignment. No new fracture or dislocation is seen. XR/XR wrist LT min 3V IMPRESSION: STABLE DISTAL ULNAR FRACTURE. Impression dictated by: Kiarra Montague M.D.09/11/2024 11:54 AM Dictation Location: [place] [address] Electronically authenticated by: [id number] Y Date: 09/11/2024 11:54
--- OUTSIDE RECORDS SUMMARY | 2024-09-11 11:44 | XMS_ITS | CCD ---
Author Organization [facility] CliniSyaz Care Team Providers Care Criminal Justice Lawyer Name Role Phone GEORGE CASH Unavailable Unavailable [...] Consulting Unavailable KIT VILLAFUERTE Primary Care Physician [phone] KIT VILLAFUERTE Attending Unavailable Kit Villafuerte MD [...] source) Codeine Drug Allergy hot flashes/nose bleed BakedCode Other (3 sources) Codeine; Translations: [codeine] Drug Allergy 3 hot flashes/nose bleed [facility] Repository (1 source) Sulfonamides (Antibiotic) Drug allergy (disorder) 3 [facility] Repository (5 sources) Codeine; Translations: [codeine] Drug Allergy 4 Epistaxis (disorder), Other [facility] (4 sources) Sulfonamides (Antibiotic); Translations: [sulfa drugs] Drug allergy Tachypnea, Dyspnea [facility] (2 sources) Sulfonamides (Antibiotic) Drug Allergy 4 Unknown [facility] (1 source) Codeine Drug Allergy 4 [facility] Repository (2 sources) Sulfonamides (Antibiotic) Drug allergy (disorder) 4 unable to breathe [facility] Repository Medications Current Medications Medication Drug Class(es) [...] 02-15-2024 Episodic Other aftercare (1 source) Other 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 Attending Dr: Biju Knox MD Copies to: Biju Knox MD Ordering Provider: Biju Knox MD Date of Service: 06/02/24 XR/XR KUB: Pre Op KUB: CLINICAL INFORMATION: Preop lithotripsy left-sided. COMPARISON: KUB 08/10/2023 FINDINGS: Presumed MIDDLEWARE ARCHITECT shunt tubing is noted. The tubing lays [...] Lang Jr., D.ONicole06/02/2024 8:50 AM Dictation Location: [place] [address] Transcribed By: [facility] 06/02/24 0850 Dictated By: Alden Lang Jr, DO 06/02/24 0849 Signed By: 06/02/24 0850 Normal [facility] Basic Metabolic Panelon Anion gap [Moles/Vol] 11.3 mmol/L Normal 6.0-15.0 [facility] Comment on above: Performed By: #### P T, PTT, CBC, BMP #### [facility] [address] [place] [id number] [facility] Calcium [Mass/Vol] 9.4 mg/dL Normal 8.6-10.3 [facility] Comment on above: Result Comment: PERF ORMED BY: [place] [address] PATHOLOGIST AERIAL SPRAYER ANT PERSAUD M.D. Performed By: #### P T, PTT, CBC, BMP #### [address] Chloride [Moles/Vol] 107 mmol/L Normal 98-107 [facility] Comment on above: Performed By: #### P T, PTT, CBC, BMP #### [address] CO2 [Moles/Vol] 28.9 mmol/L Normal 21.0-31.0 [facility] Comment on above: Performed By: #### P T, PTT, CBC, BMP #### [place] [address] [place] Creatinine [Mass/Vol] 0.88 mg/dL Normal 0.60-1.20 [facility] Comment on above: Performed By: #### P T, PTT, CBC, BMP #### [place] [address] [place] GFR/1.73 sq M.predicted MDRD (S/P/Bld) [Vol rate/Area] mL/min/{1.73_m2} Normal [facility] Comment on above: Performed By: #### P T, PTT, CBC, BMP #### [address] Glucose [Mass/Vol] 112 mg/dL High 70-100 [facility] Comment on above: Result Comment: [place] Glucose Reference Range is dependent on time and content of last meal. Glucose of more than 200 mg/dL in a nonstressed, ambulatory subject supports the diagnosis of Diabetes Mellitus. ADA recommended reference range Performed By: #### P T, PTT, CBC, BMP #### [address] Potassium [Moles/Vol] 4.2 mmol/L Normal 3.5-5.1 [facility] Comment on above: Performed By: #### P T, PTT, CBC, BMP #### [address] Sodium [Moles/Vol] 143 mmol/L Normal 136-145 [facility] Comment on above: Performed By: #### P T, PTT, CBC, BMP #### [address] Urea nitrogen [Mass/Vol] 17 mg/dL Normal 7-25 [facility] Comment on above: Performed By: #### P T, PTT, CBC, BMP #### [address] Complete Blood Count Auto Di ffon 05-19-2024 Basophils (Bld) [#/Vol] 0.1 10*3/uL Normal 0.0-0.2 [facility] Comment on above: Result Comment: PERF ORMED BY: [place] [address] PATHOLOGIST AERIAL SPRAYER ANT PERSAUD M.D. Performed By: #### P T, PTT, CBC, BMP #### [address] Basophils/100 WBC (Bld) 1.3 % Normal . [facility] Comment on above: Performed By: #### P T, PTT, CBC, BMP #### [address] Eosinophils (Bld) [#/Vol] 0.4 10*3/uL Normal 0.0-0.45 [facility] Comment on above: Performed By: #### P T, PTT, CBC, BMP #### [address] Eosinophils/100 WBC (Bld) 5.5 % Normal . [facility] Comment on above: Performed By: #### P T, PTT, CBC, BMP #### [address] Erythrocyte distribution width (RBC) [Ratio] 13.7 % Normal 11.9-15.3 [facility] Comment on above: Performed By: #### P T, PTT, CBC, BMP #### [address] Hematocrit (Bld) [Volume fraction] 41.3 % Normal 34.0-46.4 [facility] Comment on above: Performed By: #### P T, PTT, CBC, BMP #### [address] Hemoglobin (Bld) [Mass/Vol] 14.0 g/dL Normal 11.8-15.4 [facility] Comment on above: Performed By: #### P T, PTT, CBC, BMP #### [address] Lymphocytes (Bld) [#/Vol] 1.9 10*3/uL Normal 1.00-4.8 [facility] Comment on above: Performed By: #### P T, PTT, CBC, BMP #### [address] Lymphocytes/100 WBC (Bld) 23.5 % Normal . [facility] Comment on above: Performed By: #### P T, PTT, CBC, BMP #### [address] MCH (RBC) [Entitic mass] 30.2 pg Normal 24.7-34.3 [facility] Comment on above: Performed By: #### P T, PTT, CBC, BMP #### [address] MCV (RBC) [Entitic vol] 89.1 fL Normal 80-100 [facility] Comment on above: Performed By: #### P T, PTT, CBC, BMP #### [address] Mean Corpuscular HGB Conc 33.9 g/dL Normal 32.0-35.0 [facility] Comment on above: Performed By: #### P T, PTT, CBC, BMP #### [place] [id number] [place] Monocytes (Bld) [#/Vol] 0.6 10*3/uL Normal 0.0-0.8 [facility] Comment on above: Performed By: #### P T, PTT, CBC, BMP #### [address] Monocytes/100 WBC (Bld) 7.0 % Normal . [facility] Comment on above: Performed By: #### P T, PTT, CBC, BMP #### [address] Neutrophils (Bld) [#/Vol] 5.0 10*3/uL Normal 1.8-7.7 [facility] Comment on above: Performed By: #### P T, PTT, CBC, BMP #### [address] Neutrophils/100 WBC (Bld) 62.7 % Normal . [facility] Comment on above: Performed By: #### P T, PTT, CBC, BMP #### [address] NRBC% 0.2 /100{WBC} Normal 0-0.5 [facility] Comment on above: Performed By: #### P T, PTT, CBC, BMP #### [address] Platelet mean volume (Bld) [Entitic vol] 8.1 fL Normal 6.3-10.7 [facility] Comment on above: Performed By: #### P T, PTT, CBC, BMP #### [place] [address] [place] Platelets (Bld) [#/Vol] 300 10*3/uL Normal 150-450 [facility] Comment on above: Performed By: #### P T, PTT, CBC, BMP #### [address] RBC (Bld) [#/Vol] 4.63 10*6/uL Normal 3.60-5.00 [facility] Comment on above: Performed By: #### P T, PTT, CBC, BMP #### [address] WBC (Bld) [#/Vol] 8.0 10*3/uL Normal 3.8-11.6 [facility] Comment on above: Performed By: #### P T, PTT, CBC, BMP #### [facility] [address] [place] [address] ECG 12 lead ECGon 05-19-2024 ECG 12 lead ECG [facility] [place] [address] [place] [address] Electrocardiograph Report Signed Patient: Arturo Magallon#: [id number] : 1970 Acct:[id number] Age/Sex: 54 / F ADM Date: 05/19/24 Loc: Room: Type: [facility] Attending Dr: Biju Knox MD Ordering Provider: [...] changes. Abnormal ECG Confirmed by Celestina Joy ([id number]) on 05/21/2024 10:57:13 PM Referred By: Electronically Signed By: Celestina Joy Transcribed By: MUS Signed By Celestina Joy MD 4 [phone] Normal [facility] Partial Thromboplastin Timeo n 05-19-2024 aPTT Coag (Bld) [Time] 31.2 s Normal 25.1-36.5 [facility] Comment on above: Result Comment: A he matocrit value greater than 55% may lead to inaccurate results in coagulation testing. Patients having hematocrit values >55% require a special collection tube for coagulation studies. Please contact the laboratory at [phone] for redraw instructions. PERFORMED BY: [place] [address] PATHOLOGIST AERIAL SPRAYER ANT PERSAUD M.D. Performed By: #### P T, PTT, CBC, BMP #### [address] Prothrombin Time INRon 05-19 INR Coag (PPP) [Relative time] 1.1 {INR} Normal [facility] Comment on above: Result Comment: [...] #### P T, PTT, CBC, BMP #### [address] PT Coag (PPP) [Time] 12.6 s Normal 9.0-12.9 [facility] Comment on above: Result Comment: A he matocrit value greater than 55% may lead to inaccurate results in coagulation testing. Patients having hematocrit values >55% require a special collection tube for coagulation studies. Please contact the laboratory at [phone] for redraw instructions. Performed By: #### P T, PTT, CBC, BMP #### [place] [id number] [facility] Ambulatory Visit Summaryon 0 02-21-2024 Ambulatory Visit [...] ABILIO EDEN, KAILYN Blunt When: Where: [address] [place] [id number]- Medications What How Much When Instructions Unchanged [...] these instructions at home: Medicines ? Take wcgl-zor-pcylycr and prescription medicines only as told by [...] keep your pee pale yellow. ? Take uuir-bbv-jevjrfe or prescription medicines. ? Eat foods that [...] or s (more content not included)... Normal [facility] Urology Office/Clinic Noteon 02-21-2024 Urology Office/Clinic Note Urology Office/Clinic Note Chief Complaint Pt is here for 7 mos f/u to kidney stone - KUB done 02/18/24 HPI Staff 6 mos with KUB. KUB 08/10/23 [facility]. Previous Dx: ureteral stone with hydro, kidney [...] renal stone). Stone analysis - 70% CaOx Edmunds, 30% Di. S/p Cysto/L stent removal 08/23/23. [...] Information ABILIO EDEN, Biju Acuña, URL [address] [place] [id number]- Additional Instructions: sched L ESWL Patient Education [...] with voice recognition artificial intelligence software, specifically StreetOwl, BrightArch and or [employer]. Substitutions may have occurred due to the inherent limitations of voic (more content not included)... Normal [facility] Comment on above: Result Comment: Elec tronically Signed By: Biju KNOX MD\.br\Date and Time Signed: 02/21/24 12:36 EDT\.br\Electronically Co-Signed By: Vani Quevedo\.br\Date and Time Co-Signed: 02/21/24 12:18 EDT Consent for Procedure/Surger yon 08-23-2023 Consent for Procedure/Surgery [id number]#1.00 TIFF [facility] Consent for Treatmenton 08-12 Consent for Treatment [id number]#1.00T IFF [facility] Inpatient Patient Summaryon 08-23-2023 Inpatient Patient Summary [place] [address] Clinical Summary Person Information Name: MARISA MAGALLON Age: 53 Years : 1970 Sex: Female PCP: KIT VILLAFUERTE MD Marital Status: Race: White Ethnicity: Non- or Language: Wolof Visit Id: Visit Reason: KIDNEY STONE Speciality: Acuity: Enc Type: Outpatient Med Service: Surgery Arrival: 08/23/2023 15:16:57 Discharge: Dispo Type: Address: [address] [place] [id number] Provider Notes: Diagnosis: Problems Active Ureteral stone [...] Follow up: With: Address: When: Biju KNOX [address] [place] [address], [address], [place] [phone] Business (1) Within 6 months Comments: Call [...] of a kit from a company called [employer]. Otherwise I will see him in 6 months with an abdominal x-ray. Have a great day Patient Education Information: EU - Cystoscopy with Stent Removal Discharge Instructions (Custom) [facility] IntraOperative Documentson 0 08-23-2023 IntraOperative Documents [id number]#1.00 TIFF Normal [facility] Lab Reportson 08-23-2023 Lab Reports [id number] IFF Normal [facility] Main [place] Intraoperative Recor don 08-23-2023 Main [place] Intraoperative Record IntraOp Document Type FTURO Summary Primary Physician: Biju KNOX MD Finalized Date/Time: 08/23/23 16:18:58 Pt. Name: MARISA MAGALLON/Sex: 1970 Female Med Rec #: [id number] Physician: Biju KNOX MD Financial #: [id number] Pt. Type: O Room/Bed: / Admit/Disch: 08/23/23 [...] Francisco Greene Role Performed Surgeon - Primary Internal Grinder Tender - Primary Scrub - Primary Time In [...] By: Darya Queen RN 08/23/23 16:18 Normal [facility] Main [place] Preoperative Recordo n 08-23-2023 Main [place] Preoperative Record Holding Area Document Type FTURO Summary Primary Physician: Biju KNOX MD Finalized Date/Time: 08/23/23 15:38:35 Pt. Name: MARISA MAGALLON/Sex: 1970 Female Med Rec #: [id number] Physician: Biju KNOX MD Financial #: [id number] Pt. Type: O Room/Bed: / Admit/Disch: 08/23/23 [...] RAUDEL Catalan RN, Ruthann 08/23/23 15:38 Normal [facility] Operative Reporton Operative Report Patient: MARISA MAGALLON [...] to proceed with a metabolic workup.. Normal [facility] Comment on above: Result Comment: Elec tronically Signed By: Biju KNOX MD\.br\Date and Time Signed: 08/23/23 16:16 EDT Outpatient Surgery Discharge Instructionon 08-23-2023 Outpatient Surgery Discharge Instruction [place] [address] Patient Discharge Instructions PERSON INFORMATION Name: MARISA [...] Biju KNOX [address], [address], [facility] [place] [phone] Business (1) Within 6 months Comments: Call [...] of a kit from a company called [employer]. Otherwise I will see him in 6 [...] to serve you. Thank you for choosing [facility] Normal [facility] Pathology Noteon 08-16-2023 Pathology Note [id number]#1.00T IFF Normal [facility] ED Note-Physicianon 08-11-19 24 ED Note-Physician [id number] IFF Normal [facility] Formson 08-11-2023 Forms [id number] IFF Normal [facility] Insurance Correspondenceon 0 08-11-2023 Insurance Correspondence [id number]#1.0 0TIFF [facility] Lab Reportson 08-11-2023 Lab Reports [id number]#1.00 TIFF Normal [facility] Operative Reporton Operative Report [id number]#1.00T IFF Normal [facility] RAD - CT Reporton 08-11-2023 RAD - CT Report [id number] IFF Normal [facility] RAD - MISCon 08-11-2023 RAD - MISC [id number]#1.00T IFF Normal [facility] RAD - MISC [id number] IFF Normal [facility] Ambulatory Visit Summaryon 0 08-10-2023 Ambulatory Visit [...] stent placement Where: [address] [place] [address] Medications What How Much When Instructions [...] including vitamins, herbs, eye drops, creams, and wvrc-due-zjmwgah medicines. ? Any problems you or family [...] tells you to take them. ? Taking tgvk-btr-upecqza medicines, vitamins, herbs, and supplements. Eating and [...] drink clear (more content not included)... Normal [facility] Ambulatory Visit Summary MARISA MAGALLON :1970 Visit [...] Comments: sched cysto/L stent placement Where: [address] [address] Medications What How Much When Instructions Unchanged [...] including vitamins, herbs, eye drops, creams, and vtgs-hrh-ilcsdfx medicines. ? Any problems you or family [...] tells you to take them. ? Taking nigp-hqb-ddjegvp medicines, vitamins, herbs, and supplements. Eating and [...] drink clear (more content not included)... Normal [facility] Calculi, Urinaryon 4 Ca Oxalate Dihydrate 30 % Normal . [facility] Comment on above: Performed By: #### C ALCULI #### [facility] , Ca Oxalate Monohydrate 70 % Normal . [facility] Comment on above: Performed By: #### C ALCULI #### [facility] , Color (U) Brown Normal . [facility] Comment on above: Performed By: #### C ALCULI #### [facility] , Comment2 Normal . [facility] Comment on above: Result Comment: Calc ulus received wet. Wet calculi must be dried before analysis, which delays reporting of results. Leaving calculi wet (such as water, saline, blood, urine) may lead to changes in composition. Performed By: #### C ALCULI #### [facility] , Comment: Normal . [facility] Comment on above: Result Comment: Phys edna questions regarding Calculi Analysis contact [facility] at: [phone]. Performed By: #### C ALCULI #### [facility] , Composition Normal . [facility] Comment on above: Result Comment: Perc entage (Represents the % composition) Performed By: #### C ALCULI #### [facility] , Disclaimer: Normal . [facility] Comment on above: Result Comment: This test was developed and its performance characteristics determined by [facility]. It has not been cleared or approved by the Food and Drug Administration. Performed at: [facility] [place] [id number] Manager Distribution: Anitha Jay PhDDA, Phone: [phone] Performed By: #### C ALCULI #### [facility] , Note Normal . [facility] Comment on above: Result Comment: Calc dacia report will follow via computer, mail or ground mixer delivery. PERFORMED BY: [place] [address] PATHOLOGIST AERIAL SPRAYER MARLON ORNELAS M.D. Performed By: #### C ALCULI #### [facility] , Photo Normal . [facility] Comment on above: Result Comment: Phot ograph will follow under a separate cover Performed By: #### C ALCULI #### [facility] , Size 4x3 Normal . [facility] Comment on above: Result Comment: Mult iple pieces received. Dimensions of the largest piece reported. Performed By: #### C ALCULI #### [facility] , Source Normal . [facility] Comment on above: Result Comment: Left Ureter Performed By: #### C ALCULI #### [facility] , Weight 185 Normal . [facility] Comment on above: Performed By: #### C ALCULI #### [facility] , [place] urethrocystogram retroon 08-10-2023 [place] urethrocystogram retro [facility] [place] [address] [place] [address] Fluoroscopy Report Signed Patient: Arturo Magallon#: [id number] : 1970 Acct:[id number] Age/Sex: 53 / F ADM Date: 08/10/23 [place]: [place] Room: Type: [facility] Attending Dr: Biju Knox MD Copies [...] Javi Vera M.D.08/10/2023 6:03 PM Dictation Location: [place] [address] Transcribed By: [facility] 08/10/231802 Dictated By: Javi Vera DO 08/10/231757 Signed By: 08/10/231802 Normal [facility] Insurance Correspondenceon 0 08-10-2023 Insurance Correspondence [id number] TIFF Normal [facility] Smooth 08-10-2023 L Specimen: [id number] Received: 08/11/23 Status: SOUMalorie Req Num: [id number] Spec Type: Surgical Subm Dr: Biju Knox MD Tissues: A Urinary Calculus (LT URETERAL STONE) Procedures: Level 1 Gross Age/ Patient Sex Location Account Attending Physician Arturo Magallon 53/F [place] [id number] Biju Knox MD SPEC NUM: [id number] RECD: 08/11/23 STATUS: TARA LOFTON NUM: [id number] VISHAL: 08/10/23- SUBM DR: Biju Knox MD [...] chemical analysis. Gross examination only. CPT Codes 46861 Specimen: [id number] Received: 08/11/23 Status: TARA Lofton Num: [id number] Spec Type: Surgical Subm Dr: Biju Knox MD Tissues: A Urinary Calculus (LT URETERAL STONE) Procedures: Level 1 Gross Patient: Arturo Magallon [id number] (Continued) Signed (signature on file) Vargas Garcia MD 08/13/23 0938 [facility] Patient Educationon 08-10-19 Patient [...] including vitamins, herbs, eye drops, creams, and yajf-hsp-iypimoq medicines. ? Any problems you or family [...] tells you to take them. ? Taking cxmw-lfg-yqdxmtg medicines, vitamins, herbs, and supplements. Eating and [...] pieces (more content not included)... Normal [facility] Urology Office/Clinic Noteon 08-10-2023 Urology Office/Clinic Note Chief Complaint [facility] F/U for flank pain HPI Staff [facility] follow up due to abdominal pain, left flank pain. Seen at [facility] 08/03/23. CT @ [facility] 08/03/23. BUN 14.0, Creatinine 1.02 done [...] Despite that she was discharged from the [facility] with outpatient follow-up. Her chances of passing the stone are small given that size. She does have more stones in the kidneys. She knows that a possible stent will be indicated. Documentation recorded by the Vani lala acurately reflects the services(s) I performed and decisions made by me. Authenticated by Dr. Knox on (more content not included)... Normal [facility] Comment on above: Result Comment: Elec tronically Signed By: Biju KNOX MD\.br\Date and Time Signed: 08/10/23 10:50 EST\.br\Electronically Co-Signed By: Vani Quevedo\.br\Date and Time Co-Signed: 08/10/23 10:46 EST XR KUBon 08-10-2023 XR KUB [facility] [place] [address] [place] [address] XRay Report Signed Patient: Arturo Magallon R#: [id number] : 1970 Acct:[id number] Age/Sex: 53 / F ADM Date: 08/10/23 [place]: [place] Room: Type: [facility] Attending Dr: Biju Knox MD Copies [...] Javi Vera M.D.08/10/2023 4:59 PM Dictation Location: [place] [address] Transcribed By: [facility] 08/10/231658 Dictated By: Javi Vera DO 08/10/231656 Signed By: 08/10/231658 Normal [facility] CT CHEST W CONon 07-15-2022 [...] by: BRICE RACHEL Date: 2022-07-15 09:35 Normal [facility] CT CHEST W CONon 11-06-2021 CT CHEST [...] by: BRICE RACHEL Date: 2021-11-06 09:10 Normal [facility] XR FEMUR LTon 10-05-2021 XR FEMUR LT [...] CARLOS RAYMUNDO Date: 2021-10-05 06:02 Normal [facility] XR HIP LT 2 3V W [...] CARLOS RAYMUNDO Date: 2021-10-05 05:48 Normal [facility] XR KNEE LT 4V or >on [...] BENNY SHELLEY Date: 2021-10-05 05:50 Normal [facility] CBC AUTO DIFFon 09-22-2021 BASO # 0.1 103/ul Normal 0.0-0.1 [facility] Comment on above: Performed By: #### C BC #### [facility] [address] [place], [place] [address] Dr. Starr Garcia Basophils/100 WBC (Bld) 0.5 % Normal 0.2-2.0 [facility] Comment on above: Performed By: #### C BC #### [facility] [address] [place] [address] Dr. Starr Garcia EO # 0.2 103/ul Normal 0.0-0.7 [facility] Comment on above: Performed By: #### C BC #### [facility] [address] [place] [address] Dr. Starr Garcia Eosinophils/100 WBC (Bld) 1.9 % Normal 0.9-7.0 [facility] Comment on above: Performed By: #### C BC #### [facility] [address] [place] [address] Dr. Starr Garcia Erythrocyte distribution width (RBC) [Ratio] 13.8 % Normal 11.0-15.0 [facility] Comment on above: Performed By: #### C BC #### [facility] [address] [place] [address] Dr. Starr Garcia Hematocrit (Bld) [Volume fraction] 43.1 % Normal 36.0-48.0 [facility] Comment on above: Performed By: #### C BC #### [facility] [address] [place] [address] Dr. Starr Garcia Hemoglobin (Bld) [Mass/Vol] 14.2 g/dL Normal 12.0-16.0 [facility] Comment on above: Performed By: #### C BC #### [facility] [address] [place] [address] Dr. Starr Garcia IG # 0.07 10e3/ul Critically high 0.00-0.03 [facility] Comment on above: Performed By: #### C BC #### [facility] [address] [place] [address] Dr. Starr Garcia IG % 0.7 % Critically high 0.0-0.5 [facility] Comment on above: Performed By: #### C BC #### [facility] [address] [place] [address] Dr. Starr Garcia LYMPH # 1.5 103/ul Normal 1.2-3.8 [facility] Comment on above: Performed By: #### C BC #### [facility] [address] [place] [address] Dr. Starr Garcia Lymphocytes/100 WBC (Bld) 15.3 % Critically low 20.5-60.0 [facility] Comment on above: Performed By: #### C BC #### [facility] [address] [place] [address] Dr. Starr Garcia MANUAL DIFF REQ NO Normal [facility] Comment on above: Performed By: #### C BC #### [facility] [address] [address] [address] Starr Garcia MCH (RBC) [Entitic mass] 30.3 pg Normal 26.7-34.0 [facility] Comment on above: Performed By: #### C BC #### [facility] [address] [place] [address] Dr. Starr Garcia MCHC (RBC) [Mass/Vol] 32.9 g/dL Normal 29.9-35.2 [facility] Comment on above: Performed By: #### C BC #### [facility] [address] [place] [address] Dr. Starr Garcia MCV (RBC) [Entitic vol] 91.9 fL Normal 81.0-99.0 [facility] Comment on above: Performed By: #### C BC #### [facility] [address] [place] [address] Dr. Starr Garcia MONO # 0.6 103/ul Normal 0.3-0.8 [facility] Comment on above: Performed By: #### C BC #### [facility] [address] [place] [address] Dr. Starr Garcia Monocytes/100 WBC (Bld) 5.7 % Normal 1.7-12.0 [facility] Comment on above: Performed By: #### C BC #### [facility] [address] [place] [address] Dr. Starr Garcia NEUT # 7.4 103/ul Critically high 1.4-6.5 [facility] Comment on above: Performed By: #### C BC #### [facility] [address] [place] [address] Dr. Starr Garcia Neutrophils/100 WBC (Bld) 75.9 % Critically high 43.0-75.0 [facility] Comment on above: Performed By: #### C BC #### [facility] [address] [place] [address] Dr. Starr Garcia Platelet mean volume (Bld) [Entitic vol] 9.8 fL Normal 9.5-13.5 [facility] Comment on above: Performed By: #### C BC #### [facility] [address] [place], [place] [address] Dr. Starr Garcia PLT 336 103/ul Normal 150-450 [facility] Comment on above: Performed By: #### C BC #### [facility] [address] [address] [address] Starr Garcia RBC 4.69 106/ul Normal 4.20-5.40 [facility] Comment on above: Performed By: #### C BC #### [facility] [id number] Starr Garcia WBC 9.8 103/ul Normal 4.0-11.0 [facility] Comment on above: Performed By: #### C BC #### [facility] [address] ABD/PELVIS WO CONon [...] and adnexa. BODY WALL: There is a MIDDLEWARE ARCHITECT shunt in the chest wall extending into [...] BRICE SALAS Date: 2021-09-22 19:24 Normal [facility] ER URINE PROFILEon 2 Bilirubin Ql (U) Negative Normal NEGATIVE [facility] Comment on above: Performed By: #### DRAGAN GASPAR, PREGU #### [facility] [address] [address] [address] Starr Garcia Clarity (U) SL CLOUDY Abnormal CLEAR [facility] Comment on above: Performed By: #### DRAGAN GASPAR, PREGU #### [facility] [address] [address] [address] Starr Garcia Color (U) YELLOW Normal YELLOW [facility] Comment on above: Performed By: #### DRAGAN GASPAR, PREGU #### [facility] [address] [address] [address] Starr GRACIA A micrscopic examination will be performed if indicated. Normal [facility] Comment on above: Performed By: #### DRAGAN GASPAR, PREGU #### [facility] [address] [address] [address] Starr Garcia Glucose Ql (U) Negative Normal NEGATIVE [facility] Comment on above: Performed By: #### DRAGAN GASPAR, PREGU #### [facility] [address] [address] [address] Starr Garcia Hemoglobin Ql (U) LARGE Abnormal NEGATIVE [facility] Comment on above: Performed By: #### DRAGAN GASPAR, PREGU #### [facility] [address] [address] [address] Starr Garcia Ketones Ql (U) Negative Normal NEGATIVE [facility] Comment on above: Performed By: #### DRAGAN GASPAR PREGU #### [facility] [address] [address] [address] Starr Garcia LEUKOCYTES Negative Normal NEGATIVE [facility] Comment on above: Performed By: #### DRAGAN GASPAR PREGU #### [facility] [address] [address] [address] Starr Garcia Nitrite Ql (U) Negative Normal NEGATIVE [facility] Comment on above: Performed By: #### DRAGAN GASPAR PREGU #### [facility] [address] [address] [address] Starr Garcia pH (U) 5.5 [pH] Normal 5-9 [facility] Comment on above: Performed By: #### DRAGAN GASPAR PREGU #### [facility] [address] [address] [address] Starr Garcia SPEC GRAVITY >=1.030 Abnormal 1.005-<=1.025 [facility] Comment on above: Performed By: #### DRAGAN GASPAR PREGU #### [facility] [address] [place] [address] Dr. Starr Garcia UA PROTEIN TRACE Normal NEGATIVE/ TRACE [facility] Comment on above: Performed By: #### DRAGAN GASPAR PREGU #### [facility] [address] [address] [address] Starr Garcia UR MICRO IND INDICATED Normal [facility] Comment on above: Performed By: #### DRAGAN GASPAR PREGU #### [facility] [address] [place] [address] Dr. Starr Garcia Urobilinogen Qn (U) 0.2 {Bonilla'U}/dL Normal 0.2 - 1. 0 [facility] Comment on above: Performed By: #### DRAGAN GASPAR PREGU #### [facility] [address] [address] [address] Starr Garcia URon 09-22-2021 , QUAL Negative Normal NEGATIVE [facility] Comment on above: Performed By: #### E RURGISELLARO, PREGU #### [facility] [address] [address] [address] Starr Garcia PROF 14(COMP METB)on 022 Albumin [Mass/Vol] 4.3 g/dL Normal 3.4-5.0 [facility] Comment on above: Performed By: #### C MP #### [facility] [address] [address] [address] Starr Garcia Albumin/Globulin [Mass ratio] 1.1 {ratio} Normal [facility] Comment on above: Performed By: #### C MP #### [facility] [address] [place] [address] Dr. Starr Garcia ALP [Catalytic activity/Vol] 111 U/L Normal 46-116 [facility] Comment on above: Performed By: #### C MP #### [facility] [address] [address] [address] Starr Garcia ALT [Catalytic activity/Vol] 120 U/L Critically high 14-59 [facility] Comment on above: Performed By: #### C MP #### [facility] [address] [place] [address] Dr. Starr Garcia Anion gap [Moles/Vol] 14.9 mmol/L Normal [facility] Comment on above: Performed By: #### C MP #### [facility] [address] [place] [address] Dr. Starr Garcia AST [Catalytic activity/Vol] 72 U/L Critically high 15-37 [facility] Comment on above: Performed By: #### C MP #### [facility] [address] [address] [address] Starr Garcia Bilirubin [Mass/Vol] 0.7 mg/dL Normal 0.2-1.3 [facility] Comment on above: Performed By: #### C MP #### [facility] [address] [address] [address] Starr Garcia Calcium [Mass/Vol] 8.9 mg/dL Normal 8.5-10.1 [facility] Comment on above: Performed By: #### C MP #### [facility] [address] [address] [address] Starr Garcia Chloride [Moles/Vol] 105 mmol/L Normal 98-107 [facility] Comment on above: Performed By: #### C MP #### [facility] [address] [address] [address] Starr Garcia CO2 [Moles/Vol] 25.7 mmol/L Normal 22.0-30.0 [facility] Comment on above: Performed By: #### C MP #### [facility] [address] [place] [address] Dr. Starr Garcia Creatinine [Mass/Vol] 0.82 mg/dL Normal 0.52-1.04 [facility] Comment on above: Performed By: #### C MP #### [facility] [address] [place] [address] Dr. Starr Garcia EGFR-AF ARGENTINE >60 Normal >=60 [facility] Comment on above: Performed By: #### C MP #### [facility] [address] [place] [address] Dr. Starr Garcia EGFR-NON AF ARGENTINE >60 Normal >=60 [facility] Comment on above: Performed By: #### C MP #### [facility] [address] [address] [address] Starr Garcia Globulin (S) [Mass/Vol] 3.8 g/dL Normal [facility] Comment on above: Performed By: #### C MP #### [facility] [address] [place] [address] Dr. Starr Garcia Glucose [Mass/Vol] 112 mg/dL Critically high 74-106 [facility] Comment on above: Performed By: #### C MP #### [facility] [address] [place] [address] Dr. Starr Garcia Potassium [Moles/Vol] 3.6 mmol/L Normal 3.4-5.0 [facility] Comment on above: Performed By: #### C MP #### [facility] [address] [address] [address] Starr Garcia Protein [Mass/Vol] 8.1 g/dL Normal 6.1-8.2 [facility] Comment on above: Performed By: #### C MP #### [facility] [address] [address] [address] Starr Garcia Sodium [Moles/Vol] 142 mmol/L Normal 137-145 [facility] Comment on above: Performed By: #### C MP #### [facility] [address] [address] [address] Starr Garcia Urea nitrogen [Mass/Vol] 13.0 mg/dL Normal 7.0-18.0 [facility] Comment on above: Performed By: #### C MP #### [facility] [address] [address] [address] Starr Garcia Urea nitrogen/Creatinine [Mass ratio] 15.9 mg/mg Normal [facility] Comment on above: Performed By: #### C MP #### [facility] [address] [address] [address] Starr Garcia URINE MICROSCOPIC ONLYon BACTERIA TRACE Abnormal NONE SEEN [facility] Comment on above: Performed By: #### DRAGAN GASPAR PREGU ####[facility] [id number] [address]DrNicole Garcia Bacteria identified Cx Nom (U) NOT INDICATED Normal [facility] Comment on above: Performed By: #### DRAGAN GASPAR PREGU ####[facility] [id number] [address]Dr. Starr Garcia CAST NONE SEEN Normal NONE SEEN [facility] Comment on above: Performed By: #### DRAGAN GASPAR PREGU ####[facility] [address] [address]DrNicole Garcia Crystals LM Nom (Urine sed) NONE SEEN Normal NONE SEEN [facility] Comment on above: Performed By: #### E RURWANDERICRO, PREGU ####[facility] [id number] [address]Dr. Starr Garcia Epithelial cells LM Ql (Urine sed) FEW Abnormal NONE SEEN /RARE [facility] Comment on above: Performed By: #### E RUR, WANDERICRO, PREGU ####[facility] [id number] [id number]. Starr Garcia MUCOUS TRACE Abnormal NONE SEEN [facility] Comment on above: Performed By: #### E RURWANDERICCRISTIN, PREGU ####[facility] [address] [address]Dr. Starr Garcia RBC 10-20 Abnormal 0-2 [facility] Comment on above: Performed By: #### E RURWANDERICCRISTIN, PREGU ####[facility] [address] [address]Dr. Starr Garcia WBC NONE SEEN Normal NONE SEEN [facility] Comment on above: Performed By: #### E RURWANDERICCRISTIN, PREGU ####[facility] [address] [address]Dr. Starr Garcia Initial Visit (Neurosurgery) on 06-20-2018 [...] by Dr Quintana with subsequent right sided MIDDLEWARE ARCHITECT shunting; she has had chronic left sided weakness and incoordination, headaches, and blurry vision since at least 2009 no reacent changes in her symptoms. she has no recent imaging or neurosurgical followup since at least 2003. she is here to re establish care. 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) (Z98.2) Current Meds DULoxetine HCl - 60 MG Oral Capsule Delayed Release Particles;Therapy: [id number] to Recorded Rx By: NOY; Dispense: 90 Days ; #:90; Refill: 0; KANE = N; Record; Last Updated By: Jcarlos Hoover; 06/20/2018 1:21:59 PM Myrbetriq 50 MG Oral Tablet Extended Release 24 Hour;Therapy: [id number] to Recorded Rx By: CAROLIN; Dispense: 30 Days ; #:30; Refill: 0; KANE = N; Record; Last Updated By: Jcarlos Hoover; 06/20/2018 1:21:59 PM Topiramate 50 MG Oral Tablet;Therapy: [id number] to Recorded Rx By: HANNAH; Dispense: 30 Days ; #:60; Refill: 0; KANE = N; Record; Last Updated By: Jcarlos Hoover; 06/20/2018 1:21:59 PM Vitals Vital Signs Recorded: 20Jun2018 01:37PMHeart Arlm72Qxsobomhseg09Rfis nhtp720Jxgmexkzb73Xotry t5 ft 4.5 hqMsjxti866 lb BMI Onycwnzfdl72.8BSA Calculated1.97 Physical Examawake and alertright frontal MIDDLEWARE ARCHITECT shuntEOM full speech fluentstrenght 5/5 right, 4/5 left with some tremors bilateralsensation intactgait normal Results/Datathere aer no imaging reports or records Diagnoses/Problems MIDDLEWARE ARCHITECT (ventriculoperitoneal) shunt status (V45.2) (Z98.2) OrdersVP (ventriculoperitoneal) shunt status CT Head without Contrast; Status:Hold For - Scheduling,Retrospectiv e Authorization;Requested for:20Jun2018; Perform:[facility]; Due:30Jun2018; Last Updated By:Cleopatra Rudd; 06/20/2018 1:41:13 PM;Ordered; For:MIDDLEWARE ARCHITECT (ventriculoperitoneal) shunt status; Ordered By:Manjit Polk;Patient taking Metformin or Derivatives? : UnknownRadiologist to Determine Optimal Study : YWhat are the patient's signs and symptoms? : shunt Xray Adult Shunt Series; Status:Hold For - Scheduling,Retrospectiv e Authorization;Requested for:20Jun2018; Perform:[facility]; Due:18Sep2018; Last Updated By:Cleopatra Rudd; 06/20/2018 1:42:31 PM;Ordered; For:MIDDLEWARE ARCHITECT (ventriculoperitoneal) shunt status; Ordered By:Manjit Polk;Radiologist to Determine Optimal Study : YWhat are the patient's signs and symptoms? : shunt Xray Skull Complete; Status:Canceled; Perform:[facility];Ordered; For:MIDDLEWARE ARCHITECT (ventriculoperitoneal) shunt status; Ordered By:Manjit Polk;Reason: Unspecified [...] 90 mm[Hg] Kit Villafuerte MD Work Phone: [facility] 06-02-2024 09:11-0500 Heart rate 94 /min Kit Villafuerte MD Work Phone: [facility] 06-02-2024 09:11-0500 Respiratory rate 16 /min Kit Villafuerte MD Work Phone: [facility] 06-02-2024 09:11-0500 SaO2% (BldA) [Mass fraction] 94 % Kit Villafuerte MD Work Phone: [facility] 06-02-2024 09:11-0500 Systolic blood pressure 132 mm[Hg] Kit Villafuerte MD Work Phone: [facility] 06-02-2024 08:52-0500 Body temperature 98.4 [degF] Kit Villafuerte MD Work Phone: [facility] 06-02-2024 06:30-0500 Body height 163.83 cm Kit Villafuerte MD Work Phone: [facility] 06-02-2024 06:30-0500 Body weight 100 kg Kit Villafuerte MD Work Phone: [facility] 02-21-2024 11:52-0400 Blood Pressure Location Biju KNOX [facility] 02-21-2024 11:52-0400 Diastolic blood pressure 78 mm[Hg] Biju KNOX [facility] 02-21-2024 11:52-0400 Heart rate 68 /min Biju KNOX [facility] 02-21-2024 11:52-0400 Respiratory rate 16 /min Biju KNOX [facility] 02-21-2024 11:52-0400 Systolic blood pressure 126 mm[Hg] Biju KNOX [facility] 02-15-2024 15:15-0400 Body height 165.1 cm Kit Villafuerte MD Work Phone: [facility] 02-15-2024 15:15-0400 Body mass index (BMI) [Ratio] 36.94 kg/m2 Kit Villafuerte MD Work Phone: [facility] 02-15-2024 15:15-0400 Body temperature 97.5 [degF] Kit Villafuerte MD Work Phone: [facility] 02-15-2024 15:15-0400 Body weight 100.7 kg Kit Villafuerte MD Work Phone: [facility] 02-15-2024 15:15-0400 Diastolic blood pressure 70 mm[Hg] Kit Villafuerte MD Work Phone: [facility] 02-15-2024 15:15-0400 Heart rate 83 /min Kit Villafuerte MD Work Phone: [facility] 02-15-2024 15:15-0400 Respiratory rate 18 /min Kit Villafuerte MD Work Phone: [facility] 02-15-2024 15:15-0400 SaO2% (BldA) [Mass fraction] 95 % Kit Villafuerte MD Work Phone: [facility] 02-15-2024 15:15-0400 Systolic blood pressure 130 mm[Hg] Kit Villafuerte MD Work Phone: [facility] 08-10-2023 10:03-0500 Blood Pressure Location Biju KNOX [facility] 08-10-2023 10:03-0500 Diastolic blood pressure 88 mm[Hg] Biju KNOX [facility] 08-10-2023 10:03-0500 Systolic blood pressure 130 mm[Hg] Biju KNOX [facility] 08-12-2021 13:05-0500 Body height 163.83 cm Christi Vargas Other [employer] Other 08-12-2021 13:05-0500 Body mass index (BMI) [Ratio] 34.64 kg/m2 Christi Vargas Other [employer] Other 08-12-2021 13:05-0500 Body temperature 97.1 [degF] Christi Vargas Other [employer] Other 08-12-2021 13:05-0500 Body weight 92.99 kg Christi Vargas Other [employer] Other 08-12-2021 13:05-0500 Diastolic blood pressure 84 mm[Hg] Christi Vargas Other [employer] Other 08-12-2021 13:05-0500 Respiratory rate 18 /min Christi Vargas Other [employer] Other 08-12-2021 13:05-0500 SaO2% (BldA) [Mass fraction] 100 % Christi Vargas Other [employer] Other 08-12-2021 13:05-0500 Systolic blood pressure 141 mm[Hg] Christi Vargas Other [employer] Other Encounters Encounter Date Encounter Type Care Provider Facility Start: 08-29-2024 End: 08-29-2024 ambulatory Kit Villafuerte MD Work Phone: [facility] Work Phone: Start: 08-29-2024 End: 08-29-2024 Patient encounter procedure Kit Villafuerte MD Work Phone: [facility] Work Phone: Start: 06-02-2024 End: 06-02-2024 Admission to same day surgery center Kit Villafuerte MD Work Phone: [facility] [place] Start: 06-02-2024 End: 06-02-2024 ambulatory Kit Villafuerte Facility:[facility] Start: 06-02-2024 End: 06-02-2024 ambulatory Biju KNOX Facility:[id number] Start: 05-19-2024 End: 05-19-2024 ambulatory Kit Villafuerte Facility:[facility] Start: 05-19-2024 Encounter for preprocedural laboratory examination Biju Knox [facility] Start: 02-21-2024 End: 02-21-2024 ambulatory Biju KNOX Facility:[facility] Start: 02-21-2024 End: 02-21-2024 Patient encounter procedure Biju KNOX [facility] Start: 02-15-2024 End: 02-15-2024 Office outpatient visit 25 minutes Kit Villafuerte MD Work Phone: [facility] Comment on above: Nausea (Primary Dx); S/P MIDDLEWARE ARCHITECT shunt; Nonintractable headache, unspecified chronicity pattern, unspecified headache type; Female stress incontinence Start: 02-15-2024 End: 02-15-2024 ambulatory KIT VILLAFUERTE Not Available Start: 02-15-2024 End: 02-15-2024 Bamboo flowsheet Kit Villafuerte MD Work Phone: [facility] Start: 02-15-2024 End: 02-15-2024 Bamboo flowsheet Kit Villfauerte MD Work Phone: [facility] Start: 08-23-2023 End: 08-23-2023 ambulatory Biju KNOX Facility:[facility] Start: 08-23-2023 End: 08-23-2023 Patient encounter procedure Biju KNOX [facility] Start: 08-10-2023 End: 08-10-2023 ambulatory Kit Villafuerte Facility:[facility] Start: 08-10-2023 End: 08-10-2023 ambulatory Biju KNOX Facility:[facility] Start: 08-10-2023 End: 08-10-2023 Patient encounter procedure Biju KNOX [facility] [place] Kevin Start: 08-09-2023 End: 08-10-2023 ambulatory Biju KNOX Facility:[id number] Start: 07-15-2022 End: 07-16-[address] KIT VILLAFUERTE Facility:[facility] Start: 11-06-2021 End: 11-07-[address] KIT VILLAFUERTE Facility:[facility] Start: 10-05-2021 End: 10-05-2021 ambulatory JEROD HOUSTON Facility:[facility] Start: 09-22-2021 End: 09-22-[address] KIT VILLAFUERTE Facility:[facility] Start: 08-12-2021 End: 08-12-2021 ambulatory Christi Vargas Other [employer] Other Start: 08-12-2021 Office outpatient vi sit 15 minutes Christi Vargas [facility] Start: 06-20-2018 Patient encounter procedure Manjit Polk Facility:[id number] Start: 08-18-2017 Ambulatory GEORGE Kishan BESerg Facility:3 Procedures Date Procedure Procedure Detail Performing Clinician Start: 06-02-2024 Extracorporeal shock wave lithotripsy of calculus of kidney Kit Villafuerte MD Work Phone: Start: 06-02-2024 Supine abdominal X-ray Kit Villafuerte MD Work Phone: Hemorrhoids (disorder) Emile KNOX Procedure on brain ventricular shunt Biju KNOX Plan of Treatment Date Care Activity Detail Author Start: 06-02-2024 [facility] Start: 06-02-2024 [facility] Start: 02-15-2024 End: 02-15-2024 Patient encounter procedure 02/15/2024 3:00 PM EDT Office Visit [facility] [address] [place] [address] Kit Villafuerte MD [address] [place] [id number] Arrived [facility] Comment on above: Arrived Start: 02-15-2024 End: 02-14-2025 CT Head WO contrast CT head wo IV contrast Imaging Routine Nausea S/P MIDDLEWARE ARCHITECT shunt Nonintractable headache, unspecified chronicity pattern, unspecified headache type Expected: 02/15/2024, Expires: 02/14/2025 [facility] Work Phone: Comment on above: Expected: 02/15/2024 , Expires: 02/14/2025 Start: 02-13-2024 Influenza vaccination Influenza Vacc ine (#1) [facility] Start: 2011 Screening for malignant neoplasm of breast Mammogram [facility] Start: 2001 Screening for malignant neoplasm of cervix [facility] Start: 1992 Screening for malignant neoplasm of cervix [facility] Start: 1971 Screening for malignant neoplasm of colon [facility] Patient Education Know your Meds [facility] Work Phone: Patient referral [facility] Work Phone: Immunizations Immunization Date Immunization Notes Care Provider Fa cili 04-01-2021 COVID-19 mRNA, Comirnaty (Pfizer) Kit Villafuerte MD Work Phone: [facility] 02-28-2021 influenza virus vaccine, unspecified formulation Kit Villafuerte MD Work Phone: [facility] 09-04-2020 COVID-19 mRNA, Comirnaty (Pfizer) Kit Villafuerte MD Work Phone: [facility] 08-14-2020 COVID-19 mRNA, Comirnaty (Pfizer) Kit Villafuerte MD Work Phone: [facility] Payers Date Payer Category Payer Self-pay 2022 Unknown FRONTPATH FRONTP ATH [id number] 2022-Present [phone] [address] [place] [address] [id number] 2022 Unknown [id number] 1971 Unknown [id number] [id number]6 1971 Unknown [id number] 2.16.840.1.468513.3.579.2.593 1971 Unknown [id number] 2.16.840.1.264693.3.579.2.593 1971 Unknown [id number] 2.16.840.1.322822.3.579.2.593 1971 Unknown [id number] 2.16.840.1.420954.3.579.2.593 1971 Unknown [id number] 2.16.840.1.508214.3.579.2.1259 1971 Unknown [id number] 2.16.840.1.062478.3.579.2.727 1971 Unknown [id number] 2.16.840.1.074533.3.579.2.727 1971 Unknown [id number] 2.16.840.1.585769.3.579.2.727 1971 Unknown [id number] 2.16.840.1.411186.3.579.2.727 1971 Unknown [id number] 2.16.840.1.919394.3.579.2.727 1971 Unknown [id number] 2.16.840.1.641463.3.579.2.727 1959 Unknown [id number] Unknown [id number] 2.16.840.1.481121.3.579.2.531 Unknown [id number] 2.16.840.1.087915.3.579.2.531 Unknown [id number] 2.16.840.1.083634.3.579.2.531 Unknown [facility] [id number] Social History Date Type Detail Facility Unknown if ever smoked [employer] Other Start: 02-15-2024 Sex Assigned At F [facility] Start: 08-10-2023 End: 02-21-2024 Tobacco smoking status Light tobacco smoker (finding) [facility] Tobacco smoking status Never [facility] Tobacco smoking status NHIS Tobacco smoking consumption unknown [facility] Start: 1970 Sex assigned at Not on file [facility] Start: 02-15-2024 Tobacco smoking status NHIS Never smoked tobacco [facility] Start: 02-15-2024 Tobacco use and exposure Smokeless tobacco non-user [facility] Start: 02-15-2024 History of Social function [facility] Start: 08-29-2024 Sex Female (finding) [facility] Start: 1970 Sex Assigned At Female F [facility] Medical Equipment Procedure Code Equipment Code Equipment Origin al Text Equipment Identifier Dates Cystoscopy, with ureteral calculus manipulation and stent placement Polymeric ureteral stent ([id number] [facility] Start: 08-10-2023 Goals Date Patient Goal Desired Activity /State Functional Status Date Assessment Result Facility 02-21-2024 Functional Status N/A [facility] 08-10-2023 Functional Status N/A [facility] Clinical Notes 08-12-2021 to 02-21-2024 Kit Villafuerte [...] Follow these instructions at home: Medicines Take sjwp-oud-ssesmwp and prescription medicines only as told by [...] to keep your pee pale yellow. ?Take kwrp-yjk-lhghdnw or prescription medicines. ?Eat foods that are [...] provider. Document Revised: 01/29/2023 Document Reviewed: 01/29/2023 [employer] Patient Education 2023 [employer]. 02/21/2024 12:17:54 Laser Therapy for Kidney Stones [...] including vitamins, herbs, eye drops, creams, and mymy-kcb-ttgsseb medicines. Any problems you or family members [...] unless your provider tells you to. ?Taking cptc-igy-vxuicaj medicines, vitamins, herbs, and supplements. Tests You [...] provider. Document Revised: 01/29/2023 Document Reviewed: 01/29/2023 [employer] Patient Education 2023 [employer]. Follow Up Care 11/24/2023 10:57:49 With:ABILIO EDEN, Biju Acuña, URL Address: [facility] [employer] [address] [place], [place] [id number]- When: Unknown [facility] 02-21-2024 Note Patient Education Nephrology Laser [...] these instructions at home: Medicines ? Take ynql-hyy-tbauppr and prescription medicines only as told by [...] keep your pee pale yellow. ? Take pvnw-ojm-xqvdahb or prescription medicines. ? Eat foods that [...] provider. Document Revised: 01/29/2023 Document Reviewed: 01/29/2023 [employer] Patient Education ? 2023 [employer] Laser Therapy for Kidney Stones Laser [...] including vitamins, herbs, eye drops, creams, and hlcl-hsz-utvbwop medicines. ? Any problems you or family [...] Do not e (more content not included)... [facility] 02-15-2024 History of Presen t illness Narrative Associated Problem(s): S/P MIDDLEWARE ARCHITECT shunt Severe nausea and unclear etiology. Use [...] similar episodes. Concerned of problems with shunt. MIDDLEWARE ARCHITECT shunt in place and over past week [...] (Myrbetriq) 50 MG 24 hr tablet S/P MIDDLEWARE ARCHITECT shunt Severe nausea and unclear etiology. Use [...] wo IV contrast documented in this encounter [facility] 08-23-2023 Hospital Discharg e instructions Patient [...] Care 08/13/2023 10:04:30 With:Biju KNOX Address: [address] Business (1) When:6 months Comments:Call for [...] of a kit from a company called [employer].Otherwise I will see him in 6 months with an abdominal x-ray.Have a great day [facility] 08-23-2023 Note [id number] [facility] 08-23-2023 Note Cystoscopy with Sten t Removal [...] you have a fever over 100 degrees. [facility] 08-10-2023 Hospital Discharg e instructions Patient Education [...] including vitamins, herbs, eye drops, creams, and twaf-nkf-tazvvpl medicines. Any problems you or family members [...] provider tells you to take them. ?Taking rcpa-ter-eulxlvn medicines, vitamins, herbs, and supplements. Eating and [...] provider. Document Revised: 10/07/2022 Document Reviewed: 02/02/2022 [employer] Patient Education 2022 [employer]. Follow Up Care 08/09/2023 11:39:44 With:ABILIO EDEN, Biju Acuña, URL Address: [address] [place], [place] [id number]- When: Unknown Comments:sched cysto/L stent placement [facility] 08-12-2021 Evaluation note Encounter Date Diagnosis Assessment Notes Aug, Tinea manuum (ICD-10 - B35.2) apply to hands and nail beds and hands and follow up with primary care provider for further workup and treatment options [employer] Other Evaluation + Plan note No data available for this section [facility] Evaluation note* Diagnosis Nausea- Primary Nausea alone S/P MIDDLEWARE ARCHITECT shunt Presence of cerebrospinal fluid drainage device Nonintractable headache, unspecified chronicity pattern, unspecified headache type Female stress incontinence documented in [facility] Work Phone: History general Narrative - Reported* Type Description Date Medical History chronic depression Medical History bladder trouble Surgical History brain surgery multiple Surgical History brain shunt multiple Hospitalization History See Above [employer] Other Progress note No data available for this section [facility] [place] Reason for referral (narrative)* Consultation (Routine) - Pending Review Specialty Diagnoses / Procedures Referred By Alejandro fish Referred To Contact Neurosurgery Diagnoses S/P MIDDLEWARE ARCHITECT shunt Kit Villafuerte MD [address] [place] [address] Referral ID Status Reason Start Date Expiration Date Visits Requested Visits Authorized [id number] Pending Review Specialty Services Required 02/15/2024 08/13/2024 1 1 * Imaging (Routine) - Authorized Specialty Diagnoses / Procedures Referred By Alejandro fish Referred To Contact Diagnoses Nausea S/P MIDDLEWARE ARCHITECT shunt Nonintractable headache, unspecified chronicity pattern, unspecified headache type Procedures CT head wo IV contrast Kit Villafuerte MD [address] [place] [address] Referral ID Status Reason Start Date Expiration Date V isits Requested Visits Authorized [id number] Authorized 02/15/2024 08/13/2024 1 1 [facility] Healthcare Summary Purpose Family History Relationship Condition [...] section and content) DATE CREATED AUTHOR 12/16/2017 [facility] Healthcare DATE CREATED AUTHOR AUTHOR'S ORGANIZ ATION 06/20/2018 [employer] DATE CREATED AUTHOR AUTHOR'S ORGANIZ ATION 06/22/2018 [facility] DATE CREATED AUTHOR AUTHOR'S ORGANIZ ATION 07/16/2022 [facility] DATE CREATED AUTHOR AUTHOR'S ORGANIZ ATION 02/16/2024 [facility] EPIC DATE CREATED AUTHOR AUTHOR'S ORGANIZ ATION 06/08/2024 [facility] DATE CREATED AUTHOR AUTHOR'S ORGANIZ ATION 06/30/2024 [facility] REASON FOR VISIT (unrecogniz ed section and content) Reason Comments Nausea Follow-up Pain zaps near shunt Patient Care team informatio n (unrecognized section and content) 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 [facility] [employer] [facility]. provides no warranty or guarantee of the accuracy or completeness of information in this document.
== END 2024-09-11 11:29 | disposition home or self-care (01) ==
LOC: EC 11:28
PROVIDERS: PCP Family Medicine; Visit Provider Orthopaedic Surgery
DX: S52.692D Other fracture of lower end of left ulna, subsequent encounter for closed fracture with routine healing (principal)
CPT/HCPCS: 73110

== ENCOUNTER 2024-09-18 10:33 | Outpatient (OUT) | payer OTHER, SELFPAY ==
--- NOTE | 2024-09-18 | XR_ITS ---
The [address] [address] Patient Name: BHARATHI WEN MRN: [id number] date: 1970 Sex: F Assigned Patient Location: Current Patient Location: Accession/Order Number: [id number] Exam Date: 09/18/2024 10:49 Report Date: 09/18/2024 10:50 At the request of: BRICE PETERS MD Procedure: XR wrist LT min 3V 3 views left wrist plain film COMPARISON: 09/11/2024 HISTORY: Follow-up assessment for left wrist fracture. ACUTE FINDINGS: Stable alignment of distal ulnar fracture. Suspected subtle healing. DEGENERATIVE CHANGE: Unremarkable SOFT TISSUE FINDINGS: Unremarkable JOINT EFFUSION: None POSTOP CHANGES: None BONE MINERALIZATION: Adequate XR/XR wrist LT min 3V IMPRESSION: Interval healing of distal ulnar fracture with stable alignment Impression dictated by: Javi Vera M.D.09/18/2024 10:50 AM Dictation Location: [employer] Electronically authenticated by: [id number] Y Date: 09/18/2024 10:50
--- OUTSIDE RECORDS SUMMARY | 2024-09-18 10:44 | XMS_ITS | CCD ---
Author Organization [facility] Care Team Providers Care Training Program Manager Name Role Phone GEORGE CASH Unavailable Unavailable GEORGE CASH Unavailable Unavailable NO FAMILY DOCTOR, NO FAMILY DOCTOR Unavailable Unavailable Manjit Polk Unavailable Unavailable George Cash Unavailable Unavailable Kti Villafuerte Unavailable UnavailChristi Art Unavailable NOY, DR KIT Jaimes Primary Care Unavailable CECE LYNNE Attending Unavailable MAGED, CECE Admitting Unavailable MARKER, DR OSCAR Consulting Unavailable BRICE SALAS Consulting Unavailable CECE LYNNE Consulting Unavailable NADEREKris, DR KIT Jaimes Attending Unavailable WILSON, DR [...] Consulting Unavailable KIT VILLAFUERTE Primary Care Physician [phone] KIT VILLAFUERTE Attending Unavailable Kit Villafuerte MD Primary Care Provider Biju KNOX Attending Unavailable Biju KNOX Attending Unavailable COOK, Biju P Referring Unavailable COOK, Biju P Attending Unavailable COOK, Biju P Attending Unavailable COOK, Biju P Attending Unavailable ABILIO, Biju P Referring Unavailable Biju KNOX P Admitting Unavailable Kit Villafuerte Primary Care Unavailable Biju Knox Admitting Unavailable Biju Knox Attending Unavailable NadererKit Primary Care Unavailable Biuj Knox Admitting Unavailable Biju Knox Attending Unavailable Kit Villafuerte Primary Care Unavailable Biju Knox Admitting Unavailable Biju Knox Attending Unavailable Kit Villafuerte MD Primary Care Provider [phone] Biju Knox MD Attending Provider Allergies Allergy Classification Reported Allergen(s) Allergy Type Date of Onset Reaction(s) Facility (1 source) Codeine Drug Allergy hot flashes/nose bleed [employer] Other (3 sources) Codeine; Translations: [codeine] Drug Allergy 3 hot flashes/nose bleed [facility] (1 source) Sulfonamides (Antibiotic) Drug allergy (disorder) 3 [facility] (6 sources) Codeine; Translations: [codeine] Drug Allergy 4 Epistaxis (disorder), Other [facility] (4 sources) Sulfonamides (Antibiotic); Translations: [sulfa drugs] Drug allergy Tachypnea, Dyspnea [facility] (3 sources) Sulfonamides (Antibiotic) Drug Allergy 4 Unknown [facility] (1 source) Codeine Drug Allergy 4 [facility] (2 sources) Sulfonamides (Antibiotic) Drug allergy (disorder) 4 unable to breathe [facility] Medications Current Medications Medication Drug Class(es) [...] a day for 28 day(s) Aug, Active dexamethasone 6 mg oral tablet (1 source) Corticosteroid Start: 03-20-2024 take 1 tablet by mouth once daily dexAMETHasone (Decadron) 6 MG tablet Indications: COVID-19 Take 1 tablet (6 mg) by mouth Daily for 6 days 6 tablet 03/20/2024 Active DULoxetine 20 mg delayed release oral capsule (2 sources) Serotonin and Norepinephrine Reuptake Inhibitor Start: 08-10-2023 take 1 capsule by mouth once daily in the morning Duloxetine (Cymbalta) 20 mg capsule,delayed release(DR/EC) Active 20 MG PO Every morning August 10, 2023 1:00am Cymbalta Active 24 hr mirabegron 50 mg extended release oral tablet (11 sources) beta3-Adrenergic Agonist Start: 08-31-2023 End: 08-30-2024 take 1 tablet by mouth once daily mirabegron ER (Myrbetriq) 50 MG 24 hr tablet Indications: Female stress incontinence Take 1 tablet (50 mg) by mouth Daily 90 tablet 3 02/15/2024 Active Start: 08-10-2023 Myrbetriq Oral , Daily, Refills(s) [...] Active ondansetron 4 mg disintegrating oral tablet (3 sources) Serotonin-3 Receptor Antagonist Start: 02-15-2024 take [...] [Abdominal pain] Onset: 2 Episodic Anxiety disorders (4 sources) Generalized anxiety disorder; Translations: [Generalized anxiety disorder] Onset: 4 12-07-2023 Chronic Calculus of urinary tract (8 sources) Personal history of urinary calculi; Translations: [Kidney stone] Onset: 2 Episodic Genitourinary symptoms and ill-defined conditions (6 sources) Female stress incontinence; Translations: [Stress incontinence (female) (male)] Onset: 4 12-07-2023 Chronic Mood disorders (7 sources) Depressive disorder; Translations: [Recurrent major depressive episodes, moderate ] Onset: 4 08-10-2023 Chronic Other diseases of kidney and ureters (1 source) Urinary tract obstruction; Translations: [Hydronephrosis with renal and ureteral calculous obstruction] Onset: 4 Episodic Other lower respiratory disease (5 sources) Solitary pulmonary nodule; Translations: [SOLITARY PULMONARY NODULE] Onset: 2 Episodic Other nervous system disorders (5 sources) Ventriculoperitoneal shunt in situ; Translations: [Presence of cerebrospinal fluid drainage device] Onset: 4 02-15-2024 Chronic Spondylosis; intervertebral disc disorders; other back problems (4 sources) Degeneration of lumbar intervertebral disc; Translations: [Other intervertebral disc degeneration, lumbar region] Onset: 4 12-07-2023 Chronic Unclassified (3 sources) Obstructive hydronephrosis 08-10-2023 Past or Other Problems Problem Classification Problem Date Documented Da te Episodic/Chronic Cancer of brain and nervous system (4 sources) History of malignant neoplasm of brain; Translations: [Personal history of malignant neoplasm of brain] Onset: 12-07-2023 12-07-2023 Episodic E Codes: Fall (1 source) Fall from other furniture, initial encounter; Translations: [FALL FROM OTHER FURNITURE INITIAL] Onset: 10-07-2021 Episodic Headache; including migraine (5 sources) Headache; Translations: [Nonintractable headache, unspecified chronicity pattern, unspecified headache type] Onset: 02-15-2024 02-15-2024 Episodic Intracranial injury (4 sources) History of traumatic brain injury; Translations: [Personal history of traumatic brain injury] Onset: 12-07-2023 12-07-2023 Episodic Mycoses (1 source) Tinea manuum Onset: 08-12-2021 Resolved: 08-12-2021 Episodic Nausea and vomiting (5 sources) Nausea; Translations: [Nausea] Onset: 02-15-2024 02-15-2024 Episodic Other aftercare (1 source) Other ferry terminal agent (current) drug therapy; Translations: [OTH USP CURRENT DRUG THERAPY] Onset: 10-07-2021 Episodic Other connective tissue disease (3 sources) Pain in left leg; Translations: [PAIN IN LEFT LEG] Onset: 10-05-2021 Episodic Other lower respiratory disease (4 sources) Nodule of lung; Translations: [Solitary pulmonary nodule] Onset: 12-07-2023 12-07-2023 Episodic Other non-traumatic joint disorders (4 sources) Pain in left knee; Translations: [Pain in joint, lower leg] Onset: 12-07-2023 12-07-2023 Episodic Other skin disorders (4 sources) Vesicular eczema; Translations: [Dyshidrosis [pompholyx]] Onset: [...] Name Value Interpretation Reference Range Facility XR WRIST LT MIN 3 Von 2024 [place] [address] XRay Report Signed Patient: ARTURO MAGALLON MR#: [id number] : 1970 Acct:[id number] Age/Sex: 54 / F ADM Date: 09/11/24 Loc: EC Attending Dr: Brice Peters M.D. Ordering Physician: Brice Peters M.D. Date of Service: 09/11/24 Procedure(s): XR wrist LT min 3V Accession Number(s): [id number] cc: Brice Peters M.D.; Kit Villafuerte M.D. [place] [id number] Patient Name: MARISA MAGALLON MRN: [id number] date: 1970 Sex: F Assigned Patient Location: Current Patient Location: Accession/Order Number: [id number] Exam Date: 09/11/2024 11:52 Report Date: 09/11/2024 11:54 At the request of: BRICE PETERS MD Procedure: XR wrist LT min 3V LEFT WRIST - 3 views COMPARISON: 08/29/2024 CLINICAL DATA: Follow-up distal ulnar fracture AP, lateral and oblique views were obtained in a cast which somewhat obscures fine bone detail. There is redemonstration of fracture at the dorsal medial distal ulna. There is mild displacement though no significant interval change in alignment. No new fracture or dislocation is seen. XR/XR wrist LT min 3V IMPRESSION: STABLE DISTAL ULNAR FRACTURE. Impression dictated by: Kiarra Montague M.D.09/11/2024 11:54 AM Dictation Location: [place] [address] Electronically authenticated by: [id number] Y Date: 09/11/2024 11:54 Dictated By: Kiarra Montague M.D. Signed By: 09/11/24 1156 DD/ 1154 TD/TT: Medical Billing Assistant: [facility] Radiology, Radiologi MD catia - 09/11/2024 [place] [address] XRay Report Signed Patient: ARTURO MAGALLON MR#: [id number] : 1970 Acct:[id number] Age/Sex: 54 / F ADM Date: 09/11/24 Loc: Attending Dr: Brice Peters M.D. Ordering Physician: Brice Peters M.D. Date of Service: 09/11/24 Procedure(s): XR wrist LT min 3V Accession Number(s): [id number] cc: Brice Peters M.D.; Kit Villafuerte M.D. The [place] [address] Patient Name: MARISA MAGALLON MRN: [facility]:[id number] date: 1970 Sex: F Assigned Patient Location: Current Patient Location: Accession/Order Number: [id number] Exam Date: 09/11/2024 11:52 Report Date: 09/11/2024 11:54 At the request of: BRICE PETERS MD Procedure: XR wrist LT min 3V LEFT WRIST - 3 views COMPARISON: 08/29/2024 CLINICAL DATA: Follow-up distal ulnar fracture AP, lateral and oblique views were obtained in a cast which somewhat obscures fine bone detail. There is redemonstration of fracture at the dorsal medial distal ulna. There is mild displacement though no significant interval change in alignment. No new fracture or dislocation is seen. XR/XR wrist LT min 3V IMPRESSION: STABLE DISTAL ULNAR FRACTURE. Impression dictated by: Kiarra Montague M.D.09/11/2024 11:54 AM Dictation Location: [place] [address] Electronically authenticated by: [id number] Y Date: 09/11/2024 11:54 Dictated By: Kiarra Montague M.D. Signed By: 09/11/24 1156 DD/ 1154 TD/TT: Medical Billing Assistant: [facility] Radiology Study observation (narrative) [facility] XR WRIST LT MIN 3 VOrdered Hermila y: Radiologist Radiology on 09-11-2024 [employer] [facility] Work Phone: XR KUBon 06-02-2024 XR KUB [facility] Main [place] [address] [place] [address] XRay Report Signed Patient: Arturo Magallon R#: [id number] : 1970 Acct:[id number] Age/Sex: 54 / F ADM Date: 06/02/24 Loc: [place] Room: Type: [facility] Attending Dr: Biju Knox MD Copies to: Biju Knox MD Ordering Provider: Biju Knox MD Date of Service: 06/02/24 XR/XR KUB: Pre Op KUB: CLINICAL INFORMATION: Preop lithotripsy left-sided. COMPARISON: KUB 08/10/2023 FINDINGS: Presumed FITNESS MANAGER shunt tubing is noted. The tubing [...] Lang Jr., D.ONicole06/02/2024 8:50 AM Dictation Location: [facility]- Transcribed By: TAMI 06/02/24 0850 Dictated By: Alden Lang Jr, DO 06/02/24 0849 Signed By: 06/02/24 0850 Normal [facility] Basic Metabolic Panelon 120 Anion gap [Moles/Vol] 11.3 mmol/L Normal 6.0-15.0 [facility] Comment on above: Performed By: #### P T, PTT, CBC, BMP #### [facility] [address] [place] [address] [place] Calcium [Mass/Vol] 9.4 mg/dL Normal 8.6-10.3 The [facility] Comment on above: Result Comment: PERF ORMED BY: [place] [address] PATHOLOGIST [employer] ANT PERSAUD M.D. Performed By: #### P T, PTT, CBC, BMP #### [place] [address] [place] Chloride [Moles/Vol] 107 mmol/L Normal 98-107 [facility] Comment on above: Performed By: #### P T, PTT, CBC, BMP #### [place] [address] [place] CO2 [Moles/Vol] 28.9 mmol/L Normal 21.0-31.0 The [facility] Comment on above: Performed By: #### P T, PTT, CBC, BMP #### [place] [address] [place] Creatinine [Mass/Vol] 0.88 mg/dL Normal 0.60-1.20 [facility] Comment on above: Performed By: #### P T, PTT, CBC, BMP #### [facility] [address] [place] [id number] [place] GFR/1.73 sq M.predicted MDRD (S/P/Bld) [Vol rate/Area] mL/min/{1.73_m2} Normal [facility] Comment on above: Performed By: #### P T, PTT, CBC, BMP #### [place] [address] [place] Glucose [Mass/Vol] 112 mg/dL High 70-100 The [facility] Comment on above: Result Comment: [place] Glucose Reference Range is dependent on time and content of last meal. Glucose of more than 200 mg/dL in a nonstressed, ambulatory subject supports the diagnosis of Diabetes Mellitus. ADA recommended reference range Performed By: #### P T, PTT, CBC, BMP #### [address] Potassium [Moles/Vol] 4.2 mmol/L Normal 3.5-5.1 [facility] Comment on above: Performed By: #### P T, PTT, CBC, BMP #### [address] Sodium [Moles/Vol] 143 mmol/L Normal 136-145 [facility] Comment on above: Performed By: #### P T, PTT, CBC, BMP #### [place] [address] [place] Urea nitrogen [Mass/Vol] 17 mg/dL Normal 7-25 [facility] Comment on above: Performed By: #### P T, PTT, CBC, BMP #### [address] Complete Blood Count Auto Di ffon 05-19-2024 Basophils (Bld) [#/Vol] 0.1 10*3/uL Normal 0.0-0.2 [facility] Comment on above: Result Comment: PERF ORMED BY: [place] [address] PATHOLOGIST [employer] ANT PERSAUD M.D. Performed By: #### P T, PTT, CBC, BMP #### [place] [address] [place] Basophils/100 WBC (Bld) 1.3 % Normal . [facility] Comment on above: Performed By: #### P T, PTT, CBC, BMP #### [place] [address] [place] Eosinophils (Bld) [#/Vol] 0.4 10*3/uL Normal 0.0-0.45 [facility] Comment on above: Performed By: #### P T, PTT, CBC, BMP #### [address] Eosinophils/100 WBC (Bld) 5.5 % Normal . [facility] Comment on above: Performed By: #### P T, PTT, CBC, BMP #### [address] Erythrocyte distribution width (RBC) [Ratio] 13.7 % Normal 11.9-15.3 [facility] Comment on above: Performed By: #### P T, PTT, CBC, BMP #### [address] Hematocrit (Bld) [Volume fraction] 41.3 % Normal 34.0-46.4 [facility] Comment on above: Performed By: #### P T, PTT, CBC, BMP #### [address] Hemoglobin (Bld) [Mass/Vol] 14.0 g/dL Normal 11.8-15.4 [facility] Comment on above: Performed By: #### P T, PTT, CBC, BMP #### [address] Lymphocytes (Bld) [#/Vol] 1.9 10*3/uL Normal 1.00-4.8 [facility] Comment on above: Performed By: #### P T, PTT, CBC, BMP #### [address] Lymphocytes/100 WBC (Bld) 23.5 % Normal . [facility] Comment on above: Performed By: #### P T, PTT, CBC, BMP #### [address] MCH (RBC) [Entitic mass] 30.2 pg Normal 24.7-34.3 [facility] Comment on above: Performed By: #### P T, PTT, CBC, BMP #### [address] MCV (RBC) [Entitic vol] 89.1 fL Normal 80-100 [facility] Comment on above: Performed By: #### P T, PTT, CBC, BMP #### [address] Mean Corpuscular HGB Conc 33.9 g/dL Normal 32.0-35.0 [facility] Comment on above: Performed By: #### P T, PTT, CBC, BMP #### [address] Monocytes (Bld) [#/Vol] 0.6 10*3/uL Normal 0.0-0.8 [facility] Comment on above: Performed By: #### P T, PTT, CBC, BMP #### [address] Monocytes/100 WBC (Bld) 7.0 % Normal . [facility] Comment on above: Performed By: #### P T, PTT, CBC, BMP #### [address] Neutrophils (Bld) [#/Vol] 5.0 10*3/uL Normal 1.8-7.7 [facility] Comment on above: Performed By: #### P T, PTT, CBC, BMP #### [address] Neutrophils/100 WBC (Bld) 62.7 % Normal . [facility] Comment on above: Performed By: #### P T, PTT, CBC, BMP #### [address] NRBC% 0.2 /100{WBC} Normal 0-0.5 The [facility] Comment on above: Performed By: #### P T, PTT, CBC, BMP #### [address] Platelet mean volume (Bld) [Entitic vol] 8.1 fL Normal 6.3-10.[address] [facility] Comment on above: Performed By: #### P T, PTT, CBC, BMP #### [facility] [address] Platelets (Bld) [#/Vol] 300 10*3/uL Normal 150-450 [facility] Comment on above: Performed By: #### P T, PTT, CBC, BMP #### [facility] [address] RBC (Bld) [#/Vol] 4.63 10*6/uL Normal 3.60-5.00 The [facility] Comment on above: Performed By: #### P T, PTT, CBC, BMP #### [facility] [address] WBC (Bld) [#/Vol] 8.0 10*3/uL Normal 3.8-11.6 [facility] Comment on above: Performed By: #### P T, PTT, CBC, BMP #### [facility] [address] ECG 12 lead ECGon 05-19-2024 ECG 12 lead ECG [facility] Main [place] [address] [place] [address] Electrocardiograph Report Signed Patient: Arturo Magallon#: [id number] : 1970 Acct:[id number] Age/Sex: 54 / F ADM Date: 05/19/24 Loc: Room: Type: [facility] Attending Dr: Biju Knox MD Ordering [...] changes. Abnormal ECG Confirmed by Celestina Joy ([id number]) on 05/21/2024 10:57:13 PM Referred By: Electronically Signed By: Celestina Joy Transcribed By: MUS Signed By Celestina Joy MD 4 2257 Normal [facility] Partial Thromboplastin Timeo n 05-19-2024 aPTT Coag (Bld) [Time] 31.2 s Normal 25.1-36.5 [facility] Comment on above: Result Comment: A he matocrit value greater than 55% may lead to inaccurate results in coagulation testing. Patients having hematocrit values >55% require a special collection tube for coagulation studies. Please contact the laboratory at [phone] for redraw instructions. PERFORMED BY: [place] [address] PATHOLOGIST [employer] ANT PERSAUD M.D. Performed By: #### P T, PTT, CBC, BMP #### [address] Prothrombin Time INRon 05-19 INR Coag (PPP) [Relative time] 1.1 {INR} Normal [facility] Comment on above: Result [...] #### P T, PTT, CBC, BMP #### [address] PT Coag (PPP) [Time] 12.6 s Normal 9.0-12.9 [facility] Comment on above: Result Comment: A he matocrit value greater than 55% may lead to inaccurate results in coagulation testing. Patients having hematocrit values >55% require a special collection tube for coagulation studies. Please contact the laboratory at [phone] for redraw instructions. Performed By: #### P T, PTT, CBC, BMP #### [address] Ambulatory Visit Summaryon 0 02-21-2024 Ambulatory Visit Summary Ambulatory Visit Summary MARISA MAGALLON :1970 Visit Date:02/21/2024 Ambulatory Visit Instructions Your Diagnosis Kidney stones Your Care Team Attending Physician - Biju [...] with ABILIO EDEN, Biju Acuña, KAILYN When: Where: [facility] [address] [address]- Medications What How Much When Instructions Unchanged [...] these instructions at home: Medicines ? Take lvhm-qyh-hsmcvrw and prescription medicines only as told by [...] keep your pee pale yellow. ? Take vnhg-zai-vkchfmj or prescription medicines. ? Eat foods that [...] or s (more content not included)... Normal [facility] Urology Office/Clinic Noteon 02-21-2024 Urology Office/Clinic Note Urology Office/Clinic Note Chief Complaint Pt is here for 7 mos f/u to kidney stone - KUB done 02/18/24 HPI Staff 6 mos with KUB. [place] [facility] [place] Dx: ureteral stone with hydro, kidney [...] renal stone). Stone analysis - 70% CaOx [place], 30% Di. S/p Cysto/L stent removal 08/23/23. [...] Information ABILIO EDEN, Biju Acuña, URL [address] [place] [address]- Additional Instructions: sched L ESWL Patient Education [...] with voice recognition artificial intelligence software, specifically [employer]plan, Ribbon and or [employer]fm. Substitutions may have occurred due to the inherent limitations of voic (more content not included)... Normal [facility] Comment on above: Result Comment: Elec tronically Signed By: Biju KNOX MD\.br\Date and Time Signed: 02/21/24 12:36 EDT\.br\Electronically Co-Signed By: Vani Quevedo\.br\Date and Time Co-Signed: 02/21/24 12:18 EDT Consent for Procedure/Surger yon 08-23-2023 Consent for Procedure/Surgery [id number] TIFF Normal [facility] Consent for Treatmenton 08-12 Consent for Treatment [id number] IFF Normal [facility] Inpatient Patient Summaryon 08-23-2023 Inpatient Patient Summary [address] [address] Clinical Summary Person Information Name: MARISA MAGALLON Age: 53 Years : 1970 Sex: Female PCP: KIT VILLAFUERTE MD Marital Status: Race: White Ethnicity: Non- or Language: Greek Visit Id: Visit Reason: KIDNEY STONE Speciality: Acuity: Enc Type: Outpatient Med Service: Surgery Arrival: 08/23/2023 15:16:57 Discharge: Dispo Type: Address: [address] [place] [id number] Provider Notes: Diagnosis: Problems Active Ureteral stone [...] MD Follow up: With: Address: When: Biju RICHARDSON, [address], [place] [phone] Business (1) Within 6 months Comments: Call [...] of a kit from a company called [employer]. Otherwise I will see him in 6 months with an abdominal x-ray. Have a great day Patient Education Information: EU - Cystoscopy with Stent Removal Discharge Instructions (Custom) Normal [facility] IntraOperative Documentson 0 08-23-2023 IntraOperative Documents [id number] TIFF Normal [facility] Lab Reportson 08-23-2023 Lab Reports [id number] IFF Normal [facility] Main OR Intraoperative Recor don 08-23-2023 Main OR Intraoperative Record IntraOp Document Type FTURO Summary Primary Physician: Biju KNOX MD Finalized Date/Time: 08/23/23 16:18:58 Pt. Name: FRITZKalyanERINMARISA/Sex: 1970 Female Med Rec #: [id number] Physician: Biju KNOX MD Financial #: [id number] Pt. Type: O Room/Bed: / Admit/Disch: 08/23/23 [...] Francisco Greene Role Performed Surgeon - Primary Academic Adviser - Primary Scrub - Primary Time In 08/23/23 16:07:00 08/23/23 16:07:00 08/23/23 16:07:00 Time Out 08/23/23 16:16:00 03/11/24 16:16:00 08/23/23 16:16:00 Procedure CYSTOSCOPY LOCAL WITH CYSTOSCOPY LOCAL WITH CYSTOSCOPY LOCAL WITH STENT REMOVAL(Left) STENT REMOVAL(Left) STENT REMOVAL(Left) Comments Last Modified By: Bret RN, Darya Queen RN, Darya Queen RN, Darya Acuña 08/23/23 Amanda Acuña 08/23/23 Amanda P 08/23/23 16:12:59 16:12:59 16:12:59 [...] Out Biju KNOX MD, Verified (If Participants Bret VARGAS, Darya Applicable) Iglesia Rodarte Kendall R Time Out [...] Queen RN 08/23/23 16:18 Normal [facility] Main OR Preoperative Recordo n 08-23-2023 Main OR Preoperative Record Holding Area Document Type FTURO Summary Primary Physician: Biju KNOX MD Finalized Date/Time: 08/23/23 15:38:35 Pt. Name: MARISA MAGALLON/Sex: 1970 Female Med Rec #: [id number] Physician: Biju KNOX MD Financial #: [id number] Pt. Type: O Room/Bed: / Admit/Disch: 08/23/23 15:16:57 - Institution: Case Times Holding FTURO Pre-Care Text: Verifies consent for planned procedure, identifies individual values and wishes concerning care, includes family members in perioperative teaching Secures patient's records' belongings, and valuables, maintains patient's dignity and privacy, and maintains patient confidentiality Entry 1 In Holding 08/23/23 15:36:00 Outcomes Met? Yes Last Modified By: Alayna VARGAS, Teresa STARKS 08/23/23 15:36:55 Post-Care Text: The patient participates [...] RN, Ruthann 08/23/23 15:38 Normal [facility] Operative Reporton Operative Report Patient: [...] with a metabolic workup.. Normal [facility] Comment on above: Result Comment: Elec tronically Signed By: Biju KNOX MD\.br\Date and Time Signed: 08/23/23 16:16 EDT Outpatient Surgery Discharge Instructionon 08-23-2023 Outpatient Surgery Discharge Instruction [address] [address] Patient Discharge Instructions PERSON INFORMATION Name: MARISA [...] Follow up: With: Address: When: Biju KNOX [address] [place] [address], [address], [address] [address] Business (1) Within 6 months Comments: Call [...] of a kit from a company called [employer]. Otherwise I will see him in 6 [...] you have a fever over 100 degrees. IBEHZAD JENNIFER, have received the attached patient education materials/instructions and have verbalized understanding: May we do a follow up call? Yes No I was present when discharge instructions were given Patient Signature Date Clinican/Nurse Signature _ Date You may receive a survey from [employer] asking you to rate your care experience. Your feedback is important and will help us understand what we do well and how we can improve the quality of care we provide to you, your loved ones and our community. It?s an honor to serve you. Thank you for choosing [facility] Normal [facility] Pathology Noteon 08-16-2023 Pathology Note [id number]#1.00T IFF Normal [facility] ED Note-Physicianon 08-11-19 ED Note-Physician [id number]#1.00T IFF Normal [facility] Formson 08-11-2023 Forms [id number]#1.00T IFF Normal [facility] Insurance Correspondenceon 0 08-11-2023 Insurance Correspondence [id number]#1.0 0TIFF Normal [facility] Lab Reportson 08-11-2023 Lab Reports [id number]#1.00 TIFF Normal [facility] Operative Reporton Operative Report [id number]#1.00T IFF Normal [facility] RAD - CT Reporton 08-11-2023 RAD - CT Report [id number]#1.00T IFF Normal [facility] RAD - MISCon 08-11-2023 RAD - MISC [id number]#1.00T IFF Normal [facility] RAD - MISC [id number]#1.00T IFF Normal [facility] Ambulatory Visit Summaryon 0 08-10-2023 [...] stent placement Where: [address] [place] [id number]- Medications What How Much When Instructions Unchanged [...] including vitamins, herbs, eye drops, creams, and jbso-oid-imiklky medicines. ? Any problems you or family [...] tells you to take them. ? Taking rexf-lmj-cyrjvos medicines, vitamins, herbs, and supplements. Eating and [...] (more content not included)... Normal [facility] Ambulatory Visit Summary MARISA MAGALLON [...] Comments: sched cysto/L stent placement Where: [address] [address]- Medications What How Much When Instructions Unchanged [...] including vitamins, herbs, eye drops, creams, and xrbs-xhc-ynkmcmz medicines. ? Any problems you or family [...] tells you to take them. ? Taking uhtc-hhh-lmcgkda medicines, vitamins, herbs, and supplements. Eating and [...] (more content not included)... Normal [facility] Calculi, Urinaryon 4 Ca Oxalate Dihydrate 30 % Normal . [facility] Comment on above: Performed By: #### C ALCULI #### [facility] , Ca Oxalate Monohydrate 70 % Normal . [facility] Comment on above: Performed By: #### C ALCULI #### [facility] , Color (U) Brown Normal . [facility] Comment on above: Performed By: #### C ALCULI #### [facility] , Comment2 Normal . [facility] Comment on above: Result Comment: Calc ulus received wet. Wet calculi must be dried before analysis, which delays reporting of results. Leaving calculi wet (such as water, saline, blood, urine) may lead to changes in composition. Performed By: #### C ALCULI #### [facility] , Comment: Normal . [facility] Comment on above: Result Comment: Phys hiraan questions regarding Calculi Analysis [facility] at: [phone]. Performed By: #### C ALCULI #### [facility] , Composition Normal . [facility] Comment on above: Result Comment: Perc entage (Represents the % composition) Performed By: #### C ALCULI #### [facility] , Disclaimer: Normal . [facility] Comment on above: Result Comment: This test was developed and its performance characteristics determined by [facility]. It has not been cleared or approved by the Food and Drug Administration. Performed at: [facility] [id number] Academic Assistant: Anitha Jay PhDDA, Phone: [phone] Performed By: #### C ALCULI #### [facility] , Note Normal . [facility] Comment on above: Result Comment: Calc dacia report will follow via computer, mail or sales and in home delivery specialist delivery. PERFORMED BY: [address] [address] PATHOLOGIST [employer] MARLON ORNELAS M.D. Performed By: #### C ALCULI #### [facility] , Photo Normal . [facility] Comment on above: Result Comment: Phot ograph will follow under a separate cover Performed By: #### C ALCULI #### [facility] , Size 4x3 Normal . [facility] Comment on above: Result Comment: Mult iple pieces received. Dimensions of the largest piece reported. Performed By: #### C ALCULI #### [facility] , Source Normal . [facility] Comment on above: Result Comment: Left Ureter Performed By: #### C ALCULI #### [facility] , Weight 185 Normal . [facility] Comment on above: Performed By: #### C ALCULI #### [facility] , [place] urethrocystogram retroon 08-10-2023 [place] urethrocystogram retro [facility] Main [place] [address] [place] [address] Fluoroscopy Report Signed Patient: Arturo Magallon#: [id number] : 1970 Acct:[id number] Age/Sex: 53 / F ADM Date: 08/10/23 Loc: [place] Room: Type: [facility] Attending Dr: Biju Knox MD Copies [...] Javi Vera M.D.08/10/2023 6:03 PM Dictation Location: [place] [address] Transcribed By: [facility] 08/10/231802 Dictated By: Javi Vera DO 08/10/231757 Signed By: 08/10/231802 Normal [facility] Insurance Correspondenceon 0 08-10-2023 Insurance Correspondence [id number]#1.00 TIFF Normal [facility] Smooth 08-10-2023 L Specimen: [id number] Received: 08/11/23-08 Status: SOUT Req Num: [id number] Spec Type: Surgical Subm Dr: Biju Knox MD Tissues: A Urinary Calculus (LT URETERAL STONE) Procedures: Level 1 Gross Age/ Patient Sex Location Account Attending Physician BehzadArturo kris Jaimes 53/F [place] [id number] Biju Knox MD SPEC NUM: [id number] RECD: 08/11/23 STATUS: TARA LYJayesh NUM: [id number] VISHAL: 08/10/23- SUBM DR: Biju Knox MD ENTERED: 08/11/[address] [facility] [address]: SPEC TYPE: Surgical DEPT: S [...] chemical analysis. Gross examination only. CPT Codes 68176 Specimen: [id number] Received: 08/11/23 Status: TARA Lofton Num: [id number] Spec Type: Surgical Subm Dr: Biju Knox MD Tissues: A Urinary Calculus (LT URETERAL STONE) Procedures: Level 1 Gross Patient: Arturo Magallon [id number] (Continued) Signed (signature on file) Vargas Garcia MD 08/13/23 0938 [place] [facility] Patient Educationon 08-10-19 Patient Education [...] including vitamins, herbs, eye drops, creams, and iojp-zvo-xqokmbl medicines. ? Any problems you or family [...] tells you to take them. ? Taking bwij-diy-sctyykx medicines, vitamins, herbs, and supplements. Eating and [...] pieces (more content not included)... Normal [facility] Urology Office/Clinic Noteon 08-10-2023 Urology Office/Clinic Note Chief Complaint [facility] F/U for flank pain HPI Staff [facility] follow up due to abdominal pain, left flank pain. Seen at [facility] 08/03/23. CT @ [facility] 08/03/23. BUN 14.0, Creatinine 1.02 [...] Despite that she was discharged from the [facility] with outpatient follow-up. Her chances of passing the stone are small given that size. She does have more stones in the kidneys. She knows that a possible stent will be indicated. Documentation recorded by the Vani lala acurately reflects the services(s) I performed and decisions made by me. Authenticated by Dr. Knox on (more content not included)... Normal [facility] Comment on above: Result Comment: Elec tronically Signed By: Biju KNOX MD\.br\Date and Time Signed: 08/10/23 10:50 EST\.br\Electronically Co-Signed By: Vani Quevedo\.br\Date and Time Co-Signed: 08/10/23 10:46 EST XR KUBon 08-10-2023 XR KUB [facility] Main [address] [address] XRay Report Signed Patient: Arturo Magallon#: [id number] : 1970 Acct:[id number] Age/Sex: 53 / F ADM Date: 08/10/23 Loc: [place] Room: Type: [facility] Attending Dr: Biju Knox MD Copies [...] Javi Vera M.D.08/10/2023 4:59 PM Dictation Location: [place] [address] Transcribed By: [facility] 08/10/23 1659 Dictated By: Javi Vera DO 08/10/23 1657 Signed By: 08/10/23 1659 Normal [facility] CT CHEST W CONon 07-15-2022 [...] by: BRICE RACHEL Date: 2022-07-15 09:35 Normal [facility] CT CHEST W CONon 11-06-2021 CT CHEST [...] by: BRICE RACHEL Date: 2021-11-06 09:10 Normal [facility] XR FEMUR LTon 10-05-2021 XR FEMUR LT [...] CARLOS RAYMUNDO Date: 2021-10-05 06:02 Normal [facility] XR HIP LT 2 3V W PELVISon [...] CARLOS RAYMUNDO Date: 2021-10-05 05:48 Normal [facility] XR KNEE LT 4V or >on 022 [...] BENNY SHELLEY Date: 2021-10-05 05:50 Normal [facility] CBC AUTO DIFFon 09-22-2021 BASO # 0.1 103/ul Normal 0.0-0.1 [facility] Comment on above: Performed By: #### C BC #### [facility] [address] [place] [address] [address] Starr Garcia Basophils/100 WBC (Bld) 0.5 % Normal 0.2-2.0 [facility] Comment on above: Performed By: #### C BC #### [facility] [address] [place] [address] [address] Starr Garcia EO # 0.2 103/ul Normal 0.0-0.7 [facility] Comment on above: Performed By: #### C BC #### [facility] [address] [place] [address] [address] Starr Garcia Eosinophils/100 WBC (Bld) 1.9 % Normal 0.9-7.0 [facility] Comment on above: Performed By: #### C BC #### [facility] [address] [place] [address] Dr. Starr Garcia Erythrocyte distribution width (RBC) [Ratio] 13.8 % Normal 11.0-15.0 [facility] Comment on above: Performed By: #### C BC #### [facility] [address] [place] [address] Dr. Starr Garcia Hematocrit (Bld) [Volume fraction] 43.1 % Normal 36.0-48.0 [facility] Comment on above: Performed By: #### C BC #### [facility] [address] [place] [address] Dr. Starr Garcia Hemoglobin (Bld) [Mass/Vol] 14.2 g/dL Normal 12.0-16.0 [facility] Comment on above: Performed By: #### C BC #### [facility] [address] [place] [address] Dr. Starr Garcia IG # 0.07 10e3/ul Critically high 0.00-0.03 [facility] Comment on above: Performed By: #### C BC #### [facility] [address] [place] [address] Dr. Starr Garcia IG % 0.7 % Critically high 0.0-0.5 [facility] Comment on above: Performed By: #### C BC #### [facility] [address] [place] [address] Dr. Starr aGrcia LYMPH # 1.5 103/ul Normal 1.2-3.8 [facility] Comment on above: Performed By: #### C BC #### [facility] [address] [place] [address] [address] Starr Garcia Lymphocytes/100 WBC (Bld) 15.3 % Critically low 20.5-60.0 [facility] Comment on above: Performed By: #### C BC #### [facility] [address] [place] [address] Dr. Starr Garcia MANUAL DIFF REQ NO Normal [facility] Comment on above: Performed By: #### C BC #### [facility] [address] [place] [address] Dr. Starr Garcia MCH (RBC) [Entitic mass] 30.3 pg Normal 26.7-34.0 [facility] Comment on above: Performed By: #### C BC #### [facility] [address] [place] [address] Dr. Starr Garcia MCHC (RBC) [Mass/Vol] 32.9 g/dL Normal 29.9-35.2 [facility] Comment on above: Performed By: #### C BC #### [facility] [address] [place] [address] Dr. Starr Garcia MCV (RBC) [Entitic vol] 91.9 fL Normal 81.0-99.0 [facility] Comment on above: Performed By: #### C BC #### [facility] [address] [place] [address] Dr. Starr Garcia MONO # 0.6 103/ul Normal 0.3-0.8 [facility] Comment on above: Performed By: #### C BC #### [facility] [address] [place] [address] Dr. Starr Garcia Monocytes/100 WBC (Bld) 5.7 % Normal 1.7-12.0 [facility] Comment on above: Performed By: #### C BC #### [facility] [address] [place] [address] Dr. Starr Garcia NEUT # 7.4 103/ul Critically high 1.4-6.5 [facility] Comment on above: Performed By: #### C BC #### [facility] [address] [place] [address] [address] Starr Garcia Neutrophils/100 WBC (Bld) 75.9 % Critically high 43.0-75.0 [facility] Comment on above: Performed By: #### C BC #### [facility] [address] [place] [address] Dr. Starr Garcia Platelet mean volume (Bld) [Entitic vol] 9.8 fL Normal 9.5-13.5 [facility] Comment on above: Performed By: #### C BC #### [facility] [address] [place] [address] Dr. Starr Garcia PLT 336 103/ul Normal 150-450 [facility] Comment on above: Performed By: #### C BC #### [facility] [address] [place] [address] Dr. Starr Garcia RBC 4.69 106/ul Normal 4.20-5.40 [facility] Comment on above: Performed By: #### C BC #### [facility] [address] [place] [address] Dr. Starr Garcia WBC 9.8 103/ul Normal 4.0-11.0 [facility] Comment on above: Performed By: #### C BC #### [facility] [address] [place] [address] ABD/PELVIS WO CONon [...] and adnexa. BODY WALL: There is a FITNESS MANAGER shunt in the chest wall extending [...] BRICE SALAS Date: 2021-09-22 19:24 Normal [facility] ER URINE PROFILEon 2 Bilirubin Ql (U) Negative Normal NEGATIVE [facility] Comment on above: Performed By: #### DRAGAN GASPAR PREGU #### [facility] [address] [place] [address] Dr. Starr Garcia Clarity (U) SL CLOUDY Abnormal CLEAR [facility] Comment on above: Performed By: #### DRAGAN GASPAR PREGU #### [facility] [address] [place] [address] [address] Starr Garcia Color (U) YELLOW Normal YELLOW [facility] Comment on above: Performed By: #### DRAGAN GASPAR PREGU #### [facility] [address] [place] [address] [address] Starr Garcia ERUAHD A micrscopic examination will be performed if indicated. Normal [facility] Comment on above: Performed By: #### DRAGAN GASPAR PREGU #### [facility] [address] [place] [address] [address] Starr Garcia Glucose Ql (U) Negative Normal NEGATIVE [facility] Comment on above: Performed By: #### DRAGAN GASPAR PREGU #### [facility] [address] [place] [address] [address] Starr Garcia Hemoglobin Ql (U) LARGE Abnormal NEGATIVE [facility] Comment on above: Performed By: #### DRAGAN GASPAR, PREGU #### [facility] [address] [place] [address] [address] Starr Garcia Ketones Ql (U) Negative Normal NEGATIVE [facility] Comment on above: Performed By: #### DRAGAN GASPAR PREGU #### [facility] [address] [place] [address] Dr. Starr Garcia LEUKOCYTES Negative Normal NEGATIVE [facility] Comment on above: Performed By: #### DRAGAN GASPAR PREGU #### [facility] [address] [place] [address] [address] Starr Garcia Nitrite Ql (U) Negative Normal NEGATIVE [facility] Comment on above: Performed By: #### DRAGAN GASPAR PREGU #### [facility] [address] [place] [address] [address] Starr Garcia pH (U) 5.5 [pH] Normal 5-9 [facility] Comment on above: Performed By: #### DRAGAN GASPAR, PREGU #### [facility] [address] [place] [address] [address] Starr Garcia SPEC GRAVITY >=1.030 Abnormal 1.005-<=1.025 [facility] Comment on above: Performed By: #### DRAGAN GASPAR PREGU #### [facility] [address] [place] [address] Dr. Starr Garcia UA PROTEIN TRACE Normal NEGATIVE/ TRACE [facility] Comment on above: Performed By: #### DRAGAN GASPAR PREGU #### [facility] [address] [place] [address] Dr. Starr Garcia UR MICRO IND INDICATED Normal [facility] Comment on above: Performed By: #### DRAGAN GASPAR PREGU #### [facility] [address] [place] [address] Dr. Starr Garcia Urobilinogen Qn (U) 0.2 {Bonilla'U}/dL Normal 0.2 - 1. 0 [facility] Comment on above: Performed By: #### DRAGAN GASPAR PREGU #### [facility] [address] [place] [address] Dr. Starr Garcia URon 09-22-2021 , QUAL Negative Normal NEGATIVE [facility] Comment on above: Performed By: #### DRAGAN GASPAR PREGU #### [facility] [address] [place] [address] Dr. Starr Garcia PROF 14(COMP METB)on 022 Albumin [Mass/Vol] 4.3 g/dL Normal 3.4-5.0 [facility] Comment on above: Performed By: #### C MP #### [facility] [address] [place] [address] Dr. Starr Garcia Albumin/Globulin [Mass ratio] 1.1 {ratio} Normal [facility] Comment on above: Performed By: #### C MP #### [facility] [address] [place] [address] Dr. Starr Garcia ALP [Catalytic activity/Vol] 111 U/L Normal 46-116 [facility] Comment on above: Performed By: #### C MP #### [facility] [address] [place] [address] [address] Starr Garcia ALT [Catalytic activity/Vol] 120 U/L Critically high 14-59 [facility] Comment on above: Performed By: #### C MP #### [facility] [address] [place] [address] Dr. Starr Garcia Anion gap [Moles/Vol] 14.9 mmol/L Normal [facility] Comment on above: Performed By: #### C MP #### [facility] [address] [place] [address] [address] Starr Garcia AST [Catalytic activity/Vol] 72 U/L Critically high 15-37 [facility] Comment on above: Performed By: #### C MP #### [facility] [address] [place] [address] Dr. Starr Garcia Bilirubin [Mass/Vol] 0.7 mg/dL Normal 0.2-1.3 [facility] Comment on above: Performed By: #### C MP #### [facility] [address] [place] [address] Dr. Starr Garcia Calcium [Mass/Vol] 8.9 mg/dL Normal 8.5-10.1 [facility] Comment on above: Performed By: #### C MP #### [facility] [address] [place] [address] Dr. Starr Garcia Chloride [Moles/Vol] 105 mmol/L Normal 98-107 [facility] Comment on above: Performed By: #### C MP #### [facility] [address] [place] [address] Dr. Starr Garcia CO2 [Moles/Vol] 25.7 mmol/L Normal 22.0-30.[address] [facility] Comment on above: Performed By: #### C MP #### [facility] [address] [place] [address] Dr. Starr Garcia Creatinine [Mass/Vol] 0.82 mg/dL Normal 0.52-1.04 [facility] Comment on above: Performed By: #### C MP #### [facility] [address] [place] [address] Dr. Starr Garcia EGFR-AF HONDURAN >60 Normal >=[address] [facility] Comment on above: Performed By: #### C MP #### [facility] [address] [place] [address] Dr. Starr Garcia EGFR-NON AF HONDURAN >60 Normal >=60 [facility] Comment on above: Performed By: #### C MP #### [facility] [address] [place] [address] Dr. Starr Garcia Globulin (S) [Mass/Vol] 3.8 g/dL Normal [facility] Comment on above: Performed By: #### C MP #### [facility] [address] [place] [address] [address] Starr Garcia Glucose [Mass/Vol] 112 mg/dL Critically high 74-106 [facility] Comment on above: Performed By: #### C MP #### [facility] [address] [place] [address] [address] Starr Garcia Potassium [Moles/Vol] 3.6 mmol/L Normal 3.4-5.0 [facility] Comment on above: Performed By: #### C MP #### [facility] [address] [place] [address] [address] Starr Garcia Protein [Mass/Vol] 8.1 g/dL Normal 6.1-8.2 [facility] Comment on above: Performed By: #### C MP #### [facility] [address] [place] [address] [address] Starr Garcia Sodium [Moles/Vol] 142 mmol/L Normal 137-145 [facility] Comment on above: Performed By: #### C MP #### [facility] [address] [place] [address] [address] Starr Garcia Urea nitrogen [Mass/Vol] 13.0 mg/dL Normal 7.0-18.0 [facility] Comment on above: Performed By: #### C MP #### [facility] [address] [place] [address] [address] Starr Garcia Urea nitrogen/Creatinine [Mass ratio] 15.9 mg/mg Normal [facility] Comment on above: Performed By: #### C MP #### [facility] [id number] Starr Garcia URINE MICROSCOPIC ONLYon BACTERIA TRACE Abnormal NONE SEEN [facility] Comment on above: Performed By: #### E DRAGAN GRIMM, PREGU ####[facility] [address] [place] [id number] Starr Garcia Bacteria identified Cx Nom (U) NOT INDICATED Normal [facility] Comment on above: Performed By: #### E RUR, UMICRO, PREGU ####[facility] [address] [place] [address]Dr. Starr Garcia CAST NONE SEEN Normal NONE SEEN [facility] Comment on above: Performed By: #### E RUR, UMICRO, PREGU ####[facility] [address] [place] [address]Dr. Starr Garcia Crystals LM Nom (Urine sed) NONE SEEN Normal NONE SEEN [facility] Comment on above: Performed By: #### E RUR, UMICRO, PREGU ####[facility] [address] [place] [address]Dr. Starr Garcia Epithelial cells LM Ql (Urine sed) FEW Abnormal NONE SEEN /RARE [facility] Comment on above: Performed By: #### E RUR, UMICRO, PREGU ####[facility] [address] [place] [address]Dr. Starr Garcia MUCOUS TRACE Abnormal NONE SEEN [facility] Comment on above: Performed By: #### Evans RURGISELLARO, PREGU ####[facility] [address] [place] [address]Dr. Starr Garcia RBC 10-20 Abnormal 0-2 [facility] Comment on above: Performed By: #### Evans RUR, WANDERICRO, PREGU ####[facility] [address] [place] [address]Dr. Starr Garcia WBC NONE SEEN Normal NONE SEEN [facility] Comment on above: Performed By: #### E RUR, UMICRO, PREGU ####[facility] [address] [place] [address]Dr. Starr Garcia Initial Visit (Neurosurgery) on 06-20-2018 [...] by Dr Quintana with subsequent right sided FITNESS MANAGER shunting; she has had chronic left sided weakness and incoordination, headaches, and blurry vision since at least 2009 no reacent changes in her symptoms. she has no recent imaging or neurosurgical followup since at least 2003. she is here to re establish care. she is unsure as to what type of shunt she has in place Active Problems FITNESS MANAGER (ventriculoperitoneal) shunt status (V45.2) (Z98.2) Current [...] PM Vitals Vital Signs Recorded: 20Jun2018 01:37PMHeart Ppco50Mwjviqmrmll87Izmk wucm451Ekzluyftp62Odrmq t5 ft 4.5 vaFkwohq929 lb BMI Afrelxbxfz29.8BSA Calculated1.97 Physical Examawake and alertright frontal FITNESS MANAGER shuntEOM full speech fluentstrenght 5/5 right, 4/5 left with some tremors bilateralsensation intactgait normal Results/Datathere aer no imaging reports or records Diagnoses/Problems FITNESS MANAGER (ventriculoperitoneal) shunt status (V45.2) (Z98.2) OrdersVP (ventriculoperitoneal) shunt status CT Head without Contrast; Status:Hold For - Scheduling,Retrospectiv e Authorization;Requested for:20Jun2018; Perform:[facility]; Due:30Jun2018; Last Updated By:Cleopatra Rudd; 06/20/2018 1:41:13 PM;Ordered; For:FITNESS MANAGER (ventriculoperitoneal) shunt status; Ordered By:Manjit Polk;Patient taking Metformin or Derivatives? : UnknownRadiologist to Determine Optimal Study : YWhat are the patient's signs and symptoms? : shunt Xray Adult Shunt Series; Status:Hold For - Scheduling,Retrospectiv e Authorization;Requested for:20Jun2018; Perform:[facility]; Due:18Sep2018; Last Updated By:Cleopatra uRdd; 06/20/2018 1:42:31 PM;Ordered; For:FITNESS MANAGER (ventriculoperitoneal) shunt status; Ordered By:Manjit Polk;Radiologist to Determine Optimal Study : YWhat are the patient's signs and symptoms? : shunt Xray Skull Complete; Status:Canceled; Perform:[facility];Ordered; For:FITNESS MANAGER (ventriculoperitoneal) shunt status; Ordered By:Manjit Polk;Reason: [...] 90 mm[Hg] Kit Villafuerte MD Work Phone: [facility] 06-02-2024 09:11-0500 Heart rate 94 /min Kit Villafuerte MD Work Phone: [facility] 06-02-2024 09:11-0500 Respiratory rate 16 /min Kit Villafuerte MD Work Phone: [facility] 06-02-2024 09:11-0500 SaO2% (BldA) [Mass fraction] 94 % Kit Villafuerte MD Work Phone: [facility] 06-02-2024 09:11-0500 Systolic blood pressure 132 mm[Hg] Kit Villafuerte MD Work Phone: [facility] 06-02-2024 08:52-0500 Body temperature 98.4 [degF] Kit Villafuerte MD Work Phone: [facility] 06-02-2024 06:30-0500 Body height 163.83 cm Kit Villafuerte MD Work Phone: [facility] 06-02-2024 06:30-0500 Body weight 100 kg Kit Villafuerte MD Work Phone: [facility] 02-21-2024 11:52-0400 Blood Pressure Location Biju KNOX [facility] 02-21-2024 11:52-0400 Diastolic blood pressure 78 mm[Hg] Biju KNOX [facility] 02-21-2024 11:52-0400 Heart rate 68 /min Biju KNOX [facility] 02-21-2024 11:52-0400 Respiratory rate 16 /min Biju KNOX [facility] 02-21-2024 11:52-0400 Systolic blood pressure 126 mm[Hg] Biju KNOX [facility] 02-15-2024 15:15-0400 Body height 165.1 cm Kit Villafuerte MD Work Phone: [facility] 02-15-2024 15:15-0400 Body mass index (BMI) [Ratio] 36.94 kg/m2 Kit Villafuerte MD Work Phone: [facility] 02-15-2024 15:15-0400 Body temperature 97.5 [degF] Kit Villafuerte MD Work Phone: [facility] 02-15-2024 15:15-0400 Body weight 100.7 kg Kit Villafuerte MD Work Phone: [facility] 02-15-2024 15:15-0400 Diastolic blood pressure 70 mm[Hg] Kit Villafuerte MD Work Phone: [facility] 02-15-2024 15:15-0400 Heart rate 83 /min Kit Villafuerte MD Work Phone: [facility] 02-15-2024 15:15-0400 Respiratory rate 18 /min Kit Villafuerte MD Work Phone: [facility] 02-15-2024 15:15-0400 SaO2% (BldA) [Mass fraction] 95 % Kit Villafuerte MD Work Phone: [facility] 02-15-2024 15:15-0400 Systolic blood pressure 130 mm[Hg] Kit Villafuerte MD Work Phone: [facility] 08-10-2023 10:03-0500 Blood Pressure Location Biju KNOX [facility] 08-10-2023 10:03-0500 Diastolic blood pressure 88 mm[Hg] Biju KNOX [facility] 08-10-2023 10:03-0500 Systolic blood pressure 130 mm[Hg] Biju KNOX [facility] 08-12-2021 13:05-0500 Body height 163.83 cm Christi Vargas Other [facility] Other 08-12-2021 13:05-0500 Body mass index (BMI) [Ratio] 34.64 kg/m2 Christi Vargas Other [facility] Other 08-12-2021 13:05-0500 Body temperature 97.1 [degF] Christi Vargas Other [facility] Other 08-12-2021 13:05-0500 Body weight 92.99 kg Christi Vargas Other [facility] Other 08-12-2021 13:05-0500 Diastolic blood pressure 84 mm[Hg] Christi Vargas Other [facility] Other 08-12-2021 13:05-0500 Respiratory rate 18 /min Christi Vargas Other [facility] Other 08-12-2021 13:05-0500 SaO2% (BldA) [Mass fraction] 100 % Christi Vargas Other [facility] Other 08-12-2021 13:05-0500 Systolic blood pressure 141 mm[Hg] Christi Vargas Other [facility] Other Encounters Encounter Date Encounter Type Care Provider Facility Start: 09-11-2024 End: 09-11-2024 Clinisync Result Encounter Generic External Data Provider [facility] Unsolicited Start: 09-11-2024 End: 09-11-2024 Clinisync Result Encounter Generic External Data Provider [facility] External Department Unsolicited Start: 08-29-2024 End: 08-29-2024 ambulatory Kit Villafuerte MD Work Phone: [facility] Work Phone: Start: 08-29-2024 End: 08-29-2024 Patient encounter procedure Kit Villafuerte MD Work Phone: [facility] Work Phone: Start: 06-02-2024 End: 06-02-2024 Admission to same day surgery center Kit [facility]uerte MD [facility] [place] Start: 06-02-2024 End: 06-02-2024 ambulatory Kit Villafuerte Facility:[facility] Start: 06-02-2024 End: 06-02-2024 ambulatory Biju KNOX Facility:CD:[id number] Start: 05-19-2024 End: 05-19-2024 ambulatory Kit Villafuerte Facility:[facility] Start: 05-19-2024 Encounter for preprocedural laboratory examination Biju Knox [facility] Start: 02-21-2024 End: 02-21-2024 ambulatory Biju KNOX Facility:[facility] Start: 02-21-2024 End: 02-21-2024 Patient encounter procedure Biju KNOX [facility] Start: 02-15-2024 End: 02-15-2024 Office outpatient visit 25 minutes Kit Villafuerte MD Work Phone: [facility] Comment on above: Nausea (Primary Dx); S/P FITNESS MANAGER shunt; Nonintractable headache, unspecified chronicity pattern, unspecified headache type; Female stress incontinence Start: 02-15-2024 End: 02-15-2024 ambulatory KIT VILLAFUERTE Not Available Start: 02-15-2024 End: 02-15-2024 Bamboo flowsheet Kit Villafuerte MD Work Phone: [facility] Start: 02-15-2024 End: 02-15-2024 Bambosourav flowsheet Kit Villafuerte MD Work Phone: [facility] Start: 08-23-2023 End: 08-23-2023 ambulatory Biju KNOX Facility:[facility] Start: 08-23-2023 End: 08-23-2023 Patient encounter procedure Biju KNOX [facility] Start: 08-10-2023 End: 08-10-2023 ambulatory Kit Villafuerte Facility:[facility] Start: 08-10-2023 End: 08-10-2023 ambulatory Biju KNOX Facility:[facility] Start: 08-10-2023 End: 08-10-2023 Patient encounter procedure Biju KNOX [facility] Start: 08-09-2023 End: 08-10-2023 ambulatory Biju KNOX Facility:CD:[id number] Start: 07-15-2022 End: 07-16-[address] KIT VILLAFUERTE Facility:[facility] Start: 11-06-2021 End: 11-07-[address] KIT VILLAFUERTE Facility:[facility] Start: 10-05-2021 End: 10-05-2021 ambulatory JEROD CONRAD Facility:[facility] Start: 09-22-2021 End: 09-22-[address] KIT VILLAFUERTE Facility:[facility] Start: 08-12-2021 End: 08-12-2021 ambulatory Christi Vargas Other [employer] Other Start: 08-12-2021 Office outpatient vi sit 15 minutes Christi Vargas [facility] Start: 06-20-2018 Patient encounter procedure Manjit Mims Jam Facility:[id number] Start: 08-18-2017 Ambulatory GEORGE Holley [place] Facility:3 Procedures Date Procedure Procedure Detail Performing Clinician Start: 09-11-2024 XR WRIST LT MIN 3 V Gen maritza External Data Provider Start: 06-02-2024 Extracorporeal shock wave lithotripsy of calculus of kidney Kit Villafuerte MD Work Phone: Start: 06-02-2024 Supine abdominal X-ray Kit Villafuerte MD Work Phone: Hemorrhoids (disorder) Emile KNOX Procedure on brain ventricular shunt Biju KNOX Plan of Treatment Date Care Activity Detail Author Start: 06-02-2024 [facility] Start: 06-02-2024 [facility] Start: 02-15-2024 End: 02-15-2024 Patient encounter procedure 02/15/2024 3:00 PM EDT Office Visit [facility] [address] [place] [address] Kit Villafuerte MD [address] [place] [address] Arrived [facility] Comment on above: Arrived Start: 02-15-2024 End: 02-14-2025 CT Head WO contrast CT head wo IV contrast Imaging Routine Nausea S/P FITNESS MANAGER shunt Nonintractable headache, unspecified chronicity pattern, unspecified headache type Expected: 02/15/2024, Expires: 02/14/2025 [facility] Work Phone: Comment on above: Expected: 02/15/2024 , Expires: 02/14/2025 Start: 02-13-2024 Influenza vaccination Influenza Vacc ine (#1) [facility] Start: 2011 Screening for malignant neoplasm of breast Mammogram [facility] Start: 2001 Screening for malignant neoplasm of cervix [facility] Start: 1992 Screening for malignant neoplasm of cervix Pap Smear [facility] Start: 1971 Screening for malignant neoplasm of colon [facility] Patient Education Know your Meds [facility] Work Phone: Patient referral [facility] Work Phone: Immunizations Immunization Date Immunization Notes Care Provider Fa cility 04-01-2021 COVID-19 mRNA, Comirnaty (Pfizer) Kit Villafuerte MD Work Phone: [facility] 02-28-2021 influenza virus vaccine, unspecified formulation Kit Villafuerte MD Work Phone: [facility] 09-04-2020 COVID-19 mRNA, Comirnaty (Pfizer) Kit Villafuerte MD Work Phone: [facility] 08-14-2020 COVID-19 mRNA, Comirnaty (Pfizer) Kit Villafuerte MD Work Phone: [facility] Payers Date Payer Category Payer Self-pay 2022 Unknown FRONTPATH FRONTP ATH [id number] 2022-Present [phone] [address] [place] [address] [id number] 2022 Unknown [id number] 2021 Private Health Insurance [employer]ONT[employer] TH [id number] 1971 Unknown [id number] 2.16.840.1.352140.3.579.2. 356 1971 Unknown [id number] 2.16.840.1.380799.3.579.2. 593 1971 Unknown [id number] 2.16.840.1.697678.3.579.2. 593 1971 Unknown [id number] 2.16.840.1.485942.3.579.2. 593 1971 Unknown [id number] 2.16.840.1.699181.3.579.2. 593 1971 Unknown [id number] 2.16.840.1.262099.3.579.2. 1259 1971 Unknown [id number] 2.16.840.1.225571.3.579.2. 727 1971 Unknown [id number] 2.16.840.1.510695.3.579.2. 727 1971 Unknown [id number] 2.16.840.1.738657.3.579.2. 727 1971 Unknown [id number] 2.16.840.1.937245.3.579.2. 727 1971 Unknown [id number] 2.16.840.1.705223.3.579.2. 727 1971 Unknown [id number] 2.16.840.1.851182.3.579.2. 727 1959 Unknown [id number] Unknown [id number] 2.16.840.1.250377.3.579.2. 531 Unknown [id number] 2.16.840.1.640554.3.579.2. 531 Unknown [id number] 2.16.840.1.781133.3.579.2. 531 Unknown [facility] [id number] Social History Date Type Detail Facility Unknown if ever smoked [employer] Other Start: 02-15-2024 Sex Assigned At F [facility] Start: 08-10-2023 End: 02-21-2024 Tobacco smoking status Light tobacco smoker (finding) [facility] Tobacco smoking status Never [facility] Tobacco smoking status NHIS Tobacco smoking consumption unknown [facility] Start: 1970 Sex assigned at Not on file [facility] Start: 02-15-2024 Tobacco smoking status NHIS Never smoked tobacco [facility] Start: 02-15-2024 Tobacco use and exposure Smokeless tobacco non-user [facility] Start: 02-15-2024 History of Social function [facility] Start: 08-29-2024 Sex Female (finding) [facility] Start: 1970 Sex Assigned At Female F [facility] Medical Equipment Procedure Code Equipment Code Equipment Origin al Text Equipment Identifier Dates Cystoscopy, with ureteral calculus manipulation and stent placement Polymeric ureteral stent [id number] FDA Start: 08-10-2023 Goals Date Patient Goal Desired Activity /State Functional Status Date Assessment Result Facility 02-21-2024 Functional Status N/A [facility] 08-10-2023 Functional Status N/A [facility] Clinical Notes 08-12-2021 to 02-21-2024 Kit [...] Follow these instructions at home: Medicines Take elnx-ugs-yhygkqm and prescription medicines only as told by [...] to keep your pee pale yellow. ?Take vnju-zwg-hnwcwpt or prescription medicines. ?Eat foods that are [...] provider. Document Revised: 01/29/2023 Document Reviewed: 01/29/2023 [employer] Patient Education 2023 [employer] 02/21/2024 12:17:54 Laser Therapy for Kidney Stones [...] including vitamins, herbs, eye drops, creams, and cccr-fnb-tqcgleq medicines. Any problems you or family members [...] unless your provider tells you to. ?Taking wcix-kwa-huzkrja medicines, vitamins, herbs, and supplements. Tests You [...] provider. Document Revised: 01/29/2023 Document Reviewed: 01/29/2023 [employer] Patient Education 2023 [employer]. Follow Up Care 11/24/2023 10:57:49 With:ABILIO EDEN, Biju Acuña, URL Address: [address] [place] [address] [place] [address]- When: Unknown [facility] Kevin 02-21-2024 Note Patient Education Nephrology Laser Therapy [...] these instructions at home: Medicines ? Take iejt-xwe-kiywrjs and prescription medicines only as told by [...] keep your pee pale yellow. ? Take sxxe-hih-hsyoohv or prescription medicines. ? Eat foods that [...] provider. Document Revised: 01/29/2023 Document Reviewed: 01/29/2023 [employer] Patient Education ? 2023 [employer] Laser Therapy for Kidney Stones Laser [...] including vitamins, herbs, eye drops, creams, and arlh-nxd-nmqrrqe medicines. ? Any problems you or family [...] e (more content not included)... [facility] 02-15-2024 History of Presen t illness Narrative Associated Problem(s): S/P FITNESS MANAGER shunt Severe nausea and unclear etiology. [...] similar episodes. Concerned of problems with shunt. FITNESS MANAGER shunt in place and over past [...] (Myrbetriq) 50 MG 24 hr tablet S/P FITNESS MANAGER shunt Severe nausea and unclear etiology. [...] wo IV contrast documented in this encounter [facility] 08-23-2023 Hospital Discharg e instructions Patient Education [...] Up Care 08/13/2023 10:04:30 With:Biju KNOX Address: [facility] [employer] Business (1) When:6 months Comments:Call for [...] of a kit from a company called [employer].Otherwise I will see him in 6 months with an abdominal x-ray.Have a great day [facility] 08-23-2023 Note [id number] [facility] 08-23-2023 Note Cystoscopy with Sten [...] a fever over 100 degrees. [facility] 08-10-2023 [facility] Discharg e instructions Patient Education 08/10/2023 10:40:45 [...] including vitamins, herbs, eye drops, creams, and wbga-vth-pvcutmm medicines. Any problems you or family members [...] provider tells you to take them. ?Taking mqic-wle-gjmpzll medicines, vitamins, herbs, and supplements. Eating and [...] provider. Document Revised: 10/07/2022 Document Reviewed: 02/02/2022 [employer] Patient Education 2022 [employer]. Follow Up Care 08/09/2023 11:39:44 With:ABILIO EDEN, Biju Acuña, URL Address: [facility] [employer] [place] [id number]- When: Unknown Comments:sched cysto/L stent placement [facility] 08-12-2021 Evaluation note Encounter Date Diagnosis Assessment Notes Aug, Tinea manuum (ICD-10 - B35.2) apply to hands and nail beds and hands and follow up with primary care provider for further workup and treatment options [employer] Other Evaluation + Plan note No data available for this section [facility] Evaluation note* Diagnosis Nausea- Primary Nausea alone S/P FITNESS MANAGER shunt Presence of cerebrospinal fluid drainage device Nonintractable headache, unspecified chronicity pattern, unspecified headache type Female stress incontinence documented [facility] this [facility] note[facility] assessment [facility] Work Phone: History general Narrative - Reported* Type Description Date Medical History chronic depression Medical History bladder trouble Surgical History brain surgery multiple Surgical History brain shunt multiple Hospitalization History See Above [employer] Other Progress note No data available for this section [facility] Kevin Reason for referral (narrative)* Consultation (Routine) - Pending Review Specialty Diagnoses / Procedures Referred By Contac t Referred To Contact Neurosurgery Diagnoses S/P FITNESS MANAGER shunt Kit Villafuerte MD [address] [place] [address] Referral ID Status Reason Start Date Expiration Date Visits Requested Visits Authorized [id number] Pending Review Specialty Services Required 02/15/2024 08/13/2024 1 1 * Imaging (Routine) - Authorized Specialty Diagnoses / Procedures Referred By Contac t Referred To Contact Diagnoses Nausea S/P FITNESS MANAGER shunt Nonintractable headache, unspecified chronicity pattern, unspecified headache type Procedures CT head wo IV contrast Kit Villafuerte MD [address] [place] [address] Referral ID Status Reason Start Date Expiration Date V isits Requested Visits Authorized [id number] Authorized 02/15/2024 08/13/2024 1 1 [facility] Healthcare Summary Purpose Family History Relationship Condition [...] section and content) DATE CREATED AUTHOR 12/16/2017 [facility] DATE CREATED AUTHOR AUTHOR'S ORGANIZ ATION 06/20/2018 [facility] DATE CREATED AUTHOR AUTHOR'S ORGANIZ ATION 06/22/2018 [facility] DATE CREATED AUTHOR AUTHOR'S ORGANIZ ATION 07/16/2022 [facility] DATE CREATED AUTHOR AUTHOR'S ORGANIZ ATION 02/16/2024 [facility] EPIC DATE CREATED AUTHOR AUTHOR'S ORGANIZ ATION 06/08/2024 [facility] DATE CREATED AUTHOR AUTHOR'S ORGANIZ ATION 06/30/2024 [facility] REASON FOR VISIT (unrecogniz ed section and content) Reason Comments Nausea Follow-up Pain zaps near shunt Patient Care team informatio n (unrecognized section and content) Training Program Manager Relationship Specialty Start Date End Date Kit Villafuerte MD [address] [place] [address] PCP - General Family Medicine 02/15/24 Training Program Manager Relationship Specialty Start Date End Date Kit Villafuerte MD [address] [place] [address] PCP - General Family Medicine 02/15/24 Team [...] August 29, 2024 End: August 29, 2024 Training Program Manager Relationship Specialty Start Date End Date Kit Villafuerte MD [address] [place] [id number] PCP - General Family Medicine 02/15/24 FOR RECORDS PERTAINING TO PATIENTS WHO ARE [...] BE BASED ON THE PRIMARY CLINICAL RECORDS. [facility] [employer] [facility]. provides no warranty or guarantee of the accuracy or completeness of information in this document.
== END 2024-09-18 10:34 | disposition home or self-care (01) ==
LOC: EC 10:33
PROVIDERS: PCP Family Medicine; Visit Provider Orthopaedic Surgery
DX: S52.692D Other fracture of lower end of left ulna, subsequent encounter for closed fracture with routine healing (principal)
CPT/HCPCS: 73110

== ENCOUNTER 2024-10-23 12:56 | Outpatient (RCR) | payer OTHER, SELFPAY | END 2024-12-19 16:46 | disposition home or self-care (01) | LOC: OT 12:56 | PROVIDERS: PCP Family Medicine; Visit Provider Orthopaedic Surgery | DX: S52.692D Other fracture of lower end of left ulna, subsequent encounter for closed fracture with routine healing (principal) | CPT/HCPCS: 97022; 97140; 97166; 97530 ==

== ENCOUNTER 2025-03-26 11:15 | Outpatient (OUT) | payer OTHER, SELFPAY ==
--- OUTSIDE RECORDS SUMMARY | 2024-11-13 06:10 | XMS_ITS ---
Author Organization [facility] Address [address] [place] [address] Care Team Providers Care Dashboard Developer Name Role Phone Aayush Arellano Unavailable [phone] REASON FOR VISIT LEFT DISTAL RADIUS FX Encounters Encounter Location Date Provider Diagnosis [address] [place] [address] 11/13/2024 Aayush Arellano Other fracture of lower end of left ulna, subsequent encounter for closed fracture with routine healing S52.692D Assessments Encounter Date Diagnosis (ICD Code) Assessment Notes Treatment Notes Treatment Clinical Notes Section Notes 11/13/2024 Other fracture of lower end of left ulna, subsequent encounter for closed fracture with routine healing (ICD-10 - S52.692D) Plan Of Treatment No Information Progress Notes * BHARATHI JJDOB :1970 (54 yo F)Acc No.[id number]:11/13/2024 Patient: Magaly MCKOY BHARATHI KHAN Provider: Lauryn Arellano MD :1970 A ge:54 Y S ex:Female Date:11/13/2024 Address:[address] [place], [place] [id number] Subjective: * Chief Complaints: * 1 . LEFT DISTAL RADIUS FX. * Medical History: Objective: * Vitals: Assessment: * Assessment: 1. O ther fracture of lower end of left ulna, subsequent encounter for closed fracture with routine healing - S52.692D Plan: * Treatment: * Procedure Codes: 7 3110 X-ray Wrist, 3 view Forms: * Images: * Electronic signature of Amari Arellano MD on 03/26/2025 at 11:19 AM EDT Sign off status: Pending * Provider: Lauryn Arellano MD Date: 0 11/13/2024 Generated for Jose Luis velazquez/Antonio/Paulie on: 1 11:19 AM EDT
--- OUTSIDE RECORDS SUMMARY | 2025-03-26 11:18 | XMS_ITS | Clinical Summary ---
Author Organization [facility] Address [address] [place] [address] Care Team Providers Care Orthotic/Prosthetic Clinician Name Role Phone Kit Delarosa MD Primary Care Provider [phone] Allergies Active Allergy Reactions Criticality Noted Date Comments Codeine Other 02/15/2024 Sulfa Antibiotics Unknown 02/15/2024 Medications ondansetron ODT (Zofran-ODT) 4 MG disintegrating tabletIndications:N ausea Take 1 tablet (4 mg) by mouth every 6 (six) hours if needed for nausea or vomiting 30 tablet 2 4 Active mirabegron ER (Myrbetriq) 50 MG 24 hr tabletIndications:F emale stress incontinence Take 1 tablet (50 mg) by mouth Daily 90 tablet 3 4 Active dexAMETHasone (Decadron) 6 MG tabletIndications:C OVID-19 Take 1 tablet (6 mg) by mouth Daily for 6 days 6 tablet 4 Active Active Problems Problem Noted Date Diagnosed Date S/P CLINICAL SOCIAL WORK THERAPIST shunt 02/15/2024 Assessment & Plan (02/15/2024 9:26 PM EDT): Severe nausea and unclear etiology. Use zofran PRN. Shunt in place and check CT head. Refer back to neurosurgery to evaluate shunt. Nausea 02/15/2024 Assessment & Plan (02/15/2024 9:26 PM EDT): Severe nausea and unclear etiology. Use zofran PRN. Shunt in place and check CT head. Refer back to neurosurgery to evaluate shunt. Headache 02/15/2024 DDD (degenerative disc disease), lumbar 12/07/19 Dyshidrotic eczema 12/07/2023 Generalized anxiety disorder 12/07/2023 Left knee pain 12/07/2023 Lung nodule 12/07/2023 Major depressive disorder, recurrent episode, mo derate 12/07/2023 Female stress incontinence 12/07/2023 Personal history of brain cancer 12/07/2023 History of traumatic brain injury 12/07/2023 Social History Tobacco Use Types Packs/Day Years Used Date Smoking Tobacco: Never Smokeless Tobacco: Never Tobacco Cessation:Counseling Given: Not Answered Comments Unknown Sex and Gender Information Value Date Recorded Sex Assigned at Not on file Legal Sex Female 8:06 PM EDT Gender Identity Not on file Sexual Orientation Not on file Last Filed Vital Signs Vital Sign Reading Time Taken Comments Blood Pressure 130/70 02/15/2024 3:15 PM EDT Pulse 83 02/15/2024 3:15 PM EDT Temperature 36.4 C (97.5 F) 02/15/2024 3:15 PM EDT Respiratory Rate 18 02/15/2024 3:15 PM EDT Oxygen Saturation 95% 02/15/2024 3:15 PM EDT Inhaled Oxygen Concentration - - Weight 101 kg (222 lb) 02/15/2024 3:15 PM EDT Height 165.1 cm (5' 5 ) 02/15/2024 3:15 PM EDT Body Mass Index 36.94 02/15/2024 3:15 PM EDT Plan of Treatment Not on file Insurance [employer] Care Teams Orthotic/Prosthetic Clinician Relationship Specialty Start Date End Date Kit Delarosa MD PCP - General Family Medicine 02/15/24
--- OUTSIDE RECORDS SUMMARY | 2025-03-26 11:18 | XMS_ITS | Clinical Summary ---
Author Organization [facility] tem Address [id number] [address] [place] [address] Care Team Providers Care Concrete Mixer Name Role Phone Kit Delarosa MD Primary Care Provider [phone] Encounters Date Type Department Care Team Description 03/22/2025 [facility]phone [facility] [address] [place] [phone] Priya Kuhn, STRIPPING CUTTER AND WINDER-PROGRAM ADMIN from Last 3 Months Social History Tobacco Use Types Packs/Day Years Used Date Smoking Tobacco: Never Assessed Childcare Answer Date Recorded Childcare Unknown 11/21/2018 Employment Answer Date Recorded Employment Unknown 11/21/2018 Comments Unknown Sex and Gender Information Value Date Recorded Sex Assigned at Not on file Legal Sex Female 1:25 PM EDT Gender Identity Not on file Sexual Orientation Not on file Plan of Treatment Health Maintenance Due Date Last Done Comments Depression Screening 1983 Tobacco Screening 1983 Adult BMI Screening 1989 DTaP,Tdap and Td Vaccines (1 - Tdap) 1990 Pap Smear 1992 Zoster (Shingles) Vaccine (1 of 2) 2021 Influenza Vaccine 02/12/2025 Medical Devices Not on file Insurance [employer] Care Teams Concrete Mixer Relationship Specialty Start Date End Date Kit Delarosa MD [address] [place] [phone] PCP - General Family Medicine 03/22/25
--- OUTSIDE RECORDS SUMMARY | 2025-03-26 11:18 | XMS_ITS | Encounter Summary ---
Author Organization [facility] tem Address [id number] [address] [place] [address] Care Team Providers Care Information Analyst Name Role Phone Kit Delarosa MD Primary Care Provider [phone] Encounter Details Date Type Department Care Team (Late st Contact Info) Description 03/22/2025 Telephone [facility] General Surgery [address] [place] [phone] Priya Kuhn, PHONE OPERATOR-OWNER PROFESSIONAL ENGINEER [address] [place], [place] [phone] Social History Tobacco Use Types Packs/Day Years Used Date Smoking Tobacco: Never Assessed Childcare Answer Date Recorded Childcare Unknown 11/21/2018 Employment Answer Date Recorded Employment Unknown 11/21/2018 Comments Unknown Sex and Gender Information Value Date Recorded Sex Assigned at Not on file Legal Sex Female 1:25 PM EDT Gender Identity Not on file Sexual Orientation Not on file documented as of this encounter Miscellaneous Notes * Telephone Encounter - Annie Kern - 03/22/2025 2:34 PM EDT Called Marisa regarding the screening colonoscopy referral that our office received from Dr Delarosa, was unable to leave a message for her to call the office back to schedule an appointment as the mailbox is full. documented in this encounter Plan of Treatment Not on file documented as of this encounter Visit Diagnoses Not on filedocumented in this encounter Care Teams Information Analyst Relationship Specialty Start Date End Date Kit Delarosa MD [address] [place] [phone] PCP - General Family Medicine 03/22/25 documented as of this encounter
--- OUTSIDE RECORDS SUMMARY | 2025-03-26 11:19 | XMS_ITS | Patient Health Record ---
Author Organization [facility] [place] Address [address] [place] [address] Support Name Relationship Address Phone Philippe Colin Emergency Contact Unknown Unavail able Marisa Cunningham Guarantor Unknown Reason For Referral No Information Medications Medication SIG (Take, Route, Frequency, Duration) Notes Start Date End Date Status Vicodin tablet Active Excedrin Migraine 250 mg-250 mg-65 mg tablet Active acetaminophen-hydrocodone Active Plan Of Treatment No Information Insurance Providers Payer Name Payer Address Payer Phone Subscriber Number Group Number Insured Name Patient Relationship to Insured Coverage Start Date Coverage End Date SELF PAY ON PATIENT DEMOGRAPHICS Marisa Smalls Self - patient is the insured 1
--- OUTSIDE RECORDS SUMMARY | 2025-03-26 11:19 | XMS_ITS | Clinical Summary ---
Author Organization [facility] Address [address] [place] [address], [address] [place] [address] Care Team Providers Care Musculoskeletal Physiotherapist Name Role Phone Unavailable Primary Care Provider Unavailabl e Social History Tobacco Use Types Packs/Day Years Used Date Smoking Tobacco: Never Assessed Comments Unknown Sex and Gender Information Value Date Recorded Sex Assigned at Not on file Legal Sex Female 12:44 AM EST Gender Identity Not on file Sexual Orientation Not on file Plan of Treatment Not on file
--- OUTSIDE RECORDS SUMMARY | 2025-03-26 11:19 | XMS_ITS | Encounter Summary ---
Author Organization [facility] Address [address] [place] [address] Care Team Providers Care Planer Feeder Name Role Phone Kit Delarosa MD Primary Care Provider [phone] Encounter Details Date Type Department Care Team (Late st Contact Info) Description 02/21/2024 Clinisync Result Encounter [facility] External Department Unsolicited Provider, Generic External Data Social History Tobacco Use Types Packs/Day Years Used Date Smoking Tobacco: Never Smokeless Tobacco: Never Comments Unknown Sex and Gender Information Value Date Recorded Sex Assigned at Not on file Legal Sex Female 8:06 PM EDT Gender Identity Not on file Sexual Orientation Not on file documented as of this encounter Plan of Treatment Not on file documented as of this encounter Procedures Procedure Name Priority Date/Time Associated Diagnosis Comments XR ABDOMEN 1V 02/21/2024 10:07 AM EDT documented in this encounter Results * XR ABDOMEN 1V (02/21/2024 10:07 AM EDT) Anatomical Region Laterality Modality Other 02/21/2024 10:0 7 AM EDT Narrative 02/21/2024 10:10 AM EDT The [address] [address] XRay Report Signed Patient: BHARATHI MAGALLON MR#: [id number] : 1970 Acct:[id number] Age/Sex: 53 / F ADM Date: 02/18/24 Loc: RAD Attending Dr: Biju Garsia M.D. Ordering Physician: Biju Garsia M.D. Date of Service: 02/18/24 Procedure(s): XR abdomen 1V Accession Number(s): [id number] cc: Biju Garsia M.D.; Kit Delarosa M.D. The [place] [address] Patient Name: BHARATHI MAGALLON MRN: [facility]:[id number] date: 1970 Sex: F Assigned Patient Location: [facility] Current Patient Location: Accession/Order Number: [id number] Exam Date: 02/18/2024 14:40 Report Date: 02/21/2024 10:07 At the request of: BIJU GARSIA Procedure: XR abdomen 1V EXAMINATION: XR abdomen 1V HISTORY: Kidney Stone COMPARISON: No relevant comparison available. FINDINGS: KIDNEY/URETER - RIGHT: No visible renal or ureteral calcifications. KIDNEY/URETER - LEFT: Multiple scattered left nephroliths measuring up to 6.6 x 2.3 mm in the midpole PELVIS: No visible ureteral calcifications. Any visible calcifications favor phleboliths. BOWEL: No abnormal dilation or deviation. BONES: Rotatory levoscoliosis centered at the L1-L2 level OTHER: Catheter projects of the left iliac wing possibly ventriculoperitoneal shunt XR/XR abdomen 1V IMPRESSION: Scattered left nephrolithiasis measuring up to 6.5 x 2.3 mm Electronically authenticated by: MARCIN NAVA Date: 02/21/2024 10:07 Dictated By: Marcin Nava M.D. Signed By: 02/21/24 1010 DD/ 1007 TD/TT: Audience Development Manager: Procedure Note Radiology, Radiologist, MD - 02/21/2024 [place] [address] XRay Report Signed Patient: BHARATHI MAGALLON AMR#: [id number] : 1970Acct:[id number] Age/Sex: 53 / FADM Date: 02/18/24 Loc: RAD Attending Dr: Biju Garsia M.D. Ordering Physician: Biju Garsia M.D. Date of Service: 02/18/24 Procedure(s): XR abdomen 1V Accession Number(s): [id number] cc: Biju Garsia M.D.; Kit Delarosa M.D. [place] [address] Patient Name: BHARATHI MAGALLON MRN: [facility]:[id number] date: 1970 Sex: F Assigned Patient Location: RAD Current Patient Location: Accession/Order Number: [id number] Exam Date: 02/18/2024 14:40 Report Date: 02/21/2024 10:07 At the request of: BIJU GARSIA Procedure: XR abdomen 1V EXAMINATION: XR abdomen 1V HISTORY: Kidney Stone COMPARISON: No relevant comparison available. FINDINGS: KIDNEY/URETER - RIGHT: No visible renal or ureteral calcifications. KIDNEY/URETER - LEFT: Multiple scattered left nephroliths measuring up to6.6 x 2.3 mm in the midpole PELVIS: No visible ureteral calcifications. Any visible calcificationsfavor phleboliths. BOWEL: No abnormal dilation or deviation. BONES: Rotatory levoscoliosis centered at the L1-L2 level OTHER: Catheter projects of the left iliac wing possiblyventriculoperitoneal shunt XR/XR abdomen 1V IMPRESSION: Scattered left nephrolithiasis measuring up to 6.5 x 2.3 mm Electronically authenticated by: MARCIN NAVA Date: 02/21/2024 10:07 Dictated By: Marcin Nava M.D. Signed By:02/21/24 1010 DD/ 1007 TD/TT: Audience Development Manager: us Generic External Data Provider [facility] Final Result documented in this encounter Visit Diagnoses Not on filedocumented in this encounter Care Teams Planer Feeder Relationship Specialty Start Date End Date Kit Delarosa MD PCP - General Family Medicine 02/15/24 documented as of this encounter
--- OUTSIDE RECORDS SUMMARY | 2025-03-26 11:19 | XMS_ITS | Patient Health Record ---
Author Organization [facility] Address [address] [place] [address] Care Team Providers Care Chief Quality Officer Name Role Phone Aayush Arellano Unavailable [phone] Uma Pedro Unavailable Allergies Allergen (clinical drug ingredient) Drug/Non Drug Allergy documented on EMR Reaction Allergy Type Onset Date Status SULFA (uncoded) Unknown Allergy Acti ve codeine codeine Unknown Drug Allergy Active Reason For Referral No Information Medications Medication SIG (Take, Route, Frequency, Duration) Notes Start Date End Date Status Cymbalta Active ibuprofen Active Social History Tobacco Use: Social History Observation Description Date Details (start date - stop date) Never Smoker NA - NA AUDIT-C (Standard) Question Answer Notes Did you have a drink containing alcohol in the p ast year? No Points 0 Interpretation Negative Tobacco Control (Standard) Question Answer Notes Tobacco use: Nonsmoker Problems Problem Type SNOMED Code ICD Code Onset Dates Problem Status W/U Status Risk Notes Problem 21048201 Other fracture of lower end of left ulna, subsequent encounter for closed fracture with routine healing (S52.692D) Active confirmed Problem 63678740 Other closed fracture of distal end of left ulna, initial encounter (S52.692A) Active confirmed Vital Signs Height 5'4 in 10/16/2024 Weight 200 lbs 10/16/2024 BMI 34.33 10/16/2024 Encounters Encounter Location Date Provider Diagnosis [facility] [address] [facility] [place] [address] 09/04/2024 Uma Pedro Other closed fracture of distal end of left ulna, initial encounter S52.692A [facility] [address] [facility] [place] [address] 09/11/2024 Uma Pedro Other fracture of lower end of left ulna, subsequent encounter for closed fracture with routine healing S52.692D [facility] [address] [facility] [place] [address] 09/18/2024 Aayush Arellano Other fracture of lower end of left ulna, subsequent encounter for closed fracture with routine healing S52.692D [facility] [address] [facility] [place] [address] 10/16/2024 Aayush Arellano Other fracture of lower end of left ulna, subsequent encounter for closed fracture with routine healing S52.692D Assessments Encounter Date Diagnosis (ICD Code) Assessment Notes Treatment Notes Treatment Clinical Notes Section Notes 09/04/2024 Other closed fracture of distal end of left ulna, initial encounter (ICD-10 - S52.692A) 09/11/2024 Other fracture of lower end of left ulna, subsequent encounter for closed fracture with routine healing (ICD-10 - S52.692D) 09/18/2024 Other fracture of lower end of left ulna, subsequent encounter for closed fracture with routine healing (ICD-10 - S52.692D) 10/16/2024 Other fracture of lower end of left ulna, subsequent encounter for closed fracture with routine healing (ICD-10 - S52.692D) 09/04/2024 Other For the patient's left distal ulna fracture I am going to place her in a short arm cast today. I have recommended that she work on finger, elbow, and shoulder ROM as she was wearing a sling. 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 We will see her back in 1 week to repeat x-rays in the cast. 09/11/2024 Other Patient is doin g well and we will continue with the short arm cast. We will see her back in 1 week to repeat x-rays in the cast and reassess her progress. 09/18/2024 Other Patient is doing well. She will follow-up in 4 weeks to remove the cast and repeat x-rays. Import medication 10/16/2024 Other Patient is doing well. Will get her into therapy to work on restoring motion. No lifting more than 2 pounds. She will follow-up in 4 weeks to repeat x-rays and reassess her progress. Import medication Plan Of Treatment Pending Test Test Name Order Date [facility]- WRIST 3 VIEW LEFT [id number] 10/16/2024 [facility]- PT/OT EVAL AND TREAT 3X/WEEK FOR 4 WEEKS 10/16/2024 [facility]- WRIST 3 VIEW LEFT [id number] 09/11/2024 [facility]- WRIST 3 VIEW LEFT [id number] 09/18/2024 Insurance Providers Payer Name Payer Address Payer Phone Subscriber Number Group Number Insured Name Patient Relationship to Insured Coverage Start Date Coverage End Date [employer] [address] [place] [phone] [id number] SOUMYA LEE Spouse - patient is the spouse of the insured
--- OUTSIDE RECORDS SUMMARY | 2025-03-26 11:19 | XMS_ITS | Encounter Summary ---
Author Organization [facility] Address [address] [facility] [place] [address] Care Team Providers Care Supervisor Paper Products Name Role Phone Kit Delarosa MD Primary Care Provider [phone] Encounter Details Date Type Department Care Team (Late st Contact Info) Description 05/19/2024 Orders Only [facility] [address] [place] [address] Biju Garsia MD [address] [place] [address] Social History Tobacco Use Types Packs/Day Years [...] Procedure Name Priority Date/Time Associated Diagnosis Comments SCANNED LABS Routine 05/19/2024 10:16 AM EST documented in this encounter Results * SCANNED LABS (05/19/2024 10:16 AM EST) us Biju Garsia MD LAB CHG PERFORMABLES Final Res ult documented in this encounter Visit Diagnoses Not on filedocumented in this encounter Care Teams Supervisor Paper Products Relationship Specialty Start Date End Date Kit Delarosa MD PCP - General Family Medicine 02/15/24 documented as of this encounter
--- OUTSIDE RECORDS SUMMARY | 2025-03-26 11:20 | XMS_ITS | Clinical Summary ---
Author Organization [facility] Address [address] [place] [address] Phone Care Team Providers Care Headlight Adjuster Name Role Phone Kit Delarosa MD Primary Care Provider + Social History Tobacco Use Types Packs/Day Years Used Date Smoking Tobacco: Never Assessed Comments Unknown Sex and Gender Information Value Date Recorded Sex Assigned at Not on file Legal Sex Female 8:51 AM EST Gender Identity Not on file Sexual Orientation Not on file Plan of Treatment Not on file Care Teams Headlight Adjuster Relationship Specialty Start Date End Date Kit Delarosa MD PCP - General 06/20/18
--- OUTSIDE RECORDS SUMMARY | 2025-03-26 11:23 | XMS_ITS | CCD ---
Author Organization [facility] Care Team Providers Care Administrative Director Name Role Phone GEORGE CASH Unavailable Unavailable GEORGE CASH Unavailable Unavailable NO FAMILY DOCTOR, NO FAMILY DOCTOR Unavailable Unavailable Manjit Polk Unavailable Unavailable George Cash Unavailable Unavailable Naderejeanine, Kit Peters Unavailable UnavailChristi Art Unavailable NOY, DR KIT [...] Consulting Unavailable KIT VILLAFUERTE Primary Care Physician [phone] KIT VILLAFUERTE Attending Unavailable Kit Villafuerte MD Primary Care Provider Biju KNOX Attending Unavailable Biju KNOX P Attending Unavailable Jorge KNOXory P Referring Unavailable COOK, Biju P Attending Unavailable COOK, Biju P Attending Unavailable COOK, Biju P Attending Unavailable ABILIO, Biju P Referring Unavailable Biju KNOX P Admitting Unavailable Kit Villafuerte Primary Care Unavailable Biju Knox P Admitting Unavailable Biju Knox P Attending Unavailable NadereKit ponce Primary Care Unavailable Jorge Knoxory P Admitting Unavailable Biju Knox Attending Unavailable Kit Villafuerte Primary Care Unavailable Biju Knox Admitting Unavailable Biju Knox Attending Unavailable Kit Villafuerte MD Primary Care Provider Biju Knox MD Attending Provider [phone] Kit Villafuerte MD Primary Care Provider Kit Villafuerte MD Attending Provider [phone] Allergies Allergy Classification Reported Allergen(s) Allergy Type Date of Onset Reaction(s) Facility (1 source) Codeine Drug Allergy hot flashes/nose bleed [facility] Other (5 sources) Codeine; Translations: [codeine] Drug Allergy 3 hot flashes/nose bleed [facility] Repository (1 source) Sulfonamides (Antibiotic) Drug allergy (disorder) 3 [facility] Repository (7 sources) Codeine; Translations: [codeine] Drug Allergy 4 Epistaxis (disorder), Other [facility] (4 sources) Sulfonamides (Antibiotic); Translations: [sulfa drugs] Drug allergy Tachypnea, Dyspnea [facility] (4 sources) Sulfonamides (Antibiotic) Drug Allergy 4 Unknown [facility] (1 source) Codeine Drug Allergy 4 [facility] Repository (4 sources) Sulfonamides (Antibiotic) Drug allergy (disorder) 4 unable to breathe [facility] Repository Medications Current Medications Medication Drug Class(es) Dates Sig (Normalized) Sig (Original) ciprofloxacin 500 mg oral tablet (4 sources) [...] Aug, Active dexamethasone 6 mg oral tablet (2 sources) Corticosteroid Start: 03-20-2024 take 1 tablet by mouth once daily dexAMETHasone (Decadron) 6 MG tablet Indications: COVID-19 Take 1 tablet (6 mg) by mouth Daily for 6 days 6 tablet 03/20/2024 Active 24 hr mirabegron 50 mg extended release oral tablet (16 sources) beta3-Adrenergic Agonist Start: 08-31-2023 End: 08-30-2024 take 1 tablet by mouth once daily in the morning Mirabegron 50 mg tablet extended release 24 hr Active 50 MG PO Every morning May 19, 2024 1:00am Complies with drug therapy Start: 08-10-2023 Myrbetriq Oral , Daily, Refills(s) 0 Start Date: 08/10/23 Status: Ordered Start: 08-10-2023 End: 05-19-2024 Mirabegron (Myrbetriq) 8 mg/ mL suspension,extended rel recon Discontinued MG PO August 10, 2023 1:00am May 19, 2024 10:39am Myrbetriq Active naproxen sodium 550 mg oral tablet (1 source) Nonsteroidal Anti-inflammatory Drug Start: 09-17-2020 take 1 tablet by mouth every twelve hours at mealtime as needed Naproxen Sodium 550 MG 1 tablet with food or milk as needed Orally every 12 hrs for 7 days Sep, Active ondansetron 4 mg disintegrating oral tablet (4 sources) Serotonin-3 Receptor Antagonist Start: 02-15-2024 take 1 tablet by mouth every six hours as needed for nausea and vomiting and nausea and nausea ondansetron ODT (Zofran-ODT) 4 MG disintegrating tablet Indications: Nausea Take 1 tablet (4 mg) by mouth every 6 (six) hours if needed for nausea or vomiting 30 tablet 2 02/15/2024 Active Semaglutide (1 source) Start: 03-21-2025 inject 0.25 mg by subcutaneous injection every week, then inject 0.5 mg by subcutaneous injection every week Semaglutide 0.25 mg or 0.5 mg (2 mg/3 mL) pen injector Active 0.25 MG SUBCUT every week March 21, 2025 12:00am for 4 weeks; then 0.5 mg weekly Complies with drug therapy 24 hr venlafaxine 75 mg extended release oral capsule (1 source) Serotonin and Norepinephrine Reuptake Inhibitor Start: 03-21-2025 take 1 capsule by mouth once daily Venlafaxine (Effexor Xr) 75 mg capsule,extended release 24hr Active 75 MG PO Daily March 21, 2025 12:00am Complies with drug therapy Completed/Discontinued Medications Medication Drug Class(es) Dates Sig (Normalized) Sig (Original) acetaminophen 325 mg / HYDROcodone bitartrate 5 mg oral tablet (6 sources) Opioid Agonist Start: 06-02-2024 End: 03-21-2025 take 1 tablet by mouth every four to six hours as needed for pain Hydrocodone-Acetami nophen 5-325 mg tablet Discontinued 1 TAB PO EVERY 4-6 HOURS as needed for pain 7 June 02, 2024 March 21, 2025 7:59am Start: 08-10-2023 acetaminophen- hydrocodone 325 mg-5 mg oral tablet Refill(s) 0, 28 EA, 0 Refill(s), take 1 tablet by mouth four times a day if needed Start Date: 08/10/23 Status: Ordered cephalexin 500 mg oral capsule (3 sources) Cephalosporin Antibacterial Start: 08-10-2023 End: 05-19-2024 take 1 capsule by mouth twice daily Cephalexin 500 mg capsule Discontinued 500 MG PO Twice daily 10 August 10, 2023 6:38pm May 19, 2024 10:38am DULoxetine 20 mg delayed release oral capsule (4 sources) Serotonin and Norepinephrine Reuptake Inhibitor Start: 08-10-2023 End: 03-21-2025 take 1 capsule by mouth once daily in the morning Duloxetine (Cymbalta) 20 mg capsule,delayed release(DR/EC) Discontinued 20 MG PO Every morning August 10, 2023 1:00am March 21, 2025 7:59am Cymbalta Active Mirabegron (Myrbetriq) 8 mg/mL suspension,extended rel recon (1 source) Start: 08-10-2023 End: 05-19-2024 Mirabegron (Myrbetriq) 8 mg/mL suspension,extended rel recon Discontinued MG PO August 10, 2023 1:00am May 19, 2024 10:39am tamsulosin hydrochloride 0.4 mg oral capsule (3 sources) alpha-Adrenerg ic Go Start: 08-10-2023 tamsulosin 0.4 mg Ca p 5 EA, 0 Refill(s), take 1 capsule by mouth once daily, Refills(s) 0 Start Date: 08/10/23 Status: Ordered Problems Active Problems Problem Classification Problem Date Documented Date Episodic/Chronic Abdominal pain (5 sources) Unspecified abdominal pain; Translations: [Abdominal pain] Onset: 2 Episodic Anxiety disorders (7 sources) Generalized anxiety disorder; Translations: [Generalized anxiety disorder] Onset: 4 12-07-2023 Chronic Calculus of urinary tract (10 sources) Personal history of urinary calculi; Translations: [Kidney stone] Onset: 2 Episodic Cancer of brain and nervous system (7 sources) History of malignant neoplasm of brain; Translations: [Personal history of malignant neoplasm of brain] Onset: 4 12-07-2023 Episodic Genitourinary symptoms and ill-defined conditions (9 sources) Female stress incontinence; Translations: [Stress incontinence (female) (male)] Onset: 4 12-07-2023 Chronic Headache; including migraine (8 sources) Headache; Translations: [Nonintractable headache, unspecified chronicity pattern, unspecified headache type] Onset: 4 02-15-2024 Episodic Intracranial injury (7 sources) History of traumatic brain injury; Translations: [Personal history of traumatic brain injury] Onset: 4 12-07-2023 Episodic Mood disorders (13 sources) Depressive disorder; Translations: [Recurrent major depressive episodes, moderate ] Onset: 4 08-10-2023 Chronic Other diseases of kidney and ureters (1 source) Urinary tract obstruction; Translations: [Hydronephrosis with renal and ureteral calculous obstruction] Onset: 4 Episodic Other lower respiratory disease (5 sources) Solitary pulmonary nodule; Translations: [SOLITARY PULMONARY NODULE] Onset: 2 Episodic Other lower respiratory disease (7 sources) Nodule of lung; Translations: [Solitary pulmonary nodule] Onset: 4 12-07-2023 Episodic Other nervous system disorders (8 sources) Ventriculoperitoneal shunt in situ; Translations: [Presence of cerebrospinal fluid drainage device] Onset: 4 02-15-2024 Chronic Other non-traumatic joint disorders (7 sources) Pain in left knee; Translations: [Pain in joint, lower leg] Onset: 4 12-07-2023 Episodic Other nutritional; endocrine; and metabolic disorders (2 sources) Obesity caused by energy imbalance; Translations: [Class 2 obesity due to excess calories without serious comorbidity in adult] 03-21-2025 Chronic Other skin disorders (7 sources) Vesicular eczema; Translations: [Dyshidrosis [pompholyx]] Onset: 4 12-07-2023 Episodic Residual codes; unclassified (2 sources) Obstructive sleep apnea syndrome; Translations: [Obstructive sleep apnea (adult) (pediatric)] 03-21-2025 Chronic Residual codes; unclassified (2 sources) Memory impairment; Translations: [Other amnesia] 03-21-2025 Episodic Spondylosis; intervertebral disc disorders; other back problems (7 sources) Degeneration of lumbar intervertebral disc; Translations: [Other intervertebral disc degeneration, lumbar region] Onset: 4 12-07-2023 Chronic Unclassified (3 sources) Obstructive hydronephrosis 08-10-2023 Unclassified (2 sources) Patient encounter status; Translations: [Z12.11 - Encounter for screening for malignant neoplasm of colon] Past or Other Problems Problem Classification Problem Date Documented Da te Episodic/Chronic E Codes: Fall (1 source) Fall from other furniture, initial encounter; Translations: [FALL FROM OTHER FURNITURE INITIAL] Onset: 10-07-2021 Episodic Mycoses (1 source) Tinea manuum Onset: 08-12-2021 Resolved: 08-12-2021 Episodic Nausea and vomiting (6 sources) Nausea; Translations: [Nausea] Onset: 02-15-2024 02-15-2024 Episodic Other aftercare (1 source) Other shelter (current) drug therapy; Translations: [OTH P[employer] PIPE CURRENT DRUG THERAPY] Onset: 10-07-2021 Episodic Other [...] XR WRIST LT MIN 3 Von [address] [address] XRay Report Signed Patient: ARTURO MAGALLON MR#: [id number] : 1970 Acct:[id number] Age/Sex: 54 / F ADM Date: 09/18/24 Loc: EC Attending Dr: Brice Peters M.D. Ordering Physician: Brice Peters M.D. Date of Service: 09/18/24 Procedure(s): XR wrist LT min 3V Accession Number(s): [id number] cc: Brice Peters M.D.; Kit Villafuerte M.D. [place] [address] Patient Name: MARISA MAGALLON MRN: [id number] date: 1970 Sex: F Assigned Patient Location: Current Patient Location: Accession/Order Number: [id number] Exam Date: 09/18/2024 10:49 Report Date: 09/18/2024 10:50 At the request of: BRICE PETESR MD Procedure: XR wrist LT min 3V 3 views left wrist plain film COMPARISON: 09/11/2024 HISTORY: Follow-up assessment for left wrist fracture. ACUTE FINDINGS: Stable alignment of distal ulnar fracture. Suspected subtle healing. DEGENERATIVE CHANGE: Unremarkable SOFT TISSUE FINDINGS: Unremarkable JOINT EFFUSION: None POSTOP CHANGES: None BONE MINERALIZATION: Adequate XR/XR wrist LT min 3V IMPRESSION: Interval healing of distal ulnar fracture with stable alignment Impression dictated by: Javi Vera M.D.09/18/2024 10:50 AM Dictation Location: [place] [address] Electronically authenticated by: [id number] Y Date: 09/18/2024 10:50 Dictated By: Javi Vera D.O. Signed By: 09/18/24 1052 DD/ 1050 TD/TT: Sock Knitter: [facility] Radiology, Radiologfederico bardales MD - 09/18/2024 [place] [address] XRay Report Signed Patient: ARTURO MAGALLON MR#: [id number] : 1970 Acct:[id number] Age/Sex: 54 / F ADM Date: 09/18/24 Loc: Attending Dr: Brice Peters M.D. Ordering Physician: Brice Peters M.D. Date of Service: 09/18/24 Procedure(s): XR wrist LT min 3V Accession Number(s): [id number] cc: Brice Peters M.D.; Kit Villafuerte M.D. The [place] [address] Patient Name: MARISA MAGALLON MRN: [facility]:[id number] date: 1970 Sex: F Assigned Patient Location: Current Patient Location: Accession/Order Number: [id number] Exam Date: 09/18/2024 10:49 Report Date: 09/18/2024 10:50 At the request of: BRICE PETERS MD Procedure: XR wrist LT min 3V 3 views left wrist plain film COMPARISON: 09/11/2024 HISTORY: Follow-up assessment for left wrist fracture. ACUTE FINDINGS: Stable alignment of distal ulnar fracture. Suspected subtle healing. DEGENERATIVE CHANGE: Unremarkable SOFT TISSUE FINDINGS: Unremarkable JOINT EFFUSION: None POSTOP CHANGES: None BONE MINERALIZATION: Adequate XR/XR wrist LT min 3V IMPRESSION: Interval healing of distal ulnar fracture with stable alignment Impression dictated by: Javi Vera M.D.09/18/2024 10:50 AM Dictation Location: [place] [address] Electronically authenticated by: [id number] Y Date: 09/18/2024 10:50 Dictated By: Javi Vera D.O. Signed By: 09/18/24 105 DD/ 1050 TD/TT: Sock Knitter: [facility] Radiology Study observation (narrative) [facility] XR WRIST LT MIN 3 Haley Cleaning y: Radiologist Radiology on 09-18-2024 [facility] Work Phone: XR WRIST LT MIN 3 Von 2024 [place] [address] XRay Report Signed Patient: ARTURO MAGALLON MR#: [id number] : 1970 Acct:[id number] Age/Sex: 54 / F ADM Date: 09/11/24 Loc: Attending Dr: Brice Peters M.D. Ordering Physician: Brice Peters M.D. Date of Service: 09/11/24 Procedure(s): XR wrist LT min 3V Accession Number(s): [id number] cc: Brice Peters M.D.; Kit Villafuerte M.D. [address] [address] Patient Name: MARISA MAGALLON MRN: [id number] date: 1970 Sex: F Assigned Patient Location: Current Patient Location: Accession/Order Number: [id number] Exam Date: 09/11/2024 11:52 Report Date: 09/11/2024 [...] Kiarra Montague M.D.09/11/2024 11:54 AM Dictation Location: [place] [address] Electronically authenticated by: [id number] Y Date: 09/11/2024 11:54 Dictated By: Kiarra Montague M.D. Signed By: 09/11/24 1156 DD/ 1154 TD/TT: Sock Knitter: [facility] RadiologyDerrellogfederico bardales MD - 09/11/2024 [place] [address] XRay Report Signed Patient: ARTURO MAGALLON MR#: [id number] : 1970 Acct:[id number] Age/Sex: 54 / F ADM Date: 09/11/24 Loc: EC Attending Dr: Brice Peters M.D. Ordering Physician: Brice Peters M.D. Date of Service: 09/11/24 Procedure(s): XR wrist LT min 3V Accession Number(s): [id number] cc: Brice Peters M.D.; Kit Villafuerte M.D. The [place] [address] Patient Name: MARISA MAGALLON MRN: [facility]:[id number] date: 1970 Sex: F Assigned Patient Location: Current Patient Location: Accession/Order Number: [id number] Exam Date: 09/11/2024 11:52 Report Date: 09/11/2024 [...] Kiarra Montague M.D.09/11/2024 11:54 AM Dictation Location: [place] [address] Electronically authenticated by: [id number] Y Date: 09/11/2024 11:54 Dictated By: Kiarra Montague M.D. Signed By: 09/11/24 1156 DD/ 1154 TD/TT: Sock Knitter: [facility] Rad[facility] Study observation (narrative) [facility] XR WRIST LT MIN 3 VOrdered B y: Radiologist Radiology on 09-11-2024 [facility] Work Phone: XR KUBon 06-02-2024 XR KUB [facility] [place] [address] [place] [address] XRay Report Signed Patient: Arturo Magallon#: [id number] : 1970 Acct:[id number] Age/Sex: 54 / F ADM Date: 06/02/24 Loc: [place] Room: Type: [facility] Attending Dr: Biju Knox MD Copies to: Biju Knox MD Ordering Provider: Biju Knox MD Date of Service: 06/02/24 XR/XR KUB: Pre Op KUB: CLINICAL INFORMATION: Preop lithotripsy left-sided. COMPARISON: KUB 08/10/2023 FINDINGS: Presumed [employer] shunt tubing is noted. The tubing lays [...] Lang Jr., D.ONicole06/02/2024 8:50 AM Dictation Location: [place] [address] Transcribed By: [facility] 06/02/24 0850 Dictated By: Alden Lang Jr, DO 06/02/24 0849 Signed By: 06/02/24 0850 Normal [facility] Basic Metabolic Panelon 12-0 Anion gap [Moles/Vol] 11.3 mmol/L Normal 6.0-15.0 [facility] Comment on above: Performed By: #### P T, PTT, CBC, BMP #### [place] [id number] [place] Calcium [Mass/Vol] 9.4 mg/dL Normal 8.6-10.3 [facility] Comment on above: Result Comment: PERF ORMED BY: [place] [address] PATHOLOGIST SYSTEMS TESTER ANT PERSAUD M.D. Performed By: #### P T, PTT, CBC, BMP #### [address] Chloride [Moles/Vol] 107 mmol/L Normal 98-107 [facility] Comment on above: Performed By: #### P T, PTT, CBC, BMP #### [address] CO2 [Moles/Vol] 28.9 mmol/L Normal 21.0-31.0 The [facility] Comment on above: Performed By: #### P T, PTT, CBC, BMP #### [address] Creatinine [Mass/Vol] 0.88 mg/dL Normal 0.60-1.20 [facility] Comment on above: Performed By: #### P T, PTT, CBC, BMP #### [address] GFR/1.73 sq M.predicted MDRD (S/P/Bld) [Vol rate/Area] mL/min/{1.73_m2} Normal [facility] Comment on above: Performed By: #### P T, PTT, CBC, BMP #### [place] [address] [place] Glucose [Mass/Vol] 112 mg/dL High 70-100 [facility] Comment on above: Result Comment: [place] Glucose Reference Range is dependent on time and content of last meal. Glucose of more than 200 mg/dL in a nonstressed, ambulatory subject supports the diagnosis of Diabetes Mellitus. ADA recommended reference range Performed By: #### P T, PTT, CBC, BMP #### [place] [address] [place] Potassium [Moles/Vol] 4.2 mmol/L Normal 3.5-5.1 [facility] Comment on above: Performed By: #### P T, PTT, CBC, BMP #### [address] Sodium [Moles/Vol] 143 mmol/L Normal 136-145 [facility] Comment on above: Performed By: #### P T, PTT, CBC, BMP #### [address] Urea nitrogen [Mass/Vol] 17 mg/dL Normal 7-25 [facility] Comment on above: Performed By: #### P T, PTT, CBC, BMP #### [address] Complete Blood Count Auto Di ffon 05-19-2024 Basophils (Bld) [#/Vol] 0.1 10*3/uL Normal 0.0-0.2 [facility] Comment on above: Result Comment: PERF ORMED BY: [place] [address] PATHOLOGIST SYSTEMS TESTER ANT PERSAUD M.D. Performed By: #### P T, PTT, CBC, BMP #### [address] Basophils/100 WBC (Bld) 1.3 % Normal . [facility] Comment on above: Performed By: #### P T, PTT, CBC, BMP #### [address] Eosinophils (Bld) [#/Vol] 0.4 10*3/uL Normal 0.0-0.45 [facility] Comment on above: Performed By: #### P T, PTT, CBC, BMP #### [address] Eosinophils/100 WBC (Bld) 5.5 % Normal . [facility] Comment on above: Performed By: #### P T, PTT, CBC, BMP #### [address] Erythrocyte distribution width (RBC) [Ratio] 13.7 % Normal 11.9-15.3 [facility] Comment on above: Performed By: #### P T, PTT, CBC, BMP #### [address] Hematocrit (Bld) [Volume fraction] 41.3 % Normal 34.0-46.4 [facility] Comment on above: Performed By: #### P T, PTT, CBC, BMP #### [address] Hemoglobin (Bld) [Mass/Vol] 14.0 g/dL Normal 11.8-15.4 [facility] Comment on above: Performed By: #### P T, PTT, CBC, BMP #### [address] Lymphocytes (Bld) [#/Vol] 1.9 10*3/uL Normal 1.00-4.8 [facility] Comment on above: Performed By: #### P T, PTT, CBC, BMP #### [address] Lymphocytes/100 WBC (Bld) 23.5 % Normal . [facility] Comment on above: Performed By: #### P T, PTT, CBC, BMP #### [address] MCH (RBC) [Entitic mass] 30.2 pg Normal 24.7-34.3 [facility] Comment on above: Performed By: #### P T, PTT, CBC, BMP #### [address] MCV (RBC) [Entitic vol] 89.1 fL Normal 80-100 [facility] Comment on above: Performed By: #### P T, PTT, CBC, BMP #### [address] Mean Corpuscular HGB Conc 33.9 g/dL Normal 32.0-35.0 [facility] Comment on above: Performed By: #### P T, PTT, CBC, BMP #### [address] Monocytes (Bld) [#/Vol] 0.6 10*3/uL Normal 0.0-0.8 [facility] Comment on above: Performed By: #### P T, PTT, CBC, BMP #### [address] Monocytes/100 WBC (Bld) 7.0 % Normal . [facility] Comment on above: Performed By: #### P T, PTT, CBC, BMP #### [address] Neutrophils (Bld) [#/Vol] 5.0 10*3/uL Normal 1.8-7.7 [facility] Comment on above: Performed By: #### P T, PTT, CBC, BMP #### [address] Neutrophils/100 WBC (Bld) 62.7 % Normal . [facility] Comment on above: Performed By: #### P T, PTT, CBC, BMP #### [address] NRBC% 0.2 /100{WBC} Normal 0-0.5 The [facility] Comment on above: Performed By: #### P T, PTT, CBC, BMP #### [address] Platelet mean volume (Bld) [Entitic vol] 8.1 fL Normal 6.3-10.[address] [facility] Comment on above: Performed By: #### P T, PTT, CBC, BMP #### [place] [address] [place] Platelets (Bld) [#/Vol] 300 10*3/uL Normal 150-450 [facility] Comment on above: Performed By: #### P T, PTT, CBC, BMP #### [address] RBC (Bld) [#/Vol] 4.63 10*6/uL Normal 3.60-5.00 The [facility] Comment on above: Performed By: #### P T, PTT, CBC, BMP #### [facility] [address] [place] [address] WBC (Bld) [#/Vol] 8.0 10*3/uL Normal 3.8-11.6 [facility] Comment on above: Performed By: #### P T, PTT, CBC, BMP #### [facility] [address] ECG 12 lead ECGon 05-19-2024 ECG 12 lead ECG [facility] Main [place] [address] [place] [address] Electrocardiograph Report Signed Patient: Arturo Magallon#: [id number] : 1970 Acct:[id number] Age/Sex: 54 / F ADM Date: 05/19/24 Loc: Room: Type: [facility] Attending Dr: Biju Knox MD Ordering Provider: [...] changes. Abnormal ECG Confirmed by Celestina Joy ([id number]) on 05/21/2024 10:57:13 PM Referred By: Electronically Signed By: Celestina Joy Transcribed By: MUS Signed By Celestina Joy MD 4 6537 Normal [facility] Partial Thromboplastin Timeo n 05-19-2024 aPTT Coag (Bld) [Time] 31.2 s Normal 25.1-36.5 [facility] Comment on above: Result Comment: A he matocrit value greater than 55% may lead to inaccurate results in coagulation testing. Patients having hematocrit values >55% require a special collection tube for coagulation studies. Please contact the laboratory at [phone] for redraw instructions. PERFORMED BY: [place] [address] PATHOLOGIST SYSTEMS TESTER ANT PERSAUD M.D. Performed By: #### P T, PTT, CBC, BMP #### [address] Prothrombin Time INRon 05-19 INR Coag (PPP) [Relative time] 1.1 {INR} Normal [facility] Comment on above: Result [...] #### P T, PTT, CBC, BMP #### [address] PT Coag (PPP) [Time] 12.6 s Normal 9.0-12.9 [facility] Comment on above: Result Comment: A he matocrit value greater than 55% may lead to inaccurate results in coagulation testing. Patients having hematocrit values >55% require a special collection tube for coagulation studies. Please contact the laboratory at [phone] for redraw instructions. Performed By: #### P T, PTT, CBC, BMP #### [place] [id number] [facility] Ambulatory Visit Summaryon 0 02-21-2024 Ambulatory [...] ABILIO EDEN, KAILYN Blunt When: Where: [address] [address]- Medications What How Much When Instructions Unchanged [...] these instructions at home: Medicines ? Take igcf-vju-uwwkmma and prescription medicines only as told by [...] keep your pee pale yellow. ? Take uksc-atm-iuysnxj or prescription medicines. ? Eat foods that [...] s (more content not included)... Normal [facility] Urology Office/Clinic Noteon 02-21-2024 Urology Office/Clinic Note Urology Office/Clinic Note Chief Complaint Pt is here for 7 mos f/u to kidney stone - KUB done 02/18/24 HPI Staff 6 mos with KUB. [place]UB [place] [facility] [place] Previous Dx: ureteral stone with hydro, kidney [...] renal stone). Stone analysis - 70% CaOx George, 30% Di. S/p Cysto/L stent removal 08/23/23. [...] Information ABILIO EDEN, Biju Acuña, URL [address] [address]- Additional Instructions: sched L ESWL Patient Education Laser Therapy for Kidney Stones, Care After Laser Therapy for Kidney Stones I, Vani Quevedo, personally scribed for Dr. Knox on 02/21/2024 12:18:18. . Documentation recorded by the kimberliibVani medeiros acurately reflects the services(s) I performed and decisions made by me. Authenticated by Dr. Knox on 02/21/2024 12:35:36. Portions of this record may have been created with voice recognition artificial intelligence software, specifically [employer] (now [employer]), [employer] and or [employer]. Substitutions may have occurred due to the inherent limitations of voic (more content not included)... [facility] Comment on above: Result Comment: Elec tronically Signed By: Biju KNOX MD\.br\Date and Time Signed: 02/21/24 12:36 EDT\.br\Electronically Co-Signed By: Vani Quevedo\.br\Date and Time Co-Signed: 02/21/24 12:18 EDT Consent for Procedure/Surger yon 08-23-2023 Consent for Procedure/Surgery [id number]#1.00 TIFF [facility] Consent for Treatmenton 08-12 Consent for Treatment [id number]#1.00T IFF [facility] Inpatient Patient Summaryon 08-23-2023 Inpatient Patient Summary [place] [address] Clinical Summary Person Information Name: MARISA MAGALLON Age: 53 Years : 1970 Sex: Female PCP: KIT VILLAFUERTE MD Marital Status: Race: White Ethnicity: Non- or Language: Kyrgyz Visit Id: Visit Reason: KIDNEY STONE Speciality: Acuity: Enc Type: Outpatient Med Service: Surgery Arrival: 08/23/2023 15:16:57 Discharge: Dispo Type: Address: [address] [facility] [id number] Provider Notes: Diagnosis: Problems Active Ureteral stone [...] Follow up: With: Address: When: Biju KNOX [address] [place] [address], [address], [address] [address] Business (1) Within 6 months Comments: Call [...] of a kit from a company called [employer]. Otherwise I will see him in 6 months with an abdominal x-ray. Have a great day Patient Education Information: EU - Cystoscopy with Stent Removal Discharge Instructions (Custom) Normal [facility] IntraOperative Documentson 0 08-23-2023 IntraOperative Documents [id number]#1.00 TIFF [address] [facility] Lab Reportson 08-23-2023 Lab Reports [id number]#1.00T IFF Normal [facility] Main OR Intraoperative Recor don 08-23-2023 Main OR Intraoperative Record IntraOp Document Type FTURO Summary Primary Physician: Biju KNOX MD Finalized Date/Time: 08/23/23 16:18:58 Pt. Name: MARISA MAGALLON/Sex: 1970 Female Med Rec #: [id number] Physician: Biju KNOX MD Financial #: [id number] Pt. Type: O Room/Bed: / Admit/Disch: 08/23/23 [...] Francisco Greene Role Performed Surgeon - Primary Balance Clerk - Primary Scrub - Primary Time In [...] By: Darya Queen RN 08/23/23 16:[address] [facility] Main OR Preoperative Recordo n 08-23-2023 Main OR Preoperative Record Holding Area Document Type FTURO Summary Primary Physician: Biju KNOX MD Finalized Date/Time: 08/23/23 15:38:35 Pt. Name: MARISA MAGALLON/Sex: 1970 Female Med Rec #: [id number] Physician: Biju KNOX MD Financial #: [id number] Pt. Type: O Room/Bed: / Admit/Disch: 08/23/23 [...] RAUDEL Catalan RN, Ruthann 08/23/23 15:[address] [facility] Operative Reporton Operative Report Patient: [...] to proceed with a metabolic workup.. Normal [facility] Comment on above: Result Comment: Elec tronically Signed By: Biju KNOX MD\.br\Date and Time Signed: 08/23/23 16:16 EDT Outpatient Surgery Discharge Instructionon 08-23-2023 Outpatient Surgery Discharge Instruction [place] [id number] Patient Discharge Instructions PERSON INFORMATION Name: MARISA [...] up: With: Address: When: Biju KNOX [address] [facility], [address], [place] [id number] [facility] (1) Within 6 months Comments: Call for [...] of a kit from a company called [employer]. Otherwise I will see him in 6 [...] to serve you. Thank you for choosing [facility] Normal [facility] Pathology Noteon 08-16-2023 Pathology Note [id number]#1.00T IFF Normal [facility] ED Note-Physicianon 08-11-19 ED Note-Physician [id number]#1.00T IFF Normal [facility] Formson 08-11-2023 Forms [id number]#1.00T IFF Normal [facility] Insurance Correspondenceon 0 08-11-2023 Insurance Correspondence [id number]#1.0 0TIFF [facility] Lab Reportson 08-11-2023 Lab Reports [id number]#1.00 TIFF [address] [facility] Operative Reporton Operative Report [id number]#1.00T IFF Normal [facility] RAD - CT Reporton 08-11-2023 RAD - CT Report [id number]#1.00T IFF Normal [facility] RAD - MISCon 08-11-2023 RAD - MISC [id number]#1.00T IFF Normal [facility] RAD - MISC [id number]#1.00T IFF Normal [facility] Ambulatory Visit Summaryon 0 08-10-2023 [...] Comments: sched cysto/L stent placement Where: [address] [address]- Medications What How Much When Instructions Unchanged [...] including vitamins, herbs, eye drops, creams, and fsih-hzi-tzpajkl medicines. ? Any problems you or family [...] tells you to take them. ? Taking reii-vqq-tirlkrf medicines, vitamins, herbs, and supplements. Eating and [...] drink clear (more content not included)... Normal [facility] Ambulatory Visit Summary MARISA MAGALLON [...] Schedule the Following Appointments Follow Up with Biju KNOX MD, URL When: Comments: sched cysto/L stent placement Where: [address] [address]- Medications What How Much When Instructions Unchanged [...] including vitamins, herbs, eye drops, creams, and ohyd-ldy-mkcncir medicines. ? Any problems you or family [...] tells you to take them. ? Taking jaih-fam-puqiclh medicines, vitamins, herbs, and supplements. Eating and [...] drink clear (more content not included)... Normal [facility] Calculi, Urinaryon 4 Ca Oxalate Dihydrate 30 % Normal . [facility] Comment on above: Performed By: #### C ALCULI #### [facility] , Ca Oxalate Monohydrate 70 % Normal . [facility] Comment on above: Performed By: #### C ALCULI #### [facility] , Color (U) Brown Normal . [facility] Comment on above: Performed By: #### C ALCULI #### [facility] , Comment2 Normal . [facility] Comment on above: Result Comment: Calc ulus received wet. Wet calculi must be dried before analysis, which delays reporting of results. Leaving calculi wet (such as water, saline, blood, urine) may lead to changes in composition. Performed By: #### C ALCULI #### [facility] , Comment: Normal . [facility] Comment on above: Result Comment: Phys ician questions regarding Calculi Analysis contact [facility] at: [phone]. Performed By: #### C ALCULI #### [facility] , Composition Normal . [facility] Comment on above: Result Comment: Perc entage (Represents the % composition) Performed By: #### C ALCULI #### [facility] , Disclaimer: Normal . [facility] Comment on above: Result Comment: This test was developed and its performance characteristics determined by [facility]. It has not been cleared or approved by the Food and Drug Administration. Performed at: [facility] [address] [id number] Export Freight Specialist: Anitha Jay PhD, Phone: [phone] Performed By: #### C ALCULI #### [facility] , Note Normal . [facility] Comment on above: Result Comment: Calc dacia report will follow via computer, mail or regional sales director delivery. PERFORMED BY: [address] [address] PATHOLOGIST SYSTEMS TESTER MARLON ORNELAS M.D. Performed By: #### C ALCULI #### [facility] , Photo Normal . [facility] Comment on above: Result Comment: Phot ograph will follow under a separate cover Performed By: #### C ALCULI #### [facility] , Size 4x3 Normal . [facility] Comment on above: Result Comment: Mult iple pieces received. Dimensions of the largest piece reported. Performed By: #### C ALCULI #### [facility] , Source Normal . [facility] Comment on above: Result Comment: Left Ureter Performed By: #### C ALCULI #### [facility] , Weight 185 Normal . [facility] Comment on above: Performed By: #### C ALCULI #### [facility] , [place] urethrocystogram retroon 08-10-2023 [place] urethrocystogram retro [facility] [place] [address] Fluoroscopy Report Signed Patient: Arturo Magallon Fiona Ponce#: [id number] : 1970 Acct:[id number] Age/Sex: 53 / F ADM Date: 08/10/23 Loc: [place] Room: Type: [facility] Attending Dr: Biju Knox MD Copies [...] Javi Vera M.D.08/10/2023 6:03 PM Dictation Location: [place] [address] Transcribed By: [facility] 08/10/231802 Dictated By: Javi Vera DO 08/10/231757 Signed By: 08/10/231802 Normal [facility] Insurance Correspondenceon 0 08-10-2023 Insurance Correspondence [id number]#1.00 TIFF Normal [facility] Smooth 08-10-2023 L Specimen: [id number] Received: 08/11/23 Status: SOUT Req Num: [id number] Spec Type: Surgical Subm Dr: Biju Knox MD Tissues: A Urinary Calculus (LT URETERAL STONE) Procedures: Level 1 Gross Age/ Patient Sex Location Account Attending Physician Arturo Magallon 53/F [place] [id number] Biju Knox MD SPEC NUM: [id number] RECD: 08/11/23 STATUS: SOUT REQ NUM: [id number] VISHAL: 08/10/23- SUBM DR: Biju Knox MD ENTERED: 08/11/[address] [facility] [address]: SPEC TYPE: Surgical DEPT: S ORDERED: [...] chemical analysis. Gross examination only. CPT Codes 29697 Specimen: [id number] Received: 08/11/23 Status: TARA Kirsty Num: [id number] Spec Type: Surgical Subm Dr: Biju Knox MD Tissues: A Urinary Calculus (LT URETERAL STONE) Procedures: Level 1 Gross Patient: Arturo Magallon [id number] (Continued) Signed (signature on file) Vargas Garcia MD 08/13/23 0938 [facility] Patient Educationon 08-10-19 Patient Education [...] including vitamins, herbs, eye drops, creams, and jyxc-nin-znbyoqu medicines. ? Any problems you or family [...] tells you to take them. ? Taking cjpp-dhw-nhkpyxp medicines, vitamins, herbs, and supplements. Eating and [...] pieces (more content not included)... Normal [facility] Urology Office/Clinic Noteon 08-10-2023 Urology Office/Clinic Note Chief Complaint [facility] F/U for flank pain HPI Staff [facility] follow up due to abdominal pain, left flank pain. Seen at [facility] 08/03/23. CT @ [facility] 08/03/23. BUN 14.0, Creatinine 1.02 done 08/03/23. [...] Despite that she was discharged from the [facility] with outpatient follow-up. Her chances of passing the stone are small given that size. She does have more stones in the kidneys. She knows that a possible stent will be indicated. Documentation recorded by the Vani lala acurately reflects the services(s) I performed and decisions made by me. Authenticated by Dr. Knox on (more content not included)... Normal [facility] Comment on above: Result Comment: Elec tronically Signed By: Biju KNOX MD\.br\Date and Time Signed: 08/10/23 10:50 EST\.br\Electronically Co-Signed By: Vani Quevedo\.br\Date and Time Co-Signed: 08/10/23 10:46 EST XR KUBon 08-10-2023 XR KUB [facility] [place] [address] XRay Report Signed Patient: Arturo Magallon R#: [id number] : 1970 Acct:[id number] Age/Sex: 53 / F ADM Date: 08/10/23 Loc: [place] Room: Type: [facility] Attending Dr: Biju Knox MD Copies [...] Javi Vera M.D.08/10/2023 4:59 PM Dictation Location: [place] [address] Transcribed By: [facility] 08/10/231658 Dictated By: Javi Vera DO 08/10/231656 Signed By: 08/10/231658 Normal [facility] CT CHEST W CONon 07-15-2022 [...] BRICE RACHEL Date: 2022-07-15 09:35 Normal [facility] CT CHEST W CONon 11-06-2021 [...] BRICE RACHEL Date: 2021-11-06 09:10 Normal [facility] XR FEMUR LTon 10-05-2021 XR [...] CARLOS RAYMUNDO Date: 2021-10-05 06:02 Normal [facility] XR HIP LT 2 3V W PELVISon [...] CARLOS RAYMUNDO Date: 2021-10-05 05:48 Normal [facility] XR KNEE LT 4V or >on 022 [...] BENNY SHELLEY Date: 2021-10-05 05:50 Normal [facility] CBC AUTO DIFFon 09-22-2021 BASO # 0.1 103/ul Normal 0.0-0.1 [facility] Comment on above: Performed By: #### C BC #### [facility] [address] [place] [address] Dr. Starr Garcia Basophils/100 WBC (Bld) 0.5 % Normal 0.2-2.0 [facility] Comment on above: Performed By: #### C BC #### [facility] [address] [place] [address] Dr. Starr Garcia EO # 0.2 103/ul Normal 0.0-0.7 [facility] Comment on above: Performed By: #### C BC #### [facility] [address] [place] [address] Dr. Starr Garcia Eosinophils/100 WBC (Bld) 1.9 % Normal 0.9-7.0 [facility] Comment on above: Performed By: #### C BC #### [facility] [address] [place] [address] Dr. Starr Garcia Erythrocyte distribution width (RBC) [Ratio] 13.8 % Normal 11.0-15.0 [facility] Comment on above: Performed By: #### C BC #### [facility] [address] [place] [address] Dr. Starr Garcia Hematocrit (Bld) [Volume fraction] 43.1 % Normal 36.0-48.0 [facility] Comment on above: Performed By: #### C BC #### [facility] [address] [place] [address] Dr. Starr Garcia Hemoglobin (Bld) [Mass/Vol] 14.2 g/dL Normal 12.0-16.0 [facility] Comment on above: Performed By: #### C BC #### [facility] [address] [place] [address] Dr. Starr Garcia IG # 0.07 10e3/ul Critically high 0.00-0.03 [facility] Comment on above: Performed By: #### C BC #### [facility] [address] [place] [address] Dr. Starr Garcia IG % 0.7 % Critically high 0.0-0.5 [facility] Comment on above: Performed By: #### C BC #### [facility] [address] [place] [address] Dr. Starr Garcia LYMPH # 1.5 103/ul Normal 1.2-3.8 [facility] Comment on above: Performed By: #### C BC #### [facility] [address] [place] [address] Dr. Starr Garcia Lymphocytes/100 WBC (Bld) 15.3 % Critically low 20.5-60.0 [facility] Comment on above: Performed By: #### C BC #### [facility] [address] [place] [address] Dr. Starr Garcia MANUAL DIFF REQ NO Normal [facility] Comment on above: Performed By: #### C BC #### [facility] [address] [place] [address] Dr. Starr Garcia MCH (RBC) [Entitic mass] 30.3 pg Normal 26.7-34.0 [facility] Comment on above: Performed By: #### C BC #### [facility] [address] [place] [address] Dr. Starr Garcia MCHC (RBC) [Mass/Vol] 32.9 g/dL Normal 29.9-35.2 [facility] Comment on above: Performed By: #### C BC #### [facility] [address] [place] [address] Dr. Starr Garcia MCV (RBC) [Entitic vol] 91.9 fL Normal 81.0-99.0 [facility] Comment on above: Performed By: #### C BC #### [facility] [address] [place] [address] Dr. Starr Garcia MONO # 0.6 103/ul Normal 0.3-0.8 [facility] Comment on above: Performed By: #### C BC #### [facility] [address] [place] [address] Dr. Starr Garcia Monocytes/100 WBC (Bld) 5.7 % Normal 1.7-12.0 [facility] Comment on above: Performed By: #### C BC #### [facility] [address] [place] [address] Dr. Starr Garcia NEUT # 7.4 103/ul Critically high 1.4-6.5 [facility] Comment on above: Performed By: #### C BC #### [facility] [address] [place] [address] Dr. Starr Garcia Neutrophils/100 WBC (Bld) 75.9 % Critically high 43.0-75.0 [facility] Comment on above: Performed By: #### C BC #### [facility] [address] [place] [address] Dr. Starr Garcia Platelet mean volume (Bld) [Entitic vol] 9.8 fL Normal 9.5-13.5 [facility] Comment on above: Performed By: #### C BC #### [facility] [address] [place], [place] [address] Dr. Starr Garcia PLT 336 103/ul Normal 150-450 [facility] Comment on above: Performed By: #### C BC #### [facility] [address] [place], [place] [address] Dr. Starr Garcia RBC 4.69 106/ul Normal 4.20-5.40 [facility] Comment on above: Performed By: #### C BC #### [facility] [address] [place], [place] [address] Dr. Starr Garcia WBC 9.8 103/ul Normal 4.0-11.0 [facility] Comment on above: Performed By: #### C BC #### [facility] [address] [place], [place] [address] ABD/PELVIS WO CONon [...] and adnexa. BODY WALL: There is a AIR [employer]OUND [employer]W SUPERVISOR shunt in the chest wall extending into [...] BRICE SALAS Date: 2021-09-22 19:24 Normal [facility] ER URINE PROFILEon 2 Bilirubin Ql (U) Negative Normal NEGATIVE [facility] Comment on above: Performed By: #### DRAGAN GASPAR, PREGU #### [facility] [address] [place] [address] Dr. Starr Garcia Clarity (U) SL CLOUDY Abnormal CLEAR [facility] Comment on above: Performed By: #### DRAGAN GASPAR PREGU #### [facility] [address] [place] [address] [address] Starr Garcia Color (U) YELLOW Normal YELLOW [facility] Comment on above: Performed By: #### DRAGAN GASPAR, PREGU #### [facility] [address] [place] [address] [address] Starr Garcia ERUAHD A micrscopic examination will be performed if indicated. Normal [facility] Comment on above: Performed By: #### DRAGAN GASPAR, PREGU #### [facility] [address] [place] [address] [address] Starr Garcia Glucose Ql (U) Negative Normal NEGATIVE [facility] Comment on above: Performed By: #### Evans NYRDRAGAN, PREGU #### [facility] [address] [place] [address] [address] Starr Garcia Hemoglobin Ql (U) LARGE Abnormal NEGATIVE [facility] Comment on above: Performed By: #### E RUR, UMICRO, PREGU #### [facility] [address] [place] [address] [address] Starr Garcia Ketones Ql (U) Negative Normal NEGATIVE [facility] Comment on above: Performed By: #### E RUR, UMICRO, PREGU #### [facility] [address] [place] [address] [address] Starr Garcia LEUKOCYTES Negative Normal NEGATIVE [facility] Comment on above: Performed By: #### E RUR UMICRO, PREGU #### [facility] [address] [place] [address] [address] Starr Garcia Nitrite Ql (U) Negative Normal NEGATIVE [facility] Comment on above: Performed By: #### E RUR UMICRO, PREGU #### [facility] [address] [place] [address] [address] Starr Garcia pH (U) 5.5 [pH] Normal 5-9 [facility] Comment on above: Performed By: #### WANDER GASPARICRO, PREGU #### [facility] [address] [place] [address] [address] Starr Garcia SPEC GRAVITY >=1.030 Abnormal 1.005-<=1.025 [facility] Comment on above: Performed By: #### Evans GRIMM UMICRO, PREGU #### [facility] [address] [place] [address] [address] Starr Garcia UA PROTEIN TRACE Normal NEGATIVE/ TRACE [facility] Comment on above: Performed By: #### WANDER GASPARICRO, PREGU #### [facility] [address] [place] [address] [address] Starr Garcia UR MICRO IND INDICATED Normal [facility] Comment on above: Performed By: #### E RUR UMICRO, PREGU #### [facility] [address] [place] [address] [address] Starr Garcia Urobilinogen Qn (U) 0.2 {Bonilla'U}/dL Normal 0.2 - 1. 0 [facility] Comment on above: Performed By: #### E DRAGAN GRIMM, PREGU #### [facility] [address] [place] [address] Dr. Starr Garcia URon 09-22-2021 , QUAL Negative Normal NEGATIVE [facility] Comment on above: Performed By: #### E DRAGAN GRIMM, PREGU #### [facility] [address] [place] [address] Dr. Starr Garcia PROF 14(COMP METB)on 022 Albumin [Mass/Vol] 4.3 g/dL Normal 3.4-5.0 [facility] Comment on above: Performed By: #### C MP #### [facility] [address] [place] [address] Dr. Starr Garcia Albumin/Globulin [Mass ratio] 1.1 {ratio} Normal [facility] Comment on above: Performed By: #### C MP #### [facility] [address] [place] [address] Dr. Starr Garcia ALP [Catalytic activity/Vol] 111 U/L Normal 46-116 [facility] Comment on above: Performed By: #### C MP #### [facility] [address] [place] [address] Dr. Starr Garcia ALT [Catalytic activity/Vol] 120 U/L Critically high 14-59 [facility] Comment on above: Performed By: #### C MP #### [facility] [address] [place] [address] Dr. Starr Garcia Anion gap [Moles/Vol] 14.9 mmol/L Normal [facility] Comment on above: Performed By: #### C MP #### [facility] [address] [place] [address] Dr. Starr Garcia AST [Catalytic activity/Vol] 72 U/L Critically high 15-37 [facility] Comment on above: Performed By: #### C MP #### [facility] [address] [place] [address] Dr. Starr Garcia Bilirubin [Mass/Vol] 0.7 mg/dL Normal 0.2-1.3 [facility] Comment on above: Performed By: #### C MP #### [facility] [address] [place] [address] Dr. Starr Garcia Calcium [Mass/Vol] 8.9 mg/dL Normal 8.5-10.1 [facility] Comment on above: Performed By: #### C MP #### [facility] [address] [place] [address] Dr. Starr Garcia Chloride [Moles/Vol] 105 mmol/L Normal 98-107 [facility] Comment on above: Performed By: #### C MP #### [facility] [address] [place] [address] Dr. Starr Garcia CO2 [Moles/Vol] 25.7 mmol/L Normal 22.0-30.0 [facility] Comment on above: Performed By: #### C MP #### [facility] [address] [place] [address] Dr. Starr Garcia Creatinine [Mass/Vol] 0.82 mg/dL Normal 0.52-1.04 [facility] Comment on above: Performed By: #### C MP #### [facility] [address] [place] [address] Dr. Starr Garcia EGFR-AF INDIAN >60 Normal >=60 [facility] Comment on above: Performed By: #### C MP #### [facility] [address] [place] [address] Dr. Starr Garcia EGFR-NON AF INDIAN >60 Normal >=60 [facility] Comment on above: Performed By: #### C MP #### [facility] [address] [place] [address] Dr. Starr Garcia Globulin (S) [Mass/Vol] 3.8 g/dL Normal [facility] Comment on above: Performed By: #### C MP #### [facility] [address] [place] [address] Dr. Starr Garcia Glucose [Mass/Vol] 112 mg/dL Critically high 74-106 T [facility] Comment on above: Performed By: #### C MP #### [facility] [address] [address] [address] Starr Garcia Potassium [Moles/Vol] 3.6 mmol/L Normal 3.4-5.0 [facility] Comment on above: Performed By: #### C MP #### [facility] [address] [address] [address] Starr Garcia Protein [Mass/Vol] 8.1 g/dL Normal 6.1-8.2 [facility] Comment on above: Performed By: #### C MP #### [facility] [address] [address] [address] Starr Garcia Sodium [Moles/Vol] 142 mmol/L Normal 137-145 [facility] Comment on above: Performed By: #### C MP #### [facility] [address] [address] [address] Starr Garcia Urea nitrogen [Mass/Vol] 13.0 mg/dL Normal 7.0-18.0 [facility] Comment on above: Performed By: #### C MP #### [facility] [address] [address] [address] Starr Garcia Urea nitrogen/Creatinine [Mass ratio] 15.9 mg/mg Normal [facility] Comment on above: Performed By: #### C MP #### [facility] [address] [address] [address] Starr Garcia URINE MICROSCOPIC ONLYon BACTERIA TRACE Abnormal NONE SEEN [facility] Comment on above: Performed By: #### DRAGAN GASPAR PREGU ####[facility] [address] [id number] Garcia Bacteria identified Cx Nom (U) NOT INDICATED Normal [facility] Comment on above: Performed By: #### DRAGAN GASPAR PREGU ####[facility] [id number] [id number] Garcia CAST NONE SEEN Normal NONE SEEN [facility] Comment on above: Performed By: #### DRAGAN GASPAR PREGU ####[facility] [address] [place], [place] [address]Xj. Starr Garcia Crystals LM Nom (Urine sed) NONE SEEN Normal NONE SEEN [facility] Comment on above: Performed By: #### DRAGAN GASPAR PREGU ####[facility] [address] [place], [place] [address]Xg. Starr Garcia Epithelial cells LM Ql (Urine sed) FEW Abnormal NONE SEEN /RARE [facility] Comment on above: Performed By: #### DRAGAN GASPAR PREGU ####[facility] [address] [place], [place] [address]Hk. Starr Garcia MUCOUS TRACE Abnormal NONE SEEN [facility] Comment on above: Performed By: #### DRAGAN GASPAR PREGU ####[facility] [address] [place], [place] [address]Fj. Starr Garcia RBC 10-20 Abnormal 0-2 [facility] Comment on above: Performed By: #### DRAGAN GASPAR PREGU ####[facility] [address] [place], [place] [address]Iu. Starr Garcia WBC NONE SEEN Normal NONE SEEN [facility] Comment on above: Performed By: #### DRAGAN GASPAR PREGU ####[facility] [address] [place], [place] [address]Kh. Starr Garcia Initial Visit (Neurosurgery) on 06-20-2018 [...] by Dr Quintana with subsequent right sided [employer] shunting; she has had chronic left sided weakness and incoordination, headaches, and blurry vision since at least 2009 no reacent changes in her symptoms. she has no recent imaging or neurosurgical followup since at least 2003. she is here to re establish care. she is unsure as to what type of shunt she has in place Active Problems [employer] (ventriculoperitoneal) shunt status (V45.2) (Z98.2) Current Meds [...] PM Vitals Vital Signs Recorded: 20Jun2018 01:37PMHeart Iujm18Zcbjvxiahct70Mvhm krnp348Ksxxjzuxp35Pmtwm t5 ft 4.5 cwKlrlfb770 lb BMI Iotalmquli10.8BSA Calculated1.97 Physical Examawake and alertright frontal [employer] shuntEOM full speech fluentstrenght 5/5 right, 4/5 left with some tremors bilateralsensation intactgait normal Results/Datathere aer no imaging reports or records Diagnoses/Problems [employer] (ventriculoperitoneal) shunt status (V45.2) (Z98.2) OrdersVP (ventriculoperitoneal) shunt status CT Head without Contrast; Status:Hold For - Scheduling,Retrospectiv e Authorization;Requested for:20Jun2018; Perform:[facility]; Due:30Jun2018; Last Updated By:Cleopatra Rudd; 06/20/2018 1:41:13 PM;Ordered; For:[employer]OR (ventriculoperitoneal) shunt status; Ordered By:Manjit Polk;Patient taking Metformin or Derivatives? : UnknownRadiologist to Determine Optimal Study : YWhat are the patient's signs and symptoms? : shunt Xray Adult Shunt Series; Status:Hold For - Scheduling,Retrospectiv e Authorization;Requested for:20Jun2018; Perform:[facility]; Due:18Sep2018; Last Updated By:Cleopatra Rudd; 06/20/2018 1:42:31 PM;Ordered; For:[employer]OR (ventriculoperitoneal) shunt status; Ordered By:Manjit Polk;Radiologist to Determine Optimal Study : YWhat are the patient's signs and symptoms? : shunt Xray Skull Complete; Status:Canceled; Perform:[facility] Imaging;Ordered; For:[employer]OR (ventriculoperitoneal) shunt status; Ordered By:Manjit Polk;Reason: Unspecified [...] Time Vital Sign Value Performing Clinician Facility 03-21-2025 13:51-0400 Body height 163.83 cm Kit Villafuerte MD Work Phone: [facility] 03-21-2025 13:51-0400 Body mass index (BMI) [Ratio] 38.5 kg/m2 Kit Villafuerte MD Work Phone: [facility] 03-21-2025 13:51-0400 Body weight 103.41 kg Kit Villafuerte MD Work Phone: [facility] 03-21-2025 13:51-0400 Diastolic blood pressure 64 mm[Hg] Kit Villafuerte MD Work Phone: [facility] 03-21-2025 13:51-0400 Heart rate 80 /min Kit Villafuerte MD Work Phone: [facility] 03-21-2025 13:51-0400 Respiratory rate 22 /min Kit Villafuerte MD Work Phone: [facility] 03-21-2025 13:51-0400 SaO2% (BldA) [Mass fraction] 97 % Kit Villafuerte MD Work Phone: [facility] 03-21-2025 13:51-0400 Systolic blood pressure 118 mm[Hg] Kit Villafuerte MD Work Phone: [facility] 06-02-2024 09:11-0500 Diastolic blood pressure 90 mm[Hg] Kit Villafuerte MD Work Phone: [facility] 06-02-2024 09:11-0500 Heart rate 94 /min Kit Villafuerte MD Work Phone: [facility] 06-02-2024 09:11-0500 Respiratory rate 16 /min Kit Villafuerte MD Work Phone: [facility] 06-02-2024 09:11-0500 SaO2% (BldA) [Mass fraction] 94 % Kit Villafuerte MD Work Phone: [facility] 06-02-2024 09:11-0500 Systolic blood pressure 132 mm[Hg] Kit Villafuerte MD Work Phone: [facility] 06-02-2024 08:52-0500 Body temperature 98.4 [degF] Kit Villafuerte MD Work Phone: [facility] 06-02-2024 06:30-0500 Body height 163.83 cm Kit Villafuerte MD Work Phone: [facility] 06-02-2024 06:30-0500 Body weight 100 kg Kit Villafuerte MD Work Phone: [facility] 02-21-2024 11:52-0400 Blood Pressure Location Biju KNOX [facility] 02-21-2024 11:52-0400 Diastolic blood pressure 78 mm[Hg] Biju KNOX [facility] 02-21-2024 11:52-0400 Heart rate 68 /min Biju KNOX [facility] 02-21-2024 11:52-0400 Respiratory rate 16 /min Biju KNOX [facility] 02-21-2024 11:52-0400 Systolic blood pressure 126 mm[Hg] Biju KNOX [facility] 02-15-2024 15:15-0400 Body height 165.1 cm Kit Villafuerte MD Work Phone: [facility] 02-15-2024 15:15-0400 Body mass index (BMI) [Ratio] 36.94 kg/m2 Kit Villafuerte MD Work Phone: [facility] 02-15-2024 15:15-0400 Body temperature 97.5 [degF] Kit Villafuerte MD Work Phone: [facility] 02-15-2024 15:15-0400 Body weight 100.7 kg Kit Villafuerte MD Work Phone: [facility] 02-15-2024 15:15-0400 Diastolic blood pressure 70 mm[Hg] Kit Villafuerte MD Work Phone: [facility] 02-15-2024 15:15-0400 Heart rate 83 /min Kit Villafuerte MD Work Phone: [facility] 02-15-2024 15:15-0400 Respiratory rate 18 /min Kit Villafuerte MD Work Phone: [facility] 02-15-2024 15:15-0400 SaO2% (BldA) [Mass fraction] 95 % Kit Villafuerte MD Work Phone: [facility] 02-15-2024 15:15-0400 Systolic blood pressure 130 mm[Hg] Kit Villafuerte MD Work Phone: [facility] 02-27-2024 10:03-0500 Blood Pressure Location Biju KNOX [facility] 08-10-2023 10:03-0500 Diastolic blood pressure 88 mm[Hg] Biju KNOX [facility] 08-10-2023 10:03-0500 Systolic blood pressure 130 mm[Hg] Biju KNOX [facility] 08-12-2021 13:05-0500 Body height 163.83 cm Christi Vargas Other [facility] Other 08-12-2021 13:05-0500 Body mass index (BMI) [Ratio] 34.64 kg/m2 Christi Vargas Other [facility] Other 08-12-2021 13:05-0500 Body temperature 97.1 [degF] Christi Vargas Other [facility] Other 08-12-2021 13:05-0500 Body weight 92.99 kg Christi Vargas Other [facility] Other 08-12-2021 13:05-0500 Diastolic blood pressure 84 mm[Hg] Christi Vargas Other [facility] Other 08-12-2021 13:05-0500 Respiratory rate 18 /min Christi Vargas Other [facility] Other 08-12-2021 13:05-0500 SaO2% (BldA) [Mass fraction] 100 % Christi Vargas Other [facility] Other 08-12-2021 13:05-0500 Systolic blood pressure 141 mm[Hg] Christi Vargas Other [facility] [employer] Other Encounters Encounter Date Encounter Type Care Provider Facility Start: 03-21-2025 End: 03-21-2025 ambulatory Kit Villafuerte MD Work Phone: [facility] Work Phone: Start: 03-21-2025 End: 03-21-2025 Patient encounter procedure Kit Villafuerte MD -[facility] [place] Work Phone: Start: 09-18-2024 End: 09-18-2024 Clinisync Result Encounter Generic External Data Provider [facility] External Department Unsolicited Start: 09-18-2024 End: 09-18-2024 Clinisync Result Encounter Generic External Data Provider [facility] External Department Unsolicited Start: 09-11-2024 End: 09-11-2024 Clinisync Result Encounter Generic External Data Provider [facility] External Department Unsolicited Start: 09-11-2024 End: 09-11-2024 Clinisync Result Encounter Generic External Data Provider [facility] External Department Unsolicited Start: 08-29-2024 End: 08-29-2024 ambulatory Kit Villafuerte MD Work Phone: [facility] Work Phone: Start: 08-29-2024 End: 08-29-2024 Patient encounter procedure Kit Villafuerte MD Work Phone: [facility] Physician [facility] [place] Work Phone: Start: 06-02-2024 End: 06-02-2024 Admission to same day surgery center Kit Villafuerte MD Work Phone: [facility] [place] Start: 06-02-2024 End: 06-02-2024 ambulatory Kit Villafuerte Facility:[facility] Start: 06-02-2024 End: 06-02-2024 ambulatory Biju KNOX Facility:CD:[id number] Start: 05-19-2024 End: 05-19-2024 ambulatory Kit Villafuerte Facility:[facility] Start: 05-19-2024 Encounter for preprocedural laboratory examination Biju Knox [facility] Start: 02-21-2024 End: 02-21-2024 ambulatory Biju KNOX Facility:[facility] Start: 02-21-2024 End: 02-21-2024 Patient encounter procedure Biju KNOX [facility] Start: 02-15-2024 End: 02-15-2024 Office outpatient visit 25 minutes Kit Villafuerte MD Work Phone: [facility] Comment on above: Nausea (Primary Dx); S/P [employer] shunt; Nonintractable headache, unspecified chronicity pattern, unspecified headache type; Female stress incontinence Start: 02-15-2024 End: 02-15-2024 ambulatory KIT VILLAFUERTE Not Available Start: 02-15-2024 End: 02-15-2024 Bamboo flowsheet Kit Villafuerte MD Work Phone: [facility] Start: 02-15-2024 End: 02-15-2024 Bambosourav flowssheldon Villafuerte MD Work Phone: [facility] Start: 08-23-2023 End: 08-23-2023 ambulatory Biju KNOX Facility:[facility] Start: 08-23-2023 End: 08-23-2023 Patient encounter procedure Biju KNOX [facility] Start: 08-10-2023 End: 08-10-2023 ambulatory Kit Villafuerte Facility:[facility] Start: 08-10-2023 End: 08-10-2023 ambulatory Biju KNOX Facility:[facility] Start: 08-10-2023 End: 08-10-2023 Patient encounter procedure Biju KNOX [facility] Start: 08-09-2023 End: 08-10-2023 ambulatory Biju KNOX Facility:CD:[id number] Start: 07-15-2022 End: 07-16-[address] KIT VILLAFUERTE Facility:[facility] Start: 11-06-2021 End: 11-07-[address] KIT VILLAFUERTE Facility:[facility] Start: 10-05-2021 End: 10-05-2021 ambulatory JEROD HOUSTON Facility:[facility] Start: 09-22-2021 End: 09-22-[address] KIT VILLAFUERTE Facility:[facility] Start: 08-12-2021 End: 08-12-2021 ambulatory Christi Vargas Other [facility] Other Start: 08-12-2021 Office outpatient vi sit 15 minutes Christi Vargas [facility] [place] Start: 06-20-2018 [id number] Start: 08-18-2017 Ambulatory GEORGE CASH Facility:3 Procedures Date Procedure Procedure Detail Performing Clinician Start: 09-18-2024 XR WRIST LT MIN 3 V Gen maritza External Data Provider Start: 09-11-2024 XR WRIST LT MIN 3 V Gen maritza External Data Provider Start: 06-02-2024 Extracorporeal shock wave lithotripsy of calculus of kidney Kit Villafuerte MD Work Phone: Start: 06-02-2024 Supine abdominal X-ray Kit Villafuerte MD Work Phone: Hemorrhoids (disorder) Emile KNOX Procedure on brain ventricular shunt Biju KNOX Plan of Treatment Date Care Activity Detail Author Start: 03-21-2025 Patient referral [facility] Work Phone: Start: 02-12-2025 Influenza vaccination Influenz a Vaccine (Season Ended) [facility] Start: 06-02-2024 [facility] Start: 06-02-2024 [facility] Start: 02-15-2024 End: 02-15-2024 Patient encounter procedure 02/15/2024 3:00 PM EDT Office Visit [facility] [address] [place] [id number] Kit Villafuerte MD [address] [place] [address] Arrived [facility] Comment on above: Arrived Start: 02-15-2024 End: 02-14-2025 CT Head WO contrast CT head wo IV contrast Imaging Routine Nausea S/P [employer] shunt Nonintractable headache, unspecified chronicity pattern, unspecified headache type Expected: 02/15/2024, Expires: 02/14/2025 [facility] Work Phone: Comment on above: Expected: 02/15/2024 , Expires: 02/14/2025 Start: 02-13-2024 Influenza vaccination Influenza Vacc ine (#1) [facility] Start: 2011 Screening for malign ant neoplasm of breast Mammogram [facility] Start: 2001 Screening for malign ant neoplasm of cervix [facility] Start: 1992 Screening for malign ant neoplasm of cervix Pap Smear [facility] Start: 1971 Screening for malign ant neoplasm of colon [facility] Comprehensive metabo lic 2000 panel - Serum or Plasma [facility] MG Breast - bilatera l Screening [facility] Patient Education Know your Meds [facility] Work Phone: Patient referral [facility] Work Phone: [facility] Immunizations Immunization Date Immunization Notes Care Provider Fa cility 04-01-2021 COVID-19 mRNA, Comirnaty (Pfizer) Kit Villafuerte MD Work Phone: [facility] 02-28-2021 influenza virus vaccine, unspecified formulation Kit Villafuerte MD Work Phone: [facility] 09-04-2020 COVID-19 mRNA, Comirnaty (Pfizer) Kit Villafuerte MD Work Phone: [facility] 08-14-2020 COVID-19 Desmond Marquez (Pfizer) Kit Villafuerte MD Work Phone: [facility] Payers Date Payer Category Payer Self-pay 2022 Unknown [employer]ONTPATH FRONTP ATH [id number] 2022-Present [phone] [address] [place] [address] [id number] 2022 Unknown [id number] 2021 Private Health Insurance [employer] TH [id number] 1971 Unknown [id number]. 356 1971 Unknown [id number] 2.16840.1.900745.3.579.2. 593 1971 Unknown [id number] 2.16.840.1.262374.3.579.2. 593 1971 Unknown [id number] 2.840.1.988472.3.579.2. 593 1971 Unknown [id number] 2..840.1.116105.3.579.2. 593 1971 Unknown [id number] 2.16.840.1.448453.3.579.2. 1259 1971 Unknown [id number] 2.16.840.1.519183.3.579.2. 727 1971 Unknown [id number] 2.16.840.1.460841.3.579.2. 727 1971 Unknown [id number] 2.16.840.1.662237.3.579.2. 727 1971 Unknown [id number] 2.16.840.1.543791.3.579.2. 727 1971 Unknown [id number] 2.16.840.1.777508.3.579.2. 727 1971 Unknown [id number] 2.16.840.1.687936.3.579.2. 727 1959 Unknown [id number] Unknown [id number] 2.16.840.1.805854.3.579.2. 531 Unknown [id number] 2.16.840.1.854766.3.579.2. 531 Unknown [id number] 2.16.840.1.530856.3.579.2. 531 Unknown O [id number] Social History Date Type Detail Facility Unknown if ever smoked [facility] Other Start: 02-15-2024 Sex Assigned At F [facility] Start: 08-10-2023 End: 02-21-2024 Tobacco smoking status Light tobacco smoker (finding) [facility] Tobacco smoking status Never [facility] Tobacco smoking status TXIS Tobacco smoking consumption unknown [facility] Start: 1970 Sex assigned at Not on file [facility] Start: 02-15-2024 End: 03-21-2025 Tobacco smoking status NHIS Never smoked tobacco [facility] Start: 02-15-2024 Tobacco use and exposure Smokeless tobacco non-user [facility] Start: 02-15-2024 History of Social function [facility] Start: 08-29-2024 Sex Female (finding) [facility] Start: 1970 Sex Assigned At Female F [facility] Medical Equipment Procedure Code Equipment Code Equipment Origin al Text Equipment Identifier Dates Cystoscopy, with ureteral calculus manipulation and stent placement Polymeric ureteral stent [id number] FDA Start: 08-10-2023 Goals Date Patient Goal Desired Activity /State Functional Status Date Assessment Result Facility 02-21-2024 Functional Status N/A [facility] 08-10-2023 Functional Status N/A [facility] Clinical Notes 08-12-2021 to 03-21-2025 Kit Villafuerte MD - 02/15/2024 9:26 PM Avelino Villafuerte MD - 02/15/2024 9:26 PM Avelino Villafuerte MD - 02/15/2024 3:00 PM EDT Note Date & Type Note Facility 03-21-2025 Hospital Discharg e instructions Ambulatory OrdersReferral to General Surgery Time Frame: 03/21/25, Location: None [facility] Work Phone: 02-21-2024 Hospital Discharg e instructions Patient Education [...] Follow these instructions at home: Medicines Take dony-yyc-gyuzupf and prescription medicines only as told by [...] to keep your pee pale yellow. ?Take wzuq-hfa-pnjcaes or prescription medicines. ?Eat foods that are [...] provider. Document Revised: 01/29/2023 Document Reviewed: 01/29/2023 Project Playlist Patient Education 2023 [employer]. 02/21/2024 12:17:54 Laser Therapy for Kidney Stones [...] including vitamins, herbs, eye drops, creams, and fbuq-vik-czoklom medicines. Any problems you or family members [...] unless your provider tells you to. ?Taking jfne-sqz-eoowymo medicines, vitamins, herbs, and supplements. Tests You [...] provider. Document Revised: 01/29/2023 Document Reviewed: 01/29/2023 Project Playlist Patient Education 2023 [employer]. Follow Up Care 11/24/2023 10:57:49 With:ABILIO EDEN, Biju Acuña, URL Address: [facility] Collect [address] [facility] [address] [place] [id number]- When: Unknown [facility] 02-21-2024 Note Patient Education Nephrology Laser [...] these instructions at home: Medicines ? Take vepd-mal-gtlkccz and prescription medicines only as told by [...] keep your pee pale yellow. ? Take jiha-trs-sahhnck or prescription medicines. ? Eat foods that [...] provider. Document Revised: 01/29/2023 Document Reviewed: 01/29/2023 Project Playlist Patient Education ? 2023 [employer] Laser Therapy for Kidney Stones Laser [...] including vitamins, herbs, eye drops, creams, and czuv-tea-ublncis medicines. ? Any problems you or family [...] Do not e (more content not included)... [facility] 02-15-2024 History of Presen t illness Narrative Associated Problem(s): S/P [employer] shunt Severe nausea and unclear etiology. Use [...] similar episodes. Concerned of problems with shunt. [employer] shunt in place and over past week [...] (Myrbetriq) 50 MG 24 hr tablet S/P [employer] shunt Severe nausea and unclear etiology. Use [...] wo IV contrast documented in this encounter [facility] 08-23-2023 Hospital Discharg e instructions Patient [...] degrees. Follow Up Care 08/13/2023 10:04:30 With:Biju ABILIO Address: [address] [facility] (1) When:6 months Comments:Call for followup appointment, [...] of a kit from a company called [employer].Otherwise I will see him in 6 months with an abdominal x-ray.Have a great day [facility] 08-23-2023 Note [id number] [facility] 08-23-2023 Note Cystoscopy with Sten [...] you have a fever over [address] [facility] 08-10-2023 Hospital Discharg e instructions [...] including vitamins, herbs, eye drops, creams, and tjdy-cha-crefadg medicines. Any problems you or family members [...] provider tells you to take them. ?Taking nkwj-uas-abdpuop medicines, vitamins, herbs, and supplements. Eating and [...] provider. Document Revised: 10/07/2022 Document Reviewed: 02/02/2022 Project Playlist Patient Education 2022 [employer]. Follow Up Care 08/09/2023 11:39:44 With:ABILIO EDEN, Biju Acuña, URL Address: [address] [place], [place] [id number]- When: Unknown Comments:sched cysto/L stent placement [facility] 08-12-2021 Evaluation note Encounter Date Diagnosis Assessment Notes Aug, Tinea manuum (ICD-10 - B35.2) apply to hands and nail beds and hands and follow up with primary care provider for further workup and treatment options [facility] Other Evaluation + Plan note No data available for this section [facility] Evaluation note* Diagnosis Nausea- Primary Nausea alone S/P [employer] shunt Presence of cerebrospinal fluid drainage device Nonintractable headache, unspecified chronicity pattern, unspecified headache type Female stress incontinence documented in this encounter [facility] noteNo [facility] Evaluation note* Diagnosis Onset Date Resolution Status Admit Date Annual physical exam acute 2024 1:21pm [facility] Work Phone: Evaluation note* Diagnosis Onset Date Resolution Status Admit Date Annual physical exam acute 2024 1:21pm Class 2 obesity due to exces s calories without serious comorbidity in adult acute March 1:21pm Major depressive disorder, recurrent episode, moderate acute 2024 1:21pm [facility] Work Phone: History general Narrative - Reported* Type Description Date Medical History chronic depression Medical History bladder trouble Surgical History brain surgery multiple Surgical History brain shunt multiple Hospitalization History See Above [facility]rig[facility] Other Progress note No data available for this section [facility] Reason for referral (narrative)* Consultation (Routine) - Pending Review Specialty Diagnoses / Procedures Referred By Alejandro fish Referred To Contact Neurosurgery Diagnoses S/P [employer] shunt Kit Villafuerte MD [address] [place] [address] Referral ID Status Reason Start Date Expiration Date Visits Requested Visits Authorized [id number] Pending Review Specialty Services Required 02/15/2024 08/13/2024 1 1 * Imaging (Routine) - Authorized Specialty Diagnoses / Procedures Referred By Alejandro fish Referred To Contact Diagnoses Nausea S/P [employer] shunt Nonintractable headache, unspecified chronicity pattern, unspecified headache type Procedures CT head wo IV contrast Kit Villafuerte MD [address] [place] [address] Referral ID Status Reason Start Date Expiration Date V isits Requested Visits Authorized [id number] Authorized 02/15/2024 08/13/2024 1 1 [facility] for referral (narrative)No reason for referral information [facility] Work Phone: Summary Purpose Family History Relationship Condition Age at Onset Recorded Date/T kendra father Atrial fibrillation Unknown Hypertension Unknown mother Family history of me ntal disorder Unknown maternal grandfather Diabetes mellitus Unknown maternal grandmother Diabetes mellitus Unknown Congestive heart failure Unknown Advance Directives Advance Directive Response Recorded Date/ Time Advance Directives No August 29, 2 025 6:48pm Chief Complaint and Reason for Visit Chief Complaint Admit Date Kidney Stone June 02, 2024 5:45am Left arm injury August 29, 2024 6:4 9pm Chief Complaint Admit Date Well Check/Check Sugar March 21, 2025 1:21pm Reason for Visit Admit Date Annual physical exam March 21, 2025 1 :21pm Reason for Visit Admit Date Annual physical exam March 21, 2025 1 :21pm Class 2 obesity due to exces s calories without serious comorbidity in adult March 21, 2025 1:21pm Major depressive disorder, recurrent epi sode, moderate March 21, 2025 1:21pm Additional Source Comments INFORMATION SOURCE (unrecogn ized section and content) DATE CREATED AUTHOR 12/16/2017 [facility] DATE CREATED AUTHOR AUTHOR'S ORGANIZ ATION 06/20/2018 [employer] DATE CREATED AUTHOR AUTHOR'S ORGANIZ ATION 06/22/2018 [facility] DATE CREATED AUTHOR AUTHOR'S ORGANIZ ATION 07/16/2022 [facility] DATE CREATED AUTHOR AUTHOR'S ORGANIZ ATION 02/16/2024 [facility] DATE CREATED AUTHOR AUTHOR'S ORGANIZ ATION 06/08/2024 [facility] DATE CREATED AUTHOR AUTHOR'S ORGANIZ ATION 06/30/2024 [facility] REASON FOR VISIT (unrecogniz ed section and content) Reason Comments Nausea Follow-up Pain zaps near shunt Patient Care team informatio n (unrecognized section and content) Administrative Director Relationship Specialty Start Date End Date Kit Villafuerte MD [address] [place] [phone] PCP - General Family Medicine 02/15/24 Administrative Director Relationship Specialty Start Date End Date Kit Villafuerte MD [address] [place] [phone] PCP - General Family Medicine 02/15/24 Team [...] August 29, 2024 End: August 29, 2024 Administrative Director Relationship Specialty Start Date End Date Kit Villafuerte MD [address] [place] [phone] PCP - General Family Medicine 02/15/24 Team Status: Inactive Member Role Status Dates Kit Villafuerte MD Primary Care Provider Active S tart: March 21, 2025 End: March 21, 2025 Kit Villafuerte MD Attending Provider Active Star t: March 21, 2025 End: March 21, 2025 Goals (unrecognized section and content) Goals may be documented in a n alternate section FOR RECORDS PERTAINING TO PATIENTS WHO ARE [...] BE BASED ON THE PRIMARY CLINICAL RECORDS. [facility] [employer] [facility]. provides no warranty or guarantee of the accuracy or completeness of information in this document.
[2025-03-26 12:07] LABS: Hematocrit 42.6 % (36.0-48.0); Hemoglobin 14.2 g/dL (12.0-16.0); Immature Granulocytes Abs Auto 0.05 10^3/uL (0.00-0.03); Immature Granulocytes Pct Auto 0.6 % (0.0-0.5); Lymphocytes Absolute Auto 2.2 10^3/uL (1.2-3.8); Mean Corpuscular HGB Conc 33.3 g/dL (29.9-35.2); Mean Corpuscular Hemoglobin 30.3 pg (26.7-34.0); Mean Corpuscular Volume 91.0 fL (81.0-99.0); Platelet Count 291 10^3/uL (150-450); Red Blood Count 4.68 10^6/uL (4.20-5.40); White Blood Count 8.3 10^3/uL (4.0-11.0)
[2025-03-26 12:45] LABS: Alanine Aminotransferase 57 U/L (14-59); Albumin Globulin Ratio 0.9; Albumin Level 3.7 g/dL (3.4-5.0); Alkaline Phosphatase 110 U/L (46-116); Anion Gap 12.4; Aspartate Amino Transferase 31 U/L (15-37); Blood Urea Nitrogen 15.0 mg/dL (7.0-18.0); Calcium 8.9 mg/dL (8.5-10.1); Carbon Dioxide 26.2 mmol/L (21.0-32.0); Chloride 108 mmol/L (98-107); Cholesterol 240 mg/dL (<=200); Estimated GFR (African America >60 (>=60 mL/min/1.73m^2); Estimated GFR (Non-African Ame >60 (>=60 mL/min/1.73m^2); Globulin 4.2 g/dL; Glucose 113 mg/dL (74-106); HDL Cholesterol 43 mg/dL (40-60); Potassium 3.6 mmol/L (3.5-5.1); Sodium 143 mmol/L (136-145); Thyroid Stimulating Hormone 3.056 uIU/mL (0.358-3.740); Total Protein 7.9 g/dL (6.4-8.2); Triglycerides 140 mg/dL (<=150); VLDL CHOLESTEROL 28.0 mg/dL
== END 2025-03-26 11:16 | disposition home or self-care (01) ==
LOC: LAB 11:16
PROVIDERS: PCP Family Medicine; Visit Provider Family Medicine
DX: Z00.00 Encounter for general adult medical examination without abnormal findings (principal)
CPT/HCPCS: 36415; 80053; 80061; 83036; 84443; 85025